=== PATIENT | female | born 1945 | race Caucasian/White ===

== ENCOUNTER → 2017-11-30 13:29 | Outpatient (CLI) | payer MEDICARE, SELFPAY ==
--- NOTE | 2017-11-30 | DI.MRI.S_ITS ---
PROCEDURE: MR HIP RT WO CON INDICATIONS: RIGHT HIP PAIN TECHNIQUE: Noncontrast coronal T1 spin echo and STIR through the bony pelvis. Coronal and axial T2 fast spin echo with fat saturation, sagittal T1 spin echo, and oblique axial T2 fast spin echo with fat saturation through the hip. COMPARISON: [facility], , PELVIS 1 OR 2 VIEWS, 12/11/2014, 12:26. FINDINGS: Image quality: Excellent. Bones and joints: Severe right hip joint degeneration with subchondral marrow edema and prominent cystic change/geode within the right acetabulum. There is extensive degenerative spurring and subchondral sclerosis. Small right hip joint effusion. No intraosseous lesions or fractures. No definite serpiginous signal change to suggest avascular necrosis of the femoral heads. Lower lumbar discogenic changes Tendons and ligaments: The gluteus medius and minimus tendons appear intact, without associated muscle atrophy. The nearby proximal iliotibial band also appears intact. The iliopsoas tendon appears intact, without adjacent bursal fluid collections or evidence for impingement syndrome. The origin of the hamstring tendon is intact at the ischial tuberosity, as well as the associated sacrotuberous ligament. The straight and reflected heads of the rectus femoris muscle origin appear intact, as well as the conjoint tendon. The ligamentum teres appears intact where visualized. Labrum and cartilage: There is ill-defined, circumferential intermediate intrasubstance signal change the labrum which is probably degenerative. No definite fluid signal intensity to suggest tear. There is a prominent anterior marginal spur at the femoral head neck junction image 8 series 8 however the alpha angle of the femur measures within normal limits at less than 55 degrees. Soft tissues: Visualized muscles demonstrate normal bulk and internal signal. Quadratus femoris muscle demonstrates no internal edema to suggest ischiofemoral impingement. The proximal sciatic neurovascular bundle appears normal adjacent to the hamstring tendons. No free pelvic fluid. Bladder wall thickness is normal. Genitourinary structures and bowel loops appear normal where visualized. IMPRESSION: Severe right hip joint degeneration with extensive subchondral marrow signal changes and cysts/geodes. Small right hip joint effusion. Circumferential labral irregularity presumably chronic/degenerative fraying. Dictated by: Forest Casey M.D. on 11/30/2017 at 14:51 Approved by: Forest Casey M.D. on 11/30/2017 at 15:02
== END ==
PROVIDERS: PCP Internal Medicine; Visit Provider Internal Medicine
DX: M25.551 Pain in right hip (principal); M16.11 Unilateral primary osteoarthritis, right hip; M25.451 Effusion, right hip
CPT/HCPCS: 73721

== ENCOUNTER → 2018-02-12 11:02 | Outpatient (CLI) | payer MEDICARE, SELFPAY ==
[2018-02-12 12:31] LABS: HEMOLYSIS < 15 (0-50); Iron 129 ug/dL (37-170)
[2018-02-12 12:34] LABS: Alanine Aminotransferase 26 IU/L (9-52); Albumin 4.7 g/dL (3.5-5.0); Albumin Globulin Ratio 1.4 (1.0-2.8); Alkaline Phosphatase 100 U/L (38-126); Aspartate Aminotransferase 27 IU/L (14-36); BUN Creatinine Ratio 22.9 (6-22); Bilirubin Total 0.4 mg/dL (0.2-1.3); Blood Urea Nitrogen 16 mg/dL (7-17); Calcium 9.8 mg/dL (8.4-10.2); Carbon Dioxide 25 mmol/L (22-32); Chloride 101 mmol/L (98-107); Estimated Glomerular Filt Rate > 60.0 mL/min (>60); Globulin 3.4 g/dL (1.7-4.1); Glucose 100 mg/dL (80-110); HEMOLYSIS 24 (0-50); Potassium 4.5 mmol/L (3.4-5.1); Sodium 139 mmol/L (137-145); Total Protein 8.1 g/dL (6.3-8.2)
[2018-02-12 12:42] LABS: Add Manual Diff / Slide Review NO; Basophils Percent Auto 0.4 % (0-2); Eosinophils Percent Auto 1.4 % (2-4); Hematocrit 41.6 % (36-46); Hemoglobin 14.1 g/dL (12.0-16.0); Lymphocytes Percent Auto 33.5 % (25-40); Mean Corpuscular HGB Conc 33.8 % (30-36); Mean Corpuscular Hemoglobin 30.7 PG (26-34); Mean Corpuscular Volume 90.8 fL (80-100); Monocytes Percent Auto 8.4 % (3-14); Neutrophils Absolute Auto 3400 /uL (3000-5900); Neutrophils Percent Auto 56.3 % (50-75); Percent Iron Saturation 50 % (15-50); Platelet Count 266 X10^3/uL (150-400); Red Blood Cell Count 4.58 X10^6/uL (4.0-5.2); Red Cell Distribution Width 13.5 % (11.6-14.8); Total Iron Binding Capacity 257 ug/dL (265-497); Transferrin 232 mg/dL (206-381); White Blood Cell Count 6.1 X10^3/uL (4.5-11.0)
[2018-02-12 13:03] LABS: Thyroid Stimulating Hormone 1.68 uIU/mL (0.47-4.68)
[2018-02-12 13:07] LABS: Ferritin 64.6 ng/mL (11.1-264)
[2018-02-13 16:21] LABS: Vitamin D 25 Hydroxy (D3) 39.2 ng/mL (30.0-100.0)
== END ==
PROVIDERS: PCP Internal Medicine; Visit Provider Dermatology
DX: Z08 Encounter for follow-up examination after completed treatment for malignant neoplasm (principal); Z85.828 Personal history of other malignant neoplasm of skin; L57.0 Actinic keratosis; X32.XXXA Exposure to sunlight, initial encounter; L65.9 Nonscarring hair loss, unspecified; D18.01 Hemangioma of skin and subcutaneous tissue; L82.1 Other seborrheic keratosis
CPT/HCPCS: 36415; 80053; 82306; 82728; 83540; 83550; 84439; 84443; 85025

== ENCOUNTER 2018-04-09 23:57 | Observation (INO) | payer MEDICARE, SELFPAY ==
[2018-04-10] VITALS (11 sets, daily range): BP systolic 129–187; BP diastolic 72–90; PULSE 62–80; RESP 14–20; TEMP 36.3–36.6; O2SAT 97–100; BMI 25.8; BMI 26.0
--- NOTE | 2018-04-10 | DI.MRI.S_ITS ---
PROCEDURE: MR STROKE Pre- and post-contrast brain MRI, non-contrast brain MR angiogram, pre- and postcontrast neck MR angiogram INDICATIONS: Sudden dizziness, left leg weakness, alt sensation L side TECHNIQUE: Brain: Noncontrast axial T1 spin echo, axial T2 fast spin echo, sagittal and axial FLAIR, coronal T2 fast spin echo, axial gradient echo, axial diffusion and ADC through the brain. After the administration of contrast, axial 3D VIBE of the cranial vasculature and brain. Brain MRA: Non-contrast 3-D time of flight MR angiogram, with multiple tvwhnig-pcrfgnvah-sxbhddeyct (MIP) reformats performed. Neck MRA: Axial and sagittal TruFISP through the neck. Coronal dynamic MR angiogram during administration of contrast in the arterial and venous phases, with 3-dimenstional fumexee-flwzbwavy-ochwaimcvg (MIP) reformats constructed from subtraction images. COMPARISON: [facility], CT, CT HEAD/BRAIN WO CON, 04/10/2018, 1:20. [facility], MR, STROKE PROTOCOL, 04/11/2017, 11:05. FINDINGS: Image quality: Excellent. BRAIN: CSF spaces: Ventricles are normal in size and shape. Basal cisterns are patent. No extra-axial fluid collections. Brain: No intracranial bleeds or mass effects. Sun-white matter interface is normal. Diffusion weighted images show no acute ischemic insults. Brainstem appears normal. Normal intravascular flow voids are present. No abnormal intracranial enhancement. Skull and face: Calvarial marrow signal is normal. Orbits appear normal. Note is made of bilateral lens replacements. Sinuses: Sinuses and mastoids are clear. BRAIN MR ANGIOGRAM: Anterior circulation: Intracranial internal carotid arteries are normal in size and enhancement. The flow within the paired anterior cerebral arteries is normal and symmetric. The flow within the middle cerebral arteries is normal and symmetric. The anterior communicating artery is not well seen. No stenoses, occlusions, or aneurysms. Posterior circulation: The visualized portions of the vertebral arteries demonstrate normal caliber, and join to form a normal appearing basilar artery. The flow within the posterior cerebral arteries is normal and symmetric. No stenoses, occlusions, or aneurysms. NECK MR ANGIOGRAM: Carotids: Great vessels demonstrate a conventional anatomy as they arise from the aortic arch. The origins of the common carotid arteries appear patent. The calibers and courses of both common carotid arteries are normal. The bifurcation regions appear normal bilaterally. The internal carotid arteries demonstrate normal course and caliber. Posterior circulation: The origins of the vertebral arteries appear patent. More superior portions of both vertebral arteries demonstrate normal course and caliber, and join to form a normal appearing basilar artery. Miscellaneous: Subclavian arteries appear patent. Pre-contrast images through the neck show no soft tissue abnormalities. IMPRESSION: BRAIN MRI: No findings of acute or subacute infarction can be seen. No masses or abnormal enhancement can be seen. Note is made of age-appropriate brain parenchymal volume loss and chronic small vessel ischemic changes. BRAIN MR ANGIOGRAM: No significant intracranial arterial abnormality can be seen. NECK MR ANGIOGRAM: No hemodynamically significant stenosis can be seen of the arteries of the neck. Dictated by: Duglas Theodore M.D. on 04/10/2018 at 10:56 Approved by: Duglas Theodore M.D. on 04/10/2018 at 10:59
--- NOTE | 2018-04-10 00:27 | DI.RAD.S_ITS ---
PROCEDURE: XR CHEST 1V INDICATIONS: dizziness TECHNIQUE: One view of the chest was acquired. COMPARISON: [facility], CT, CHEST/ABD/PEL WITH CONTRAST, 12/27/2012, 12:37. [facility], CR, XR CERVICAL SPINE WITH OBLIQUES, 01/16/2018, 13:05. [facility], CR, CHEST 1 VIEW, 04/11/2017, 1:48. FINDINGS: Surgical changes and devices: None. Lungs and pleura: There is a 1.7 x 2.3 cm nodular density is present in the right upper lobe medially. Lungs are clear. No pleural effusions or pneumothorax. Mediastinum: Mediastinal contours appear normal. Heart size is normal. Bones and chest wall: No suspicious bony lesions. Overlying soft tissues appear unremarkable. IMPRESSION: 1. No acute cardiopulmonary disease. 2. A 1.7 x 2.3 cm in the right upper lobe. Chest CT is suggested for followup evaluation. The result was discussed with Dr. Maldonado in ER on 04/10/2018 at 0946 hours. Dictated by: Thien Bright M.D. on 04/10/2018 at 9:28 Transcribed by: MANISHA on 04/10/2018 at 9:34 Approved by: Thien Bright M.D. on 04/10/2018 at 9:46
[2018-04-10 00:47] LABS: Add Manual Diff / Slide Review NO; Basophils Absolute Auto 100 /uL (0-100); Basophils Percent Auto 0.8 % (0-2); Eosinophils Absolute Auto 100 /uL (0-450); Eosinophils Percent Auto 2.4 % (2-4); Hematocrit 40.8 % (36-46); Hemoglobin 13.8 g/dL (12.0-16.0); Lymphocytes Absolute Auto 3100 /uL (1100-4500); Lymphocytes Percent Auto 49.7 % (25-40); Mean Corpuscular HGB Conc 33.9 % (30-36); Mean Corpuscular Hemoglobin 30.2 PG (26-34); Mean Corpuscular Volume 89.1 fL (80-100); Monocytes Absolute Auto 600 /uL (0-900); Monocytes Percent Auto 10.2 % (3-14); Neutrophils Absolute Auto 2300 /uL (1500-7000); Neutrophils Percent Auto 36.9 % (50-75); Platelet Count 267 X10^3/uL (150-400); Red Blood Cell Count 4.58 X10^6/uL (4.0-5.2); Red Cell Distribution Width 13.2 % (11.6-14.8); White Blood Cell Count 6.3 X10^3/uL (4.5-11.0)
[2018-04-10 00:54] LABS: Alanine Aminotransferase 24 IU/L (9-52); Albumin 4.6 g/dL (3.5-5.0); Albumin Globulin Ratio 1.4 (1.0-2.8); Alkaline Phosphatase 89 U/L (38-126); Aspartate Aminotransferase 26 IU/L (14-36); BUN Creatinine Ratio 18.6 (6-22); Bilirubin Total 0.6 mg/dL (0.2-1.3); Blood Urea Nitrogen 13 mg/dL (7-17); Calcium 9.6 mg/dL (8.4-10.2); Carbon Dioxide 24 mmol/L (22-32); Chloride 105 mmol/L (98-107); Creatine Kinase 70 U/L (30-135); Estimated Glomerular Filt Rate > 60.0 mL/min (>60); Globulin 3.2 g/dL (1.7-4.1); Glucose 97 mg/dL (80-110); HEMOLYSIS < 15 (0-50); Lipase 123 U/L (23-300); Potassium 3.7 mmol/L (3.4-5.1); Sodium 139 mmol/L (137-145); Total Protein 7.8 g/dL (6.3-8.2)
[2018-04-10 01:07] LABS: Troponin I < 0.012 ng/mL (0.01-0.034)
--- NOTE | 2018-04-10 01:23 | DI.CT.S_ITS ---
PROCEDURE: CT HEAD/BRAIN WO CON INDICATIONS: dizzy, Left leg weakness, stroke eval, outside TPA window TECHNIQUE: Noncontrast 4.5 mm thick angled axial sections acquired from the foramen magnum to the vertex, with coronal and sagittal reformats. For radiation dose reduction, the following was used: automated exposure control, adjustment of mA and/or kV according to patient size. COMPARISON: [facility], CT, HEAD WITHOUT CONTRAST, 04/11/2017, 2:02. FINDINGS: Image quality: Excellent. CSF spaces: Basal cisterns are patent. No extra-axial fluid collections. The ventricles are symmetric in size and shape. Brain: No intracranial bleeds or masses. There is mild cerebral volume loss for age, with resultant ventricular and sulcal prominence. There are mild periventricular and deep white matter chronic small vessel ischemic changes. There is intracranial internal carotid artery atherosclerosis. Skull and face: Calvarium and visualized facial bones appear intact, without suspicious lesions. Sinuses: Visualized sinuses and mastoids are clear. IMPRESSION: 1. No acute intracranial abnormalities. 2. Cerebral volume loss and chronic microvascular ischemic changes. No significant discrepancy with the material handler 1st shift radiology preliminary report. Dictated by: Thien Bright M.D. on 04/10/2018 at 7:30 Approved by: Thien Bright M.D. on 04/10/2018 at 7:31
--- NOTE | 2018-04-10 01:54 | ED.DIZZY ---
HPI - Dizziness General Chief Complaint: Dizziness Stated Complaint: DIZZINESS SINCE 3 PM Time Seen by Provider: 04/10/18 00:03 Source: patient and family Mode of arrival: wheelchair Limitations: no limitations History of Present Illness HPI Narrative: [age] year female, former smoker with history ovarian cancer presents to the emergency department with a chief complaint of dizziness which started at 3:00 p.m.. She states it has been going on off and on since then she denies any significant provocation palliation. She does state that her left leg felt like it was collapsing under her as well. She denies any vision or speech deficit. She does state that she has had episodes like this in the past but has never sought medical treatment. She denies any recent illness or injuries. She denies fever or chills. She has had no chest pain or shortness of breath. She denies nausea, vomiting or diarrhea MD complaint: dizziness and difficulty walking Onset (ago): hour(s) Timing: sudden onset Description: lightheadedness, off-balance and difficulty walking History of similar episodes: Yes History of trauma: No Severity: moderate Relieving factors: nothing Exacerbating factors: nothing Associated symptoms: denies other symptoms Related Data Allergies Allergy/AdvReac Type Severity Reaction Status Date / Time INGREDIENT: NKDA - NO KNOWN Allergy Unknown Uncoded 06/21/17 11:51 DRUG ALLERGIES Review of Systems Constitutional Denies chills, Denies fever(s), Denies lethargy and Reports weakness Eyes Denies change in vision, Denies eye discharge, Denies irritation and Denies loss of vision ENT Ears, Nose, Mouth, and Throat: Denies change in voice, Reports dizziness, Denies neck pain, Reports disequilibrium and Denies sore throat Cardiovascular Denies chest pain, Denies irregular heart rhythm, Denies lightheadedness, Denies palpitations, Denies dyspnea, Denies dyspnea on exertion and Denies orthopnea Respiratory Denies cough, Denies dyspnea, Denies dyspnea on exertion and Denies wheezing Gastrointestinal Gastrointestinal: Denies abdominal pain, Denies change in bowel habits, Denies diarrhea, Denies nausea and Denies vomiting Genitourinary Denies hematuria, Denies flank pain, Denies urinary incontinence and Denies urinary urgency Musculoskeletal Denies neck pain Integumentary/Breasts Denies pruritus, Denies erythema, Denies rash and Denies wounds Neurologic Denies confusion, Reports dizziness, Denies loss of vision, Reports disequilibrium and Reports weakness Psychiatric Denies anxiety, Denies confusion, Denies depression, Denies homicidal ideation and Denies suicidal ideation Endocrine Denies palpitations Hematologic/Lymphatic Denies easy bruising Allergic/Immunologic Denies wheezing [facility] Social History Smoking Status: Never smoker Exam Narrative Exam Narrative: 72-year-old female, appears a bit anxious Initial Vital Signs Initial Vital Signs: Vital Signs Temperature 97.9 F 04/10/18 00:16 Pulse Rate 80 04/10/18 00:16 Respiratory Rate 17 04/10/18 00:16 Blood Pressure 187/90 H 04/10/18 00:16 Pulse Oximetry 98 04/10/18 00:16 Const General: cooperative, well developed, in distress and anxious Nutritional Appearance: well nourished Orientation: alert, awake, oriented x3 and not confused HENMT Head: normocephalic and atraumatic Ears: external ears normal and TM's normal bilaterally Nose: external nose normal and No nasal discharge Face and sinus: sinuses nontender, no sinus tenderness and No dry mucous membranes Teeth and gingiva: dentition normal Throat: tonsils normal and uvula midline Eyes General: appearance normal, both eyes and all related structures Eyelids: eyelids normal Conjunctivae: conjunctivae normal Sclera: sclerae normal Pupils: PERRL EOM: EOM intact bilaterally Neck Neck: normal visual inspection, trachea midline, No lymphadenopathy, No midline deformity and No JVD Lymphatic: No lymphedema Chest Chest: normal inspection of the chest Resp Effort & Inspection: normal respiratory effort, able to speak in complete sentences, no respiratory distress and no use of accessory muscles Auscultation: clear to auscultation bilaterally, no rales, no rhonchi and no wheezes Cardio Rate: regular rate Rhythm: regular rhythm Heart Sounds: no click, no gallops, no murmurs and no rubs Pulses: normal peripheral pulses GI Inspection: non-distended Palpation: soft, no hepatosplenomegaly, No guarding, No pulsatile mass and No tender Auscultation: normal bowel sounds Back/Spine/Pelvis Back: No CVA tenderness Cervical Spine: cervical ROM normal and No pain with cervical ROM Thoracic/Lumbar Spine: thoracic and lumbar spine normal to inspection Skin General: no rashes or lesions noted, No jaundice and No petechiae Neuro General: alert, oriented x3, gait normal and no focal motor deficits Speech: speech normal Extrem General: full ROM, no clubbing, cyanosis or edema, no pedal edema and no calf tenderness Psych Appearance: well kempt Mental Status: mental status grossly normal Attitude: cooperative Thought Content: normal and suicidality Judgment: judgment good Scores ABCD2 Age >= 60 years: yes Initial BP. Either SBP >= 140 or DBP >= 90.: yes Clinical features of the TIA: unilateral weakness Duration of symptoms: >= 60 minutes History of diabetes: no ABCD2 Score: 6 NIH Stroke Scale Level of Conciousness: Alert, keenly responsive Ask month/age: Answers both questions correctly. Open/close eyes, close hand: Performs both tasks correctly Best gaze horizontal: Normal Visual melo: No visual loss Facial palsy: Normal symetrical movement Left arm drift: No drift for full 10 sec Right arm drift: No drift for full 10 sec Left leg drift: No drift for full 10 sec Right leg drift: No drift for full 10 sec Limb ataxia: Absent Sensory on face/arms/legs: Normal, no sensory loss Best language: No aphasia, normal Dysarthria: Normal Extinction or inattention: No abnormality Total NIH Stroke scale score: 0 Course Orders Ordered: ED Orders 04/10/18 EKG-12 Lead Routine 04/10/18 00:27 XR chest 1V Stat 04/10/18 00:35 Complete Blood Count AUTO DIFF Stat Comprehensive Metabolic Panel Stat Lipase Stat Troponin & CK Cardiac Panel Stat 04/10/18 01:23 CT head/brain wo con Stat Sodium Chloride (Normal Saline 0.9%) 1,000 mls @ 150 mls/hr IV CONT SARAN Last Admin: 04/10/18 02:45 Dose: Not Given Discontinued Medications Aspirin (Aspirin Chew) 324 mg PO NOW ONE Stop: 04/10/18 02:32 Last Admin: 04/10/18 02:45 Dose: 324 mg Consultations Consultation #1: discussed with hospitalist whom is happy to accept on his service Vital Signs - 8 hr 04/10/18 00:16 04/10/18 00:41 04/10/18 01:02 Temperature 97.9 F Pulse Rate 80 68 75 Respiratory Rate 17 20 16 Blood Pressure 187/90 H Blood Pressure [Left Arm] 171/86 H 180/86 H Pulse Oximetry 98 98 99 04/10/18 02:09 04/10/18 02:49 04/10/18 03:06 Temperature Pulse Rate 64 70 71 Respiratory Rate 14 16 16 Blood Pressure 166/82 H Blood Pressure [Left Arm] 151/78 H Pulse Oximetry 98 97 99 MDM - Dizziness Differential Diagnosis Likely benign paroxysmal positional vertigo, orthostatic hypotension, vertebral basilar insufficiency, cerebrovascular accident and acute vestibular neuronitis Medical Records Attestation: I reviewed the patient's medical records. Lab Data Attestation: I reviewed the patient's lab results. Result diagrams: 04/10/18 00:35 04/10/18 00:35 Lab Results 04/10/18 04/10/18 Range/Units 00:35 00:35 WBC 6.3 (4.5-11.0) X10^3/uL RBC 4.58 (4.0-5.2) X10^6/uL Hgb 13.8 (12.0-16.0) g/dL Hct 40.8 (36-46) % MCV 89.1 (80-100) fL MCH 30.2 (26-34) PG MCHC 33.9 (30-36) % RDW 13.2 (11.6-14.8) % Plt Count 267 (150-400) X10^3/uL Neut % (Auto) 36.9 L (50-75) % Lymph % (Auto) 49.7 H (25-40) % [place] % (Auto) 10.2 (3-14) % Eos % (Auto) 2.4 (2-4) % Baso % (Auto) 0.8 (0-2) % Neut # (Auto) 2300 (2327-9735) /uL Lymph # (Auto) 3100 (7873-2219) /uL [place] # (Auto) 600 (0-900) /uL Eos # (Auto) 100 (0-450) /uL Baso # (Auto) 100 (0-100) /uL Sodium 139 (137-145) mmol/L Potassium 3.7 (3.4-5.1) mmol/L Chloride 105 (98-107) mmol/L Carbon Dioxide 24 (22-32) mmol/L BUN 13 (7-17) mg/dL Creatinine 0.70 (0.52-1.04) mg/dL Estimated GFR > 60.0 (>60) mL/min BUN/Creatinine Ratio 18.6 (6-22) Glucose 97 (80-110) mg/dL Calcium 9.6 (8.4-10.2) mg/dL Total Bilirubin 0.6 (0.2-1.3) mg/dL AST 26 (14-36) IU/L ALT 24 (9-52) IU/L Alkaline Phosphatase 89 (38-126) U/L Total Creatine Kinase 70 (30-135) U/L CK-MB (CK-2) TNP CK-MB (CK-2) Rel Index TNP Troponin I < 0.012 (0.01-0.034) ng/mL Total Protein 7.8 (6.3-8.2) g/dL Albumin 4.6 (3.5-5.0) g/dL Globulin 3.2 (1.7-4.1) g/dL Albumin/Globulin Ratio 1.4 (1.0-2.8) Lipase 123 (23-300) U/L Imaging Data CT scan - head: Radiologist's impression: NAP ECG Data Attestation: I personally reviewed and interpreted this ECG as follows: Discharge Plan Departure Patient Disposition: Admitted as Observation Clinical Impression: TIA (transient ischemic attack) Interventions: ED Discharge Assessment Last Done: 04/10/18 03:06 Admit Date/Time: 04/10/18 02:55 Admit Provider: Abdifatah Santamaria
[2018-04-10] MEDS: ASPIRIN 81 MG TAB 324 MG PO (02:45)
--- NOTE | 2018-04-10 03:31 | PM.HP.1 ---
History of Present Illness Date Patient Seen: 04/10/18 Time Patient Seen: 03:02 Chief complaint: DIZZINESS SINCE 3 PM Narrative: This patient is a 72-year-old female with a past history of ovarian cancer, former smoker and elevated blood pressure presents to the ER today with a sudden onset of dizziness approximately 3:00 p.m. yesterday. The patient states she was getting to file papers at home when she experienced a sudden onset of dizziness and when she tried to walk felt wobbly. She was experiencing altered sensation on the left side of body feeling strange with left leg weakness. Patient also describes headache tonight but denies visual changes, no difficulty speaking or swallowing, no chest pain, shortness of breath. The patient reports having previous episodes of transient dizziness for over a year that last for only seconds with no associated symptoms. The patient The patient earlier in the day had worked out at the gym with her customer service trainer and is otherwise had no other recent health concerns. The patient had a varying cancer and underwent chemotherapy at [facility] many years ago and reports having nausea ever since. She has also been a former smoker having quit in 1989 for having smoked 1 pack day for 20 years. She also has a significant family history for cardiovascular disease but no family history of stroke. In the ER the patient received aspirin, had a chest x-ray that was unremarkable, a CT of the head noncontrast that was negative for bleed or lesion. The patient's blood pressure is elevated in the ED pressures in the 160s to 170s and the patient reports typically she runs 126/80 at her doctor's office. During the stay in the ER the patient states she feels her symptoms are resolving but states that her left side continues to feel strange. Patient History Medical History Abdominal adhesions (Acute) Elevated blood pressure reading without diagnosis of hypertension (Acute) Ovarian cancer (Acute) Seasonal allergies (Acute) Surgical History History of cataract surgery (Acute) History of laparotomy (Acute) Status post chemotherapy (Acute) Family & Social History Family History: Reviewed 04/10/18 by Josue Bran DO Tobacco & Substance use: Smoking Status Never smoker alcohol intake frequency 0-2 drinks per day Substance Use Type marijuana Comment: The patient is single and lives with her significant other since 1993. They live in a single family single level house with basement. Both her parents are , her mother had congestive failure past weight age 93, her father of old age at age 96. She has 1 brother who she has lost contact with and does not know his medical background. She reports multiple family members including her grandfather on her mother's side and cousins who have cardiovascular disease. Smoking: Past smoker quit in 1993 after smoking 1 pack per day for 20 years Alcohol: Light to moderate consumption Drug use: No recreational pharmaceuticals but endorses cannabis use Advanced directives: Patient states she wishes to be do not resuscitate. Primary care provider: Dr. Rolo Clayton Allergies Allergy/AdvReac Type Severity Reaction Status Date / Time INGREDIENT: NKDA - NO KNOWN Allergy Unknown Uncoded 06/21/17 11:51 DRUG ALLERGIES Review of Systems Review of Systems Constitutional: Denies fevers, chills, sweats, fatigue, good appetite with stable weight Eyes: Positive for cataract surgery, Denies visual changes, visual field loss, denies floaters, diplopia ENT: Positive for headache, history of transient left neck and jaw pain, Denies hearing changes, ear pain, no nasal congestion, rhinorrhea, no dysphagia, sore throat or dentalgia, Respiratory: Denies SOB, cough, exertional dyspnea, wheezing Cardiovascular: Denies chest pain, palpitations, orthostatasis, syncope, edema Gastrointestinal: Prior history of ovarian cancer, intra-abdominal chemotherapy, laparotomy for lysis of adhesions, Denies abdominal pain, no reflux or bloating, constipation or diarrhea, denies blood in stool. Genitourinary: Positive for frequency, denies vaginal discharge, no complains of burning or urgency, hematuria on voiding Musculoskeletal: Positive for history of osteoarthritis, right hip pain, left shoulder pain, right hand pain, weakness left leg, denies falls, limited movement, cramps, edema, myalgia or joint swelling. Integumentary: denies skin lesions, masses, rashes, hives, itching or hair loss Neurological: Positive for dizziness, altered sensation left side, left leg weakness, denies confusion, speech difficulties or seizures Psychiatric: denies disturbances in thought, attentions or mood, denies substance abuse Endocrine: denies excessive thirst, goiter, lethargy, abnormal sweating, and heat/cold intolerance. Heme/lymph: Denies lymphadenopathy, abnormal bleeding or bruising Exam Vital Signs (past 8 hours): - 04/10/18 00:16 04/10/18 00:41 04/10/18 01:02 Temperature 97.9 F Pulse Rate 80 68 75 Respiratory Rate 17 20 16 Blood Pressure 187/90 H Blood Pressure [Left Arm] 171/86 H 180/86 H Pulse Oximetry 98 98 99 04/10/18 02:09 04/10/18 02:49 04/10/18 03:06 Temperature Pulse Rate 64 70 71 Respiratory Rate 14 16 16 Blood Pressure 166/82 H Blood Pressure [Left Arm] 151/78 H Pulse Oximetry 98 97 99 Oxygen Delivery Method Room Air Narrative Exam Narrative: General: Well developed, well nourished, in no acute distress. Skin: Warm, dry, pink, no rashes, no visible lesions HEENT: Normocephalic, PERRLA, EOMs intact without nystagmus, conjunctiva moist, sclera is anicteric, visual melo intact by confrontation, no ear pain, hearing grossly normal, no sinus tenderness to percussion, no rhinorrhea, speech is clear, oropharynx is moist and pink without lesions or exudate, uvula midline, posterior pharynx without inflammation, no cervical lymphadenopathy Neck: Supple, tenderness on palpation over the left trapezius into the left scapula, no palpable muscle spasms, no masses, thyroid non tender without thyromegaly or nodules, trachea midline, no carotid bruits or JVD, no supraclavicular lymphadenopathy Cardiac: Regular rate and rhythm, S1-S2, no murmur, no gallops or rubs, 2+ radial pulse, 1+ posterior tibial pulse, capillary refill is brisk, no edema Chest: Symmetrical movement, breathing non labored, nontender to AP and lateral compression, no cough present, BS equal bilateral without coarseness, crackles or wheezes Abdomen: Soft, no tenderness or guarding, no masses or organomegaly, no peritoneal signs, no flank or suprapubic pain, BS normal. Back: Normal curvature, no tenderness to palpation, no CVA tenderness on percussion Extremities: Intact ROM, no synovial effusions or deformities, strength 5/5 and symmetrical Neuro: AAOx4, cranial nerves II-XII grossly intact, no pronator drift, dorsi-plantar strength is 5/5 and symmetrical, aircraft ordnance systems mechanic equal, distal sensation intact to light touch Psych: pleasant, thought coherent, stable mood and congruent affect Objective Labs Result Diagrams: 04/10/18 00:35 04/10/18 00:35 Labs: Laboratory Results - last 24 hr 04/10/18 04/10/18 00:35 00:35 WBC 6.3 RBC 4.58 Hgb 13.8 Hct 40.8 MCV 89.1 MCH 30.2 MCHC 33.9 RDW 13.2 Plt Count 267 Neut % (Auto) 36.9 L Lymph % (Auto) 49.7 H [place] % (Auto) 10.2 Eos % (Auto) 2.4 Baso % (Auto) 0.8 Neut # (Auto) 2300 Lymph # (Auto) 3100 [place] # (Auto) 600 Eos # (Auto) 100 Baso # (Auto) 100 Sodium 139 Potassium 3.7 Chloride 105 Carbon Dioxide 24 BUN 13 Creatinine 0.70 Estimated GFR > 60.0 BUN/Creatinine Ratio 18.6 Glucose 97 Calcium 9.6 Total Bilirubin 0.6 AST 26 ALT 24 Alkaline Phosphatase 89 Total Creatine Kinase 70 CK-MB (CK-2) TNP CK-MB (CK-2) Rel Index TNP Troponin I < 0.012 Total Protein 7.8 Albumin 4.6 Globulin 3.2 Albumin/Globulin Ratio 1.4 Lipase 123 Assessment & Plan Plan: Assessment/Plan Narrative: 1. Possible transitory ischemic attack, present on admission, acute -sudden acute nerve on senna symptoms presently resolving -patient with prior history of transitory dizziness lasting seconds for the last year -no dizziness, tactile sensory changes reported on examination -NIH evaluation score is 0, ABCD2 score is 4 -patient received aspirin in the emergency department continue aspirin 81 mg daily -will obtain a lipid panel -will obtain an MRI. Stroke protocol to include carotid arteries 2. Elevated blood pressure without diagnosis of hypertension, present on admission, acute -note a previous history of hypertension, on no antihypertensives -IV saline locked -will monitor blood pressure 3. Neck and jaw pain present on admission, acute -tenderness on palpation to the left neck and trapezius radiating into the upper back -pain appears musculoskeletal and has been intermittent prior to yesterday's onset dizziness -no complaints of chest pain for conditional dyspnea 4. Past history of ovarian cancer not present on admission, remission -treated with no evidence of recurrence, followed by Oncology 5. History of smoking, resolved -patient quit smoking in 1993 with a 20 pack year smoking history -no complaints shortness of breath or cough The patient will be admitted for observation will obtain MRI stroke protocol in the morning and monitor blood pressure for normalization. Scores GCS [place] coma scale eye opening: Spontaneous [place] coma scale verbal response: Orientated [place] coma scale motor response: Obey commands [place] coma scale total score: 15 ABCD2 Age >= 60 years: yes Initial BP. Either SBP >= 140 or DBP >= 90.: yes Clinical features of the TIA: other symptoms (Dizziness) Duration of symptoms: >= 60 minutes History of diabetes: no ABCD2 Score: 4 NIHSS Level of Conciousness: Alert, keenly responsive Ask month/age: Answers both questions correctly. Open/close eyes, close hand: Performs both tasks correctly Best gaze horizontal: Normal Visual melo: No visual loss Facial palsy: Normal symetrical movement Left arm drift: No drift for full 10 sec Right arm drift: No drift for full 10 sec Left leg drift: No drift for full 10 sec Right leg drift: No drift for full 10 sec Limb ataxia: Absent Sensory on face/arms/legs: Normal, no sensory loss Best language: No aphasia, normal Dysarthria: Normal Extinction or inattention: No abnormality Total NIH Stroke scale score: 0
--- NOTE | 2018-04-10 04:10 | P.HP_ITS ---
History of Present Illness Date Patient Seen: 04/10/18 Time Patient Seen: 03:02 Chief complaint: DIZZINESS SINCE 3 PM Narrative: This patient is a 72-year-old female with a past history of ovarian cancer, former smoker and elevated blood pressure presents to the ER today with a sudden onset of dizziness approximately 3:00 p.m. yesterday. The patient states she was getting to file papers at home when she experienced a sudden onset of dizziness and when she tried to walk felt wobbly. She was experiencing altered sensation on the left side of body feeling strange with left leg weakness. Patient also describes headache tonight but denies visual changes, no difficulty speaking or swallowing, no chest pain, shortness of breath. The patient reports having previous episodes of transient dizziness for over a year that last for only seconds with no associated symptoms. The patient The patient earlier in the day had worked out at the gym with her hardware trainer and is otherwise had no other recent health concerns. The patient had a varying cancer and underwent chemotherapy at [facility] many years ago and reports having nausea ever since. She has also been a former smoker having quit in 1989 for having smoked 1 pack day for 20 years. She also has a significant family history for cardiovascular disease but no family history of stroke. In the ER the patient received aspirin, had a chest x-ray that was unremarkable, a CT of the head noncontrast that was negative for bleed or lesion. The patient's blood pressure is elevated in the ED pressures in the 160s to 170s and the patient reports typically she runs 126/80 at her doctor's office. During the stay in the ER the patient states she feels her symptoms are resolving but states that her left side continues to feel strange. Patient History Medical History Abdominal adhesions (Acute) Elevated blood pressure reading without diagnosis of hypertension (Acute) Ovarian cancer (Acute) Seasonal allergies (Acute) Surgical History History of cataract surgery (Acute) History of laparotomy (Acute) Status post chemotherapy (Acute) Family & Social History Family History: Reviewed 04/10/18 by Josue Bran DO Tobacco & Substance use: Smoking Status Never smoker alcohol intake frequency 0-2 drinks per day Substance Use Type marijuana Comment: The patient is single and lives with her significant other since 1993. They live in a single family single level house with basement. Both her parents are , her mother had congestive failure past weight age 93, her father of old age at age 96. She has 1 brother who she has lost contact with and does not know his medical background. She reports multiple family members including her grandfather on her mother's side and cousins who have cardiovascular disease. Smoking: Past smoker quit in 1993 after smoking 1 pack per day for 20 years Alcohol: Light to moderate consumption Drug use: No recreational pharmaceuticals but endorses cannabis use Advanced directives: Patient states she wishes to be do not resuscitate. Primary care provider: Dr. Rolo Clayton Allergies Allergy/AdvReac Type Severity Reaction Status Date / Time INGREDIENT: NKDA - NO KNOWN Allergy Unknown Uncoded 06/21/17 11:51 DRUG ALLERGIES Review of Systems Review of Systems Constitutional: Denies fevers, chills, sweats, fatigue, good appetite with stable weight Eyes: Positive for cataract surgery, Denies visual changes, visual field loss, denies floaters, diplopia ENT: Positive for headache, history of transient left neck and jaw pain, Denies hearing changes, ear pain, no nasal congestion, rhinorrhea, no dysphagia , sore throat or dentalgia, Respiratory: Denies SOB, cough, exertional dyspnea, wheezing Cardiovascular: Denies chest pain, palpitations, orthostatasis, syncope, edema Gastrointestinal: Prior history of ovarian cancer, intra-abdominal chemotherapy , laparotomy for lysis of adhesions, Denies abdominal pain, no reflux or bloating, constipation or diarrhea, denies blood in stool. Genitourinary: Positive for frequency, denies vaginal discharge, no complains of burning or urgency, hematuria on voiding Musculoskeletal: Positive for history of osteoarthritis, right hip pain, left shoulder pain, right hand pain, weakness left leg, denies falls, limited movement, cramps, edema, myalgia or joint swelling. Integumentary: denies skin lesions, masses, rashes, hives, itching or hair loss Neurological: Positive for dizziness, altered sensation left side, left leg weakness, denies confusion, speech difficulties or seizures Psychiatric: denies disturbances in thought, attentions or mood, denies substance abuse Endocrine: denies excessive thirst, goiter, lethargy, abnormal sweating, and heat/cold intolerance. Heme/lymph: Denies lymphadenopathy, abnormal bleeding or bruising Exam Vital Signs (past 8 hours): - 04/10/18 00:16 04/10/18 00:41 04/10/18 01:02 Temperature 97.9 F Pulse Rate 80 68 75 Respiratory Rate 17 20 16 Blood Pressure 187/90 H Blood Pressure [Left Arm] 171/86 H 180/86 H Pulse Oximetry 98 98 99 04/10/18 02:09 04/10/18 02:49 04/10/18 03:06 Temperature Pulse Rate 64 70 71 Respiratory Rate 14 16 16 Blood Pressure 166/82 H Blood Pressure [Left Arm] 151/78 H Pulse Oximetry 98 97 99 Oxygen Delivery Method Room Air Narrative Exam Narrative: General: Well developed, well nourished, in no acute distress. Skin: Warm, dry, pink, no rashes, no visible lesions HEENT: Normocephalic, PERRLA, EOMs intact without nystagmus, conjunctiva moist, sclera is anicteric, visual melo intact by confrontation, no ear pain, hearing grossly normal, no sinus tenderness to percussion, no rhinorrhea, speech is clear, oropharynx is moist and pink without lesions or exudate, uvula midline, posterior pharynx without inflammation, no cervical lymphadenopathy Neck: Supple, tenderness on palpation over the left trapezius into the left scapula, no palpable muscle spasms, no masses, thyroid non tender without thyromegaly or nodules, trachea midline, no carotid bruits or JVD, no supraclavicular lymphadenopathy Cardiac: Regular rate and rhythm, S1-S2, no murmur, no gallops or rubs, 2+ radial pulse, 1+ posterior tibial pulse, capillary refill is brisk, no edema Chest: Symmetrical movement, breathing non labored, nontender to AP and lateral compression, no cough present, BS equal bilateral without coarseness, crackles or wheezes Abdomen: Soft, no tenderness or guarding, no masses or organomegaly, no peritoneal signs, no flank or suprapubic pain, BS normal. Back: Normal curvature, no tenderness to palpation, no CVA tenderness on percussion Extremities: Intact ROM, no synovial effusions or deformities, strength 5/5 and symmetrical Neuro: AAOx4, cranial nerves II-XII grossly intact, no pronator drift, dorsi- plantar strength is 5/5 and symmetrical, marble machine tender equal, distal sensation intact to light touch Psych: pleasant, thought coherent, stable mood and congruent affect Objective Labs Result Diagrams: 04/10/18 00:35 04/10/18 00:35 Labs: Laboratory Results - last 24 hr 04/10/18 04/10/18 00:35 00:35 WBC 6.3 RBC 4.58 Hgb 13.8 Hct 40.8 MCV 89.1 MCH 30.2 MCHC 33.9 RDW 13.2 Plt Count 267 Neut % (Auto) 36.9 L Lymph % (Auto) 49.7 H [place] % (Auto) 10.2 Eos % (Auto) 2.4 Baso % (Auto) 0.8 Neut # (Auto) 2300 Lymph # (Auto) 3100 [place] # (Auto) 600 Eos # (Auto) 100 Baso # (Auto) 100 Sodium 139 Potassium 3.7 Chloride 105 Carbon Dioxide 24 BUN 13 Creatinine 0.70 Estimated GFR > 60.0 BUN/Creatinine Ratio 18.6 Glucose 97 Calcium 9.6 Total Bilirubin 0.6 AST 26 ALT 24 Alkaline Phosphatase 89 Total Creatine Kinase 70 CK-MB (CK-2) TNP CK-MB (CK-2) Rel Index TNP Troponin I < 0.012 Total Protein 7.8 Albumin 4.6 Globulin 3.2 Albumin/Globulin Ratio 1.4 Lipase 123 Assessment & Plan Plan: Assessment/Plan Narrative: 1. Possible transitory ischemic attack, present on admission, acute -sudden acute nerve on senna symptoms presently resolving -patient with prior history of transitory dizziness lasting seconds for the last year -no dizziness, tactile sensory changes reported on examination -NIH evaluation score is 0, ABCD2 score is 4 -patient received aspirin in the emergency department continue aspirin 81 mg daily -will obtain a lipid panel -will obtain an MRI. Stroke protocol to include carotid arteries 2. Elevated blood pressure without diagnosis of hypertension, present on admission, acute -note a previous history of hypertension, on no antihypertensives -IV saline locked -will monitor blood pressure 3. Neck and jaw pain present on admission, acute -tenderness on palpation to the left neck and trapezius radiating into the upper back -pain appears musculoskeletal and has been intermittent prior to yesterday's onset dizziness -no complaints of chest pain for conditional dyspnea 4. Past history of ovarian cancer not present on admission, remission -treated with no evidence of recurrence, followed by Oncology 5. History of smoking, resolved -patient quit smoking in 1993 with a 20 pack year smoking history -no complaints shortness of breath or cough The patient will be admitted for observation will obtain MRI stroke protocol in the morning and monitor blood pressure for normalization. Scores GCS [place] coma scale eye opening: Spontaneous [place] coma scale verbal response: Orientated [place] coma scale motor response: Obey commands [place] coma scale total score: 15 ABCD2 Age >= 60 years: yes Initial BP. Either SBP >= 140 or DBP >= 90.: yes Clinical features of the TIA: other symptoms (Dizziness) Duration of symptoms: >= 60 minutes History of diabetes: no ABCD2 Score: 4 NIHSS Level of Conciousness: Alert, keenly responsive Ask month/age: Answers both questions correctly. Open/close eyes, close hand: Performs both tasks correctly Best gaze horizontal: Normal Visual melo: No visual loss Facial palsy: Normal symetrical movement Left arm drift: No drift for full 10 sec Right arm drift: No drift for full 10 sec Left leg drift: No drift for full 10 sec Right leg drift: No drift for full 10 sec Limb ataxia: Absent Sensory on face/arms/legs: Normal, no sensory loss Best language: No aphasia, normal Dysarthria: Normal Extinction or inattention: No abnormality Total NIH Stroke scale score: 0
[2018-04-10] MEDS: ACETAMINOPHEN 325 MG TABLET 650 MG PO (04:12)
[2018-04-10 05:47] LABS: Add Manual Diff / Slide Review NO; Basophils Absolute Auto 0 /uL (0-100); Basophils Percent Auto 0.5 % (0-2); Eosinophils Absolute Auto 100 /uL (0-450); Eosinophils Percent Auto 2.4 % (2-4); Hematocrit 39.8 % (36-46); Hemoglobin 13.5 g/dL (12.0-16.0); Lymphocytes Absolute Auto 2800 /uL (1100-4500); Lymphocytes Percent Auto 48.3 % (25-40); Mean Corpuscular HGB Conc 33.9 % (30-36); Mean Corpuscular Hemoglobin 30.6 PG (26-34); Mean Corpuscular Volume 90.1 fL (80-100); Monocytes Absolute Auto 600 /uL (0-900); Monocytes Percent Auto 9.8 % (3-14); Neutrophils Absolute Auto 2300 /uL (1500-7000); Platelet Count 243 X10^3/uL (150-400); Red Blood Cell Count 4.42 X10^6/uL (4.0-5.2); Red Cell Distribution Width 13.4 % (11.6-14.8); White Blood Cell Count 5.9 X10^3/uL (4.5-11.0)
[2018-04-10 05:51] LABS: BUN Creatinine Ratio 17.1 (6-22); Blood Urea Nitrogen 12 mg/dL (7-17); Calcium 9.3 mg/dL (8.4-10.2); Carbon Dioxide 23 mmol/L (22-32); Chloride 107 mmol/L (98-107); Cholesterol 171 mg/dL (140-199); Estimated Glomerular Filt Rate > 60.0 mL/min (>60); Glucose 94 mg/dL (80-110); HDL Cholesterol 81 mg/dL (40-60); HEMOLYSIS < 15 (0-50); LDL Cholesterol Calculated 75 mg/dL (<100); Potassium 3.7 mmol/L (3.4-5.1); Sodium 140 mmol/L (137-145); Triglycerides 74 mg/dL (35-150)
[2018-04-10 05:54] LABS: Prothrombin Time 11.6 SECONDS (10.1-12.7)
[2018-04-10 05:57] LABS: PTT Partial Thromboplastin Tim 32 SECONDS (26.4-36.2)
--- NOTE | 2018-04-10 06:35 | PC.NURSE ---
NOC Shift admit note: Pt admitted from ED for dizziness, weakness that has persisted all afternoon yesterday until tonight, has not had LOC or a fall. Also complained of feeling weakness in left leg. CT scan negative, labs WNL. Pt AAOx3, ambulating independently in room to the bathroom w/o evidence of weakness, dizziness. VSS, with hypertension pt states she does not normally have high BP. Denies vision disturbances, no headache. Has tightness between shoulders, neck pain 2/10. Tylenol given and heat placed for comfort. Discussed with pt high risk for falls, pt will call for help the first few times to the bathroom. Will have MRI in AM.
--- NOTE | 2018-04-10 08:46 | CM.DANOTE ---
DCP: Case received, EMR reviewed and met with patient. Introduced self and role. DCP template completed with information currently available. Patient is a 72 year old female who admitted early this morning to the care of the hospitalist team. PCP: Dr. Seth. Payer: Medicare/[facility]. Patient came to hospital via family vehicle due to complaints of severe dizziness. Patient stated, she has had some light headedness before, but nothing like this. Patient also was noted to have an increased BP in the 170s, systolic. She stated, her normal blood pressure is in the 120s. Patient is a former smoker. At this time, patient carries diagnosis of TIA, but she will be having an MRI today. She is OBS status. Met with patient in her room, pleasant, alert and oriented. Lives here in [place] with her life partner/significant, Vamsi. She is independent, does not use a walker or cane, and drives. She stated, she is now feeling better, when she got up, she wasn't feeling dizzy. P: DCP to continue to follow. She will be having MRI today. Could go home possibly today, will depend upon testing, so, to be determined. Latosha Campos RN/Senior Biostatistician/Group Leader
--- NOTE | 2018-04-10 13:51 | P.DS_ITS ---
History of Present Illness Date Patient Seen: 04/10/18 Chief complaint: DIZZINESS SINCE 3 PM Narrative: Written by Abdifatah SANTOYO: This patient is a 72-year-old female with a past history of ovarian cancer, former smoker and elevated blood pressure presents to the ER today with a sudden onset of dizziness approximately 3:00 p.m. yesterday. The patient states she was getting to file papers at home when she experienced a sudden onset of dizziness and when she tried to walk felt wobbly. She was experiencing altered sensation on the left side of body feeling strange with left leg weakness. Patient also describes headache tonight but denies visual changes, no difficulty speaking or swallowing, no chest pain, shortness of breath. The patient reports having previous episodes of transient dizziness for over a year that last for only seconds with no associated symptoms. The patient The patient earlier in the day had worked out at the gym with her it trainer and is otherwise had no other recent health concerns. The patient had a varying cancer and underwent chemotherapy at [facility] many years ago and reports having nausea ever since. She has also been a former smoker having quit in 1989 for having smoked 1 pack day for 20 years. She also has a significant family history for cardiovascular disease but no family history of stroke. In the ER the patient received aspirin, had a chest x-ray that was unremarkable, a CT of the head noncontrast that was negative for bleed or lesion. The patient's blood pressure is elevated in the ED pressures in the 160s to 170s and the patient reports typically she runs 126/80 at her doctor's office. During the stay in the ER the patient states she feels her symptoms are resolving but states that her left side continues to feel strange. Discharge Providers Date of admission: 04/10/18 02:55 Primary care physician: Aspne Seth MD Consults: 04/10/18 03:27 Consult to Discharge Planning Routine Comment: Consult to Physical Therapy Evaluate & Treat Comment: R/O TIA, dizzy, left leg weakness, gait analysis Physician Instructions: Evaluate and Treat Discharge provider: Elda Thompson DO Discharge Date: 04/10/18 Summary Discharge Diagnosis: 1. Possible transient ischemic attack, present on admission. Resolved. 2. Chronic right upper lobe pulmonary nodule, present on admission. Stable. 3. Acute elevated blood pressure, without diagnosis of hypertension, present on admission. Stable. 4. Acute on chronic neck and jaw pain, present on admission. Resolved. 5. Past history of ovarian cancer, not present on admission and considered in remission. 6. Remote history of smoking. Hospital Course: Claribel Avendano is a 72-year-old female with a past medical history significant for ovarian cancer in remission who presented for dizziness and left sided weakness. 1. Possible transient ischemic attack, present on admission. Resolved. -Patient presented with sudden-onset dizziness and left-sided weakness that resolved. -NIH evaluation score is 0, ABCD2 score is 4 -Patient received aspirin in the emergency department continue aspirin 81 mg daily. -CT brain without contrast did not demonstrate any acute intracranial abnormalities. MR stroke protocol did not demonstrate any significant stenosis in head or neck and only small ischemic vascular age related changes. -Lipid panel within normal limits. -Discharged patient on aspirin 81 mg daily and atorvastatin 40 mg daily at bedtime for stroke prophylaxis. Recommended follow-up with her PCP Dr. Aspen seth, for possible echocardiogram with bubble study to assure no PFO and possible heart monitor. 2. Chronic right upper lobe pulmonary nodule, present on admission. Stable. -Chest x-ray redemonstrated right upper lobe pulmonary nodule 1.7 x 2.3 cm possibly increased in size. CT follow-up is recommended. -Discussed findings with patient in depth and she is aware of recommendations. 3. Acute elevated blood pressure, without diagnosis of hypertension, present on admission. Stable. -No previous history of hypertension. -Monitored blood pressure for which hypertension resolved. 4. Acute on chronic neck and jaw pain, present on admission. Resolved. -Tenderness on palpation to the left neck and trapezius radiating into the upper back. Pain appears to be musculoskeletal and has been intermittent prior to yesterday's onset dizziness. -No complaints of chest pain for conditional dyspnea. 5. Past history of ovarian cancer, not present on admission and considered in remission. -Treated with no evidence of recurrence. Followed by Oncology Dr. Keller at . 6. Remote history of smoking. -Patient quit smoking in 1993 with a 20 pack year smoking history. -No complaints shortness of breath or cough. Status at Discharge Functional status at discharge: independent ambulation Overall status at discharge: patient is back to baseline Exam Vital Signs (past 8 hours): - 04/10/18 07:45 04/10/18 09:15 04/10/18 12:26 Temperature 97.6 F 97.9 F Pulse Rate 62 74 Respiratory Rate 16 16 Blood Pressure 129/72 134/72 Pulse Oximetry 98 98 98 Oxygen Delivery Method Room Air Oxygen Flow Rate 0 Narrative Exam Narrative: General: Older woman lying in bed in no acute distress, appears younger than stated age, well-developed, well-nourished, appropriately interactive. HEENT: Normocephalic, atraumatic. External ears without defect. Pupils equal, round, and reactive to light and accommodation. Anicteric sclerae, moist conjunctivae, and no lid lag. Neck: Supple with full range of motion. No jugular venous distension. No bruits. No lymphadenopathy or thyromegaly. Cardiovascular: Regular rate and rhythm without murmurs, rubs, or gallops appreciated Pulmonary: Clear to auscultation bilaterally without crackles, wheezes, or rhonchi. Normal respiratory effort with no use of accessory muscles. Abdomen: Soft, bowel sounds present, nontender, nondistended. No hepatosplenomegaly or masses appreciated. Extremities: No clubbing, cyanosis, or edema. Skin: Normal temperature, turgor, and texture; no rash, ulcers, or subcutaneous nodules appreciated. Neurological: Cranial nerves grossly intact. Normal muscle strength, tone, and bulk. Reflexes, coordination, and sensory function within normal limits. No known gait impairment. Psychiatric: Normal mood and affect. Alert and oriented to person, place, and time. Objective Labs Result Diagrams: 04/10/18 05:18 04/10/18 05:18 Labs: Laboratory Results - last 24 hr 04/10/18 04/10/18 04/10/18 00:35 00:35 05:18 WBC 6.3 5.9 RBC 4.58 4.42 Hgb 13.8 13.5 Hct 40.8 39.8 MCV 89.1 90.1 MCH 30.2 30.6 MCHC 33.9 33.9 RDW 13.2 13.4 Plt Count 267 243 Neut % (Auto) 36.9 L 39.0 L Lymph % (Auto) 49.7 H 48.3 H [place] % (Auto) 10.2 9.8 Eos % (Auto) 2.4 2.4 Baso % (Auto) 0.8 0.5 Neut # (Auto) 2300 2300 Lymph # (Auto) 3100 2800 [place] # (Auto) 600 600 Eos # (Auto) 100 100 Baso # (Auto) 100 0 PT INR APTT Sodium 139 Potassium 3.7 Chloride 105 Carbon Dioxide 24 BUN 13 Creatinine 0.70 Estimated GFR > 60.0 BUN/Creatinine Ratio 18.6 Glucose 97 Calcium 9.6 Total Bilirubin 0.6 AST 26 ALT 24 Alkaline Phosphatase 89 Total Creatine Kinase 70 CK-MB (CK-2) TNP CK-MB (CK-2) Rel Index TNP Troponin I < 0.012 Total Protein 7.8 Albumin 4.6 Globulin 3.2 Albumin/Globulin Ratio 1.4 Triglycerides Cholesterol LDL Cholesterol, Calc HDL Cholesterol Lipase 123 04/10/18 04/10/18 05:18 05:18 WBC RBC Hgb Hct MCV MCH MCHC RDW Plt Count Neut % (Auto) Lymph % (Auto) [place] % (Auto) Eos % (Auto) Baso % (Auto) Neut # (Auto) Lymph # (Auto) [place] # (Auto) Eos # (Auto) Baso # (Auto) PT 11.6 INR 1.0 APTT 32 Sodium 140 Potassium 3.7 Chloride 107 Carbon Dioxide 23 BUN 12 Creatinine 0.70 Estimated GFR > 60.0 BUN/Creatinine Ratio 17.1 Glucose 94 Calcium 9.3 Total Bilirubin AST ALT Alkaline Phosphatase Total Creatine Kinase CK-MB (CK-2) CK-MB (CK-2) Rel Index Troponin I Total Protein Albumin Globulin Albumin/Globulin Ratio Triglycerides 74 Cholesterol 171 LDL Cholesterol, Calc 75 HDL Cholesterol 81 H Lipase Discharge Plan Discharge Plan Patient Disposition: Home Discharge comment: You are being discharged home. Your MRI did not demonstrate stroke or any stenosis of your arteries that would cause stroke. Your lipid panel was within normal limits. You have been prescribed aspirin 81 mg daily and atorvastatin 40 mg daily at bedtime for stroke prevention. You need to follow-up with your primary care provider, Dr. Seth, in the next 1-2 weeks for hospital follow-up and consideration of an echocardiogram and heart monitor. In regard to your right upper lung nodule it is recommended that you have a CT scan to further delineate any changes in size or characteristics of the nodule. Discharge Med Rec/Prescriptions Prescriptions: New aspirin 81 mg tablet,delayed release (DR/EC) 81 mg PO DAILY Qty: 30 RF: 0 atorvastatin 40 mg tablet 40 mg PO BEDTIME Qty: 30 RF: 0 Follow up/Referrals: Aspen Seth MD [Primary Care Provider] - (appointment 04/17 check in at 2:[address] seth [phone] ) Provider Discharge Instructions Diet: Low-fat, Low-sodium and Low-cholesterol Activity: Continue normal activity as tolerated. Continue personal training and weightlifting. You should try to incorporate some aerobic activity that is low impact for your arthritis. Visit Report/Discharge Packet Instructions: DI for Transient Ischemic Attack Discharge Data Primary Care Provider: Aspen Seth Attending Provider: Abdifatah Santamaria Admit Date/Time: 04/10/18 02:55 Quality VTE Deep Vein Thrombosis/Pulmonary Embolism Present on Admission: No
--- NOTE | 2018-04-10 14:15 | PT.IIE ---
Surgical History (Last Reviewed 04/10/18 @ 03:42 by NATANAEL Restrepo) History of cataract surgery (Acute) History of laparotomy (Acute) Status post chemotherapy (Acute) Medical History (Last Updated 04/10/18 @ 03:50 by NATANAEL Restrepo) Abdominal adhesions (Acute) Elevated blood pressure reading without diagnosis of hypertension (Acute) Ovarian cancer (Acute) Seasonal allergies (Acute) Physical Therapy Inpatient Evaluation/Re-Eval M1 PT/OT-IP Prior Functional Status Start: 04/10/18 15:57 Freq: NEEDED Status: Active Protocol: Document 04/10/18 14:15 AB (Rec: 04/10/18 16:06 AB [email or web address]) Medical Review Prior Functional Status Medical History Reviewed Yes Communication able to make needs known Mobility and Gait pt stated that she is independent with all mobilities and ambulation without AD Social History Household Members significant other Living Arrangements House Number of Floors (Floors) Two Floors Number of Stairs To Enter/Railing? has 4 steps to enter with bilateral rails; has a basement (laundry room) and has 12 steps with R rail ascending Home Environment High Toilet Tub/Shower M2 PT-IP Current Condition Start: 04/10/18 15:57 Freq: NEEDED Status: Active Protocol: Document 04/10/18 14:15 AB (Rec: 04/10/18 16:06 AB [email or web address]) Physical Therapy Current Condition Current Condition Evaluation Date 04/10/18 Treatment Diagnosis TIA; difficulties in walking Onset Date 04/10/18 M3 PT-IP Subjective Start: 04/10/18 15:57 Freq: NEEDED Status: Active Protocol: Document 04/10/18 14:15 AB (Rec: 04/10/18 16:06 AB [email or web address]) Subjective Physical Therapy Visit Type Type Initial Evaluation Visit Start Time 14:15 Visit Stop Time 14:37 Total Visit Minutes 22 Number of REFERENCE SERVICES HEAD Visits 0 Physical Therapy Visit Comments Patient Comments I feel normal Patient Goals to go home Therapy Pain Assessment Pain Present Pain Present Denied Pain M4 PT-IP Mobility and Gait Start: 04/10/18 15:57 Freq: NEEDED Status: Active Protocol: Document 04/10/18 14:15 AB (Rec: 04/10/18 16:06 AB [email or web address]) PT-Bed Mobility Assessment Supine to Sit Supine to Sit Independent Scooting Scooting to Edge of Bed Independent Scooting Up and Down in Bed Independent PT-Transfer Assessment Sit to and From Stand Sit to and from Stand Independent Gait Assessment Gait Gait Assistance Required: Standby Assistance Distance (Feet) 300 Able to Maintain Weight Bearing Status Yes During Gait Assistive Devices Assistive Device None Gait Belt Gait Deviations General Gait Pattern Antalgic Comments Gait Comments pt antalgic gait and pt stated that she has arthritis on R hip BP before activity: 148/91 after activity: 154/79 Stair Climbing Assessment Evaluation Level of Assist On Stairs Standby Assistance 1 Person Assistance Devices Stair Climbing Assistive Devices Right Railing Technique/Endurance Stair Climbing Direction Ascend and Descend Stair Climbing Technique Step Over Step Number of Steps Climbed 3 Query Text: Stair Climbing Set # Repetitions (reps) 3 PT-Balance Assessment Sitting Balance and Reactions Static Sitting Balance Ability Good Dynamic Sitting Balance Ability Good Standing Balance and Reactions Static Standing Balance Ability Good Dynamic Standing Balance Ability Fair Device Used without AD M5 PT-IP Objective Assessments Start: 04/10/18 15:57 Freq: NEEDED Status: Active Protocol: Document 04/10/18 14:15 AB (Rec: 04/10/18 16:06 AB [email or web address]) Orientation Orientation/Cognition Level of Alertness Alert Orientation Name Age Birthday Month Date Year Day of Week Place Situation Language Function Ability No Deficits Noted Safety Awareness Understands Safety Issues Memory Description No Deficits Noted Gross Range of Motion Lower Extremity ROM Assessment Within Functional Limits Strength Lower Extremity Strength Assessment Within Functional Limits Coordination Assessment Gross Coordination Gross Coordination WNL Sensation Assessment Sensation Gross Sensation WNL Muscle Tone Muscle Tone WNL Yes M6 PT-IP Treatment Start: 04/10/18 15:57 Freq: NEEDED Status: Active Protocol: Document 04/10/18 14:15 AB (Rec: 04/10/18 16:06 AB [email or web address]) Physical Therapy Treatment Education Education Provided Safety M7 PT-IP Assessment and Plan Start: 04/10/18 15:57 Freq: NEEDED Status: Active Protocol: Document 04/10/18 14:15 AB (Rec: 04/10/18 16:06 AB [email or web address]) PT Summary Assessment and Plan Potential Rehabilitation Potential Good Status of Condition at Evaluation Stable Summary Impairments Balance Gait Assessment Summary pt requiring SBA with ambulation and stair climbing for safety. spouse will assist pt at home. pt may go home when medically stable. Goals Transfer Goal Independent Gait Goal Independent Gait Distance 350 Other Goals up/down 12 steps R rail ascending Mod I Days to Meet Goals 2 Frequency of Treatment Frequency Of Treatment Once a Day Treatment Plan Physical Therapy Treatment Plan Bed Mobility Training Transfer Training Gait Training Therapeutic Exercise Balance Retraining Discharge Planning Hot or Cold Pack Neuromuscular Re-ed Coordination Retraining Manual Therapy Recommendations To Nursing Amount of Assist Needed Standby Assistance Discharge Recommendations PT Discharge Recommendations Home with Assistance
--- NOTE | 2018-04-10 15:12 | PC.NURSE ---
Discharge pt denied pain this shift. Up independently in room and hallway. cleared by PT. PIV removed prior to d/c. Pt aware of f/u apt with Dr Seth on 04/17. informed to contact MD for any additional questions. d/c instructions provided to pt and SO. pt left in w/c with [employer] escort and SO to private vehicle. pt states she took all belongings with her.
== END 2018-04-10 15:15 | disposition home or self-care (01) ==
LOC: ED 04-10 02:26 → AC 04-10 02:56
PROVIDERS: Admitting Provider Nurse Practitioner Adult Health; Emergency Provider Emergency Medicine; PCP Internal Medicine; Visit Provider Nurse Practitioner Adult Health
DX: R42 Dizziness and giddiness (principal); R91.1 Solitary pulmonary nodule; R03.0 Elevated blood-pressure reading, without diagnosis of hypertension; R68.84 Jaw pain; M54.2 Cervicalgia; Z87.891 Personal history of nicotine dependence
CPT/HCPCS: 36415; 36591; 70450; 70553; 71045; 80048; 80053; 80061; 82550; 83690; 84484; 85025; 85610; 85730; 93005; 93041; 97161; 99284; 99285; G0378

== ENCOUNTER → 2018-04-23 09:24 | Outpatient (CLI) | payer MEDICARE, SELFPAY ==
[2018-04-10 03:46] VITALS: BMI 26.0
--- NOTE | 2018-04-23 | DI.ECHO.S_ITS ---
[place] +---------+ [facility] +---------+ : : [address] [address] : : : : [id number] : : : : Phone: [phone]+ Echocardiogram Report + + :Name: ELÍAS CHATMAN Study Date: 04/23/2018 Height: 68 in : :[facility] Weight: 169 lb : : Gender: Female BSA: 1.9 m2 : :: 1945 Age: 72 yrs BP: 140/74 mmHg: :Reason For Study: TIA : : Performed By: Mary Ann Neal : :Referring: BHAVNA BLOCK : + + Interpretation Summary Normal both left and right ventricle size and function. The ejection fraction is 60-65%. Grade I diastolic dysfunction. No valvular abnormality. Injection of contrast documented no interatrial shunt. Procedure: A two-dimensional transthoracic echocardiogram with color flow and Doppler was performed. The study quality was technically good. There is no prior echocardiogram noted for this patient. The patient was in normal sinus rhythm during the exam. Left Ventricle: The left ventricle is normal in size. There is normal left ventricular wall thickness. The ejection fraction is estimated to be 60-65%. There are no focal wall motion abnormalities. Diastolic parameters suggest a relaxation abnormality of the left ventricle, consistent with probable normal filling pressures. Right Ventricle: The right ventricle grossly appears normal in size with probable normal systolic function. Atria: The left atrial size is normal. Right atrial size is normal. Injection of contrast documented no interatrial shunt. Mitral Valve: The mitral valve is grossly normal. There is trace mitral regurgitation. Aortic Valve: The aortic valve is trileaflet. The aortic valve opens well. There is trace aortic regurgitation. Tricuspid Valve: The tricuspid valve is normal in structure and function. There is trace tricuspid regurgitation. The right ventricular systolic pressure is estimated to be at least 28 mmHg based on an estimated right atrial pressure of 3 mm Hg. Pulmonic Valve: The pulmonic valve is not well seen, but is grossly normal. There is trace pulmonic regurgitation. Great Vessels: The aortic root is normal size. The dimensions of the ascending aorta are normal. The aortic arch is normal in size. The IVC is of normal diameter and collapses greater than 50% with a sniff. This suggests a low right atrial pressure of 3 mm Hg. Pericardium/ Pleura There is no pericardial effusion. There is no pleural effusion. MMode/2D Measurements & Calculations LVIDd: 4.5 cm Ao root diam: 3.4 cm LVIDs: 3.1 cm Aortic Jxn: 2.7 cm FS: 30.6 % asc Aorta Diam: 3.2 cm EPSS: 0.65 cm Ao Arch Diam (Prox Trans): 2.8 cm IVSd: 0.87 cm LVPWd: 0.82 cm LV willard. diameter/BSA (cm/m^2): 2.4 LV sys. diameter/BSA (cm/m^2): 1.6 LA dimension: 3.4 cm RA long axis: 4.5 cm LA A2 area: 16.8 cm2 RA area: 15.8 cm2 LA A4 area: 14.4 cm2 RA vol: 47.3 ml LA length (vol): 4.7 cm RA : 24.9 ml/m2 LA vol: 43.7 ml IVC diam: 1.7 cm LA vol index: 23.0 ml/m2 RVDd major: 4.5 cm RVD1 (basal): 3.6 cm RVD2 (mid): 3.6 cm Doppler Measurements & Calculations Ao V2 max: 149.5 cm/sec MV E max mina: 98.8 cm/sec Ao V2 mean: 95.1 cm/sec MV A max mina: 104.1 cm/sec Ao max P.9 mmHg MV E/A: 0.95 Ao mean P.4 mmHg Med Peak E' Mina: 5.6 cm/sec Ao V2 VTI: 31.7 cm E/E' med: 17.7 Lat Peak E' Mina: 7.2 cm/sec E/E' lat: 13.8 E/e' average: 15.8 MV dec time: 0.14 sec MV P1/2t: 42.8 msec TR max mina: 250.1 cm/sec MV P1/2t max mina: 99.1 cm/sec TR max P.0 mmHg MVA(P1/2t): 5.1 cm2 PA V2 max: 78.6 cm/sec PA V2 mean: 55.5 cm/sec PA mean P.4 mmHg PA Accel Time: 0.17 sec Electronically signed by: Sarabjit Pulido on Reading Physician:04/23/2018 11:17 AM
--- NOTE | 2018-04-23 | DI.CT.S_ITS ---
PROCEDURE: CT CHEST W CON INDICATIONS: PULMONARY NODULE TECHNIQUE: After the administration of intravenous contrast, 5 mm thick sections acquired from the pulmonary apices to the posterior costophrenic angles. 7 mm thick coronal and sagittal MIP reformats were acquired. For radiation dose reduction, the following was used: automated exposure control, adjustment of mA and/or kV according to patient size. COMPARISON: [facility], CT, CHEST/ABD/PEL WITH CONTRAST, 12/27/2012, 12:37. [facility], CT, ABDOMEN/PELVIS WITH CONTRAST, 04/13/2012, 17:21. [facility], CT, CHEST ABDOMEN PELVIS WITH CONTRAST, 12/23/2008, 11:49. [facility], CR, CHEST 1 VIEW, 04/11/2017, 1:48. [facility], CR, XR CHEST 1V, 04/10/2018, 0:33. FINDINGS: Image quality: Excellent. Lungs and pleura: No acute air space opacities. No pleural effusions or pneumothorax. Central and peripheral airways are patent and normal in caliber. There is a circumscribed mass in the posterior right upper lobe measuring 11 mm AP by 20 mm transverse by 18 mm craniocaudal. It is noted that it was present on the 12/23/08 exam measuring 7 mm AP by 8 mm craniocaudal. Hounsfield units measure 21-25. It is adjacent to the posterior right fifth rib. There is no osseous erosion. There is a questionable punctate calcification. Mediastinum: Heart size is normal. No pericardial effusion. No mediastinal or hilar adenopathy by size criteria. Thoracic aorta and central pulmonary arteries are normal in size. Esophagus is normal in caliber. No hiatal hernia. Bones and chest wall: No suspicious bony lesions. No vertebral body compression fractures. No axillary or supraclavicular adenopathy by size criteria. Thyroid gland is unremarkable. Abdomen: There is an ill-defined soft tissue density posterior to the aorta at the level of the renals measuring 6 mm AP by 34 mm transverse. This was not present in 2008 and demonstrates minimal interval progression compared to 2013. Visualized upper abdominal solid organs appear normal. Upper abdominal bowel loops are normal in caliber. IMPRESSION: 1. Posterior right upper lobe mass as described above demonstrating interval increase in size since 2008. Given appearance and growth since 2008, malignancy is felt to be less likely, although slow-growing neoplasm cannot be definitively excluded. Other etiologies can include hamartoma given punctate calcification, sequela of previous infection/inflammation or complex cystic structure. As clinically indicated, continued interval followup imaging or PET scan may be obtained. 2. Soft tissue density appearing more prominent posterior to the abdominal aorta as above. While this could represent benign proliferative tissue such as fibrosis, etiology is considered indeterminate and more aggressive origin cannot be excluded. PET scan may be helpful for further evaluation. Dictated by: Geneva Willson M.D. on 04/23/2018 at 11:27 Approved by: Geneva Willson M.D. on 04/23/2018 at 13:37
== END ==
PROVIDERS: PCP Internal Medicine; Visit Provider Internal Medicine
DX: G45.9 Transient cerebral ischemic attack, unspecified (principal); R91.1 Solitary pulmonary nodule
CPT/HCPCS: 71260; 93306; Q9967

== ENCOUNTER → 2018-05-30 11:04 | Outpatient (CLI) | payer MEDICARE, SELFPAY ==
[2018-04-10 03:46] VITALS: BMI 26.0
--- NOTE | 2018-05-30 | DI.MG.S_ITS ---
BILATERAL DIGITAL SCREENING MAMMOGRAM 3D/2D WITH CAD: 05/30/2018 CLINICAL: Routine screening. Family history of breast cancer. Comparison is made to exams dated: 05/11/2017 mammogram, 05/10/2016 mammogram, and 04/21/2015 mammogram - [facility]. The tissue of both breasts is heterogeneously dense. This may lower the sensitivity of mammography. Current study was also evaluated with a Computer Aided Detection (CAD) system. There is a benign biopsy clip in both breasts. No significant masses, calcifications, or other findings are seen in either breast. There has been no significant interval change. IMPRESSION: NEGATIVE There is no mammographic evidence of malignancy. A 1 year screening mammogram is recommended. This exam was interpreted at Station ID: [id number]. NOTE: For mammograms, a report in lay terms will be sent to the patient. Approximately 15% of breast malignancies will not be visualized mammographically. In the management of a palpable breast mass, a negative mammogram must not discourage biopsy of a clinically suspicious lesion. Electronically Signed By: Last leroy/marty:05/30/2018 18:01:20 letter sent: Normal Exam ACR BI-RADS Category 1: Negative [id number]
== END ==
PROVIDERS: PCP Internal Medicine; Visit Provider Internal Medicine
DX: Z12.31 Encounter for screening mammogram for malignant neoplasm of breast (principal); Z80.3 Family history of malignant neoplasm of breast
CPT/HCPCS: 77063; 77067

== ENCOUNTER → 2018-05-31 07:30 | Outpatient (CLI) | payer MEDICARE, SELFPAY ==
[2018-04-10 03:46] VITALS: BMI 26.0
[2018-05-31 09:01] LABS: Alanine Aminotransferase 29 IU/L (9-52); Aspartate Aminotransferase 32 IU/L (14-36); BUN Creatinine Ratio 15.7 (6-22); Blood Urea Nitrogen 11 mg/dL (7-17); Calcium 9.5 mg/dL (8.4-10.2); Carbon Dioxide 25 mmol/L (22-32); Chloride 103 mmol/L (98-107); Cholesterol 128 mg/dL (140-199); Estimated Glomerular Filt Rate > 60.0 mL/min (>60); Glucose 92 mg/dL (80-110); HDL Cholesterol 94 mg/dL (40-60); HEMOLYSIS < 15 (0-50); LDL Cholesterol Calculated 13 mg/dL (<100); Potassium 4.2 mmol/L (3.4-5.1); Sodium 139 mmol/L (137-145); Triglycerides 105 mg/dL (35-150)
== END ==
PROVIDERS: PCP Internal Medicine; Visit Provider Internal Medicine
DX: I10 Essential (primary) hypertension (principal); E78.5 Hyperlipidemia, unspecified
CPT/HCPCS: 36415; 80048; 80061; 84450; 84460

== ENCOUNTER → 2018-12-08 09:50 | Outpatient (CLI) | payer MEDICARE, SELFPAY ==
[2018-04-10 03:46] VITALS: BMI 26.0
[2018-12-08 11:54] LABS: Aspartate Aminotransferase 26 IU/L (14-36); BUN Creatinine Ratio 23.3 (6-22); Blood Urea Nitrogen 14 mg/dL (7-17); Calcium 9.7 mg/dL (8.4-10.2); Carbon Dioxide 27 mmol/L (22-32); Chloride 105 mmol/L (98-107); Cholesterol 165 mg/dL (140-199); Estimated Glomerular Filt Rate > 60.0 mL/min (>60); Glucose 89 mg/dL (80-110); HDL Cholesterol 76 mg/dL (40-60); HEMOLYSIS < 15 (0-50); LDL Cholesterol Calculated 53 mg/dL (<100); Potassium 4.9 mmol/L (3.4-5.1); Sodium 142 mmol/L (137-145); Triglycerides 182 mg/dL (35-150)
[2018-12-08 12:05] LABS: Alanine Aminotransferase 25 IU/L (9-52)
== END ==
PROVIDERS: PCP Internal Medicine; Visit Provider Internal Medicine
DX: I10 Essential (primary) hypertension (principal); E78.5 Hyperlipidemia, unspecified
CPT/HCPCS: 36415; 80048; 80061; 84450; 84460

== ENCOUNTER → 2019-01-09 15:20 | Outpatient (ROUT) | payer MEDICARE, SELFPAY ==
[2018-04-10 03:46] VITALS: BMI 26.0
[2019-01-09 15:38] LABS: Add Manual Diff / Slide Review NO; Basophils Absolute Auto 0 /uL (0-100); Basophils Percent Auto 0.8 % (0-2); Eosinophils Absolute Auto 100 /uL (0-450); Eosinophils Percent Auto 2.4 % (2-4); Hematocrit 39.6 % (36-46); Hemoglobin 13.6 g/dL (12.0-16.0); Lymphocytes Absolute Auto 2200 /uL (1100-4500); Lymphocytes Percent Auto 44.4 % (25-40); Mean Corpuscular HGB Conc 34.3 % (30-36); Mean Corpuscular Hemoglobin 31.4 PG (26-34); Mean Corpuscular Volume 91.7 fL (80-100); Monocytes Absolute Auto 500 /uL (0-900); Monocytes Percent Auto 9.3 % (3-14); Neutrophils Absolute Auto 2100 /uL (1500-7000); Neutrophils Percent Auto 43.1 % (50-75); Platelet Count 281 X10^3/uL (150-400); Red Blood Cell Count 4.32 X10^6/uL (4.0-5.2); Red Cell Distribution Width 13.4 % (11.6-14.8)
[2019-01-09 16:20] LABS: TSH w/ Reflex to FT4 1.68 uIU/mL (0.47-4.68)
[2019-01-09 16:37] LABS: Vitamin B12 267 pg/mL (239-931)
== END ==
PROVIDERS: PCP Internal Medicine; Visit Provider Internal Medicine
DX: I10 Essential (primary) hypertension (principal); E78.5 Hyperlipidemia, unspecified
CPT/HCPCS: 82607; 84443; 85025

== ENCOUNTER → 2019-12-13 10:55 | Outpatient (CLI) | payer MEDICARE, SELFPAY ==
[2019-08-22 10:49] VITALS: BMI 26.0
[2019-12-13 12:32] LABS: Cholesterol 189 mg/dL (140-199); HDL Cholesterol 67 mg/dL (40-60); LDL Cholesterol Calculated 85 mg/dL (<100); Triglycerides 184 mg/dL (35-150)
== END ==
PROVIDERS: PCP Family Medicine; Referring Provider Family Medicine; Visit Provider Family Medicine
DX: E78.5 Hyperlipidemia, unspecified (principal)
CPT/HCPCS: 36415; 80061

== ENCOUNTER → 2019-12-19 08:12 | Outpatient (CLI) | payer MEDICARE, SELFPAY ==
[2019-08-22 10:49] VITALS: BMI 26.0
[2019-12-19 08:50] LABS: Add Manual Diff / Slide Review NO; Basophils Absolute Auto 0 /uL (0-100); Basophils Percent Auto 0.9 % (0-2); Eosinophils Absolute Auto 200 /uL (0-450); Eosinophils Percent Auto 3.5 % (2-4); Hematocrit 39.6 % (36-46); Hemoglobin 13.5 g/dL (12.0-16.0); Lymphocytes Absolute Auto 2700 /uL (1100-4500); Lymphocytes Percent Auto 52.6 % (25-40); Mean Corpuscular Hemoglobin 30.3 PG (26-34); Monocytes Absolute Auto 500 /uL (0-900); Monocytes Percent Auto 10.5 % (3-14); Neutrophils Absolute Auto 1700 /uL (1500-7000); Neutrophils Percent Auto 32.5 % (50-75); Platelet Count 250 X10^3/uL (150-400); Red Blood Cell Count 4.45 X10^6/uL (4.0-5.2); Red Cell Distribution Width 13.6 % (11.6-14.8); White Blood Cell Count 5.2 X10^3/uL (4.5-11.0)
[2019-12-19 08:54] LABS: Appearance Urine UA CLEAR; Bilirubin Urine UA NEGATIVE (NEGATIVE); Color Urine UA YELLOW; Glucose Urine UA NEGATIVE (Negative); Ketones Urine UA NEGATIVE (NEGATIVE); Leukocyte Esterase Urine UA 2+ (NEGATIVE); Nitrite Urine UA NEGATIVE (Negative); Occult Blood Urine UA NEGATIVE (Negative); Protein Urine UA NEGATIVE (Negative); Specific Gravity Urine UA 1.015 (1.000-1.035); Urobilinogen Urine UA 0.2 E.U./dL (0.2)
[2019-12-19 08:59] LABS: pH Urine UA 6.5 (4.5-8.0)
[2019-12-19 09:16] LABS: RBC Urine 0-1/HPF (0-5/HPF); Squamous Epithelial Cell Urine 1-5 /HPF (0-5/HPF); WBC Urine 5-10/HPF (0-5/HPF)
[2019-12-19 09:17] LABS: Bacteria Urine Moderate (10-30); Culture Indicated Urine Specimen Cultured
[2019-12-19 09:28] LABS: Prothrombin Time 11.6 SECONDS (10.1-12.7)
[2019-12-19 09:43] LABS: Alanine Aminotransferase 18 IU/L (<35); Albumin 4.4 g/dL (3.5-5.0); Albumin Globulin Ratio 1.5 (1.0-2.8); Alkaline Phosphatase 103 U/L (38-126); Aspartate Aminotransferase 27 IU/L (14-36); BUN Creatinine Ratio 22.7 (6-22); Bilirubin Total 0.4 mg/dL (0.2-1.3); Blood Urea Nitrogen 15 mg/dL (7-17); Calcium 9.7 mg/dL (8.4-10.2); Carbon Dioxide 28 mmol/L (22-32); Chloride 104 mmol/L (98-107); Estimated Glomerular Filt Rate > 60.0 mL/min (>60); Globulin 2.9 g/dL (1.7-4.1); Glucose 89 mg/dL (80-110); HEMOLYSIS < 15 (0-50); Potassium 4.4 mmol/L (3.4-5.1); Sodium 140 mmol/L (137-145); Total Protein 7.3 g/dL (6.3-8.2)
== END ==
PROVIDERS: PCP Family Medicine; Referring Provider Family Medicine; Visit Provider Family Medicine
DX: Z01.812 Encounter for preprocedural laboratory examination (principal)
CPT/HCPCS: 36415; 80053; 81001; 85025; 85610; 87086

== ENCOUNTER → 2019-12-27 10:35 | Outpatient (CLI) | payer MEDICARE, SELFPAY ==
[2019-08-22 10:49] VITALS: BMI 26.0
--- NOTE | 2019-12-27 | DI.CT.S_ITS ---
PROCEDURE: CT CHEST W CON INDICATIONS: PULMONARY NODULE TECHNIQUE: After the administration of intravenous contrast, 5 mm thick sections acquired from the pulmonary apices to the posterior costophrenic angles. 1 mm axial lung, 5 mm thick coronal and sagittal reformats and 7 mm axial MIP were acquired. For radiation dose reduction, the following was used: automated exposure control, adjustment of mA and/or kV according to patient size. COMPARISON: [facility], CT, CT CHEST W CON, 04/23/2018, 9:33. FINDINGS: Image quality: Excellent. Lungs and pleura: No acute air space opacities. No pleural effusions or pneumothorax. Central and peripheral airways are patent and normal in caliber. Mediastinum: Heart size is normal. No pericardial effusion. No mediastinal or hilar adenopathy by size criteria. Thoracic aorta and central pulmonary arteries are normal in size. Esophagus is normal in caliber. No hiatal hernia. Bones and chest wall: No suspicious bony lesions. No vertebral body compression fractures. No axillary or supraclavicular adenopathy by size criteria. Thyroid gland negative. Postsurgical changes in the right breast. Abdomen: Visualized upper abdominal solid organs appear normal. Upper abdominal bowel loops are normal in caliber. IMPRESSION: Overall, grossly unchanged appearance of right upper lobe posterior medial nodule dating back to 04/23/18 therefore most likely benign. No acute consolidation. Scattered scarring/atelectasis. Dictated by: Forest Casey M.D. on 12/27/2019 at 11:32 Approved by: Forest Casey M.D. on 12/27/2019 at 11:38
== END ==
PROVIDERS: PCP Family Medicine; Referring Provider Family Medicine; Visit Provider Family Medicine
DX: R91.1 Solitary pulmonary nodule (principal)
CPT/HCPCS: 71260; Q9967

== ENCOUNTER → 2019-12-30 07:19 | Outpatient (CLI) | payer MEDICARE, SELFPAY ==
[2019-08-22 10:49] VITALS: BMI 26.0
[2019-12-30 08:28] LABS: Appearance Urine UA CLEAR; Bilirubin Urine UA NEGATIVE (NEGATIVE); Color Urine UA YELLOW; Glucose Urine UA NEGATIVE (Negative); Ketones Urine UA NEGATIVE (NEGATIVE); Leukocyte Esterase Urine UA NEGATIVE (NEGATIVE); Nitrite Urine UA NEGATIVE (Negative); Occult Blood Urine UA NEGATIVE (Negative); Protein Urine UA NEGATIVE (Negative); Specific Gravity Urine UA 1.015 (1.000-1.035); Urobilinogen Urine UA 0.2 E.U./dL (0.2)
[2019-12-30 08:46] LABS: Bacteria Urine Occasional (0-1); Culture Indicated Urine Cult Not Indicated; RBC Urine 0-1/HPF (0-5/HPF); Squamous Epithelial Cell Urine 1-5 /HPF (0-5/HPF); WBC Urine 0-1/HPF (0-5/HPF); pH Urine UA 5.5 (4.5-8.0)
== END ==
PROVIDERS: PCP Family Medicine; Referring Provider Family Medicine; Visit Provider Family Medicine
DX: N39.0 Urinary tract infection, site not specified (principal)
CPT/HCPCS: 81001

== ENCOUNTER → 2020-02-04 14:03 | Outpatient (CLI) | payer MEDICARE, SELFPAY ==
[2019-08-22 10:49] VITALS: BMI 26.0
[2020-02-04 14:37] LABS: COVID19 -Nasal RAPID Negative (Negative)
== END ==
PROVIDERS: PCP Family Medicine; Visit Provider Family Medicine
DX: R53.83 Other fatigue (principal); Z11.59 Encounter for screening for other viral diseases
CPT/HCPCS: 87635

== ENCOUNTER → 2020-04-08 16:18 | Outpatient (CLI) | payer MEDICARE, SELFPAY ==
[2019-08-22 10:49] VITALS: BMI 26.0
[2020-04-08] MEDS: COVID-19 VACC #1, MRNA(MOD) 100 MCG/0.5 ML VIAL IM (16:33)
== END ==
PROVIDERS: PCP Family Medicine; Visit Provider Internal Medicine
DX: Z23 Encounter for immunization (principal)
CPT/HCPCS: 0011A; 91301

== ENCOUNTER → 2020-05-06 08:16 | Outpatient (CLI) | payer MEDICARE, SELFPAY ==
[2019-08-22 10:49] VITALS: BMI 26.0
[2020-05-06] MEDS: COVID-19 VACC #2, MRNA(MOD) 100 MCG/0.5 ML VIAL IM (08:23)
== END ==
PROVIDERS: PCP Family Medicine; Visit Provider Internal Medicine
DX: Z23 Encounter for immunization (principal)
CPT/HCPCS: 0012A; 91301

== ENCOUNTER → 2020-09-08 14:13 | Outpatient (CLI) | payer MEDICARE, SELFPAY ==
[2019-08-22 10:49] VITALS: BMI 26.0
--- NOTE | 2020-09-08 14:15 | DI.RAD.S_ITS ---
PROCEDURE: XR CHEST 2V INDICATIONS: sob TECHNIQUE: 2 views of the chest were acquired. COMPARISON: [facility], CT, CT CHEST W CON, 04/23/2018, 9:33. [facility], CR, XR CHEST 1V, 04/10/2018, 0:33. FINDINGS: Surgical changes and devices: Right breast surgical clips.. Lungs and pleura: No change to slight increase in size of 2.9 cm masslike opacity involving the medial right lung apex. Lungs otherwise are clear. No pleural effusion or pneumothorax. Mediastinum: Mediastinal contours are normal. Heart size is normal. Bones and chest wall: No suspicious bony abnormalities. Soft tissues appear unremarkable. IMPRESSION: 1. No change to slight interval increase in size of right apically masslike opacity. If indicated, repeat CT could be performed for further characterization. Dictated by: Chavez FRANCISCO Interpreted: Rosalio Lechuga MD on 09/08/2020 at 14:45 Transcribed by: YUNIOR on 09/08/2020 at 14:47 Approved by: Rosalio Lechuga M.D. on 09/08/2020 at 15:37
== END ==
PROVIDERS: PCP Family Medicine; Referring Provider Registered Nurse; Visit Provider Registered Nurse
DX: R06.02 Shortness of breath (principal)
CPT/HCPCS: 71046

== ENCOUNTER → 2020-11-02 11:30 | Outpatient (CLI) | payer MEDICARE, SELFPAY ==
[2019-08-22 10:49] VITALS: BMI 26.0
[2020-11-02 13:30] LABS: Alanine Aminotransferase 16 IU/L (<35); Albumin 4.4 g/dL (3.5-5.0); Albumin Globulin Ratio 1.4 (1.0-2.8); Alkaline Phosphatase 98 U/L (38-126); Aspartate Aminotransferase 29 IU/L (14-36); BUN Creatinine Ratio 19.4 (6-22); Bilirubin Total 0.4 mg/dL (0.2-1.3); Blood Urea Nitrogen 12 mg/dL (7-17); Calcium 9.7 mg/dL (8.4-10.2); Carbon Dioxide 25 mmol/L (22-32); Chloride 108 mmol/L (98-107); Cholesterol 179 mg/dL (140-199); Estimated Glomerular Filt Rate > 60.0 mL/min (>60); Globulin 3.1 g/dL (1.7-4.1); Glucose 101 mg/dL (80-110); HDL Cholesterol 70 mg/dL (40-60); HEMOLYSIS 17 (0-50); LDL Cholesterol Calculated 67 mg/dL (<100); Potassium 4.1 mmol/L (3.4-5.1); Sodium 139 mmol/L (137-145); Total Protein 7.5 g/dL (6.3-8.2); Triglycerides 209 mg/dL (35-150)
[2020-11-02 14:04] LABS: TSH w/ Reflex to FT4 1.66 uIU/mL (0.47-4.68)
[2020-11-02 15:09] LABS: Creatinine Urine Random 168.2 mg/dL; Microalbumi Creatinin Ratio Ur 35.6 ug/mg CR (<30)
== END ==
PROVIDERS: PCP Family Medicine; Referring Provider Family Medicine; Visit Provider Family Medicine
DX: I10 Essential (primary) hypertension (principal); M19.90 Unspecified osteoarthritis, unspecified site; M85.80 Other specified disorders of bone density and structure, unspecified site; Z13.220 Encounter for screening for lipoid disorders
CPT/HCPCS: 36415; 80053; 80061; 82043; 82570; 84443

== ENCOUNTER → 2020-11-19 15:05 | Outpatient (CLI) | payer MEDICARE, SELFPAY ==
[2019-08-22 10:49] VITALS: BMI 26.0
--- NOTE | 2020-11-19 15:06 | DI.RAD.S_ITS ---
PROCEDURE: XR TIBIA FIBULA LT 2V INDICATIONS: L proximal tibia pain post direct impact TECHNIQUE: 2 views of the tibia and fibula were acquired. COMPARISON: None. FINDINGS: Bones: No fractures or dislocations. No suspicious bony lesions. Soft tissues: No suspicious soft tissue calcifications or masses. IMPRESSION: Unremarkable left tib-fib radiographs. No fracture. Approved by: Justice Weiss M.D. on 11/19/2020 at 15:46
== END ==
PROVIDERS: PCP Family Medicine; Referring Provider Nurse Practitioner; Visit Provider Nurse Practitioner
DX: M79.605 Pain in left leg (principal)
CPT/HCPCS: 73590

== ENCOUNTER → 2021-09-24 14:51 | Outpatient (CLI) | payer MEDICARE, SELFPAY ==
[2019-08-22 10:49] VITALS: BMI 26.0
[2021-09-24 15:29] LABS: Add Manual Diff / Slide Review NO; Basophils Absolute Auto 100 /uL (0-100); Basophils Percent Auto 0.8 % (0-2); Eosinophils Absolute Auto 100 /uL (0-450); Hemoglobin 13.6 g/dL (12.0-16.0); Lymphocytes Absolute Auto 2300 /uL (1100-4500); Lymphocytes Percent Auto 35.2 % (25-40); Mean Corpuscular Hemoglobin 30.6 PG (26-34); Mean Corpuscular Volume 89.9 fL (80-100); Monocytes Absolute Auto 600 /uL (0-900); Monocytes Percent Auto 8.8 % (3-14); Neutrophils Absolute Auto 3500 /uL (1500-7000); Neutrophils Percent Auto 54.2 % (50-75); Platelet Count 272 X10^3/uL (150-400); Red Blood Cell Count 4.45 X10^6/uL (4.0-5.2); Red Cell Distribution Width 13.2 % (11.6-14.8); White Blood Cell Count 6.4 X10^3/uL (4.5-11.0)
[2021-09-24 15:56] LABS: Alanine Aminotransferase 17 IU/L (<35); Albumin 4.9 g/dL (3.5-5.0); Albumin Globulin Ratio 1.6 (1.0-2.8); Alkaline Phosphatase 109 U/L (38-126); Aspartate Aminotransferase 32 IU/L (14-36); Bilirubin Total 0.5 mg/dL (0.2-1.3); Blood Urea Nitrogen 16 mg/dL (7-17); Calcium 9.1 mg/dL (8.4-10.2); Carbon Dioxide 25 mmol/L (22-32); Chloride 104 mmol/L (98-107); Estimated Glomerular Filt Rate > 60 mL/min (>60); Glucose 96 mg/dL (80-110); HEMOLYSIS < 15 (0-50); Potassium 4.4 mmol/L (3.4-5.1); Sodium 138 mmol/L (137-145); Total Protein 7.9 g/dL (6.3-8.2)
[2021-09-24 16:35] LABS: Cancer Antigen 125 < 5.5 U/mL (0-35)
[2021-09-28 07:20] LABS: Fecal Immunochemical Test Negative (Negative)
== END ==
PROVIDERS: PCP Family Medicine; Referring Provider Family Medicine; Visit Provider Family Medicine
DX: C50.919 Malignant neoplasm of unspecified site of unspecified female breast (principal); C56.9 Malignant neoplasm of unspecified ovary; I10 Essential (primary) hypertension; Z00.00 Encounter for general adult medical examination without abnormal findings
CPT/HCPCS: 36415; 80053; 82274; 84443; 85025; 86304

== ENCOUNTER 2022-06-09 20:45 | Emergency (ER) | payer MEDICARE, SELFPAY ==
[2019-08-22 10:49] VITALS: BMI 26.0
[2022-06-09 20:53] VITALS: BP 168/80; PULSE 95; RESP 18; TEMP 36.6; O2SAT 99
[2022-06-09] MEDS: TET,DIPH,PERTUSS(ACELL),VAC/PF 0.5 ML SYRINGE IM (21:25)
--- NOTE | 2022-06-09 22:15 | ED.WOUNDLAC ---
HPI - Wound/Laceration General Chief Complaint: Wound/Laceration Stated Complaint: cut left finger Time Seen by Provider: 06/09/22 22:08 Source: patient Mode of arrival: Ambulatory History of Present Illness HPI narrative: Patient is a 76-year-old female who is here for evaluation of a cut to her finger on her left hand. She states that she cut it on a sharp knife. She covered with a bandage. The bleeding would not stop which is why she came into the emergency department for evaluation. Related Data Home Medications Medication Instructions Recorded Confirmed calcium citrate 315 mg 1 tab PO DAILY 09/10/19 03/15/22 calcium-vitamin D3 6.25 mcg (250 unit) tablet (Citracal + Vitamin D Maximum) letrozole 2.5 mg tablet 2.5 mg PO DAILY 09/10/19 03/15/22 polyethylene glycol 3350 17 gram 17 gram PO DAILY 09/10/19 03/15/22 oral powder packet (Miralax) aspirin 81 mg tablet,delayed 81 mg PO DAILY 09/23/20 03/15/22 release (Adult Aspirin Regimen) Previous Rx's Medication Instructions Recorded lisinopril 5 mg tablet See Rx Instructions .Route 02/14/22 .COMPLEX #90 tabs Allergies Allergy/AdvReac Type Severity Reaction Status Date / Time naproxen Allergy Intermediate hives Verified 05/24/22 08:46 Review of Systems Integumentary/Breasts Skin/Breast: Reports system reviewed and no additional complaints, except as documented Neurologic Neurologic: Reports system reviewed and no additional complaints, except as documented Patient History Medical History Abdominal adhesions 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 Breast cancer Elevated blood pressure reading without diagnosis of hypertension Hepatitis B Hypertension Left shoulder pain Osteoarthritis Osteopenia Osteoporosis Ovarian cancer Ovarian cyst Pre-operative clearance Seasonal allergic rhinitis Seasonal allergies Shortness of breath Tinnitus UTI (urinary tract infection) Well adult exam Surgical History History of cataract surgery History of laparotomy Hx of appendectomy Status post chemotherapy Status post right hip replacement Family History Mother Congestive heart failure Father No significant past medical history Brother Medical history unknown Social History household members: significant other Smoking Status: Former smoker Tobacco: How many years used: 20 second hand exposure: Yes (childhood ) alcohol intake: current (1-2 glasses of wine a week ) substance use type: marijuana (used to help sleep edibles) Smoking Status: Former smoker alcohol intake frequency: 0-2 drinks per day Substance Use Type: marijuana Exam Initial Vital Signs Initial Vital Signs: Vital Signs Temperature 97.9 F 06/09/22 20:53 Pulse Rate 95 H 06/09/22 20:53 Respiratory Rate 18 06/09/22 20:53 Blood Pressure 168/80 H 06/09/22 20:53 Pulse Oximetry 99 06/09/22 20:53 Oxygen Delivery Method Room Air 06/09/22 20:53 Skin Other: Patient with a superficial cut to the tip of her left little finger Extrem Other: Other than the cut her left little finger exam is unremarkable Procedures Laceration Repair Laceration 1: Site: other (Finger) Side (If applicable): left Size (cm): 1 Description: linear Depth: simple, single layer Skin layer closed with: dermabond Course Orders Ordered: Discontinued Medications Diphtheria/Tetanus/Acell Pertussis (Tet,Diph,Pertuss(Acell),Vac/Pf 0.5 Ml Syringe) 0.5 ml IM .ONCE ONE Stop: 06/09/22 21:00 Last Admin: 06/09/22 21:25 Dose: 0.5 ml Documented By: NICOLETTE Vital Signs Vital signs: Vital Signs - 8 hr 06/09/22 22:28 Temperature 97.6 F Pulse Rate 74 Respiratory Rate 16 Blood Pressure 138/70 Pulse Oximetry 97 Oxygen Delivery Method Room Air MDM - Wound/Laceration MDM Narrative Medical decision making narrative: Laceration closed with Dermabond. No indication for imaging studies. Patient was given return precautions and follow-up instructions. He expressed understanding and agreement. Discharge Plan Departure Patient Disposition: Home Clinical Impression: Finger laceration Instructions: DI for Laceration Repair-Skin Glue Activity Restrictions/Additional Instructions: The skin glue should start to come off within the next 7-10 days. Until then you can wash your hands like normal. You can put a bandage over the area if you would like. Return to the emergency department for new symptoms. Prescriptions: No Action lisinopril 5 mg tablet See Rx Instructions .ROUTE .COMPLEX Qty: 90 3RF Dose Instruction: TAKE 1 TABLET BY MOUTH DAILY Rx Instructions: TAKE 1 TABLET BY MOUTH DAILY aspirin [Adult Aspirin Regimen] 81 mg tablet,delayed release (DR/EC) 81 mg PO DAILY letrozole 2.5 mg tablet 2.5 mg PO DAILY calcium citrate-vitamin D3 [Citracal + D Maximum] 315 mg- 250 unit tablet 1 tab PO DAILY polyethylene glycol 3350 [Miralax] 17 gram powder in packet 17 gram PO DAILY Referrals: Soni Ingram ARNP [Primary Care Provider] - Stand Alone Forms: Patient Portal/API
[2022-06-09 22:28] VITALS: BP 138/70; PULSE 74; RESP 16; TEMP 36.4; O2SAT 97
== END 2022-06-09 22:29 | disposition home or self-care (01) ==
PROVIDERS: Emergency Provider Emergency Medicine; Family Provider Nurse Practitioner; PCP Nurse Practitioner
DX: S61.217A Laceration without foreign body of left little finger without damage to nail, initial encounter (principal); W26.0XXA Contact with knife, initial encounter; Z23 Encounter for immunization
CPT/HCPCS: 12001; 90471; 99283; 90715

== ENCOUNTER 2022-07-11 10:30 | Outpatient (RCR) | payer MEDICARE, SELFPAY ==
[2019-08-22 10:49] VITALS: BMI 26.0
--- NOTE | 2022-05-24 16:39 | PT.OIE ---
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 Breast cancer Elevated blood pressure reading without diagnosis of hypertension Hepatitis B Hypertension Left shoulder pain Osteoarthritis Osteopenia Osteoporosis Ovarian cancer Ovarian cyst Pre-operative clearance Seasonal allergic rhinitis Seasonal allergies Shortness of breath Tinnitus UTI (urinary tract infection) Well adult exam Past Surgical History (Last Reviewed 05/24/22 @ 10:07 by NATANAEL Aj) History of cataract surgery History of laparotomy Hx of appendectomy Status post chemotherapy Status post right hip replacement Visit Care Team Role Provider Type NATANAEL Aj Attending Provider Advanced Public Address System Mechanic Family Provider Primary Care Provider Referring Provider Specialty: [facility] Address: [address] [place] [address], [facility] Email: [email or web address] Physical Therapy Initial Evaluation PT-OP-A Visit Information Start: 05/24/22 12:20 Freq: Status: Active Protocol: Document 05/24/22 14:39 LRN (Rec: 05/24/22 16:31 LRN [id number]) Out-Patient Physical Therapy Visit Information Visit Information Visit Type Initial Evaluation Visit Start Time 14:39 Visit Stop Time 15:36 Total Visit Minutes 55 Visit Number 1 Evaluation Information Evaluation Date 05/24/22 Precautions Precautions Osteoporosis/osteopenia, Arthritis in shoulder, neck/ jaw pain since 1997, osteoarthritis, R MARI-01/2020, latex tape. Ovarian cancer 2009. Breast CA 2018. PT-OP-B Current Condition Start: 05/24/22 12:20 Freq: Status: Active Protocol: Document 05/24/22 14:39 LRN (Rec: 05/24/22 16:31 LRN [id number]) Current Condition History of Current Condition Onset Date 2 yrs ago Current Complaints Pain in L side of neck has become more frequent and pain with sleep. History of Current Condition 1997 had L upper molar tooth pulled and since then has had tension and low grade pain on left side of the neck and sometimes at posterior neck ( posterior scalene and UT and sometimes in pec minor). Interferes with sleeping at night, more painful to sleep on L side. Hasn't had a physician or dentist that has done anything about it until now which is why it has taken her so long to get treatment. P has a significant other at home. Prior Treatments and Tests None Developmental History Developmental History Dizziness history: Dizziness 2 episodes a year apart 3-4 yrs ago (on Lisinipril, because thought was TIA), dizziness onset when a field trainer pulled on neck and heard a loud pop (like popping a knuckle), then dizziness. Another time she was turning her head and heard a pop w/ onset of dizziness that went away after staying in bed the next day. Treatment Goals Patient/Caregiver Goals Pt goal is to *eliminate the pain, but after long discussion pt agreeable to a goal of decreasing number of onset during the week from 4-5x/wk to 2-3/wk. +Improve neck mobility to decrease frequency of pain onset, improve neck strength and posture to allow for longer positioning in sitting for watching TV or reading, with onset 2-3x/week. +Pt able to participate in a home exercise program. Personal Factors Other Personal Factors That May Effect Arthritis, osteopenia/ Therapy/Recovery osteoporosis. PT-OP-C Subjective Start: 05/24/22 12:20 Freq: Status: Active Protocol: Document 05/24/22 14:39 LRN (Rec: 05/24/22 16:31 LRN [id number]) Patient Questionnaires Neck Disability Index NDI Score 7 Neck Disability Index Impairment 1 to 19% Impaired (Score 1-9) Oswestry Low Back Index Oswestry Score 8 Oswestry Impairment 1 to 19% Impaired (Score 1-19) Quick Dash- Upper Extremity Quick Dash UE Score 38.6 Quick Dash UE Impairment 20 to 39% Impaired (Score 20- 39) OP-PT Pain Assessment Pain Assessment Grid Paper Pain Assessment Grid Completed Yes Location Neck Pain Location Details L neck Intensity 3 Scale Used Numeric (0 - 10) Description Aching Frequency Intermittent L arm Pain Location Details R mid forearm Intensity 2 Scale Used Numeric (0 - 10) Description Aching PT-OP-H Neuro Start: 05/24/22 12:20 Freq: Status: Active Protocol: Document 05/24/22 14:39 LRN (Rec: 05/24/22 16:31 LRN [id number]) Sensation Evaluation Gross Sensation Gross Sensation WNL PT-OP-J Posture/Palpation/Skin Start: 05/24/22 12:20 Freq: Status: Active Protocol: Document 05/24/22 14:39 LRN (Rec: 05/24/22 16:31 LRN [id number]) Posture Evaluation Position Standing Head/C-Spine Posture Side Bent Right,Forward Head T-Spine Posture Increased Kyphosis L-Spine Posture Decreased Lordosis Shoulder Posture (L) Forward Scapula Posture (L) Rotated Down Weight Distribution Balanced,Weight Shifted Left Comments Posture Comments Stands sometimes WBing more on L with R LE in AB & ER. L shoulder low, L breast low. Slight L scapula downward rotated. Palpation Assessment Location L arm Palpation Location biceps or triceps. Palpation Details No pain or discomfort Neck Palpation Location L Transverse processess of C/S & neck ms Palpation Details C2, C4, C7 L Transverse Process is tender. Tender L SCM and UT, posterior scalenes. PT-OP-K Range of Motion Start: 05/24/22 12:20 Freq: Status: Active Protocol: Document 05/24/22 14:39 LRN (Rec: 05/24/22 16:31 LRN [id number]) Cervical Spine Range of Motion Cervical Spine Active Degrees Testing Position Sitting Flexion 50 Extension 45 Rotation Left 43 Rotation Right 50 Lateral Flexion Left 12 Lateral Flexion Right 12 Comments SB to left causes rotation Shoulder Goniometric Range of Motion Shoulder Right Active Shoulder ROM WFL Yes Testing Position Sitting Flexion 150 Abduction 170 External Rotation at 0 degrees Abduction 60 Internal Rotation Behind Back (text) T10 Left Active Shoulder ROM WFL Yes Testing Position Sitting Flexion 150 Abduction 170 External Rotation at 0 degrees Abduction 60 Internal Rotation Behind Back (text) T10 Elbow/Forearm Range of Motion Elbow/Forearm Right Active Elbow/Forearm ROM WFL Yes ROM Testing Position Sitting Left Active Elbow/Forearm ROM WFL Yes ROM Testing Position Sitting PT-OP-L Special Tests Start: 05/24/22 12:20 Freq: Status: Active Protocol: Document 05/24/22 14:39 LRN (Rec: 05/24/22 16:31 LRN [id number]) Special Tests Cervical Spine Special Tests Upper Limb Tension Test Test Results + Median nerve, left side Foraminal Compression Test Results - Spurling's Test Test Results - bilaterally PT-OP-M Strength Start: 05/24/22 12:20 Freq: Status: Active Protocol: Document 05/24/22 14:39 LRN (Rec: 05/24/22 16:31 LRN [id number]) Elbow/Forearm Strength Elbow and Forearm Manual Muscle Testing Right Flexion (C6) 5 Normal Extension (C7) 5 Normal Left Flexion (C6) 5 Normal Extension (C7) 5 Normal PT-OP-Q Treatments Start: 05/24/22 12:20 Freq: Status: Active Protocol: Document 05/24/22 14:39 LRN (Rec: 05/24/22 16:31 LRN [id number]) Self-Care/Home Management Treatment Education Patient Education Posture Other Education Discussed results of evaluation, goals, and plan of care (POC). After extensive discussion the pt as agreeable to goals discussed and POC. Activities Self-Care/Home Management Activities Pt I/S in neck elongation ex in sitting and was I/S to practice proper sitting posture when resting at home. Pt I/S in using pillows or supports to maintain good sit posture. PT-OP-T Assessment and Plan Start: 05/24/22 12:20 Freq: Status: Active Protocol: Document 05/24/22 14:39 LRN (Rec: 05/24/22 16:31 LRN [id number]) Physical Therapy Assessment Rehab Potential Rehabilitation Potential Good Evaluation Complexity Number of Personal Factors/Comorbidities 3 or More Number of Body Systems Impaired 4 or More Clinical Presentation at Evaluation Stable Impairments Impairments Activity Tolerance,Pain, Posture,ROM,Soft Tissue Mobility,Strength Goals Three Impairment Decreased neck and joint mobility Short Term Goal (STG) Decrease L neck tone to decreased neck pain onset during the week from 4-5x/wk to 2-3/wk. STG Duration 07/08/22 Flight Dispatcher Goal (LTG) Improve neck mobility to decrease neck pain 04/22. LTG Duration 08/22/22 Two Impairment Poor posture Short Term Goal (STG) Improve awareness of proper posture. STG Duration 06/10/22 Prison Goal (LTG) AT home pt will identify sitting in good posture to allow for longer positioning in sitting for watching TV or reading, onset 2-3x/week. LTG Duration 08/22/22 One Impairment Pt lacks appropriate self care HEP Prison Goal (LTG) Pt able to participate in a home exercise program of neck/ shoulder ROM and postural strengthening exercises. LTG Duration 08/22/22 Assessment Summary Assessment Pt presents with L neck/upper forearm of a low level pain that is chronic in nature. She is + for left C/S joint dysfunction. Tenderness at cervical spine is most noteably at L transverse processes of C2, C4, C6 and stiffness at joints C2-C3, C4- C5, C5-C6 for R rot & L sideglide. Pt has postural deviations of neck/shoulder and thoracic spine causing unequal forces at the neck resulting in positional and chronic pain. She also presents with L Median neural tension. The pt has had chronic neck pain since 1997; therefore resolution of her pain is probably not going to be realistic in a few months, and especially since she is not a candidate for joint mobilization due to her osteoporosis. The pt will benefit from skilled physical therapy to be progressed onto a self longterm program along with physical therapy treatments to decrease pain, improve posture and improve body mechanics and posturing/ positioning. Physical Therapy Plan Frequency and Duration Frequency of Treatment 2x/Week Plan of Care Start Date 05/24/22 Plan of Care End Date 08/22/22 Therapeutic Interventions Therapeutic Interventions Home Exercise Program,Manual Therapy,Neuromuscular Re- education,Patient/Caregiver Education,Self-Care/Home Management,Soft Tissue Mobilization,Therapeutic Activities,Therapeutic Exercises Modalities Cold Pack/Ice Massage Next Visit Focus/Plan Next Note Type Treatment Note Next Visit Plan Assess UE DTR's with caution to minimize onset of bruising. Assess neck/shoulder strength. Manual therapy: for L. C/S joint dysfunction and to decrease tenderness at cervical spine is most noteably at L transverse processes of C2, C4, C6 and stiffness at joints C2-C3, C4- C5, C5-C6 for R rot & L sideglide. (No JMT due to osteoporosis). Pt education/exercise: postural training/exercise for neck(ROM/stab)/shoulder(ROM/ scapular positioning) and thoracic spine extension strengthening/ROM. L Median neural gliding. Modalities: Cryotherapy (note : CA hx).
--- NOTE | 2022-05-24 16:39 | PT.OPPOC ---
Physical, Occupational & Speech Therapy At [facility] Current Diagnoses Cervicalgia (05/24/22) Other muscle spasm (05/24/22) Pain in left arm (05/24/22) Visit Care Team Role Provider Type NATANAEL Aj Attending Provider Advanced Product Development Actuary Family Provider Primary Care Provider Referring Provider Specialty: Family Practice Address: [address] [place] [address], [facility] Email: [email or web address] Plan Of Care PT-OP-T Assessment and Plan Start: 05/24/22 12:20 Freq: Status: Active Protocol: Document 05/24/22 14:39 LRN (Rec: 05/24/22 16:31 LRN [id number]) Physical Therapy Assessment Rehab Potential Rehabilitation Potential Good Evaluation Complexity Number of Personal Factors/Comorbidities 3 or More Number of Body Systems Impaired 4 or More Clinical Presentation at Evaluation Stable Impairments Impairments Activity Tolerance,Pain, Posture,ROM,Soft Tissue Mobility,Strength Goals Three Impairment Decreased neck and joint mobility Short Term Goal (STG) Decrease L neck tone to decreased neck pain onset during the week from 4-5x/wk to 2-3/wk. STG Duration 07/08/22 Electronics Lead Goal (LTG) Improve neck mobility to decrease neck pain 04/22. LTG Duration 08/22/22 Two Impairment Poor posture Short Term Goal (STG) Improve awareness of proper posture. STG Duration 06/10/22 Electronics Lead Goal (LTG) AT home pt will identify sitting in good posture to allow for longer positioning in sitting for watching TV or reading, onset 2-3x/week. LTG Duration 08/22/22 One Impairment Pt lacks appropriate self care HEP Electronics Lead Goal (LTG) Pt able to participate in a home exercise program of neck/ shoulder ROM and postural strengthening exercises. LTG Duration 08/22/22 Assessment Summary Assessment Pt presents with L neck/upper forearm of a low level pain that is chronic in nature. She is + for left C/S joint dysfunction. Tenderness at cervical spine is most noteably at L transverse processes of C2, C4, C6 and stiffness at joints C2-C3, C4- C5, C5-C6 for R rot & L sideglide. Pt has postural deviations of neck/shoulder and thoracic spine causing unequal forces at the neck resulting in positional and chronic pain. She also presents with L Median neural tension. The pt has had chronic neck pain since 1997; therefore resolution of her pain is probably not going to be realistic in a few months, and especially since she is not a candidate for joint mobilization due to her osteoporosis. The pt will benefit from skilled physical therapy to be progressed onto a self longterm program along with physical therapy treatments to decrease pain, improve posture and improve body mechanics and posturing/ positioning. Physical Therapy Plan Frequency and Duration Frequency of Treatment 2x/Week Plan of Care Start Date 05/24/22 Plan of Care End Date 08/22/22 Therapeutic Interventions Therapeutic Interventions Home Exercise Program,Manual Therapy,Neuromuscular Re- education,Patient/Caregiver Education,Self-Care/Home Management,Soft Tissue Mobilization,Therapeutic Activities,Therapeutic Exercises Modalities Cold Pack/Ice Massage Next Visit Focus/Plan Next Note Type Treatment Note Next Visit Plan Assess UE DTR's with caution to minimize onset of bruising. Assess neck/shoulder strength. Manual therapy: for L. C/S joint dysfunction and to decrease tenderness at cervical spine is most noteably at L transverse processes of C2, C4, C6 and stiffness at joints C2-C3, C4- C5, C5-C6 for R rot & L sideglide. (No JMT due to osteoporosis). Pt education/exercise: postural training/exercise for neck(ROM/stab)/shoulder(ROM/ scapular positioning) and thoracic spine extension strengthening/ROM. L Median neural gliding. Modalities: Cryotherapy (note : CA hx). Plan of Care Dates Plan of Care Start Date 05/24/22 Plan of Care End Date 08/22/22 Electronically Signed by: Ml Montemayor, PT 05/24/22 [id number] If you are in agreement with this Plan of Care, please return a signed and dated copy. I have reviewed this Plan of Care and certify that the skilled therapy services above are required to meet the patient?s needs. Physician Signature Date Printed Name and Credentials Clinical Instructor Signature Printed Name and Credentials
--- NOTE | 2022-05-27 15:14 | PT.OTN ---
Current Diagnoses Cervicalgia (05/27/22) Other muscle spasm (05/27/22) Pain in left arm (05/27/22) Physical Therapy Treatment Note PT-OP-A Visit Information Start: 05/24/22 12:20 Freq: Status: Active Protocol: Document 05/27/22 09:50 LRN (Rec: 05/27/22 10:33 LRN [id number]) Out-Patient Physical Therapy Visit Information Visit Information Visit Type Treatment Note Visit Start Time 09:50 Visit Stop Time 10:28 Total Visit Minutes 38 Visit Number 2 Evaluation Information Evaluation Date 05/24/22 Precautions Precautions Osteoporosis/osteopenia, Arthritis in shoulder, neck/ jaw pain since 1997, osteoarthritis, R MARI-01/2020, latex tape. Ovarian cancer 2009. Breast CA 2019. PT-OP-B Current Condition Start: 05/24/22 12:20 Freq: Status: Active Protocol: Document 05/24/22 14:39 LRN (Rec: 05/24/22 16:31 LRN [id number]) Current Condition History of Current Condition Onset Date 2 yrs ago Current Complaints Pain in L side of neck has become more frequent and pain with sleep. History of Current Condition 1997 had L upper molar tooth pulled and since then has had tension and low grade pain on left side of the neck and sometimes at posterior neck ( posterior scalene and UT and sometimes in pec minor). Interferes with sleeping at night, more painful to sleep on L side. Hasn't had a physician or dentist that has done anything about it until now which is why it has taken her so long to get treatment. P has a significant other at home. Prior Treatments and Tests None Developmental History Developmental History Dizziness history: Dizziness 2 episodes a year apart 3-4 yrs ago (on Lisinipril, because thought was TIA), dizziness onset when a warehouse trainer pulled on neck and heard a loud pop (like popping a knuckle), then dizziness. Another time she was turning her head and heard a pop w/ onset of dizziness that went away after staying in bed the next day. Treatment Goals Patient/Caregiver Goals Pt goal is to *eliminate the pain, but after long discussion pt agreeable to a goal of decreasing number of onset during the week from 4-5x/wk to 2-3/wk. +Improve neck mobility to decrease frequency of pain onset, improve neck strength and posture to allow for longer positioning in sitting for watching TV or reading, with onset 2-3x/week. +Pt able to participate in a home exercise program. Personal Factors Other Personal Factors That May Effect Arthritis, osteopenia/ Therapy/Recovery osteoporosis. PT-OP-C Subjective Start: 05/24/22 12:20 Freq: Status: Active Protocol: Document 05/27/22 09:50 LRN (Rec: 05/27/22 10:33 LRN [id number]) OP-PT Subjective Patient Comments Patient Comments A little less pain in the L shoulder/neck and a little less tense. PT-OP-H Neuro Start: 05/24/22 12:20 Freq: Status: Active Protocol: Document 05/27/22 09:50 LRN (Rec: 05/27/22 14:59 LRN [id number]) Deep Tendon Reflex & Clonus Assessment Deep Tendon Reflex Right Bicep Deep Tendon Reflex 0 Absent Left Bicep Deep Tendon Reflex 1+ Diminished Right Brachioradialis Deep Tendon Reflex 0 Absent Left Brachioradialis Deep Tendon Reflex 1+ Diminished Bilateral Tricep Deep Tendon Reflex 1+ Diminished PT-OP-J Posture/Palpation/Skin Start: 05/24/22 12:20 Freq: Status: Active Protocol: Document 05/24/22 14:39 LRN (Rec: 05/24/22 16:31 LRN [id number]) Posture Evaluation Position Standing Head/C-Spine Posture Side Bent Right,Forward Head T-Spine Posture Increased Kyphosis L-Spine Posture Decreased Lordosis Shoulder Posture (L) Forward Scapula Posture (L) Rotated Down Weight Distribution Balanced,Weight Shifted Left Comments Posture Comments Stands sometimes WBing more on L with R LE in AB & ER. L shoulder low, L breast low. Slight L scapula downward rotated. Palpation Assessment Location L arm Palpation Location biceps or triceps. Palpation Details No pain or discomfort Neck Palpation Location L Transverse processess of C/S & neck ms Palpation Details C2, C4, C7 L Transverse Process is tender. Tender L SCM and UT, posterior scalenes. PT-OP-K Range of Motion Start: 05/24/22 12:20 Freq: Status: Active Protocol: Document 05/24/22 14:39 LRN (Rec: 05/24/22 16:31 LRN [id number]) Cervical Spine Range of Motion Cervical Spine Active Degrees Testing Position Sitting Flexion 50 Extension 45 Rotation Left 43 Rotation Right 50 Lateral Flexion Left 12 Lateral Flexion Right 12 Comments SB to left causes rotation Shoulder Goniometric Range of Motion Shoulder Right Active Shoulder ROM WFL Yes Testing Position Sitting Flexion 150 Abduction 170 External Rotation at 0 degrees Abduction 60 Internal Rotation Behind Back (text) T10 Left Active Shoulder ROM WFL Yes Testing Position Sitting Flexion 150 Abduction 170 External Rotation at 0 degrees Abduction 60 Internal Rotation Behind Back (text) T10 Elbow/Forearm Range of Motion Elbow/Forearm Right Active Elbow/Forearm ROM WFL Yes ROM Testing Position Sitting Left Active Elbow/Forearm ROM WFL Yes ROM Testing Position Sitting PT-OP-L Special Tests Start: 05/24/22 12:20 Freq: Status: Active Protocol: Document 05/24/22 14:39 LRN (Rec: 05/24/22 16:31 LRN [id number]) Special Tests Cervical Spine Special Tests Upper Limb Tension Test Test Results + Median nerve, left side Foraminal Compression Test Results - Spurling's Test Test Results - bilaterally PT-OP-M Strength Start: 05/24/22 12:20 Freq: Status: Active Protocol: Document 05/27/22 09:50 LRN (Rec: 05/27/22 10:33 LRN [id number]) Cervical Spine Strength Cervical Spine Manual Muscle Testing Testing Position Sitting Flexion (C1-2) 5 Normal Extension 5 Normal Rotation Left 5 Normal Rotation Right 5 Normal Lateral Flexion Left (C3) 5 Normal Lateral Flexion Right (C3) 5 Normal Shoulder Strength Shoulder Manual Muscle Testing Right Flexion 5 Normal Extension 4+ Good+ Abduction (C5) 4- Good- Adduction 5 Normal External Rotation 4+ Good+ Internal Rotation 4+ Good+ Left Flexion 5 Normal Extension 5 Normal Abduction (C5) 4 Good Adduction 5 Normal External Rotation 5 Normal Internal Rotation 5 Normal PT-OP-Q Treatments Start: 05/24/22 12:20 Freq: Status: Active Protocol: Document 05/27/22 09:50 LRN (Rec: 05/27/22 10:33 LRN [id number]) Therapeutic Exercises Supine Exercises Deep breathing Supine Exercise Name Deep breath through abdomen Reps/Minutes 11' Comments Training needed w/pt self phys cues needed for use of diaphragm for breaths Sitting Exercises Neck Elongation Sitting Exercise Name Neck Elongation Reps/Minutes 5SH Manual Therapy Treatment Soft Tissue Mobilization C/S Body Location L TP of C2, C4, C6, C2-C3, C4- C5, C5-C6 for R rot & L sideglide Body Position Hooklying Comments Side glide, ext & rotation L UT Body Location L UT Mobilization Type Trigger Point Release Intensity/Depth Moderate Body Position Hooklying Self-Care/Home Management Treatment Education Patient Education Home Exercise Program Activities Self-Care/Home Management Activities Issued & reviewed HEP: Deep breathing for diaphragm movement and less at chest. PT-OP-T Assessment and Plan Start: 05/24/22 12:20 Freq: Status: Active Protocol: Document 05/27/22 09:50 LRN (Rec: 05/27/22 10:33 LRN [id number]) Physical Therapy Assessment Goals Three Impairment Decreased neck and joint mobility Short Term Goal (STG) Decrease L neck tone to decreased neck pain onset during the week from 4-5x/wk to 2-3/wk. STG Duration 07/08/22 Mcfp Goal (LTG) Improve neck mobility to decrease neck pain 2/10. LTG Duration 08/22/22 Two Impairment Poor posture Short Term Goal (STG) Improve awareness of proper posture. STG Duration 06/10/22 Mcfp Goal (LTG) AT home pt will identify sitting in good posture to allow for longer positioning in sitting for watching TV or reading, onset 2-3x/week. 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 05/27/22: HEP: Deep breathing for lessening use of upper chest ms for respiration. LTG Duration 08/22/22 progressing 05/27/22 . Assessment Summary Assessment Pt with + for left C/S joint and postural dysfunction. Pt UE's DTRs show decreased response on the R for Biceps and Brachioradialis (C5-C6) and equal for Triceps (C7). Pt had difficulty relaxing during DTR check; therefore may be a reason for lack of R UE DTR response. Neck and shoulder strength is normal except 1/2 grade weakness with shoulder AD (C5). The pt L neck/shoulder pain is reportedly less after last visit; possibly due to C/S movement - creating space for neural movement. Pt L C2, C4, C6 TrP appeared less swollen. Pain still present. Physical Therapy Plan Frequency and Duration Frequency of Treatment 2x/Week Plan of Care Start Date 05/24/22 Plan of Care End Date 08/22/22 Next Visit Focus/Plan Next Note Type Treatment Note Next Visit Plan Re-assess R UE Biceps/ Brachioradialis DTR with caution to minimize onset of bruising. Manual therapy: for Left C/S joint dysfunction and to decrease tenderness at cervical spine L transverse processes of C2, C4, C6 and stiffness at joints C2-C3, C4- C5, C5-C6 for R rot & L sideglide. (No JMT due to osteoporosis). Pt education/exercise: postural training/exercise for neck(ROM/stab)/shoulder(ROM/ scapular positioning) and thoracic spine extension strengthening/ROM. L Median neural gliding. Modalities: Cryotherapy (note : CA hx).
--- NOTE | 2022-06-09 17:08 | PT.OTN ---
Current Diagnoses Cervicalgia (06/09/22) Other muscle spasm (06/09/22) Pain in left arm (06/09/22) Physical Therapy Treatment Note PT-OP-A Visit Information Start: 05/24/22 12:20 Freq: Status: Active Protocol: Document 06/09/22 10:37 LRN (Rec: 06/09/22 11:32 LRN [id number]) Out-Patient Physical Therapy Visit Information Visit Information Visit Type Treatment Note Visit Start Time 10:37 Visit Stop Time 11:20 Total Visit Minutes 43 Visit Number 3 Evaluation Information Evaluation Date 05/24/22 Precautions Precautions Osteoporosis/osteopenia, Arthritis in shoulder, neck/ jaw pain since 1997, osteoarthritis, R MARI-01/2020, latex tape. Ovarian cancer 2009. Breast CA 2019. PT-OP-B Current Condition Start: 05/24/22 12:20 Freq: Status: Active Protocol: Document 05/24/22 14:39 LRN (Rec: 05/24/22 16:31 LRN [id number]) Current Condition History of Current Condition Onset Date 2 yrs ago Current Complaints Pain in L side of neck has become more frequent and pain with sleep. History of Current Condition 1997 had L upper molar tooth pulled and since then has had tension and low grade pain on left side of the neck and sometimes at posterior neck ( posterior scalene and UT and sometimes in pec minor). Interferes with sleeping at night, more painful to sleep on L side. Hasn't had a physician or dentist that has done anything about it until now which is why it has taken her so long to get treatment. P has a significant other at home. Prior Treatments and Tests None Developmental History Developmental History Dizziness history: Dizziness 2 episodes a year apart 3-4 yrs ago (on Lisinipril, because thought was TIA), dizziness onset when a care trainer pulled on neck and heard a loud pop (like popping a knuckle), then dizziness. Another time she was turning her head and heard a pop w/ onset of dizziness that went away after staying in bed the next day. Treatment Goals Patient/Caregiver Goals Pt goal is to *eliminate the pain, but after long discussion pt agreeable to a goal of decreasing number of onset during the week from 4-5x/wk to 2-3/wk. +Improve neck mobility to decrease frequency of pain onset, improve neck strength and posture to allow for longer positioning in sitting for watching TV or reading, with onset 2-3x/week. +Pt able to participate in a home exercise program. Personal Factors Other Personal Factors That May Effect Arthritis, osteopenia/ Therapy/Recovery osteoporosis. PT-OP-C Subjective Start: 05/24/22 12:20 Freq: Status: Active Protocol: Document 06/09/22 10:37 LRN (Rec: 06/09/22 11:32 LRN [id number]) OP-PT Subjective Patient Comments Patient Comments Neck feels better after the session that lasts for a few days. Same L shoulder/neck pain. PT-OP-H Neuro Start: 05/24/22 12:20 Freq: Status: Active Protocol: Document 06/09/22 10:37 LRN (Rec: 06/09/22 11:32 LRN [id number]) Deep Tendon Reflex & Clonus Assessment Deep Tendon Reflex Right Bicep Deep Tendon Reflex 1+ Diminished PT-OP-J Posture/Palpation/Skin Start: 05/24/22 12:20 Freq: Status: Active Protocol: Document 05/24/22 14:39 LRN (Rec: 05/24/22 16:31 LRN [id number]) Posture Evaluation Position Standing Head/C-Spine Posture Side Bent Right,Forward Head T-Spine Posture Increased Kyphosis L-Spine Posture Decreased Lordosis Shoulder Posture (L) Forward Scapula Posture (L) Rotated Down Weight Distribution Balanced,Weight Shifted Left Comments Posture Comments Stands sometimes WBing more on L with R LE in AB & ER. L shoulder low, L breast low. Slight L scapula downward rotated. Palpation Assessment Location L arm Palpation Location biceps or triceps. Palpation Details No pain or discomfort Neck Palpation Location L Transverse processess of C/S & neck ms Palpation Details C2, C4, C7 L Transverse Process is tender. Tender L SCM and UT, posterior scalenes. PT-OP-K Range of Motion Start: 05/24/22 12:20 Freq: Status: Active Protocol: Document 05/24/22 14:39 LRN (Rec: 05/24/22 16:31 LRN [id number]) Cervical Spine Range of Motion Cervical Spine Active Degrees Testing Position Sitting Flexion 50 Extension 45 Rotation Left 43 Rotation Right 50 Lateral Flexion Left 12 Lateral Flexion Right 12 Comments SB to left causes rotation Shoulder Goniometric Range of Motion Shoulder Right Active Shoulder ROM WFL Yes Testing Position Sitting Flexion 150 Abduction 170 External Rotation at 0 degrees Abduction 60 Internal Rotation Behind Back (text) T10 Left Active Shoulder ROM WFL Yes Testing Position Sitting Flexion 150 Abduction 170 External Rotation at 0 degrees Abduction 60 Internal Rotation Behind Back (text) T10 Elbow/Forearm Range of Motion Elbow/Forearm Right Active Elbow/Forearm ROM WFL Yes ROM Testing Position Sitting Left Active Elbow/Forearm ROM WFL Yes ROM Testing Position Sitting PT-OP-L Special Tests Start: 05/24/22 12:20 Freq: Status: Active Protocol: Document 05/24/22 14:39 LRN (Rec: 05/24/22 16:31 LRN [id number]) Special Tests Cervical Spine Special Tests Upper Limb Tension Test Test Results + Median nerve, left side Foraminal Compression Test Results - Spurling's Test Test Results - bilaterally PT-OP-M Strength Start: 05/24/22 12:20 Freq: Status: Active Protocol: Document 05/27/22 09:50 LRN (Rec: 05/27/22 10:33 LRN [id number]) Cervical Spine Strength Cervical Spine Manual Muscle Testing Testing Position Sitting Flexion (C1-2) 5 Normal Extension 5 Normal Rotation Left 5 Normal Rotation Right 5 Normal Lateral Flexion Left (C3) 5 Normal Lateral Flexion Right (C3) 5 Normal Shoulder Strength Shoulder Manual Muscle Testing Right Flexion 5 Normal Extension 4+ Good+ Abduction (C5) 4- Good- Adduction 5 Normal External Rotation 4+ Good+ Internal Rotation 4+ Good+ Left Flexion 5 Normal Extension 5 Normal Abduction (C5) 4 Good Adduction 5 Normal External Rotation 5 Normal Internal Rotation 5 Normal PT-OP-Q Treatments Start: 05/24/22 12:20 Freq: Status: Active Protocol: Document 06/09/22 10:37 LRN (Rec: 06/09/22 11:32 LRN [id number]) Therapeutic Exercises Supine Exercises Deep breathing Supine Exercise Name Deep breath through abdomen Reps/Minutes 1' Comments Pt able to perform during manual therapy. Sitting Exercises Neck Elongation Sitting Exercise Name Neck Elongation Reps/Minutes 3' with 10 SH Comments Cuing at neck, chin, chest/ upper back for appropriate changes. Manual Therapy Treatment Soft Tissue Mobilization C7-T1 Body Location C7-T1 PA mob of SP Mobilization Type Myofascial Release, Oscillations Intensity/Depth Mild Body Position Supine C/S Body Location L TP of C2, C3, C4, C2-C3, C4- C5 for R rot & L sideglide Body Position Hooklying Comments Side glide, mild ext. L UT Body Location L UT Mobilization Type Trigger Point Release Intensity/Depth Moderate Body Position Hooklying Self-Care/Home Management Treatment Education Other Education Pt educated in proper posturing for all positions. Pt educated in how to adjust for appropriate posturing ( head/neck posturing) for nighttime sleep. Discussed at length nighttime positioning for proper saggital (AP) and coronal plane positioning. Activities Self-Care/Home Management Activities Issued & reviewed self care handouts for proper sitting, standing, and sidelie positioning. PT-OP-T Assessment and Plan Start: 05/24/22 12:20 Freq: Status: Active Protocol: Document 06/09/22 10:37 LRN (Rec: 06/09/22 11:32 LRN [id number]) Physical Therapy Assessment Goals Three Impairment Decreased neck and joint mobility Short Term Goal (STG) Decrease L neck tone to decreased neck pain onset during the week from 4-5x/wk to 2-3/wk. STG Duration 07/08/22 Direct Care Specialist Goal (LTG) Improve neck mobility to decrease neck pain 2/10. LTG Duration 08/22/22 Two Impairment Poor posture Short Term Goal (STG) Improve awareness of proper posture. 06/09/22: Pt educated in proper posturing for all positions. Educated pt in how to adjust for appropriate posture for nighttime sleep. Pt receptive to information. STG Duration 06/10/22 progressing 06/09/22 Direct Care Specialist Goal (LTG) AT home pt will identify sitting in good posture to allow for longer positioning in sitting for watching TV or reading, onset 2-3x/week. LTG Duration 08/22/22 One Impairment Pt lacks appropriate self care HEP Direct Care Specialist Goal (LTG) Pt able to participate in a home exercise program of neck/ shoulder ROM and postural strengthening exercises. 05/27/22: HEP: Deep breathing for lessening use of upper chest ms for respiration. 06/09/22: I/S pt in Neck elongation ex. LTG Duration 08/22/22 progressing 06/09/22 . Assessment Summary Assessment Pt with + for left C/S joint and postural dysfunction. Pt pain decreased from a 6-7/10 to start to 0/10, noting only that she could feel it but not giving a pain rating number. Pt is very receptive to postural education and training. DTR's are difficult to obtain due to pt not able to relax, but able to get a R biceps DTR 1+. Physical Therapy Plan Frequency and Duration Frequency of Treatment 2x/Week Plan of Care Start Date 05/24/22 Plan of Care End Date 08/22/22 Next Visit Focus/Plan Next Note Type Treatment Note Next Visit Plan Check R UE Brachioradialis DTR with caution to minimize onset of bruising. Manual therapy: for Left C/S joint dysfunction and to decrease tenderness at cervical spine L transverse processes of C2, C4, C6 and stiffness at joints C2-C3, C4- C5, C5-C6 for R rot & L sideglide. (No JMT due to osteoporosis). Pt exercise: exercise for neck (ROM/stab)/shoulder(ROM/ scapular positioning) and thoracic spine extension strengthening/ROM. L Median neural gliding. Modalities: Cryotherapy (note : CA hx).
--- NOTE | 2022-06-17 11:19 | PT.OTN ---
Current Diagnoses Cervicalgia (06/17/22) Other muscle spasm (06/17/22) Pain in left arm (06/17/22) Physical Therapy Treatment Note PT-OP-A Visit Information Start: 05/24/22 12:20 Freq: Status: Active Protocol: Document 06/17/22 10:36 LRN (Rec: 06/17/22 11:18 LRN [id number]) Out-Patient Physical Therapy Visit Information Visit Information Visit Type Treatment Note Visit Start Time 10:36 Visit Stop Time 11:15 Total Visit Minutes 39 Visit Number 4 Evaluation Information Evaluation Date 05/24/22 Precautions Precautions Osteoporosis/osteopenia, Arthritis in shoulder, neck/ jaw pain since 1997, osteoarthritis, R MARI-01/2020, latex tape. Ovarian cancer 2009. Breast CA 2019. PT-OP-B Current Condition Start: 05/24/22 12:20 Freq: Status: Active Protocol: Document 05/24/22 14:39 LRN (Rec: 05/24/22 16:31 LRN [id number]) Current Condition History of Current Condition Onset Date 2 yrs ago Current Complaints Pain in L side of neck has become more frequent and pain with sleep. History of Current Condition 1997 had L upper molar tooth pulled and since then has had tension and low grade pain on left side of the neck and sometimes at posterior neck ( posterior scalene and UT and sometimes in pec minor). Interferes with sleeping at night, more painful to sleep on L side. Hasn't had a physician or dentist that has done anything about it until now which is why it has taken her so long to get treatment. P has a significant other at home. Prior Treatments and Tests None Developmental History Developmental History Dizziness history: Dizziness 2 episodes a year apart 3-4 yrs ago (on Lisinipril, because thought was TIA), dizziness onset when a monkey trainer pulled on neck and heard a loud pop (like popping a knuckle), then dizziness. Another time she was turning her head and heard a pop w/ onset of dizziness that went away after staying in bed the next day. Treatment Goals Patient/Caregiver Goals Pt goal is to *eliminate the pain, but after long discussion pt agreeable to a goal of decreasing number of onset during the week from 4-5x/wk to 2-3/wk. +Improve neck mobility to decrease frequency of pain onset, improve neck strength and posture to allow for longer positioning in sitting for watching TV or reading, with onset 2-3x/week. +Pt able to participate in a home exercise program. Personal Factors Other Personal Factors That May Effect Arthritis, osteopenia/ Therapy/Recovery osteoporosis. PT-OP-C Subjective Start: 05/24/22 12:20 Freq: Status: Active Protocol: Document 06/17/22 10:36 LRN (Rec: 06/17/22 11:18 LRN [id number]) OP-PT Subjective Patient Comments Patient Comments Overall better, last night the neck started to hurt. Twinges of shoulder pain. PT-OP-H Neuro Start: 05/24/22 12:20 Freq: Status: Active Protocol: Document 06/17/22 10:36 LRN (Rec: 06/17/22 11:18 LRN [id number]) Deep Tendon Reflex & Clonus Assessment Deep Tendon Reflex Right Brachioradialis Deep Tendon Reflex 1+ Diminished Left Brachioradialis Deep Tendon Reflex 1+ Diminished PT-OP-J Posture/Palpation/Skin Start: 05/24/22 12:20 Freq: Status: Active Protocol: Document 05/24/22 14:39 LRN (Rec: 05/24/22 16:31 LRN [id number]) Posture Evaluation Position Standing Head/C-Spine Posture Side Bent Right,Forward Head T-Spine Posture Increased Kyphosis L-Spine Posture Decreased Lordosis Shoulder Posture (L) Forward Scapula Posture (L) Rotated Down Weight Distribution Balanced,Weight Shifted Left Comments Posture Comments Stands sometimes WBing more on L with R LE in AB & ER. L shoulder low, L breast low. Slight L scapula downward rotated. Palpation Assessment Location L arm Palpation Location biceps or triceps. Palpation Details No pain or discomfort Neck Palpation Location L Transverse processess of C/S & neck ms Palpation Details C2, C4, C7 L Transverse Process is tender. Tender L SCM and UT, posterior scalenes. PT-OP-K Range of Motion Start: 05/24/22 12:20 Freq: Status: Active Protocol: Document 06/17/22 10:36 LRN (Rec: 06/17/22 11:18 LRN [id number]) Cervical Spine Range of Motion Cervical Spine Active Degrees Testing Position Sitting Flexion 50 Extension 45 Rotation Left 57 Rotation Right 55 Lateral Flexion Left 12 Lateral Flexion Right 12 Comments SB to left causes rotation PT-OP-L Special Tests Start: 05/24/22 12:20 Freq: Status: Active Protocol: Document 05/24/22 14:39 LRN (Rec: 05/24/22 16:31 LRN [id number]) Special Tests Cervical Spine Special Tests Upper Limb Tension Test Test Results + Median nerve, left side Foraminal Compression Test Results - Spurling's Test Test Results - bilaterally PT-OP-M Strength Start: 05/24/22 12:20 Freq: Status: Active Protocol: Document 05/27/22 09:50 LRN (Rec: 05/27/22 10:33 LRN [id number]) Cervical Spine Strength Cervical Spine Manual Muscle Testing Testing Position Sitting Flexion (C1-2) 5 Normal Extension 5 Normal Rotation Left 5 Normal Rotation Right 5 Normal Lateral Flexion Left (C3) 5 Normal Lateral Flexion Right (C3) 5 Normal Shoulder Strength Shoulder Manual Muscle Testing Right Flexion 5 Normal Extension 4+ Good+ Abduction (C5) 4- Good- Adduction 5 Normal External Rotation 4+ Good+ Internal Rotation 4+ Good+ Left Flexion 5 Normal Extension 5 Normal Abduction (C5) 4 Good Adduction 5 Normal External Rotation 5 Normal Internal Rotation 5 Normal PT-OP-Q Treatments Start: 05/24/22 12:20 Freq: Status: Active Protocol: Document 06/17/22 10:36 LRN (Rec: 06/17/22 11:18 LRN [id number]) Therapeutic Exercises Supine Exercises Open Book stretch Supine Exercise Name R rot> L rot Open book stretch Side bilateral Reps/Minutes 3' Comments R side rot is more tight in front ant chest, L rot neck stretch felt Deep breathing Supine Exercise Name Deep breath through abdomen Reps/Minutes 1' Comments Pt able to perform during manual therapy. Sitting Exercises Neck Elongation Sitting Exercise Name Neck Elongation Reps/Minutes 2' with 10 SH Comments Cuing at neck, chin, chest/ upper back for appropriate changes. Manual Therapy Treatment Soft Tissue Mobilization T/S Paraspinals Body Location R>L T1-T6 Paraspinals Mobilization Type Strumming,Sustained Pressure Intensity/Depth Moderate Body Position Prone C7-T1 Body Location C7-T1 PA mob of SP Mobilization Type Myofascial Release, Oscillations Intensity/Depth Mild Body Position Supine C/S Body Location L TP of C2, C3, C4, C2-C3, C4- C5 for R rot & L sideglide Body Position Hooklying Comments Side glide, mild ext. L UT Body Location L UT Mobilization Type Trigger Point Release Intensity/Depth Moderate Body Position Hooklying Self-Care/Home Management Treatment Activities Self-Care/Home Management Activities During neck elongation ex , I /S pt to neck elongation, deep breathing and posture awareness and added neck AROM and open book stretch to HEP. PT-OP-T Assessment and Plan Start: 05/24/22 12:20 Freq: Status: Active Protocol: Document 06/17/22 10:36 LRN (Rec: 06/17/22 11:18 LRN [id number]) Physical Therapy Assessment Goals Three Impairment Decreased neck and joint mobility Short Term Goal (STG) Decrease L neck tone to decreased neck pain onset during the week from 4-5x/wk to 2-3/wk. STG Duration 07/08/22 [employer] Goal (LTG) Improve neck mobility to decrease neck pain 04/22. LTG Duration 08/22/22 Two Impairment Poor posture Short Term Goal (STG) Improve awareness of proper posture. 06/09/22: Pt educated in proper posturing for all positions. Educated pt in how to adjust for appropriate posture for nighttime sleep. Pt receptive to information. STG Duration 06/10/22 progressing 06/09/22 [facility] Goal (LTG) AT home pt will identify sitting in good posture to allow for longer positioning in sitting for watching TV or reading, onset 2-3x/week. LTG Duration 08/22/22 One Impairment Pt lacks appropriate self care HEP [employer] Goal (LTG) Pt able to participate in a home exercise program of neck/ shoulder ROM and postural strengthening exercises. 05/27/22: HEP: Deep breathing for lessening use of upper chest ms for respiration. 06/09/22: I/S pt in Neck elongation ex. LTG Duration 08/22/22 progressing 06/09/22 . Assessment Summary Assessment Equally diminished Brachioradialis reflexes. Cervical L rot is now mostly symmetrical to R rot. Ext is same. Thoracic spine is very stiff. Trunk rot L is easier to move than R. L rot is felt in neck rot. Physical Therapy Plan Frequency and Duration Frequency of Treatment 2x/Week Plan of Care Start Date 05/24/22 Plan of Care End Date 08/22/22 Next Visit Focus/Plan Next Note Type Treatment Note Next Visit Plan Manual therapy: for Left C/S joint dysfunction and to decrease tenderness at cervical spine L transverse processes of C2, C4, C6 and stiffness at joints C2-C3, C4- C5, C5-C6 for R rot & L sideglide. (No JMT due to osteoporosis). L Median neural gliding. Pt exercise: exercise for neck (ROM/stab)/shoulder(ROM/ scapular positioning) and thoracic spine extension strengthening/ROM. Modalities: Cryotherapy (note : [place] hx).
--- NOTE | 2022-06-21 16:37 | PT.OTN ---
Current Diagnoses Cervicalgia (06/21/22) Other muscle spasm (06/21/22) Pain in left arm (06/21/22) Physical Therapy Treatment Note PT-OP-A Visit Information Start: 05/24/22 12:20 Freq: Status: Active Protocol: Document 06/21/22 13:48 LRN (Rec: 06/21/22 14:34 LRN [id number]) Out-Patient Physical Therapy Visit Information Visit Information Visit Type Treatment Note Visit Start Time 13:48 Visit Stop Time 14:34 Total Visit Minutes 46 Visit Number 5 Evaluation Information Evaluation Date 05/24/22 Precautions Precautions Osteoporosis/osteopenia, Arthritis in shoulder, neck/ jaw pain since 1997, osteoarthritis, R MARI-01/2020, latex tape. Ovarian cancer 2009. Breast CA 2019. PT-OP-B Current Condition Start: 05/24/22 12:20 Freq: Status: Active Protocol: Document 05/24/22 14:39 LRN (Rec: 05/24/22 16:31 LRN [id number]) Current Condition History of Current Condition Onset Date 2 yrs ago Current Complaints Pain in L side of neck has become more frequent and pain with sleep. History of Current Condition 1997 had L upper molar tooth pulled and since then has had tension and low grade pain on left side of the neck and sometimes at posterior neck ( posterior scalene and UT and sometimes in pec minor). Interferes with sleeping at night, more painful to sleep on L side. Hasn't had a physician or dentist that has done anything about it until now which is why it has taken her so long to get treatment. P has a significant other at home. Prior Treatments and Tests None Developmental History Developmental History Dizziness history: Dizziness 2 episodes a year apart 3-4 yrs ago (on Lisinipril, because thought was TIA), dizziness onset when a program trainer pulled on neck and heard a loud pop (like popping a knuckle), then dizziness. Another time she was turning her head and heard a pop w/ onset of dizziness that went away after staying in bed the next day. Treatment Goals Patient/Caregiver Goals Pt goal is to *eliminate the pain, but after long discussion pt agreeable to a goal of decreasing number of onset during the week from 4-5x/wk to 2-3/wk. +Improve neck mobility to decrease frequency of pain onset, improve neck strength and posture to allow for longer positioning in sitting for watching TV or reading, with onset 2-3x/week. +Pt able to participate in a home exercise program. Personal Factors Other Personal Factors That May Effect Arthritis, osteopenia/ Therapy/Recovery osteoporosis. PT-OP-C Subjective Start: 05/24/22 12:20 Freq: Status: Active Protocol: Document 06/21/22 13:48 LRN (Rec: 06/21/22 14:34 LRN [id number]) OP-PT Subjective Patient Comments Patient Comments No change since last visit, neck pain is about the same. PT-OP-H Neuro Start: 05/24/22 12:20 Freq: Status: Active Protocol: Document 06/17/22 10:36 LRN (Rec: 06/17/22 11:18 LRN [id number]) Deep Tendon Reflex & Clonus Assessment Deep Tendon Reflex Right Brachioradialis Deep Tendon Reflex 1+ Diminished Left Brachioradialis Deep Tendon Reflex 1+ Diminished PT-OP-J Posture/Palpation/Skin Start: 05/24/22 12:20 Freq: Status: Active Protocol: Document 05/24/22 14:39 LRN (Rec: 05/24/22 16:31 LRN [id number]) Posture Evaluation Position Standing Head/C-Spine Posture Side Bent Right,Forward Head T-Spine Posture Increased Kyphosis L-Spine Posture Decreased Lordosis Shoulder Posture (L) Forward Scapula Posture (L) Rotated Down Weight Distribution Balanced,Weight Shifted Left Comments Posture Comments Stands sometimes WBing more on L with R LE in AB & ER. L shoulder low, L breast low. Slight L scapula downward rotated. Palpation Assessment Location L arm Palpation Location biceps or triceps. Palpation Details No pain or discomfort Neck Palpation Location L Transverse processess of C/S & neck ms Palpation Details C2, C4, C7 L Transverse Process is tender. Tender L SCM and UT, posterior scalenes. PT-OP-K Range of Motion Start: 05/24/22 12:20 Freq: Status: Active Protocol: Document 06/17/22 10:36 LRN (Rec: 06/17/22 11:18 LRN [id number]) Cervical Spine Range of Motion Cervical Spine Active Degrees Testing Position Sitting Flexion 50 Extension 45 Rotation Left 57 Rotation Right 55 Lateral Flexion Left 12 Lateral Flexion Right 12 Comments SB to left causes rotation PT-OP-L Special Tests Start: 05/24/22 12:20 Freq: Status: Active Protocol: Document 05/24/22 14:39 LRN (Rec: 05/24/22 16:31 LRN [id number]) Special Tests Cervical Spine Special Tests Upper Limb Tension Test Test Results + Median nerve, left side Foraminal Compression Test Results - Spurling's Test Test Results - bilaterally PT-OP-M Strength Start: 05/24/22 12:20 Freq: Status: Active Protocol: Document 05/27/22 09:50 LRN (Rec: 05/27/22 10:33 LRN [id number]) Cervical Spine Strength Cervical Spine Manual Muscle Testing Testing Position Sitting Flexion (C1-2) 5 Normal Extension 5 Normal Rotation Left 5 Normal Rotation Right 5 Normal Lateral Flexion Left (C3) 5 Normal Lateral Flexion Right (C3) 5 Normal Shoulder Strength Shoulder Manual Muscle Testing Right Flexion 5 Normal Extension 4+ Good+ Abduction (C5) 4- Good- Adduction 5 Normal External Rotation 4+ Good+ Internal Rotation 4+ Good+ Left Flexion 5 Normal Extension 5 Normal Abduction (C5) 4 Good Adduction 5 Normal External Rotation 5 Normal Internal Rotation 5 Normal PT-OP-Q Treatments Start: 05/24/22 12:20 Freq: Status: Active Protocol: Document 06/21/22 13:48 LRN (Rec: 06/21/22 14:34 LRN [id number]) Therapeutic Exercises Supine Exercises Median n stretch Supine Exercise Name Median n stretch Side bilateral Sitting Exercises Neck Elongation Sitting Exercise Name Neck Elongation Reps/Minutes 2' with 10 SH Comments Cuing at neck, chin, chest/ upper back for appropriate changes. Manual Therapy Treatment Soft Tissue Mobilization R UT Body Location R UT stretch Mobilization Type Strumming Intensity/Depth Moderate Body Position Hooklying T/S Paraspinals Body Location R>L T1-T6 Paraspinals Mobilization Type Strumming,Sustained Pressure Intensity/Depth Moderate Body Position Prone C7-T1 Body Location C7-T1 PA mob of SP Mobilization Type Myofascial Release, Oscillations Intensity/Depth Mild Body Position Supine C/S Body Location R TP of C2, C3, C4, C2-C3, C4- C5 for R rot & L sideglide Body Position Hooklying Comments Side glide, mild ext. Self-Care/Home Management Treatment Education Patient Education Home Exercise Program Activities Self-Care/Home Management Activities Issued & reviewed HEP: Median n. Slider & Tensioner. PT-OP-T Assessment and Plan Start: 05/24/22 12:20 Freq: Status: Active Protocol: Document 06/21/22 13:48 LRN (Rec: 06/21/22 14:34 LRN [id number]) Physical Therapy Assessment Goals Three Impairment Decreased neck and joint mobility Short Term Goal (STG) Decrease L neck tone to decreased neck pain onset during the week from 4-5x/wk to 2-3/wk. STG Duration 07/08/22 [facility] Goal (LTG) Improve neck mobility to decrease neck pain 04/22. LTG Duration 08/22/22 Two Impairment Poor posture Short Term Goal (STG) Improve awareness of proper posture. 06/09/22: Pt educated in proper posturing for all positions. Educated pt in how to adjust for appropriate posture for nighttime sleep. Pt receptive to information. STG Duration 06/10/22 progressing 06/09/22 Video Operator Goal (LTG) AT home pt will identify sitting in good posture to allow for longer positioning in sitting for watching TV or reading, onset 2-3x/week. LTG Duration 08/22/22 One Impairment Pt lacks appropriate self care HEP Video Operator Goal (LTG) Pt able to participate in a home exercise program of neck/ shoulder ROM and postural strengthening exercises. 05/27/22: HEP: Deep breathing for lessening use of upper chest ms for respiration. 06/09/22: I/S pt in Neck elongation ex. LTG Duration 08/22/22 progressing 06/09/22 . Assessment Summary Assessment C/S PROM is improving. In supine PROM appears to be SB ~ 25 deg's and rotation, ~ 70 deg's. Pt awareness of proper sitting posture is improving with pt sitting in good posture after initial cuing at start of therapy. Physical Therapy Plan Frequency and Duration Frequency of Treatment 2x/Week Plan of Care Start Date 05/24/22 Plan of Care End Date 08/22/22 Next Visit Focus/Plan Next Note Type Treatment Note Next Visit Plan Assess progress towards pain goal. Review HEP: L Median neural gliding. Manual therapy: for Left C/S joint dysfunction and to decrease tenderness at cervical spine L transverse processes of C2, C4, C6 and stiffness at joints C2-C3, C4- C5, C5-C6 for R rot & L sideglide. (No JMT due to osteoporosis). Pt exercise: exercise for neck (ROM/stab)/shoulder(ROM/ scapular positioning) and thoracic spine extension strengthening/ROM. Modalities: Cryotherapy (note : [place] hx).
--- NOTE | 2022-06-28 12:02 | PT.OTN ---
Current Diagnoses Cervicalgia (06/28/22) Other muscle spasm (06/28/22) Pain in left arm (06/28/22) Physical Therapy Treatment Note PT-OP-A Visit Information Start: 05/24/22 12:20 Freq: Status: Active Protocol: Document 06/28/22 11:21 LRN (Rec: 06/28/22 12:01 LRN [id number]) Out-Patient Physical Therapy Visit Information Visit Information Visit Type Treatment Note Visit Start Time 11:21 Visit Stop Time 11:59 Total Visit Minutes 38 Visit Number 38 Evaluation Information Evaluation Date 05/24/22 Precautions Precautions Osteoporosis/osteopenia, Arthritis in shoulder, neck/ jaw pain since 1997, osteoarthritis, R MARI-01/2020, latex tape. Ovarian cancer 2009. Breast CA 2019. PT-OP-B Current Condition Start: 05/24/22 12:20 Freq: Status: Active Protocol: Document 05/24/22 14:39 LRN (Rec: 05/24/22 16:31 LRN [id number]) Current Condition History of Current Condition Onset Date 2 yrs ago Current Complaints Pain in L side of neck has become more frequent and pain with sleep. History of Current Condition 1997 had L upper molar tooth pulled and since then has had tension and low grade pain on left side of the neck and sometimes at posterior neck ( posterior scalene and UT and sometimes in pec minor). Interferes with sleeping at night, more painful to sleep on L side. Hasn't had a physician or dentist that has done anything about it until now which is why it has taken her so long to get treatment. P has a significant other at home. Prior Treatments and Tests None Developmental History Developmental History Dizziness history: Dizziness 2 episodes a year apart 3-4 yrs ago (on Lisinipril, because thought was TIA), dizziness onset when a marine animal trainer pulled on neck and heard a loud pop (like popping a knuckle), then dizziness. Another time she was turning her head and heard a pop w/ onset of dizziness that went away after staying in bed the next day. Treatment Goals Patient/Caregiver Goals Pt goal is to *eliminate the pain, but after long discussion pt agreeable to a goal of decreasing number of onset during the week from 4-5x/wk to 2-3/wk. +Improve neck mobility to decrease frequency of pain onset, improve neck strength and posture to allow for longer positioning in sitting for watching TV or reading, with onset 2-3x/week. +Pt able to participate in a home exercise program. Personal Factors Other Personal Factors That May Effect Arthritis, osteopenia/ Therapy/Recovery osteoporosis. PT-OP-C Subjective Start: 05/24/22 12:20 Freq: Status: Active Protocol: Document 06/28/22 11:21 LRN (Rec: 06/28/22 12:01 LRN [id number]) OP-PT Subjective Patient Comments Patient Comments After last session the neck nel hurt, low level pain that lasted the day. Didn't ex everyday due to had to travel for [facility]. Pain in the neck is hit and miss. PT-OP-H Neuro Start: 05/24/22 12:20 Freq: Status: Active Protocol: Document 06/17/22 10:36 LRN (Rec: 06/17/22 11:18 LRN [id number]) Deep Tendon Reflex & Clonus Assessment Deep Tendon Reflex Right Brachioradialis Deep Tendon Reflex 1+ Diminished Left Brachioradialis Deep Tendon Reflex 1+ Diminished PT-OP-J Posture/Palpation/Skin Start: 05/24/22 12:20 Freq: Status: Active Protocol: Document 05/24/22 14:39 LRN (Rec: 05/24/22 16:31 LRN [id number]) Posture Evaluation Position Standing Head/C-Spine Posture Side Bent Right,Forward Head T-Spine Posture Increased Kyphosis L-Spine Posture Decreased Lordosis Shoulder Posture (L) Forward Scapula Posture (L) Rotated Down Weight Distribution Balanced,Weight Shifted Left Comments Posture Comments Stands sometimes WBing more on L with R LE in AB & ER. L shoulder low, L breast low. Slight L scapula downward rotated. Palpation Assessment Location L arm Palpation Location biceps or triceps. Palpation Details No pain or discomfort Neck Palpation Location L Transverse processess of C/S & neck ms Palpation Details C2, C4, C7 L Transverse Process is tender. Tender L SCM and UT, posterior scalenes. PT-OP-K Range of Motion Start: 05/24/22 12:20 Freq: Status: Active Protocol: Document 06/17/22 10:36 LRN (Rec: 06/17/22 11:18 LRN [id number]) Cervical Spine Range of Motion Cervical Spine Active Degrees Testing Position Sitting Flexion 50 Extension 45 Rotation Left 57 Rotation Right 55 Lateral Flexion Left 12 Lateral Flexion Right 12 Comments SB to left causes rotation PT-OP-L Special Tests Start: 05/24/22 12:20 Freq: Status: Active Protocol: Document 05/24/22 14:39 LRN (Rec: 05/24/22 16:31 LRN [id number]) Special Tests Cervical Spine Special Tests Upper Limb Tension Test Test Results + Median nerve, left side Foraminal Compression Test Results - Spurling's Test Test Results - bilaterally PT-OP-M Strength Start: 05/24/22 12:20 Freq: Status: Active Protocol: Document 05/27/22 09:50 LRN (Rec: 05/27/22 10:33 LRN [id number]) Cervical Spine Strength Cervical Spine Manual Muscle Testing Testing Position Sitting Flexion (C1-2) 5 Normal Extension 5 Normal Rotation Left 5 Normal Rotation Right 5 Normal Lateral Flexion Left (C3) 5 Normal Lateral Flexion Right (C3) 5 Normal Shoulder Strength Shoulder Manual Muscle Testing Right Flexion 5 Normal Extension 4+ Good+ Abduction (C5) 4- Good- Adduction 5 Normal External Rotation 4+ Good+ Internal Rotation 4+ Good+ Left Flexion 5 Normal Extension 5 Normal Abduction (C5) 4 Good Adduction 5 Normal External Rotation 5 Normal Internal Rotation 5 Normal PT-OP-Q Treatments Start: 05/24/22 12:20 Freq: Status: Active Protocol: Document 06/28/22 11:21 LRN (Rec: 06/28/22 12:01 LRN [id number]) Therapeutic Exercises Supine Exercises Deep C. neck flexors Supine Exercise Name Deep C. Neck flexors strengthening. Equipment Used Hot/cold alternating. Reps/Minutes 15' Comments Difficult getting awareness of proper ex performance. Neck Elongation Supine Exercise Name Neck Elongation Reps/Minutes 6' Comments Much training and cuing at neck and head. Sometimes achieved. Median n stretch Supine Exercise Name Median n sliders & tensioners Side bilateral Reps/Minutes 12' Comments extra time taken for review and training of ex Sitting Exercises Median n glides Sitting Exercise Name Median n sliders Side bilateral Reps/Minutes 2-3x Comments R side tight in medial brachium, L side tight in anterior shoulder Self-Care/Home Management Treatment Education Patient Education Home Exercise Program Activities Self-Care/Home Management Activities Issued & reviewed HEP: Open book stretch PT-OP-T Assessment and Plan Start: 05/24/22 12:20 Freq: Status: Active Protocol: Document 06/28/22 11:21 LRN (Rec: 06/28/22 12:01 LRN [id number]) Physical Therapy Assessment Goals Three Impairment Decreased neck and joint mobility Short Term Goal (STG) Decrease L neck tone to decreased neck pain onset during the week from 4-5x/wk to 2-3/wk. 06/28/22: 1x last week. STG Duration 07/08/22 progressing 06/28/22 Skilled Nursing Goal (LTG) Improve neck mobility to decrease neck pain 04/22. LTG Duration 08/22/22 Two Impairment Poor posture Short Term Goal (STG) Improve awareness of proper posture. 06/09/22: Pt educated in proper posturing for all positions. Educated pt in how to adjust for appropriate posture for nighttime sleep. Pt receptive to information. 06/28/22: Pt noticing posture and correcting daily. STG Duration 06/10/22 (06/28/22: MET GOAL) Family Development Extension Specialist Goal (LTG) AT home pt will identify sitting in good posture to allow for longer positioning in sitting for watching TV or reading, onset 2-3x/week. LTG Duration 08/22/22 One Impairment Pt lacks appropriate self care HEP Family Development Extension Specialist Goal (LTG) Pt able to participate in a home exercise program of neck/ shoulder ROM and postural strengthening exercises. 05/27/22: HEP: Deep breathing for lessening use of upper chest ms for respiration. 06/09/22: I/S pt in Neck elongation ex. LTG Duration 08/22/22 progressing 06/09/22 . Assessment Summary Assessment L neck/upper forearm of a low level pain no longer present. She is + for left C/S joint dysfunction. The pt has trouble performing neck Elongation and deep cervical neck flexor strengthening w/o the SCM's. The pt also has difficulty getting upper T/S stretch with open book due to moving arm > neck mob on the R side (R rot). Pt neck pain decreased from 3-5x/week to 1x this past week. She is no longer c/o of L forearm pain. Physical Therapy Plan Frequency and Duration Frequency of Treatment 2x/Week Plan of Care Start Date 05/24/22 Plan of Care End Date 08/22/22 Next Visit Focus/Plan Next Note Type Treatment Note Next Visit Plan Assess neck mobility/pain. Review HEP: L Median neural gliding and progess to tensioner in sitting. Manual therapy: for Left C/S joint dysfunction and to decrease tenderness at cervical spine L transverse processes of C2, C4, C6 and stiffness at joints C2-C3, C4- C5, C5-C6 for R rot & L sideglide. (No JMT due to osteoporosis). Pt exercise: exercise for neck (ROM/stab)/shoulder(ROM/ scapular positioning) and thoracic spine extension strengthening/ROM. Modalities: Cryotherapy (note : CA hx).
--- NOTE | 2022-07-05 12:23 | PT.OTN ---
Current Diagnoses Cervicalgia (07/05/22) Other muscle spasm (07/05/22) Pain in left arm (07/05/22) Physical Therapy Treatment Note PT-OP-A Visit Information Start: 05/24/22 12:20 Freq: Status: Active Protocol: Document 07/05/22 11:20 LRN (Rec: 07/05/22 12:13 LRN [id number]) Out-Patient Physical Therapy Visit Information Visit Information Visit Type Treatment Note Visit Start Time 11:20 Visit Stop Time 12:05 Total Visit Minutes 45 Evaluation Information Evaluation Date 05/24/22 Precautions Precautions Osteoporosis/osteopenia, Arthritis in shoulder, neck/ jaw pain since 1997, osteoarthritis, R MARI-01/2020, latex tape. Ovarian cancer 2009. Breast CA 2019. PT-OP-B Current Condition Start: 05/24/22 12:20 Freq: Status: Active Protocol: Document 05/24/22 14:39 LRN (Rec: 05/24/22 16:31 LRN [id number]) Current Condition History of Current Condition Onset Date 2 yrs ago Current Complaints Pain in L side of neck has become more frequent and pain with sleep. History of Current Condition 1997 had L upper molar tooth pulled and since then has had tension and low grade pain on left side of the neck and sometimes at posterior neck ( posterior scalene and UT and sometimes in pec minor). Interferes with sleeping at night, more painful to sleep on L side. Hasn't had a physician or dentist that has done anything about it until now which is why it has taken her so long to get treatment. P has a significant other at home. Prior Treatments and Tests None Developmental History Developmental History Dizziness history: Dizziness 2 episodes a year apart 3-4 yrs ago (on Lisinipril, because thought was TIA), dizziness onset when a new product trainer pulled on neck and heard a loud pop (like popping a knuckle), then dizziness. Another time she was turning her head and heard a pop w/ onset of dizziness that went away after staying in bed the next day. Treatment Goals Patient/Caregiver Goals Pt goal is to *eliminate the pain, but after long discussion pt agreeable to a goal of decreasing number of onset during the week from 4-5x/wk to 2-3/wk. +Improve neck mobility to decrease frequency of pain onset, improve neck strength and posture to allow for longer positioning in sitting for watching TV or reading, with onset 2-3x/week. +Pt able to participate in a home exercise program. Personal Factors Other Personal Factors That May Effect Arthritis, osteopenia/ Therapy/Recovery osteoporosis. PT-OP-C Subjective Start: 05/24/22 12:20 Freq: Status: Active Protocol: Document 07/05/22 11:20 LRN (Rec: 07/05/22 12:13 LRN [id number]) OP-PT Subjective Patient Comments Patient Comments Rarely feels pain. Neck feels like she has more ROM. PT-OP-H Neuro Start: 05/24/22 12:20 Freq: Status: Active Protocol: Document 06/17/22 10:36 LRN (Rec: 06/17/22 11:18 LRN [id number]) Deep Tendon Reflex & Clonus Assessment Deep Tendon Reflex Right Brachioradialis Deep Tendon Reflex 1+ Diminished Left Brachioradialis Deep Tendon Reflex 1+ Diminished PT-OP-J Posture/Palpation/Skin Start: 05/24/22 12:20 Freq: Status: Active Protocol: Document 05/24/22 14:39 LRN (Rec: 05/24/22 16:31 LRN [id number]) Posture Evaluation Position Standing Head/C-Spine Posture Side Bent Right,Forward Head T-Spine Posture Increased Kyphosis L-Spine Posture Decreased Lordosis Shoulder Posture (L) Forward Scapula Posture (L) Rotated Down Weight Distribution Balanced,Weight Shifted Left Comments Posture Comments Stands sometimes WBing more on L with R LE in AB & ER. L shoulder low, L breast low. Slight L scapula downward rotated. Palpation Assessment Location L arm Palpation Location biceps or triceps. Palpation Details No pain or discomfort Neck Palpation Location L Transverse processess of C/S & neck ms Palpation Details C2, C4, C7 L Transverse Process is tender. Tender L SCM and UT, posterior scalenes. PT-OP-K Range of Motion Start: 05/24/22 12:20 Freq: Status: Active Protocol: Document 07/05/22 11:20 LRN (Rec: 07/05/22 12:13 LRN [id number]) Cervical Spine Range of Motion Cervical Spine Active Degrees Testing Position Sitting Flexion 50 Extension 47 Rotation Left 40 Rotation Right 53 Lateral Flexion Left 30 Lateral Flexion Right 20 Comments SB to left causes rotation PT-OP-L Special Tests Start: 05/24/22 12:20 Freq: Status: Active Protocol: Document 05/24/22 14:39 LRN (Rec: 05/24/22 16:31 LRN [id number]) Special Tests Cervical Spine Special Tests Upper Limb Tension Test Test Results + Median nerve, left side Foraminal Compression Test Results - Spurling's Test Test Results - bilaterally PT-OP-M Strength Start: 05/24/22 12:20 Freq: Status: Active Protocol: Document 05/27/22 09:50 LRN (Rec: 05/27/22 10:33 LRN [id number]) Cervical Spine Strength Cervical Spine Manual Muscle Testing Testing Position Sitting Flexion (C1-2) 5 Normal Extension 5 Normal Rotation Left 5 Normal Rotation Right 5 Normal Lateral Flexion Left (C3) 5 Normal Lateral Flexion Right (C3) 5 Normal Shoulder Strength Shoulder Manual Muscle Testing Right Flexion 5 Normal Extension 4+ Good+ Abduction (C5) 4- Good- Adduction 5 Normal External Rotation 4+ Good+ Internal Rotation 4+ Good+ Left Flexion 5 Normal Extension 5 Normal Abduction (C5) 4 Good Adduction 5 Normal External Rotation 5 Normal Internal Rotation 5 Normal PT-OP-Q Treatments Start: 05/24/22 12:20 Freq: Status: Active Protocol: Document 07/05/22 11:20 LRN (Rec: 07/05/22 12:13 LRN [id number]) Therapeutic Exercises Supine Exercises Neck Elongation Supine Exercise Name Neck Elongation Reps/Minutes 15' Comments Difficult getting awareness of proper ex performance. Median n stretch Supine Exercise Name Median n sliders & tensioners - discussion review Side bilateral Reps/Minutes 1' Comments extra time taken for review and training of ex Sitting Exercises C. AROM Sitting Exercise Name C. AROM stretch Side bilateral Reps/Minutes 1-2 SH x 3 each Comments ROM taken Neck Elongation Sitting Exercise Name Neck Elongation training Reps/Minutes 2' with 10 SH Comments Cuing at neck, chin, chest/ upper back for appropriate changes. Standing Exercises Neck Elongation awareness training Standing Exercise Name Neck Elongation awareness training Equipment Used SOLIS Reps/Minutes 10' Comments Much cuing and repetition of standing on SOLIS to gain awareness of neck rasheed Lat pull down Standing Exercise Name Lat Pull Down Reps/Minutes 5 SH x 5 Scap retract Standing Exercise Name Scap Retract: 1) arms by sides , 2) arms overhead Reps/Minutes 5 SH x 5 each Self-Care/Home Management Treatment Education Patient Education Home Exercise Program Activities Self-Care/Home Management Activities Issued & reviewed HEP: supine stretching of anterior body, and scapular/postural neck/ shoulder strengthening. PT-OP-T Assessment and Plan Start: 05/24/22 12:20 Freq: Status: Active Protocol: Document 07/05/22 11:20 LRN (Rec: 07/05/22 12:13 LRN [id number]) Physical Therapy Assessment Goals Three Impairment Decreased neck and joint mobility Short Term Goal (STG) Decrease L neck tone to decreased neck pain onset during the week from 4-5x/wk to 2-3/wk. 06/28/22: 1x last week. 07/05/22: Pt reports no neck pain. STG Duration 07/08/22 (07/05/22: MET GOAL) Medical Record Coder Goal (LTG) Improve neck mobility to decrease neck pain 04/22. 07/05/22: Pt reports no neck pain. LTG Duration 08/22/22 (07/05/22: MET GOAL ) Two Impairment Poor posture Short Term Goal (STG) Improve awareness of proper posture. 06/09/22: Pt educated in proper posturing for all positions. Educated pt in how to adjust for appropriate posture for nighttime sleep. Pt receptive to information. 06/28/22: Pt noticing posture and correcting daily. STG Duration 06/10/22 (06/28/22: MET GOAL) Medical Record Coder Goal (LTG) AT home pt will identify sitting in good posture to allow for longer positioning in sitting for watching TV or reading, onset 2-3x/week. 07/05/22: No pain with sitting activities. LTG Duration 08/22/22 (07/05/22: MET GOAL) One Impairment Pt lacks appropriate self care HEP Medical Record Coder Goal (LTG) Pt able to participate in a home exercise program of neck/ shoulder ROM and postural strengthening exercises. 05/27/22: HEP: Deep breathing for lessening use of upper chest ms for respiration. 06/09/22: I/S pt in Neck elongation ex. LTG Duration 08/22/22 progressing 06/09/22 . Progress Towards Goals Progress Comments No c/o neck pain, goals #2, #3 MET. Assessment Summary Assessment No c/o neck pain. Neck mobility has improved significantly for SB and mild improvement with rot, but most notably has no pain with AROM . She shows good understanding of Median n slider/tensioner. Today she gained good postural awareness and understanding of the goal of the neck elongation exercise. Pt tolerated new postural ex's without c/o pain . Pt needs to be issued C. AROM stretch and reviewed for HEP and will be ready for DC. Physical Therapy Plan Frequency and Duration Frequency of Treatment 2x/Week Plan of Care Start Date 05/24/22 Plan of Care End Date 08/22/22 Next Visit Focus/Plan Next Note Type Discharge Summary Next Visit Plan Review HEP for DC. Add C. AROM stretch and isometrics to HEP. POC: exercise for neck(ROM/ stab)/shoulder(ROM/scapular positioning) and thoracic spine extension strengthening/ ROM. Modalities: Cryotherapy (note : CA hx).
--- NOTE | 2022-07-11 13:16 | PT.OTN ---
Current Diagnoses Cervicalgia (07/11/22) Other muscle spasm (07/11/22) Pain in left arm (07/11/22) Physical Therapy Treatment Note PT-OP-A Visit Information Start: 05/24/22 12:20 Freq: Status: Active Protocol: Document 07/11/22 10:39 LRN (Rec: 07/11/22 11:23 LRN [id number]) Out-Patient Physical Therapy Visit Information Visit Information Visit Type Treatment Note Visit Start Time 10:39 Visit Stop Time 11:18 Total Visit Minutes 40 Evaluation Information Evaluation Date 05/24/22 Precautions Precautions Osteoporosis/osteopenia, Arthritis in shoulder, neck/ jaw pain since 1997, osteoarthritis, R MARI-01/2020, latex tape. Ovarian cancer 2009. Breast CA 2019. PT-OP-B Current Condition Start: 05/24/22 12:20 Freq: Status: Active Protocol: Document 05/24/22 14:39 LRN (Rec: 05/24/22 16:31 LRN [id number]) Current Condition History of Current Condition Onset Date 2 yrs ago Current Complaints Pain in L side of neck has become more frequent and pain with sleep. History of Current Condition 1997 had L upper molar tooth pulled and since then has had tension and low grade pain on left side of the neck and sometimes at posterior neck ( posterior scalene and UT and sometimes in pec minor). Interferes with sleeping at night, more painful to sleep on L side. Hasn't had a physician or dentist that has done anything about it until now which is why it has taken her so long to get treatment. P has a significant other at home. Prior Treatments and Tests None Developmental History Developmental History Dizziness history: Dizziness 2 episodes a year apart 3-4 yrs ago (on Lisinipril, because thought was TIA), dizziness onset when a clinical trainer pulled on neck and heard a loud pop (like popping a knuckle), then dizziness. Another time she was turning her head and heard a pop w/ onset of dizziness that went away after staying in bed the next day. Treatment Goals Patient/Caregiver Goals Pt goal is to *eliminate the pain, but after long discussion pt agreeable to a goal of decreasing number of onset during the week from 4-5x/wk to 2-3/wk. +Improve neck mobility to decrease frequency of pain onset, improve neck strength and posture to allow for longer positioning in sitting for watching TV or reading, with onset 2-3x/week. +Pt able to participate in a home exercise program. Personal Factors Other Personal Factors That May Effect Arthritis, osteopenia/ Therapy/Recovery osteoporosis. PT-OP-C Subjective Start: 05/24/22 12:20 Freq: Status: Active Protocol: Document 07/11/22 10:39 LRN (Rec: 07/11/22 11:23 LRN [id number]) OP-PT Subjective Patient Comments Patient Comments States she feel like she now knows what to do to prevent her neck pain. States she is painfree Having R groin muscles. Patient Questionnaires Neck Disability Index NDI Score 6 Neck Disability Index Impairment 1 to 19% Impaired (Score 1-9) PT-OP-H Neuro Start: 05/24/22 12:20 Freq: Status: Active Protocol: Document 06/17/22 10:36 LRN (Rec: 06/17/22 11:18 LRN [id number]) Deep Tendon Reflex & Clonus Assessment Deep Tendon Reflex Right Brachioradialis Deep Tendon Reflex 1+ Diminished Left Brachioradialis Deep Tendon Reflex 1+ Diminished PT-OP-J Posture/Palpation/Skin Start: 05/24/22 12:20 Freq: Status: Active Protocol: Document 05/24/22 14:39 LRN (Rec: 05/24/22 16:31 LRN [id number]) Posture Evaluation Position Standing Head/C-Spine Posture Side Bent Right,Forward Head T-Spine Posture Increased Kyphosis L-Spine Posture Decreased Lordosis Shoulder Posture (L) Forward Scapula Posture (L) Rotated Down Weight Distribution Balanced,Weight Shifted Left Comments Posture Comments Stands sometimes WBing more on L with R LE in AB & ER. L shoulder low, L breast low. Slight L scapula downward rotated. Palpation Assessment Location L arm Palpation Location biceps or triceps. Palpation Details No pain or discomfort Neck Palpation Location L Transverse processess of C/S & neck ms Palpation Details C2, C4, C7 L Transverse Process is tender. Tender L SCM and UT, posterior scalenes. PT-OP-K Range of Motion Start: 05/24/22 12:20 Freq: Status: Active Protocol: Document 07/05/22 11:20 LRN (Rec: 07/05/22 12:13 LRN [id number]) Cervical Spine Range of Motion Cervical Spine Active Degrees Testing Position Sitting Flexion 50 Extension 47 Rotation Left 40 Rotation Right 53 Lateral Flexion Left 30 Lateral Flexion Right 20 Comments SB to left causes rotation PT-OP-L Special Tests Start: 05/24/22 12:20 Freq: Status: Active Protocol: Document 05/24/22 14:39 LRN (Rec: 05/24/22 16:31 LRN [id number]) Special Tests Cervical Spine Special Tests Upper Limb Tension Test Test Results + Median nerve, left side Foraminal Compression Test Results - Spurling's Test Test Results - bilaterally PT-OP-M Strength Start: 05/24/22 12:20 Freq: Status: Active Protocol: Document 05/27/22 09:50 LRN (Rec: 05/27/22 10:33 LRN [id number]) Cervical Spine Strength Cervical Spine Manual Muscle Testing Testing Position Sitting Flexion (C1-2) 5 Normal Extension 5 Normal Rotation Left 5 Normal Rotation Right 5 Normal Lateral Flexion Left (C3) 5 Normal Lateral Flexion Right (C3) 5 Normal Shoulder Strength Shoulder Manual Muscle Testing Right Flexion 5 Normal Extension 4+ Good+ Abduction (C5) 4- Good- Adduction 5 Normal External Rotation 4+ Good+ Internal Rotation 4+ Good+ Left Flexion 5 Normal Extension 5 Normal Abduction (C5) 4 Good Adduction 5 Normal External Rotation 5 Normal Internal Rotation 5 Normal PT-OP-Q Treatments Start: 05/24/22 12:20 Freq: Status: Active Protocol: Document 07/11/22 10:39 LRN (Rec: 07/11/22 11:23 LRN [id number]) Therapeutic Exercises Supine Exercises Neck Extension Supine Exercise Name Pushing head into pillow Reps/Minutes 5' Neck Elongation Supine Exercise Name Neck Elongation Reps/Minutes 5' Comments Difficult getting awareness of proper ex performance. Sitting Exercises Don Neck strengthening Sitting Exercise Name Don neck Flex, Ext, SB, Rot Side bilateral Reps/Minutes 8' C. AROM Sitting Exercise Name Active Rot, SB. Side bilateral Reps/Minutes 12' Neck Elongation Sitting Exercise Name Neck Elongation training Reps/Minutes 3' Comments Cuing at neck, chin, chest/ upper back for appropriate changes. Standing Exercises Standing against wall Standing Exercise Name Standing against wall Reps/Minutes 5' Self-Care/Home Management Treatment Education Patient Education Home Exercise Program Other Education Verbal review of her complete HEP with reissuance of previously given handouts. Activities Self-Care/Home Management Activities Issued & reviewed HEP: Cervical AROM and isometric strengthening ex's. PT-OP-T Assessment and Plan Start: 05/24/22 12:20 Freq: Status: Active Protocol: Document 07/11/22 10:39 LRN (Rec: 07/11/22 11:23 LRN [id number]) Physical Therapy Assessment Goals Three Impairment Decreased neck and joint mobility Short Term Goal (STG) Decrease L neck tone to decreased neck pain onset during the week from 4-5x/wk to 2-3/wk. 06/28/22: 1x last week. 07/05/22: Pt reports no neck pain. STG Duration 07/08/22 (07/05/22: MET GOAL) Box Builder Goal (LTG) Improve neck mobility to decrease neck pain 04/22. 07/05/22: Pt reports no neck pain. LTG Duration 08/22/22 (07/05/22: MET GOAL ) Two Impairment Poor posture Short Term Goal (STG) Improve awareness of proper posture. 06/09/22: Pt educated in proper posturing for all positions. Educated pt in how to adjust for appropriate posture for nighttime sleep. Pt receptive to information. 06/28/22: Pt noticing posture and correcting daily. STG Duration 06/10/22 (06/28/22: MET GOAL) Group Home Goal (LTG) AT home pt will identify sitting in good posture to allow for longer positioning in sitting for watching TV or reading, onset 2-3x/week. 07/05/22: No pain with sitting activities. LTG Duration 08/22/22 (07/05/22: MET GOAL) One Impairment Pt lacks appropriate self care HEP Group Home Goal (LTG) Pt able to participate in a home exercise program of neck/ shoulder ROM and postural strengthening exercises. 05/27/22: HEP: Deep breathing for lessening use of upper chest ms for respiration. 06/09/22: I/S pt in Neck elongation ex. 07/11/22: HEP: Cervical AROM and isometric strengthening ex 's. LTG Duration 08/22/22 (07/11/22: MET GOAL) Assessment Summary Assessment The pt has progressed well with therapy and has met her goals. She is painfree in her neck and has resumed functional activities without onset of back pain. Although neck disability index scores shows no significant improvement (score improved from 7 to 6, disability remains the same at 1-19% impaired). Pt demonstrates good understanding of today's issued HEP and good understanding of her previously issued HEP; therefore pt is ready for discharge today to her independent HEP. Physical Therapy Plan Discharge Physical Therapy Discharge Reasons Goals Met Discharge Comments Thank you for your referral.
== END 2022-07-12 12:42 | disposition home or self-care (01) ==
LOC: PHYS 10:30
PROVIDERS: Family Provider Nurse Practitioner; PCP Nurse Practitioner; Referring Provider Nurse Practitioner; Visit Provider Nurse Practitioner
DX: M62.838 Other muscle spasm (principal); M79.602 Pain in left arm; M54.2 Cervicalgia
CPT/HCPCS: 97110; 97140; 97161; 97535

== ENCOUNTER 2022-09-26 19:43 | Emergency (ER) | payer MEDICARE, SELFPAY ==
[2019-08-22 10:49] VITALS: BMI 26.0
[2022-09-26 19:48] VITALS: BP 142/68; PULSE 88; RESP 16; TEMP 36.1; O2SAT 97; BMI 25.8
--- NOTE | 2022-09-26 19:56 | DI.RAD.S_ITS ---
PROCEDURE: XR RIBS RT MIN 3V W CXR 1V INDICATIONS: Fall, injury TECHNIQUE: Two views of the right ribs were acquired, along with a single view chest. COMPARISON: None. FINDINGS: Surgical changes and devices: None. Bones and chest wall: There is a mildly displaced fracture of the right 8th rib anterolaterally. No suspicious bony lesions. Overlying soft tissues appear unremarkable. Lungs and pleura: No pleural effusions or pneumothorax. Lungs appear clear. Mediastinum: Mediastinal contours appear normal. Heart size is normal. IMPRESSION: 1. Mildly displaced fracture of the right 8th rib. Dictated by: Last Low M.D. on 09/26/2022 at 20:24 Approved by: Last Low M.D. on 09/26/2022 at 20:32
--- NOTE | 2022-09-26 21:28 | DI.CT.S_ITS ---
PROCEDURE: CT CHEST ABD PEL W CON INDICATIONS: trauma TECHNIQUE: After the administration of intravenous contrast, 5 mm thick sections acquired from the lung apices to the symphysis. 2.5 mm thick coronal and sagittal reformats were acquired. Additional 7 mm thick coronal maximum intensity projection (MIP) reformats acquired through the lungs. Optional 10-minute delayed imaging may be performed from the kidneys to the bladder. For radiation dose reduction, the following was used: automated exposure control, adjustment of mA and/or kV according to patient size. COMPARISON: [facility], CT, CT CHEST W CON, 12/27/2019, 10:42. [facility], CT, CHEST/ABD/PEL WITH CONTRAST, 12/27/2012, 12:37. FINDINGS: Image quality: There is metallic streak artifact from patient's right hip prosthesis. CHEST: Lower Neck: No lymphadenopathy by size criteria. Thyroid: Visualized thyroid demonstrates no discrete nodules. Axillae: No lymphadenopathy by size criteria. Chest Wall: Unremarkable. Bones: No acute fractures identified. Lungs and Airways: No pulmonary contusions or lacerations. Posteriorly within the right upper lobe, there is a pleural-based soft tissue nodule measuring up to 2.2 cm on series 4, image 49. This appears stable in size compared to the prior study of 12/27/2019. There is mild subpleural scarring bilaterally. The trachea and central airways are patent. Pleura: No pneumothorax or pleural effusions. Heart: Heart size is normal. No pericardial effusion. Thoracic Vessels: The aorta and pulmonary arteries are normal in size. Mediastinum and Nancy: No lymphadenopathy by size criteria. No definite mediastinal hematomas. Esophagus: No wall thickening. No hiatal hernia. ABDOMEN: Liver: No hepatic lacerations or perihepatic fluid collections. Gallbladder: Within normal limits without calcified gallstones. Biliary ducts: No biliary ductal dilatation. Pancreas: Unremarkable. Spleen: Normal in size. No splenic lacerations or perisplenic fluid collections. Adrenal Glands: No adrenal nodules. Kidneys and Ureters: No hydronephrosis. Stomach and Bowel: Stomach, small bowel loops, and colon are normal in caliber and wall thickness. Appendix is surgically absent. There is colonic diverticulosis without acute diverticulitis. A moderate amount of colonic stool is suggestive of constipation. Peritoneum: No abnormal intraperitoneal fluid. No free air. Ventral Wall: No hernia. Abdominal Nodes: No retroperitoneal or mesenteric adenopathy by size criteria. Vessels: Aorta and inferior vena cava are normal in size. PELVIS: Pelvic Organs: Unremarkable. Bladder: Unremarkable. Pelvic Nodes: No enlarged lymph nodes. Miscellaneous: No inguinal hernias are seen. Bones: No acute fractures identified. Visualized osseous structures demonstrate no suspicious focal lesions. IMPRESSION: 1. No definite acute traumatic abnormality in the chest, abdomen, or pelvis. 2. Colonic diverticulosis. 3. Stable right upper lobe pleural-based soft tissue nodule redemonstrated. Dictated by: Last Low M.D. on 09/26/2022 at 23:43 Approved by: Last Low M.D. on 09/26/2022 at 23:48
[2022-09-26] MEDS: KETOROLAC 30 MG/ML VIAL 15 MG IV (21:40)
[2022-09-26 21:55] LABS: Add Manual Diff / Slide Review NO; Basophils Absolute Auto 100 /uL (0-100); Basophils Percent Auto 0.8 % (0-2); Eosinophils Absolute Auto 100 /uL (0-450); Eosinophils Percent Auto 1.7 % (2-4); Hemoglobin 14.2 g/dL (12.0-16.0); Lymphocytes Absolute Auto 2500 /uL (1100-4500); Lymphocytes Percent Auto 33.2 % (25-40); Mean Corpuscular HGB Conc 34.6 % (30-36); Mean Corpuscular Hemoglobin 30.4 PG (26-34); Mean Corpuscular Volume 87.8 fL (80-100); Monocytes Absolute Auto 600 /uL (0-900); Monocytes Percent Auto 8.1 % (3-14); Neutrophils Absolute Auto 4300 /uL (1500-7000); Neutrophils Percent Auto 56.2 % (50-75); Platelet Count 279 X10^3/uL (150-400); Red Blood Cell Count 4.67 X10^6/uL (4.0-5.2); Red Cell Distribution Width 14.1 % (11.6-14.8); White Blood Cell Count 7.6 X10^3/uL (4.5-11.0)
[2022-09-26 22:02] LABS: Alanine Aminotransferase 22 IU/L (<35); Albumin 4.9 g/dL (3.5-5.0); Albumin Globulin Ratio 1.4 (1.0-2.8); Alkaline Phosphatase 103 U/L (38-126); Aspartate Aminotransferase 33 IU/L (14-36); BUN Creatinine Ratio 18.3 (6-22); Bilirubin Total 0.3 mg/dL (0.2-1.3); Blood Urea Nitrogen 13 mg/dL (7-17); Calcium 9.5 mg/dL (8.4-10.2); Carbon Dioxide 22 mmol/L (22-32); Chloride 102 mmol/L (98-107); Estimated Glomerular Filt Rate > 60 mL/min (>60); Globulin 3.6 g/dL (1.7-4.1); Glucose 112 mg/dL (80-110); HEMOLYSIS < 15 (0-50); Potassium 4.2 mmol/L (3.4-5.1); Sodium 138 mmol/L (137-145); Total Protein 8.5 g/dL (6.3-8.2)
[2022-09-26] MEDS: HYDROMORPHONE 0.5 MG INJ IV (22:24)
[2022-09-26 22:27] VITALS: PULSE 90; O2SAT 98
[2022-09-26 22:28] VITALS: BP 156/80; PULSE 85; O2SAT 98
[2022-09-26 22:30] VITALS: PULSE 82; O2SAT 98
[2022-09-26 23:00] VITALS: BP 146/70; PULSE 82; O2SAT 95
[2022-09-26 23:30] VITALS: PULSE 75; O2SAT 95
[2022-09-27] VITALS: BP 130/63; PULSE 70; O2SAT 97
[2022-09-27 00:30] VITALS: PULSE 72; O2SAT 97
--- NOTE | 2022-09-27 00:38 | ED.GENADULT ---
HPI - General Adult General Chief complaint: Trauma Stated complaint: fell down hill/rt side rib pain Time Seen by Provider: 09/26/22 21:28 Source: patient Mode of arrival: Ambulatory History of Present Illness HPI narrative: 77-year-old woman with a history of breast and ovarian cancer, hypertension stumbled down a moderate incline and is complaining of right posterior chest wall pain. No complaints of severe dyspnea but is having some splinting and pain issues. She notes that recently she is been in good health with no complaints of fever, cough, chills, dyspnea or chest pain. Related Data Home Medications Medication Instructions Recorded Confirmed calcium citrate 315 mg 1 tab PO DAILY 09/10/19 03/15/22 calcium-vitamin D3 6.25 mcg (250 unit) tablet (Citracal + Vitamin D Maximum) polyethylene glycol 3350 17 gram 17 gram PO DAILY 09/10/19 03/15/22 oral powder packet (Miralax) aspirin 81 mg tablet,delayed 81 mg PO DAILY 09/23/20 03/15/22 release (Adult Aspirin Regimen) exemestane 25 mg PO .QD 07/19/22 Previous Rx's Medication Instructions Recorded lisinopril 5 mg tablet See Rx Instructions .Route 02/14/22 .COMPLEX #90 tabs Allergies Allergy/AdvReac Type Severity Reaction Status Date / Time naproxen Allergy Intermediate hives Verified 05/24/22 08:46 Review of Systems Review of Systems Narrative: Pertinent positive and negative findings as per HPI Patient History Medical History Abdominal adhesions 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 Breast cancer Elevated blood pressure reading without diagnosis of hypertension Hepatitis B Hypertension Left shoulder pain Osteoarthritis Osteopenia Osteoporosis Ovarian cancer Ovarian cyst Pre-operative clearance Seasonal allergic rhinitis Seasonal allergies Shortness of breath Tinnitus UTI (urinary tract infection) Well adult exam Surgical History History of cataract surgery History of laparotomy Hx of appendectomy Status post chemotherapy Status post right hip replacement Family History Mother Congestive heart failure Father No significant past medical history Brother Medical history unknown Social History household members: significant other Smoking Status: Former smoker Tobacco: How many years used: 20 second hand exposure: Yes (childhood ) alcohol intake: current (1-2 glasses of wine a week ) substance use type: marijuana (used to help sleep edibles) Smoking Status: Former smoker alcohol intake frequency: 0-2 drinks per day Substance Use Type: marijuana Exam Initial Vital Signs Initial Vital Signs: Vital Signs Temperature 97 F L 09/26/22 19:48 Pulse Rate 88 09/26/22 19:48 Respiratory Rate 16 09/26/22 19:48 Blood Pressure 142/68 H 09/26/22 19:48 Pulse Oximetry 97 09/26/22 19:48 Oxygen Delivery Method Room Air 09/26/22 19:48 General: Healthy appearing, in moderate amount of pain but Able to give a complete and coherent history. HEENT: Moist mucous membranes, normal sclera with reactive pupils, head is atraumatic normocephalic Neck: No midline cervical spine tenderness, supple Respiratory: Lungs are clear to auscultation, no wheezing no rales no rhonchi. Full and symmetrical air movement Chest wall, right anterior axillary line just under her breast there is an abrasion with contusion with an area of point tenderness without subcutaneous air. No tenderness along thoracic or lumbar spine to palpation Cardiac: Regular rate and rhythm no murmurs no bruits Abdomen: Soft, nontender, good bowel tones, no flank pain. No tenderness with compression to pelvic ring Skin: Warm and dry, no rashes Neurologic: Grossly neurologically intact with no obvious asymmetries or abnormalities Extremities: No trauma, well perfused Psych: Cooperative, appropriate insight and affect Course Orders Ordered: ED Orders 09/26/22 19:56 XR ribs RT min 3V w CXR1V Stat 09/26/22 21:28 CT chest abd pel w con Stat 09/26/22 21:44 Complete Blood Count AUTO DIFF Stat Comprehensive Metabolic Panel Stat Hydromorphone HCl (Hydromorphone 0.5 Mg Inj) 0.5 mg IV Q15MIN PRN PRN Reason: Pain, Last Admin: 09/26/22 22:24 Dose: 0.5 mg Documented By: SB Discontinued Medications Ketorolac Tromethamine (Ketorolac 30 Mg/Ml Vial) 15 mg IV NOW ONE Stop: 09/26/22 21:29 Last Admin: 09/26/22 21:40 Dose: 15 mg Documented By: TAMARA Vital Signs Vital signs: Vital Signs - 8 hr 09/26/22 19:48 Temperature 97 F L Pulse Rate 88 Respiratory Rate 16 Blood Pressure 142/68 H Pulse Oximetry 97 Oxygen Delivery Method Room Air Medical Decision Making Lab Data 09/26/22 21:44 09/26/22 21:44 Labs: Lab Results 09/26/22 09/26/22 Range/Units 21:44 21:44 WBC 7.6 (4.5-11.0) X10^3/uL RBC 4.67 (4.0-5.2) X10^6/uL Hgb 14.2 (12.0-16.0) g/dL Hct 41.0 (36-46) % MCV 87.8 (80-100) fL MCH 30.4 (26-34) PG MCHC 34.6 (30-36) % RDW 14.1 (11.6-14.8) % Plt Count 279 (150-400) X10^3/uL Neut % (Auto) 56.2 (50-75) % Lymph % (Auto) 33.2 (25-40) % [place] % (Auto) 8.1 (3-14) % Eos % (Auto) 1.7 L (2-4) % Baso % (Auto) 0.8 (0-2) % Neut # (Auto) 4300 (7838-7491) /uL Lymph # (Auto) 2500 (5220-2796) /uL [place] # (Auto) 600 (0-900) /uL Eos # (Auto) 100 (0-450) /uL Baso # (Auto) 100 (0-100) /uL Sodium 138 (137-145) mmol/L Potassium 4.2 (3.4-5.1) mmol/L Chloride 102 (98-107) mmol/L Carbon Dioxide 22 (22-32) mmol/L BUN 13 (7-17) mg/dL Creatinine 0.71 (0.52-1.04) mg/dL Estimated GFR > 60 (>60) mL/min BUN/Creatinine Ratio 18.3 (6-22) Glucose 112 H (80-110) mg/dL Calcium 9.5 (8.4-10.2) mg/dL Total Bilirubin 0.3 (0.2-1.3) mg/dL AST 33 (14-36) IU/L ALT 22 (<35) IU/L Alkaline Phosphatase 103 (38-126) U/L Total Protein 8.5 H (6.3-8.2) g/dL Albumin 4.9 (3.5-5.0) g/dL Globulin 3.6 (1.7-4.1) g/dL Albumin/Globulin Ratio 1.4 (1.0-2.8) MDM Narrative Medical decision making narrative: CC: Rib pain after fall, acute issue uncertain prognosis Complicating co-morbidities: Osteoporosis, prior breast and ovarian cancer Data collected from: patient, partner Medical records reviewed: Primary care notes from May 24 are reviewed Differential considered: Rib fractures, flail chest, pneumothorax, compression fractures Exam documented above, pertinent findings include: Tenderness over the right anterior axillary line just under her breast with moderate abrasion and contusion in the area. No subcutaneous air. No other areas of tenderness to palpation along axial and bony skeleton Lab Test results independently reviewed as above. Pertinent findings: CBC is unremarkable no anemia Metabolic panel is reassuring Imaging studies independently reviewed: Chest x-ray shows Mildly displaced fracture of the right 8th rib. CT scan of the chest abdomen pelvis is unremarkable. No comment regarding rib fracture on the CT scan Treatments: Parenteral Dilaudid and Toradol Discussion: Findings reviewed with patient. The Toradol Dilaudid combination has been moderately effective. As it is beginning to wear off she is noting that this is going to be painful recovery. X-rays and CT scans reviewed with the patient as are normal labs. Reassurance is given that this is a single rib fracture without underlying pneumothorax. The abrasion and contusion over the area will heal nicely. We went over anticipated course of recovery. Recommended ibuprofen and Percocet for the 1st couple of days to make sure that she is able to move and use the incentive spirometer she is been given. Talked about the importance of deep breathing. She is already using daily MiraLax and talked about adding more should she become constipated from the narcotic. Cautioned her that she is going to hurt more within the 1st 24 hours. Questions are answered and she is safe for discharge home Discharge Plan Departure Patient Disposition: Home Clinical Impression: Fracture of rib, single, closed Qualifiers: Encounter type: initial encounter Laterality: right Qualified Code(s): S22.31XA - Fracture of one rib, right side, initial encounter for closed fracture Fall Qualifiers: Encounter type: initial encounter Qualified Code(s): W19.XXXA - Unspecified fall, initial encounter Instructions: DI for Rib Fracture Activity Restrictions/Additional Instructions: Thank you for coming in today I am glad to let you know that the only injury is a broken rib on the right side just under the area of bruising. Is important to use enough pain medications that you can take deep breaths and get up and move around. The 1st 3 days are going to be fairly painful and it will improve over that. I have given you an incentive spirometer. I encourage you to use it at least hourly while you are awake. It helps keep your lungs fully inflated even when you were hurting. Using 400 mg of ibuprofen (2 [id number] pills) and 1 Tylenol every 6 hours can be very helpful in controlling pain. For severe pain using 400 mg of ibuprofen and 1 Percocet will be helpful. If you do use the Percocet, make sure that you are taking enough MiraLax that you continue to have a bowel movement every day. Do expect to find more areas throughout your body that hurt over the next 1-2 days. If you find that you are having persistent symptoms or there worsening it would be appropriate to return to the emergency department. Prescriptions: No Action lisinopril 5 mg tablet See Rx Instructions .ROUTE .COMPLEX Qty: 90 3RF Dose Instruction: TAKE 1 TABLET BY MOUTH DAILY Rx Instructions: TAKE 1 TABLET BY MOUTH DAILY exemestane 25 mg PO .QD aspirin [Adult Aspirin Regimen] 81 mg tablet,delayed release (DR/EC) 81 mg PO DAILY calcium citrate-vitamin D3 [Citracal + D Maximum] 315 mg- 250 unit tablet 1 tab PO DAILY polyethylene glycol 3350 [Miralax] 17 gram powder in packet 17 gram PO DAILY Referrals: Soni Ingram ARNP [Primary Care Provider] - Stand Alone Forms: Patient Portal/API
[2022-09-27 01:00] VITALS: BP 148/67; PULSE 73; O2SAT 99
[2022-09-27] MEDS: OXYCODONE/ACETAMINOPHEN 5/325 TABLET 1 TAB PO (01:19)
[2022-09-27] MEDS: OXYCODONE/APAP 5/325 PREPACK 1 BOTTLE MISC (01:19)
== END 2022-09-27 01:31 | disposition home or self-care (01) ==
PROVIDERS: Emergency Provider Emergency Medicine; Family Provider Nurse Practitioner; PCP Nurse Practitioner
DX: S22.31XA Fracture of one rib, right side, initial encounter for closed fracture (principal); W18.30XA Fall on same level, unspecified, initial encounter
CPT/HCPCS: 36415; 71101; 71260; 74177; 80053; 85025; 96374; 96375; 99284; J1170; J1885; Q9967

== ENCOUNTER → 2022-10-04 14:34 | Outpatient (CLI) | payer MEDICARE, SELFPAY ==
[2019-08-22 10:49] VITALS: BMI 26.0
== END ==
PROVIDERS: Family Provider Nurse Practitioner; PCP Nurse Practitioner; Visit Provider Nurse Practitioner
DX: S20.319A Abrasion of unspecified front wall of thorax, initial encounter (principal)
CPT/HCPCS: 87070; 87075; 87077; 87147; 87205

== ENCOUNTER 2022-10-06 11:06 | Emergency (ER) | payer MEDICARE, SELFPAY ==
[2019-08-22 10:49] VITALS: BMI 26.0
[2022-10-06] VITALS (8 sets, daily range): BP systolic 138–159; BP diastolic 71–72; PULSE 67–110; RESP 15–32; TEMP 36.7; O2SAT 95–99; BMI 26.3
--- NOTE | 2022-10-06 11:44 | DI.CT.S_ITS ---
PROCEDURE: CT ANGIO CHEST PE PROTOCOL INDICATIONS: rt flank cellulitis and 8th rib fx, abscess, deep infection? TECHNIQUE: After the administration of intravenous contrast, 2 mm thick sections acquired from the pulmonary apices to the posterior costophrenic angles. 3-dimensional maximum intensity projection (MIP) coronal and sagittal reformats were then acquired through the thorax. For radiation dose reduction, the following was used: automated exposure control, adjustment of mA and/or kV according to patient size. COMPARISON: [facility], CT, CT CHEST W CON, 12/27/2019, 10:42. [facility], CT, CT CHEST ABD PEL W CON, 09/26/2022, 22:18. FINDINGS: Image quality: Excellent. Pulmonary arteries: Pulmonary arteries are normal in size, and demonstrate no intraluminal filling defects to suggest central pulmonary embolism. Lungs and pleura: Lungs are clear. Unchanged pleural based mass, posterior right apex, 2 cm, consistent with a benign lesion. No pleural effusions or pneumothorax. Central and peripheral airways are patent. Mediastinum: Heart size is normal, without pericardial effusion. No mediastinal or hilar adenopathy. Thoracic aorta is normal in caliber and enhancement. Esophagus is normal in caliber, without hiatal hernia. Bones and chest wall: No suspicious bony lesions nondisplaced right 8th lateral rib fracture. Thyroid gland is unremarkable. No axillary or supraclavicular adenopathy. Abdomen: Visualized upper abdominal solid organs appear normal in the early arterial phase of enhancement. IMPRESSION: 1. No acute pulmonary emboli. 2. No acute pulmonary process. 3. Nondisplaced lateral right 8th rib fracture. 4. Benign pleural based nodule, right apex, 2 cm. Dictated by: Jose Menjivar M.D. on 10/06/2022 at 12:56 Approved by: Jose Menjivar M.D. on 10/06/2022 at 13:00
--- NOTE | 2022-10-06 11:44 | DI.CT.S_ITS ---
PROCEDURE: CT ABDOMEN PELVIS W CON INDICATIONS: rt flank cellulitis and 8th rib fx, abscess, deep infection? TECHNIQUE: After the administration of intravenous contrast, axial sections acquired from the lung bases to the pubic symphysis. Coronal and sagittal reformats were performed. For radiation dose reduction, the following was used: automated exposure control, adjustment of mA and/or kV according to patient size. COMPARISON: [facility], CT, CT ANGIO CHEST PE PROTOCOL, 10/06/2022, 12:08. [facility], CT, ABDOMEN/PELVIS WITH CONTRAST, 04/13/2012, 17:21. [facility], CT, CT CHEST ABD PEL W CON, 09/26/2022, 22:18. FINDINGS: Image quality: Excellent. Lung bases: Minimal left basilar dependent change. Heart: No significant findings. ABDOMEN: Liver: Unremarkable. Gallbladder: Unremarkable. Biliary ducts: Unremarkable. Pancreas: Unremarkable. Spleen: Unremarkable. Adrenal Glands: Unremarkable. Kidneys and Ureters: Unremarkable. Stomach and Bowel: Sigmoid diverticulosis without evidence of diverticulitis. Peritoneum: No abnormal intraperitoneal fluid. No free air. Ventral Wall: No hernias. Abdominal Nodes: No retroperitoneal or mesenteric adenopathy by size criteria. Vessels: Aorta and inferior vena cava are normal in size. PELVIS: Pelvic Organs: Uterus appears to be surgically absent.. Bladder: Unremarkable. Pelvic Nodes: No enlarged lymph nodes. Miscellaneous: No hernias are seen. Bones: There is a nondisplaced right lateral 8th rib fracture. 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 No other acute fractures. IMPRESSION: 1. Nondisplaced right lateral 8th rib fracture. 2. Sigmoid diverticulosis. 3. No acute abdominal process noted. Dictated by: Jose Menjivar M.D. on 10/06/2022 at 12:50 Approved by: Jose Menjivar M.D. on 10/06/2022 at 12:56
--- NOTE | 2022-10-06 11:49 | ED_ITS ---
HPI - Wound/Laceration <NATANAEL Gan - Last Filed: 10/06/22 15:28> General Chief Complaint: Wound/Laceration Stated Complaint: Fell T-7 broke rib, Inf on scrape, DR sent Time Seen by Provider: 10/06/22 11:18 Source: patient Mode of arrival: Ambulatory History of Present Illness HPI narrative: This is a 77-year-old female presents to the emergency department for a skin infection from a wound that she sustained from a fall 2 weeks ago. She states that she was seen in emergency department and evaluated, an 8th lateral right rib fracture was found, patient had a superficial scratch on her chest wall that started getting worse over the last few days. She saw her primary care provider Soni SANTOYO who did a wound culture which came back positive for group a strep. She was started on penicillin VK and her 1st dose was yesterday afternoon. She is had 2 doses in states that it got extensively worse overnight. She had spreading of this pink/red rash surrounding the scratch and diffusely across the right chest and right lower abdomen, does not extend beyond midline, there are no vesicles, patient reports it is itchy and tender, there has been mild amount of drainage from the site. Related Data Home Medications Medication Instructions Recorded Confirmed calcium citrate 315 mg 1 tab PO DAILY 09/10/19 10/04/22 calcium-vitamin D3 6.25 mcg (250 unit) tablet (Citracal + Vitamin D Maximum) polyethylene glycol 3350 17 gram 17 gram PO DAILY 09/10/19 10/04/22 oral powder packet (Miralax) aspirin 81 mg tablet,delayed 81 mg PO DAILY 09/23/20 10/04/22 release (Adult Aspirin Regimen) acetaminophen 500 mg tablet 1,000 mg PO TID PRN 10/04/22 10/04/22 (Tylenol Extra Strength) Previous Rx's Medication Instructions Recorded lisinopril 5 mg tablet See Rx Instructions .Route 02/14/22 .COMPLEX #90 tabs Abdominal binder #1 ea 10/04/22 ibuprofen 200 mg capsule 200 mg PO Q6H PRN pain #1 cap 10/04/22 oxycodone-acetaminophen 5 mg-325 1 tab PO Q8H PRN severe pain #30 10/04/22 mg tablet (Percocet) tabs penicillin V potassium 500 mg 1,000 mg PO BID #40 tabs 10/05/22 tablet cephalexin 500 mg capsule 500 mg PO QID 8 days #32 caps 10/06/22 doxycycline hyclate 100 mg capsule 100 mg PO BID 10 days #20 caps 10/06/22 hydrocodone 5 mg-acetaminophen 325 1 tab PO Q6H PRN pain #10 tabs 10/06/22 mg tablet mupirocin 2 % topical ointment 1 applic topical BID #22 grams 10/06/22 triamcinolone acetonide 0.1 % 1 applic topical DAILY PRN rash 10/06/22 topical ointment #80 grams Allergies Allergy/AdvReac Type Severity Reaction Status Date / Time naproxen Allergy Intermediate hives Verified 10/06/22 11:13 Review of Systems <NATANAEL Gan - Last Filed: 10/06/22 15:28> Review of Systems ROS Unobtainable: All systems reviewed & are unremarkable except as noted in HPI and below Patient History <NATANAEL Gan - Last Filed: 10/06/22 15:28> Medical History Abdominal adhesions 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 Breast cancer Elevated blood pressure reading without diagnosis of hypertension Hepatitis B Hypertension Left shoulder pain Osteoarthritis Osteopenia Osteoporosis Ovarian cancer Ovarian cyst Pre-operative clearance Seasonal allergic rhinitis Seasonal allergies Shortness of breath Tinnitus UTI (urinary tract infection) Well adult exam Surgical History History of cataract surgery History of laparotomy Hx of appendectomy Status post chemotherapy Status post right hip replacement Family History Mother Congestive heart failure Father No significant past medical history Brother Medical history unknown Social History household members: significant other Smoking Status: Former smoker Tobacco: How many years used: 20 second hand exposure: Yes (childhood ) alcohol intake: current (1-2 glasses of wine a week ) substance use type: marijuana (used to help sleep edibles) Smoking Status: Former smoker alcohol intake frequency: holidays/special occasions only Substance Use Type: marijuana Exam <NATANAEL Gan - Last Filed: 10/06/22 15:28> Narrative Exam Narrative: Reviewed vitals signs and nursing notes. General: Pleasant, sitting upright, in no acute distress, well groomed, afebrile HEENT: symmetrical facial expressions, dry mucous membranes, neck is supple CV: regular rate and rhythm, warm extremities Respiratory: normal work of breathing, without tachypnea or hypoxia. GI: abdomen soft, nondistended, without CVA tenderness bilaterally. MSK: moves all extremities, no weakness, normal tone, ambulatory without deficit Skin: brisk capillary refill, large bright red rash to the right flank and lower rib space, it has progress beyond the lines that were drawn on her last night, wound culture obtained from drainage on right flank Neuro: clear speech and normal cognition, A&O x3, GCS 15, no focal motor or sensation deficits Initial Vital Signs Initial Vital Signs: Vital Signs Temperature 98.1 F 10/06/22 11:13 Pulse Rate 110 H 10/06/22 11:13 Respiratory Rate 15 10/06/22 11:13 Blood Pressure 159/71 H 10/06/22 11:13 Pulse Oximetry 97 10/06/22 11:13 Oxygen Delivery Method Room Air 10/06/22 11:13 <Hosea Bradford MD - Last Filed: 10/11/22 12:11> Initial Vital Signs Initial Vital Signs: Vital Signs Temperature 98.1 F 10/06/22 11:13 Pulse Rate 110 H 10/06/22 11:13 Respiratory Rate 15 10/06/22 11:13 Blood Pressure 159/71 H 10/06/22 11:13 Pulse Oximetry 97 10/06/22 11:13 Oxygen Delivery Method Room Air 10/06/22 11:13 Course <NATANAEL Gan - Last Filed: 10/06/22 15:28> Orders Ordered: Discontinued Medications Hydrocodone Bitart/Acetaminophen (Hydrocodone/Acet 5/325 Tablet) 1 tab PO NOW ONE Stop: 10/06/22 11:50 Last Admin: 10/06/22 12:00 Dose: 1 tab Documented By: ARLETTE Diphtheria/Tetanus/Acell Pertussis (Tet,Diph,Pertuss(Acell),Vac/Pf 0.5 Ml Syringe) 0.5 ml IM .ONCE ONE Stop: 10/06/22 13:14 Last Admin: 10/06/22 13:39 Dose: 0.5 ml Documented By: HOMERO Doxycycline Hyclate (Doxycycline Hyclate 100 Mg Tablet) 100 mg PO NOW ONE Stop: 10/06/22 11:49 Last Admin: 10/06/22 12:01 Dose: 100 mg Documented By: ARLETTE Ceftriaxone Sodium 2,000 mg/ (Sodium Chloride) 100 mls @ 200 mls/hr IV NOW ONE Stop: 10/06/22 11:45 Last Infusion: 10/06/22 12:59 Dose: 0 mls/hr Documented By: Admin: 10/06/22 12:18 Dose: 200 mls/hr Documented By: HOMERO Lactated Ringer's (Lactated Ringers) 1,000 mls @ 1,000 mls/hr IV BOLUS ONE Stop: 10/06/22 12:43 Last Infusion: 10/06/22 13:22 Dose: 0 mls/hr Documented By: Admin: 10/06/22 12:00 Dose: 1,000 mls/hr Documented By: ARLETTE Vital Signs Vital signs: Vital Signs - 8 hr 10/06/22 11:13 10/06/22 11:51 10/06/22 11:52 Temperature 98.1 F Pulse Rate 110 H Respiratory Rate 15 Blood Pressure 159/71 H 143/72 H Pulse Oximetry 97 95 Oxygen Delivery Method Room Air 10/06/22 11:52 10/06/22 12:08 10/06/22 13:54 Temperature Pulse Rate 85 83 81 Respiratory Rate 18 Blood Pressure 138/71 Pulse Oximetry 96 98 97 Oxygen Delivery Method Room Air 10/06/22 12:30 10/06/22 13:00 10/06/22 13:30 Temperature Pulse Rate 69 67 69 Respiratory Rate 32 H 17 32 H Blood Pressure Pulse Oximetry 97 99 98 Oxygen Delivery Method <Hosea Bradford MD - Last Filed: 10/11/22 12:11> Orders Ordered: Discontinued Medications Hydrocodone Bitart/Acetaminophen (Hydrocodone/Acet 5/325 Tablet) 1 tab PO NOW ONE Stop: 10/06/22 11:50 Last Admin: 10/06/22 12:00 Dose: 1 tab Documented By: ARLETTE Diphtheria/Tetanus/Acell Pertussis (Tet,Diph,Pertuss(Acell),Vac/Pf 0.5 Ml Syringe) 0.5 ml IM .ONCE ONE Stop: 10/06/22 13:14 Last Admin: 10/06/22 13:39 Dose: 0.5 ml Documented By: HOMERO Doxycycline Hyclate (Doxycycline Hyclate 100 Mg Tablet) 100 mg PO NOW ONE Stop: 10/06/22 11:49 Last Admin: 10/06/22 12:01 Dose: 100 mg Documented By: ARLETTE Ceftriaxone Sodium 2,000 mg/ (Sodium Chloride) 100 mls @ 200 mls/hr IV NOW ONE Stop: 10/06/22 11:45 Last Infusion: 10/06/22 12:59 Dose: 0 mls/hr Documented By: Admin: 10/06/22 12:18 Dose: 200 mls/hr Documented By: HOMERO Lactated Ringer's (Lactated Ringers) 1,000 mls @ 1,000 mls/hr IV BOLUS ONE Stop: 10/06/22 12:43 Last Infusion: 10/06/22 13:22 Dose: 0 mls/hr Documented By: Admin: 10/06/22 12:00 Dose: 1,000 mls/hr Documented By: ARLETTE Vital Signs Vital signs: Vital Signs - 8 hr 10/06/22 11:13 10/06/22 11:51 10/06/22 11:52 Temperature 98.1 F Pulse Rate 110 H Respiratory Rate 15 Blood Pressure 159/71 H 143/72 H Pulse Oximetry 97 95 Oxygen Delivery Method Room Air 10/06/22 11:52 10/06/22 12:08 10/06/22 13:54 Temperature Pulse Rate 85 83 81 Respiratory Rate 18 Blood Pressure 138/71 Pulse Oximetry 96 98 97 Oxygen Delivery Method Room Air 10/06/22 12:30 10/06/22 13:00 10/06/22 13:30 Temperature Pulse Rate 69 67 69 Respiratory Rate 32 H 17 32 H Blood Pressure Pulse Oximetry 97 99 98 Oxygen Delivery Method MDM - Wound/Laceration <NATANAEL Gan - Last Filed: 10/06/22 15:28> Lab Data 10/06/22 11:22 10/06/22 11:22 Labs: Lab Results 10/06/22 10/06/22 10/06/22 Range/Units 11:22 11:22 11:22 WBC 9.1 (4.5-11.0) X10^3/uL RBC 4.60 (4.0-5.2) X10^6/uL Hgb 14.3 (12.0-16.0) g/dL Hct 40.8 (36-46) % MCV 88.6 (80-100) fL MCH 31.0 (26-34) PG MCHC 35.0 (30-36) % RDW 13.8 (11.6-14.8) % Plt Count 268 (150-400) X10^3/uL Neut % (Auto) 64.1 (50-75) % Lymph % (Auto) 24.8 L (25-40) % [place] % (Auto) 9.3 (3-14) % Eos % (Auto) 1.1 L (2-4) % Baso % (Auto) 0.7 (0-2) % Neut # (Auto) 5800 (0718-2359) /uL Lymph # (Auto) 2300 (5305-2301) /uL [place] # (Auto) 800 (0-900) /uL Eos # (Auto) 100 (0-450) /uL Baso # (Auto) 100 (0-100) /uL Sodium 136 L (137-145) mmol/L Potassium 3.9 (3.4-5.1) mmol/L Chloride 101 (98-107) mmol/L Carbon Dioxide 24 (22-32) mmol/L BUN 15 (7-17) mg/dL Creatinine 0.72 (0.52-1.04) mg/dL Estimated GFR > 60 (>60) mL/min BUN/Creatinine Ratio 20.8 (6-22) Glucose 106 (80-110) mg/dL Lactate 1.6 (0.7-2.1) mmol/L Calcium 9.6 (8.4-10.2) mg/dL Magnesium 2.4 H (1.6-2.3) mg/dL Total Bilirubin 0.9 (0.2-1.3) mg/dL AST 37 H (14-36) IU/L ALT 19 (<35) IU/L Alkaline Phosphatase 101 (38-126) U/L Total Protein 8.1 (6.3-8.2) g/dL Albumin 4.7 (3.5-5.0) g/dL Globulin 3.4 (1.7-4.1) g/dL Albumin/Globulin Ratio 1.4 (1.0-2.8) Lipase (23-300) U/L 10/06/22 Range/Units 11:22 WBC (4.5-11.0) X10^3/uL RBC (4.0-5.2) X10^6/uL Hgb (12.0-16.0) g/dL Hct (36-46) % MCV (80-100) fL MCH (26-34) PG MCHC (30-36) % RDW (11.6-14.8) % Plt Count (150-400) X10^3/uL Neut % (Auto) (50-75) % Lymph % (Auto) (25-40) % [place] % (Auto) (3-14) % Eos % (Auto) (2-4) % Baso % (Auto) (0-2) % Neut # (Auto) (8290-2761) /uL Lymph # (Auto) (7197-0970) /uL [place] # (Auto) (0-900) /uL Eos # (Auto) (0-450) /uL Baso # (Auto) (0-100) /uL Sodium (137-145) mmol/L Potassium (3.4-5.1) mmol/L Chloride (98-107) mmol/L Carbon Dioxide (22-32) mmol/L BUN (7-17) mg/dL Creatinine (0.52-1.04) mg/dL Estimated GFR (>60) mL/min BUN/Creatinine Ratio (6-22) Glucose (80-110) mg/dL Lactate (0.7-2.1) mmol/L Calcium (8.4-10.2) mg/dL Magnesium (1.6-2.3) mg/dL Total Bilirubin (0.2-1.3) mg/dL AST (14-36) IU/L ALT (<35) IU/L Alkaline Phosphatase (38-126) U/L Total Protein (6.3-8.2) g/dL Albumin (3.5-5.0) g/dL Globulin (1.7-4.1) g/dL Albumin/Globulin Ratio (1.0-2.8) Lipase 109 (23-300) U/L Imaging Data CT scan - abdomen/pelvis: Radiologist's Impression: [address] [id number] Scan ReportSigned Patient: Jm Osborne RMR#: [id number]: 12/03/1964Acct:[id number]/Sex: 57 / MDate of Service: 10/06/22Loc: EDAccession Number: [id number] Procedure: CT abdomen pelvis w con Ordering Provider: Jennifer Roberts PROCEDURE: CT ABDOMEN PELVIS W CON INDICATIONS: periumbilical pain x 2 weeks, hx appendectomy, fatigue TECHNIQUE: After the administration of intravenous contrast, axial sections acquired from the lung bases to the pubic symphysis. Coronal and sagittal reformats were performed. For radiation dose reduction, the following was used: automated exposure control, adjustment of mA and/or kV according to patient size. COMPARISON: [facility], CT, ABDOMEN/PELVIS WITH CONTRAST, 10/28/2016, 10:09. FINDINGS: Image quality: Excellent. Lung bases: Unremarkable. Heart: No significant findings. ABDOMEN: Liver: Unremarkable. Gallbladder: Unremarkable. Biliary ducts: Unremarkable. Pancreas: Unremarkable. Spleen: Unremarkable. Adrenal Glands: Unremarkable. Kidneys and Ureters: Unremarkable. Stomach and Bowel: Sigmoid diverticulosis without evidence of diverticulitis. Peritoneum: No abnormal intraperitoneal fluid. No free air. Ventral Wall: No hernias. Abdominal Nodes: No retroperitoneal or mesenteric adenopathy by size criteria. Vessels: Aorta and inferior vena cava are normal in size. Circumaortic left renal vein incidentally noted. PELVIS: Pelvic Organs: Unremarkable. Bladder: Unremarkable. Pelvic Nodes: No enlarged lymph nodes. Miscellaneous: No hernias are seen. Bones: No lytic or blastic bony lesions. No compression fractures. IMPRESSION: 1. Sigmoid diverticulosis. 2. No acute abdominal process noted. Dictated by: Jose Menjivar M.D. on 10/06/2022 at 12:32 Approved by: Jose Menjivar M.D. on 10/06/2022 at 12:34 CT scan - chest: Radiologist's Impression: [address] [id number] [address] Scan Report Signed Patient: Claribel Avendano MR#: [id number] : 1945 Acct:[id number] Age/Sex: 77 / F Date of Service: 10/06/22 Loc: ED Accession Number: [id number] ?? Procedure: CT angio chest PE protocol Ordering Provider: Jennifer Roberts PROCEDURE:? CT ANGIO CHEST PE PROTOCOL ? INDICATIONS:? rt flank cellulitis and 8th rib fx, abscess, deep infection? ? TECHNIQUE:? After the administration of intravenous contrast, 2 mm thick sections acquired from the pulmonary apices to the posterior costophrenic angles.? 3-dimensional maximum intensity projection (MIP) coronal and sagittal reformats were then acquired through the thorax.? For radiation dose reduction, the following was used:? automated exposure control, adjustment of mA and/or kV according to patient size.? ? COMPARISON:? [facility], CT, CT CHEST W CON, 12/27/2019, 10:42.? [facility], CT, CT CHEST ABD PEL W CON, 09/26/2022, 22:18. ? FINDINGS:? Image quality:? Excellent.? ? Pulmonary arteries:? Pulmonary arteries are normal in size, and demonstrate no intraluminal filling defects to suggest central pulmonary embolism.? ? Lungs and pleura:? Lungs are clear.? Unchanged pleural based mass, posterior right apex, 2 cm, consistent with a benign lesion.? No pleural effusions or pneumothorax.? Central and peripheral airways are patent.? ? Mediastinum:? Heart size is normal, without pericardial effusion.? No mediastinal or hilar adenopathy.? Thoracic aorta is normal in caliber and enhancement.? Esophagus is normal in caliber, without hiatal hernia.? ? Bones and chest wall:? No suspicious bony lesions nondisplaced right 8th lateral rib fracture.? Thyroid gland is unremarkable.? No axillary or supraclavicular adenopathy.? ? Abdomen:? Visualized upper abdominal solid organs appear normal in the early arterial phase of enhancement.? ? IMPRESSION:? ? 1. No acute pulmonary emboli. ? 2. No acute pulmonary process. ? 3. Nondisplaced lateral right 8th rib fracture. ? 4. Benign pleural based nodule, right apex, 2 cm. ? ? Dictated by: Jose Menjivar M.D. on 10/06/2022 at 12:56 ? ? Approved by: Jose Menjivar M.D. on 10/06/2022 at 13:00 ? MDM Narrative Medical decision making narrative: Chief Complaint: rash to rt chest Multiple etiologies for patient's complaint considered including, but not limited to: MRSA cellulitis, abscess, pneumonia, pulmonary contusion, intra- abdominal fluid collection with peritonitis I have independently reviewed the patient's vital signs and nursing notes as well as prior records if available. Wound culture from 10/04/2022 grew group a strep, patient was treated with penicillin b.i.d. times 10 days. She presents today with worsening since last night after starting penicillin yesterday afternoon, she has a bright pink/reddish rash spreading up the right flank, wound culture with mild amount of drainage. Area is firm surrounding the drainage concerning for abscess, cellulitis present without vesicles, pustules, papules or other open wound. Course of Care: Patient presents with a heart rate of 110 and is afebrile, blood cultures obtained, CT chest abdomen pelvis with contrast were given to evaluate for abscess versus pulmonary embolus versus pneumonia as patient has had an acute change starting since last night. CT abdomen pelvis with contrast is negative for abscess or subcutaneous gas, shows sigmoid diverticulosis without diverticulitis and no other acute changes, chest CTA shows no pulmonary emboli and no acute pulmonary process with nondisplaced lateral right 8th rib fracture and a benign pleural-based nodule measuring 2 cm. Repeated wound culture, treated with 2 g IV ceftriaxone, 1 L normal saline, doxycycline x1, new Rx for home includes triamcinolone ointment, mupirocin ointment, doxycycline and cephalexin for a total course of 10 days and prescribed course of 8 days. She received her 1st doses here in the emergency department, she is given strict return precautions, hydrocodone as needed for pain. Social considerations that may affect disposition: none Questions are addressed and there is agreement with the plan and for follow-up with PCP. I consulted with the ED attending physician Dr. Bradford as needed for higher level of care considerations and they were available for discussion and recommendations regarding plan of care and diagnostic testing decisions. Pat ient is appropriate for outpatient management. <Hosea Bradford MD - Last Filed: 10/11/22 12:11> Lab Data Labs: Lab Results 10/06/22 10/06/22 10/06/22 Range/Units 11:22 11:22 11:22 WBC 9.1 (4.5-11.0) X10^3/uL RBC 4.60 (4.0-5.2) X10^6/uL Hgb 14.3 (12.0-16.0) g/dL Hct 40.8 (36-46) % MCV 88.6 (80-100) fL MCH 31.0 (26-34) PG MCHC 35.0 (30-36) % RDW 13.8 (11.6-14.8) % Plt Count 268 (150-400) X10^3/uL Neut % (Auto) 64.1 (50-75) % Lymph % (Auto) 24.8 L (25-40) % [place] % (Auto) 9.3 (3-14) % Eos % (Auto) 1.1 L (2-4) % Baso % (Auto) 0.7 (0-2) % Neut # (Auto) 5800 (9698-4042) /uL Lymph # (Auto) 2300 (7749-7661) /uL [place] # (Auto) 800 (0-900) /uL Eos # (Auto) 100 (0-450) /uL Baso # (Auto) 100 (0-100) /uL Sodium 136 L (137-145) mmol/L Potassium 3.9 (3.4-5.1) mmol/L Chloride 101 (98-107) mmol/L Carbon Dioxide 24 (22-32) mmol/L BUN 15 (7-17) mg/dL Creatinine 0.72 (0.52-1.04) mg/dL Estimated GFR > 60 (>60) mL/min BUN/Creatinine Ratio 20.8 (6-22) Glucose 106 (80-110) mg/dL Lactate 1.6 (0.7-2.1) mmol/L Calcium 9.6 (8.4-10.2) mg/dL Magnesium 2.4 H (1.6-2.3) mg/dL Total Bilirubin 0.9 (0.2-1.3) mg/dL AST 37 H (14-36) IU/L ALT 19 (<35) IU/L Alkaline Phosphatase 101 (38-126) U/L Total Protein 8.1 (6.3-8.2) g/dL Albumin 4.7 (3.5-5.0) g/dL Globulin 3.4 (1.7-4.1) g/dL Albumin/Globulin Ratio 1.4 (1.0-2.8) Lipase (23-300) U/L 10/06/22 Range/Units 11:22 WBC (4.5-11.0) X10^3/uL RBC (4.0-5.2) X10^6/uL Hgb (12.0-16.0) g/dL Hct (36-46) % MCV (80-100) fL MCH (26-34) PG MCHC (30-36) % RDW (11.6-14.8) % Plt Count (150-400) X10^3/uL Neut % (Auto) (50-75) % Lymph % (Auto) (25-40) % [place] % (Auto) (3-14) % Eos % (Auto) (2-4) % Baso % (Auto) (0-2) % Neut # (Auto) (4715-2981) /uL Lymph # (Auto) (3130-3583) /uL [place] # (Auto) (0-900) /uL Eos # (Auto) (0-450) /uL Baso # (Auto) (0-100) /uL Sodium (137-145) mmol/L Potassium (3.4-5.1) mmol/L Chloride (98-107) mmol/L Carbon Dioxide (22-32) mmol/L BUN (7-17) mg/dL Creatinine (0.52-1.04) mg/dL Estimated GFR (>60) mL/min BUN/Creatinine Ratio (6-22) Glucose (80-110) mg/dL Lactate (0.7-2.1) mmol/L Calcium (8.4-10.2) mg/dL Magnesium (1.6-2.3) mg/dL Total Bilirubin (0.2-1.3) mg/dL AST (14-36) IU/L ALT (<35) IU/L Alkaline Phosphatase (38-126) U/L Total Protein (6.3-8.2) g/dL Albumin (3.5-5.0) g/dL Globulin (1.7-4.1) g/dL Albumin/Globulin Ratio (1.0-2.8) Lipase 109 (23-300) U/L Discharge Plan Departure Patient Disposition: Home Clinical Impression: Incidental lung nodule, less than or equal to 3mm, Complicated wound infection, Group A streptococcal infection Cellulitis of trunk Qualifiers: Site of cellulitis of trunk: chest wall Qualified Code(s): L03.313 - Cellulitis of chest wall Closed rib fracture Qualifiers: Encounter type: subsequent encounter Rib fracture type: single rib Laterality: right Fracture healing: with routine healing Qualified Code(s): S22.31XD - Fracture of one rib, right side, subsequent encounter for fracture with routine healing Fall Qualifiers: Encounter type: subsequent encounter Qualified Code(s): W19.XXXD - Unspecified fall, subsequent encounter Instructions: DI for Wound Infection Activity Restrictions/Additional Instructions: *You have been diagnosed with cellulitis, an infection of skin, due to group a strep per the previous wound culture. We received another wound culture today which we will follow. Please continue on cephalexin and doxycycline and use topical mupirocin ointment for any open areas of skin. After 24 hours if this is worse, please come back to the hospital. We will follow the blood cultures and wound cultures again and call you if we need to make any changes. It was a pleasure to meet you, I hope you feel better soon, discontinue the penicillin starting today, start taking the cephalexin tomorrow, I gave you ceftriaxone today via your IV and this will hopefully help calm this down greatly. Take the 2nd dose of doxycycline tonight before bed, please take your medicines with food and water, use hydrocodone as needed for severe pain. *What to do: *Please continue to take your regular medications as directed. [ x] New medication prescriptions sent to your pharmacy: [[facility] ] [ ] New medication written as a paper prescription [ ] No new medications given *Please call and schedule follow up with your primary care provider in 2-3 days, at least for an update. Let them know you were seen in the Emergency Department for the above problem. We will electronically transmit a record of today's note if your PCP or specialist is in our system. *If you do not have a primary care provider please contact [phone] to establish care with one of the [facility] primary care providers. *Return to the Emergency Department for worsening symptoms, inability to keep liquids down, fever greater than 101F, chills, or other concerning symptom. Prescriptions: New cephalexin 500 mg capsule 500 mg PO QID 8 Days Qty: 32 0RF doxycycline hyclate 100 mg capsule 100 mg PO BID 10 Days Qty: 20 0RF mupirocin 2 % ointment 1 applic topical BID Qty: 22 0RF triamcinolone acetonide 0.1 % ointment 1 applic topical DAILY PRN (Reason: rash) Qty: 80 0RF Rx Instructions: Use up to 5 times per week for red rash and take a holiday x2 days, can repeat if rash remains hydrocodone-acetaminophen 5-325 mg tablet 1 tab PO Q6H PRN (Reason: pain) Qty: 10 0RF No Action lisinopril 5 mg tablet See Rx Instructions .ROUTE .COMPLEX Qty: 90 3RF Dose Instruction: TAKE 1 TABLET BY MOUTH DAILY Rx Instructions: TAKE 1 TABLET BY MOUTH DAILY aspirin [Adult Aspirin Regimen] 81 mg tablet,delayed release (DR/EC) 81 mg PO DAILY oxycodone-acetaminophen [Percocet] 5-325 mg tablet 1 tab PO Q8H PRN (Reason: severe pain) Qty: 30 0RF Rx Instructions: Take 1 tab by mouth every 8 hours as needed for severe pain acetaminophen [Tylenol Extra Strength] 500 mg tablet 1,000 mg PO TID PRN Rx Instructions: Take 2 tabs by mouth up to 3x/day as needed for pain, not to exceed 3000mg/24 hours ibuprofen 200 mg capsule 200 mg PO Q6H PRN (Reason: pain) Qty: 1 0RF Rx Instructions: Take 3-4 caps every 3-4 hours for 3-4 days, then decrease to 2 tabs every 6 hours as needed thereafter. (DME) Abdominal binder See Rx Instructions .Route .MEDSUPPLY Qty: 1 0RF Rx Instructions: Wear around painful area of chest to help splint non displaced rib fracture #8 penicillin V potassium 500 mg tablet 1,000 mg PO BID Qty: 40 0RF Rx Instructions: Take 1 tabs by mouth twice per day x10 days calcium citrate-vitamin D3 [Citracal + D Maximum] 315 mg- 250 unit tablet 1 tab PO DAILY polyethylene glycol 3350 [Miralax] 17 gram powder in packet 17 gram PO DAILY Referrals: Soni Ingram ARNP [Primary Care Provider] - Stand Alone Forms: Patient Portal/API <Hosea Bradford MD - Last Filed: 10/11/22 12:11> Cosign ED Attending Cosignature Attestation: I was immediately available in the department for consultation. ?This documentation has been reviewed and I agree with assessment and plan. Supervised by Hosea Bradford MD
[2022-10-06] MEDS: LACTATED RINGERS 1,000 ML 1000 ML IV (12:00)
[2022-10-06] MEDS: HYDROCODONE/ACET 5/325 TABLET 1 TAB PO (12:00)
[2022-10-06] MEDS: DOXYCYCLINE HYCLATE 100 MG TABLET PO (12:01)
[2022-10-06 12:02] LABS: Add Manual Diff / Slide Review NO; Basophils Absolute Auto 100 /uL (0-100); Basophils Percent Auto 0.7 % (0-2); Eosinophils Absolute Auto 100 /uL (0-450); Eosinophils Percent Auto 1.1 % (2-4); Hematocrit 40.8 % (36-46); Hemoglobin 14.3 g/dL (12.0-16.0); Lymphocytes Absolute Auto 2300 /uL (1100-4500); Lymphocytes Percent Auto 24.8 % (25-40); Mean Corpuscular Volume 88.6 fL (80-100); Monocytes Absolute Auto 800 /uL (0-900); Monocytes Percent Auto 9.3 % (3-14); Neutrophils Absolute Auto 5800 /uL (1500-7000); Neutrophils Percent Auto 64.1 % (50-75); Platelet Count 268 X10^3/uL (150-400); Red Cell Distribution Width 13.8 % (11.6-14.8); White Blood Cell Count 9.1 X10^3/uL (4.5-11.0)
[2022-10-06 12:08] LABS: Lactate (Lactic Acid) 1.6 mmol/L (0.7-2.1)
[2022-10-06 12:09] LABS: Alanine Aminotransferase 19 IU/L (<35); Albumin 4.7 g/dL (3.5-5.0); Albumin Globulin Ratio 1.4 (1.0-2.8); Alkaline Phosphatase 101 U/L (38-126); Aspartate Aminotransferase 37 IU/L (14-36); BUN Creatinine Ratio 20.8 (6-22); Bilirubin Total 0.9 mg/dL (0.2-1.3); Blood Urea Nitrogen 15 mg/dL (7-17); Calcium 9.6 mg/dL (8.4-10.2); Carbon Dioxide 24 mmol/L (22-32); Chloride 101 mmol/L (98-107); Estimated Glomerular Filt Rate > 60 mL/min (>60); Globulin 3.4 g/dL (1.7-4.1); Glucose 106 mg/dL (80-110); HEMOLYSIS 26 (0-50); Magnesium 2.4 mg/dL (1.6-2.3); Potassium 3.9 mmol/L (3.4-5.1); Sodium 136 mmol/L (137-145); Total Protein 8.1 g/dL (6.3-8.2)
[2022-10-06 12:10] LABS: Lipase 109 U/L (23-300)
[2022-10-06] MEDS: cefTRIAXone 2,000 MG in SODIUM CHLORIDE 0.9% 100 ML 200 MG IV (12:18)
[2022-10-06] MEDS: TET,DIPH,PERTUSS(ACELL),VAC/PF 0.5 ML SYRINGE IM (13:39)
== END 2022-10-06 13:56 | disposition home or self-care (01) ==
PROVIDERS: Emergency Provider Nurse Practitioner Critical Care Medicine; Family Provider Nurse Practitioner; PCP Nurse Practitioner
DX: L03.313 Cellulitis of chest wall (principal); S22.31XD Fracture of one rib, right side, subsequent encounter for fracture with routine healing; W19.XXXD Unspecified fall, subsequent encounter; R91.1 Solitary pulmonary nodule; Z23 Encounter for immunization
CPT/HCPCS: 71275; 74177; 80053; 83605; 83690; 83735; 85025; 87040; 87070; 87075; 87077; 87147; 87205; 90471; 96365; 99284; 90715; J0696; Q9967

== ENCOUNTER 2022-10-18 10:14 | Outpatient (RCR) | payer MEDICARE, SELFPAY ==
[2019-08-22 10:49] VITALS: BMI 26.0
--- NOTE | 2022-10-18 10:48 | PT-OP ANOTE ---
Pt attends on time for initial evaluation of her R hip with reports that since obtaining the referral, she has fallen due to dizziness and fell downhill, landing into a wooden garden bed causing fractures of her R lower ribs. Fall occured 3 weeks ago and pt is having a lot of rib pain and still having symptoms of lightheadedness. Held R hip initial evaluation due to pt symptoms of pain with movement, low tolerance to standing and dizziness. Rescheduled pt's visit in 5 weeks with request that pt return to her primary care physician for rib healing assessment prior to return to therapy and for a referral for a vestibular assessment in addition to R hip therapy. Pt agreeable.
== END 2023-08-01 14:06 ==
LOC: PHYS 10:14
PROVIDERS: Family Provider Nurse Practitioner; PCP Nurse Practitioner; Referring Provider Physical Medicine & Rehabilitation Sports Medicine; Visit Provider Physical Medicine & Rehabilitation Sports Medicine
DX: M47.817 Spondylosis without myelopathy or radiculopathy, lumbosacral region (principal); M76.01 Gluteal tendinitis, right hip; M25.551 Pain in right hip

== ENCOUNTER → 2022-11-08 07:25 | Outpatient (CLI) | payer MEDICARE, SELFPAY ==
[2022-10-19 09:25] VITALS: BMI 26.0
--- NOTE | 2022-11-08 07:28 | DI.RAD.S_ITS ---
PROCEDURE: XR CHEST 2V INDICATIONS: rib fx, 8th right CT 2 DAYS AGO TECHNIQUE: 2 views of the chest were acquired. COMPARISON: [facility], CT, CT CHEST W CON, 12/27/2019, 10:42. [facility], CT, CT ANGIO CHEST PE PROTOCOL, 10/06/2022, 12:08. [facility], CR, XR CHEST 2V, 09/08/2020, 14:21. FINDINGS: Surgical changes and devices: Right breast clips. Lungs and pleura: Lungs are clear. No pleural effusions or pneumothorax. Medial right apical 2 cm pleural based density has been stable since 2019, consistent with a benign pleural based mass. Mediastinum: Mediastinal contours are normal. Heart size is normal. Bones and chest wall: No suspicious bony abnormalities. Soft tissues appear unremarkable. IMPRESSION: No pneumothorax. Benign right apical pleural based mass. No acute pulmonary process. Dictated by: Jose Menjivar M.D. on 11/08/2022 at 11:48 Approved by: Jose Menjivar M.D. on 11/08/2022 at 11:52
[2022-11-08 09:52] LABS: Add Manual Diff / Slide Review NO; Basophils Absolute Auto 100 /uL (0-100); Basophils Percent Auto 0.8 % (0-2); Eosinophils Absolute Auto 300 /uL (0-450); Eosinophils Percent Auto 4.2 % (2-4); Hematocrit 38.7 % (36-46); Hemoglobin 13.6 g/dL (12.0-16.0); Lymphocytes Absolute Auto 3600 /uL (1100-4500); Lymphocytes Percent Auto 52.9 % (25-40); Mean Corpuscular HGB Conc 35.2 % (30-36); Mean Corpuscular Hemoglobin 30.8 PG (26-34); Mean Corpuscular Volume 87.6 fL (80-100); Monocytes Absolute Auto 500 /uL (0-900); Monocytes Percent Auto 7.8 % (3-14); Neutrophils Absolute Auto 2400 /uL (1500-7000); Neutrophils Percent Auto 34.3 % (50-75); Platelet Count 239 X10^3/uL (150-400); Red Blood Cell Count 4.42 X10^6/uL (4.0-5.2); Red Cell Distribution Width 13.9 % (11.6-14.8); White Blood Cell Count 6.9 X10^3/uL (4.5-11.0)
[2022-11-08 10:13] LABS: Alanine Aminotransferase 21 IU/L (<35); Albumin 4.2 g/dL (3.5-5.0); Albumin Globulin Ratio 1.5 (1.0-2.8); Alkaline Phosphatase 121 U/L (38-126); Aspartate Aminotransferase 27 IU/L (14-36); BUN Creatinine Ratio 17.5 (6-22); Bilirubin Total 0.3 mg/dL (0.2-1.3); Blood Urea Nitrogen 11 mg/dL (7-17); Calcium 9.3 mg/dL (8.4-10.2); Carbon Dioxide 23 mmol/L (22-32); Chloride 104 mmol/L (98-107); Cholesterol 262 mg/dL (140-199); Estimated Glomerular Filt Rate > 60 mL/min (>60); Globulin 2.8 g/dL (1.7-4.1); Glucose 93 mg/dL (80-110); HDL Cholesterol 60 mg/dL (40-60); HEMOLYSIS < 15 (0-50); LDL Cholesterol Calculated 147 mg/dL (<100); Potassium 4.4 mmol/L (3.4-5.1); Sodium 138 mmol/L (137-145); Triglycerides 277 mg/dL (35-150)
[2022-11-08 10:21] LABS: Creatinine Urine Random 103.8 mg/dL
[2022-11-08 10:26] LABS: Microalbumin Urine Random < 0.6 mg/dL (0-1.6)
[2022-11-08 10:27] LABS: Free T3, Triiodothyronine Free 4.58 pg/mL (2.77-5.27); Free T4, Direct Thyroxine 0.99 ng/dL (0.78-2.19)
[2022-11-08 10:41] LABS: Thyroid Stimulating Hormone 3.71 uIU/mL (0.47-4.68)
[2022-11-08 10:48] LABS: Cancer Antigen 125 < 5.5 U/mL (0-35)
[2022-11-08 11:01] LABS: Hep C Virus Ab w/Reflex Quant NEGATIVE s/c (NEGATIVE)
== END ==
PROVIDERS: Family Provider Nurse Practitioner; PCP Nurse Practitioner; Referring Provider Nurse Practitioner; Visit Provider Nurse Practitioner
DX: S22.31XA Fracture of one rib, right side, initial encounter for closed fracture (principal); S22.39XA Fracture of one rib, unspecified side, initial encounter for closed fracture; C56.9 Malignant neoplasm of unspecified ovary; C50.911 Malignant neoplasm of unspecified site of right female breast; C50.912 Malignant neoplasm of unspecified site of left female breast; R91.8 Other nonspecific abnormal finding of lung field; I10 Essential (primary) hypertension; M81.0 Age-related osteoporosis without current pathological fracture; E78.5 Hyperlipidemia, unspecified; Z11.59 Encounter for screening for other viral diseases; Z79.899 Other long term (current) drug therapy; Z15.01 Genetic susceptibility to malignant neoplasm of breast; W19.XXXA Unspecified fall, initial encounter
CPT/HCPCS: 36415; 71046; 80053; 80061; 82043; 82570; 84439; 84443; 84481; 85025; 86304; 86803

== ENCOUNTER → 2022-11-09 10:18 | Outpatient (CLI) | payer MEDICARE, SELFPAY ==
[2022-10-19 09:25] VITALS: BMI 26.0
[2022-11-10 14:18] LABS: Fecal Immunochemical Test Negative (Negative)
== END ==
PROVIDERS: Family Provider Nurse Practitioner; PCP Nurse Practitioner; Referring Provider Nurse Practitioner; Visit Provider Nurse Practitioner
DX: Z12.11 Encounter for screening for malignant neoplasm of colon (principal)
CPT/HCPCS: 82274

== ENCOUNTER → 2022-11-10 08:16 | Outpatient (CLI) | payer MEDICARE, SELFPAY ==
[2022-10-19 09:25] VITALS: BMI 26.0
[2022-11-10 09:44] LABS: Cholesterol 249 mg/dL (140-199); HDL Cholesterol 67 mg/dL (40-60); LDL Cholesterol Calculated 142 mg/dL (<100); Triglycerides 200 mg/dL (35-150)
== END ==
PROVIDERS: Family Provider Nurse Practitioner; PCP Nurse Practitioner; Referring Provider Family Medicine; Visit Provider Family Medicine
DX: E78.5 Hyperlipidemia, unspecified (principal)
CPT/HCPCS: 36415; 80061

== ENCOUNTER → 2023-03-15 13:44 | Outpatient (CLI) | payer MEDICARE, SELFPAY ==
[2022-10-19 09:25] VITALS: BMI 26.0
[2023-03-15 17:03] LABS: Alanine Aminotransferase 26 IU/L (<35); Albumin 4.4 g/dL (3.5-5.0); Albumin Globulin Ratio 1.3 (1.0-2.8); Alkaline Phosphatase 110 U/L (38-126); BUN Creatinine Ratio 20.3 (6-22); Bilirubin Total 0.6 mg/dL (0.2-1.3); Blood Urea Nitrogen 13 mg/dL (7-17); Calcium 9.7 mg/dL (8.4-10.2); Carbon Dioxide 23 mmol/L (22-32); Chloride 104 mmol/L (98-107); Cholesterol 127 mg/dL (140-199); Estimated Glomerular Filt Rate > 60 mL/min (>60); Globulin 3.3 g/dL (1.7-4.1); Glucose 95 mg/dL (80-110); HDL Cholesterol 82 mg/dL (40-60); HEMOLYSIS < 15 (0-50); LDL Cholesterol Calculated 25 mg/dL (<100); Potassium 4.1 mmol/L (3.4-5.1); Sodium 136 mmol/L (137-145); Total Protein 7.7 g/dL (6.3-8.2); Triglycerides 101 mg/dL (35-150)
[2023-03-17 16:05] LABS: Aspartate Aminotransferase 35 IU/L (14-36)
== END ==
LOC: LAB 13:45
PROVIDERS: Family Provider Nurse Practitioner; PCP Nurse Practitioner; Referring Provider Nurse Practitioner; Visit Provider Nurse Practitioner
DX: E78.2 Mixed hyperlipidemia (principal); I10 Essential (primary) hypertension; Z79.899 Other long term (current) drug therapy
CPT/HCPCS: 36415; 80053; 80061

== ENCOUNTER 2023-04-27 13:45 | Outpatient (RCR) | payer MEDICARE, SELFPAY ==
[2022-10-19 09:25] VITALS: BMI 26.0
--- NOTE | 2022-11-25 11:56 | PT.OIE ---
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 Breast cancer Elevated blood pressure reading without diagnosis of hypertension Hepatitis B Hyperlipidemia Hypertension Left shoulder pain Osteoarthritis Osteopenia Osteoporosis Ovarian cancer Ovarian cyst Pre-operative clearance Seasonal allergic rhinitis Seasonal allergies Shortness of breath Tinnitus UTI (urinary tract infection) Well adult exam Past Surgical History (Last Reviewed 10/14/22 @ 12:05 by NATANAEL Aj) History of cataract surgery History of laparotomy Hx of appendectomy Status post chemotherapy Status post right hip replacement Visit Care Team Role Provider Type NATANAEL Aj Attending Provider Advanced Mineral Wool Insulation Supervisor Family Provider Primary Care Provider Referring Provider Specialty: [facility] Practice Address: [address] [place] [address], [facility] Email: [email or web address] Physical Therapy Initial Evaluation PT-OP-A Visit Information Start: 11/25/22 11:32 Freq: Status: Active Protocol: Document 11/25/22 09:45 DCW (Rec: 11/25/22 11:46 DCW [id number]) Out-Patient Physical Therapy Visit Information Visit Information Visit Type Initial Evaluation Visit Start Time 09:45 Visit Stop Time 10:30 Total Visit Minutes 45 Visit Number 1 Number of MICROSOFT SYSTEMS ENGINEER Visits 0 Evaluation Information Evaluation Date 11/25/22 PT-OP-B Current Condition Start: 11/25/22 11:32 Freq: Status: Active Protocol: Document 11/25/22 09:45 DCW (Rec: 11/25/22 11:46 DCW [id number]) Current Condition History of Current Condition Onset Date Two months s/p fall Current Complaints Prior dizziness, hip pain, LE weakness History of Current Condition Pt is a 77 year old female presenting two months s/p fall , which resulted in a rib fracture. At the time of her fall, pt was scheduled for a PT evaluation for her R hip pain/weakness, however this got delayed due to the sudden change in medical status following her fall. Pt ready to begin hip PT, however also referred for a vestibular assessment to determine if pt' s fall, which she noted was due to dizziness, was caused by an vestibular dysfunction. Pt does have a history complicated by a history of both pelvic and breast cancer, although currently just in observation phase of treatment , no recent radiation or chemo . Pt notes that after her fall , she stopped taking one of her medications (Letrazole), which had dizziness as a side- effect, and has largely not any any further symptoms. Despite this, she is still interested in a vestibular assessment to ensure no other underlying cause for her dizziness. In addition, pt also referred again for her hip pain. Pt has history of R MARI, hip is still feeling weak and sore, feels it limits her mobility and would like to be able to lift it up into her vehicle without assistance. PT-OP-C Subjective Start: 11/25/22 11:32 Freq: Status: Active Protocol: Document 11/25/22 09:45 DCW (Rec: 11/25/22 11:46 DCW [id number]) OP-PT Subjective Patient Comments Patient Comments I still can get a little dizzy with quick head turns, but it really doesn't bother me much since I stopped taking that medication. Patient Reported Progress Improving PT-OP-F Manual Assessment Start: 11/25/22 11:32 Freq: Status: Active Protocol: Document 11/25/22 09:45 DCW (Rec: 11/25/22 11:46 DCW [id number]) Manual Assessments Soft Tissue Assessment Soft Tissue Mobility Assessment Anterior hip pain/tightness through hip flexors and quads Joint Mobility Assessment Joint Mobility Assessment No pain with compression and PROM of right hip joint PT-OP-L Special Tests Start: 11/25/22 11:32 Freq: Status: Active Protocol: Document 11/25/22 09:45 DCW (Rec: 11/25/22 11:46 DCW [id number]) Special Tests Hip Special Tests Straight Leg Raise Test Results Negative Scour Test Test Results Negative MARVIN Test Results Negative Hannah's Test Test Results Positive R Anterior Labral Test Test Results Negative PT-OP-M Strength Start: 11/25/22 11:32 Freq: Status: Active Protocol: Document 11/25/22 09:45 DCW (Rec: 11/25/22 11:46 DCW [id number]) Hip Strength Hip Manual Muscle Testing Right Flexion (L2) 4- Good- Abduction 4 Good Adduction 4- Good- External Rotation 3+ Fair+ Internal Rotation 4- Good- Left Flexion (L2) 4+ Good+ Abduction 4+ Good+ Adduction 4+ Good+ External Rotation 4+ Good+ Internal Rotation 4+ Good+ Knee Strength Knee Manual Muscle Testing Right Flexion (S2) 4+ Good+ Extension (L3) 4+ Good+ Left Flexion (S2) 5 Normal Extension (L3) 5 Normal PT-OP-O Vestibular Start: 11/25/22 11:32 Freq: Status: Active Protocol: Document 11/25/22 09:45 DCW (Rec: 11/25/22 11:46 DCW [id number]) Vestibular Assessment Auditory Tests Gómez Test Within normal limits Rinne Test Negative Air Conduction Results Equal Visual Testing Smooth Pursuits Horizontal WNL Smooth Pursuits Vertical WNL Saccades Horizontal WNL Saccades Vertical WNL Heave Test Negative Thrust Head Negative DVA (Line Degradation) 2 Spontaneous Nystagmus Negative Positional Testing [place]-Hallpike Negative Left,Negative Right Rolling Test Negative Left,Negative Right PT-OP-Q Treatments Start: 11/25/22 11:32 Freq: Status: Active Protocol: Document 11/25/22 09:45 DCW (Rec: 11/25/22 11:56 DCW [id number]) Therapeutic Exercises Standing Exercises Hip Flexor stretch Standing Exercise Name Half-kneeling psoas stretch Side right PT-OP-T Assessment and Plan Start: 11/25/22 11:32 Freq: Status: Active Protocol: Document 11/25/22 09:45 DCW (Rec: 11/25/22 11:55 DCW [id number]) Physical Therapy Assessment Rehab Potential Rehabilitation Potential Good Evaluation Complexity Number of Personal Factors/Comorbidities 1-2 Number of Body Systems Impaired 3 Clinical Presentation at Evaluation Stable Impairments Impairments Activity Tolerance,Balance, Functional Activities, Functional Mobility,ROM,Soft Tissue Mobility,Strength,Tone Goals Two Impairment Right hip weakness (4-/5 with flexion, adduction, and ER/IR) County Sheriff Goal (LTG) Pt to increase MMT of right hip to at least 4/5 in all tested planes in order to allow pt to lift right foot into vehicle without assistance LTG Duration 01/25/23 One Impairment Pt does not have an appropriate home exercise program Short Term Goal (STG) Pt to be independent and compliant with an appropriate HEP STG Duration 12/25/22 Assessment Summary Assessment Spent most of today's evaluation performing vestibular testing. Vestibular evaluation completely unremarkable, no indications that pt has any inner ear dysfunction. Prior complaints of dizzy symptoms appear to have been largely eliminated following change in pt's medication. Ued short time left to start hip assessment. Right hip shows clear decreased strength vs left, as well as increased tone of right hip flexors. Pt should benefit from skilled therapy focusing on hip mobility and strengthening, soft tissue flexibility, gait and balance training, and implementation of appropriate home exercise program. Additionally, should spend start of next session completing hip assessment, which was limited today due to time constraints. Physical Therapy Plan Frequency and Duration Frequency of Treatment 2x/Week Plan of Care Start Date 11/25/22 Plan of Care End Date 01/25/23 Therapeutic Interventions Therapeutic Interventions Balance Training,Gait Training ,Home Exercise Program,Joint Mobilizations,Manual Therapy, Patient/Caregiver Education, Self-Care/Home Management,Soft Tissue Mobilization, Therapeutic Activities, Therapeutic Exercises Modalities Cold Pack/Ice Massage,Hot Packs,Ultrasound Next Visit Focus/Plan Next Note Type Treatment Note Next Visit Plan Complete hip assessment, LE strengthening, flexibility
--- NOTE | 2022-11-25 11:56 | PT.OPPOC ---
Physical, Occupational & Speech Therapy At [facility] Current Diagnoses Pain in right hip (11/25/22) Dizziness and giddiness (11/25/22) History of falling (11/25/22) Presence of right artificial hip joint (11/25/22) Visit Care Team Role Provider Type NATANAEL Aj Attending Provider Advanced Matcher Family Provider Primary Care Provider Referring Provider Specialty: Family Practice Address: [address] [place] [address], [facility] Email: [email or web address] Plan Of Care PT-OP-T Assessment and Plan Start: 11/25/22 11:32 Freq: Status: Active Protocol: Document 11/25/22 09:45 DCW (Rec: 11/25/22 11:55 DCW [id number]) Physical Therapy Assessment Rehab Potential Rehabilitation Potential Good Evaluation Complexity Number of Personal Factors/Comorbidities 1-2 Number of Body Systems Impaired 3 Clinical Presentation at Evaluation Stable Impairments Impairments Activity Tolerance,Balance, Functional Activities, Functional Mobility,ROM,Soft Tissue Mobility,Strength,Tone Goals Two Impairment Right hip weakness (4-/5 with flexion, adduction, and ER/IR) Penitentiary Goal (LTG) Pt to increase MMT of right hip to at least 4/5 in all tested planes in order to allow pt to lift right foot into vehicle without assistance LTG Duration 01/25/23 One Impairment Pt does not have an appropriate home exercise program Short Term Goal (STG) Pt to be independent and compliant with an appropriate HEP STG Duration 12/25/22 Assessment Summary Assessment Spent most of today's evaluation performing vestibular testing. Vestibular evaluation completely unremarkable, no indications that pt has any inner ear dysfunction. Prior complaints of dizzy symptoms appear to have been largely eliminated following change in pt's medication. Used short time left to start hip assessment. Right hip shows clear decreased strength vs left, as well as increased tone of right hip flexors. Pt should benefit from skilled therapy focusing on hip mobility and strengthening, soft tissue flexibility, gait and balance training, and implementation of appropriate home exercise program. Additionally, should spend start of next session completing hip assessment, which was limited today due to time constraints. Physical Therapy Plan Frequency and Duration Frequency of Treatment 2x/Week Plan of Care Start Date 11/25/22 Plan of Care End Date 01/25/23 Therapeutic Interventions Therapeutic Interventions Balance Training,Gait Training ,Home Exercise Program,Joint Mobilizations,Manual Therapy, Patient/Caregiver Education, Self-Care/Home Management,Soft Tissue Mobilization, Therapeutic Activities, Therapeutic Exercises Modalities Cold Pack/Ice Massage,Hot Packs,Ultrasound Next Visit Focus/Plan Next Note Type Treatment Note Next Visit Plan Complete hip assessment, LE strengthening, flexibility Plan of Care Dates Plan of Care Start Date 11/25/22 Plan of Care End Date 01/25/23 Electronically Signed by: Sage Vasquez, PT 11/25/22 [id number] If you are in agreement with this Plan of Care, please return a signed and dated copy. I have reviewed this Plan of Care and certify that the skilled therapy services above are required to meet the patient?s needs. Physician Signature Date Printed Name and Credentials Clinical Instructor Signature Printed Name and Credentials
--- NOTE | 2022-11-28 11:48 | PT.OTN ---
Current Diagnoses Pain in right hip (11/28/22) Dizziness and giddiness (11/28/22) History of falling (11/28/22) Presence of right artificial hip joint (11/28/22) Physical Therapy Treatment Note PT-OP-A Visit Information Start: 11/25/22 11:32 Freq: Status: Active Protocol: Document 11/28/22 11:00 DCW (Rec: 11/28/22 11:48 DCW [id number]) Out-Patient Physical Therapy Visit Information Visit Information Visit Type Treatment Note Visit Start Time 11:00 Visit Stop Time 11:45 Total Visit Minutes 45 Visit Number 2 Number of FOUNDRY SUPERVISOR Visits 0 Evaluation Information Evaluation Date 11/25/22 PT-OP-B Current Condition Start: 11/25/22 11:32 Freq: Status: Active Protocol: Document 11/25/22 09:45 DCW (Rec: 11/25/22 11:46 DCW [id number]) Current Condition History of Current Condition Onset Date Two months s/p fall Current Complaints Prior dizziness, hip pain, LE weakness History of Current Condition Pt is a 77 year old female presenting two months s/p fall , which resulted in a rib fracture. At the time of her fall, pt was scheduled for a PT evaluation for her R hip pain/weakness, however this got delayed due to the sudden change in medical status following her fall. Pt ready to begin hip PT, however also referred for a vestibular assessment to determine if pt' s fall, which she noted was due to dizziness, was caused by an vestibular dysfunction. Pt does have a history complicated by a history of both pelvic and breast cancer, although currently just in observation phase of treatment , no recent radiation or chemo . Pt notes that after her fall , she stopped taking one of her medications (Letrazole), which had dizziness as a side- effect, and has largely not any any further symptoms. Despite this, she is still interested in a vestibular assessment to ensure no other underlying cause for her dizziness. In addition, pt also referred again for her hip pain. Pt has history of R MARI, hip is still feeling weak and sore, feels it limits her mobility and would like to be able to lift it up into her vehicle without assistance. PT-OP-C Subjective Start: 11/25/22 11:32 Freq: Status: Active Protocol: Document 11/28/22 11:00 DCW (Rec: 11/28/22 11:48 DCW [id number]) OP-PT Subjective Patient Comments Patient Comments Pt reports her hip has been feeling somewhat better just from the hip flexor stretching . PT-OP-E Functional Tests Start: 11/25/22 11:32 Freq: Status: Active Protocol: Document 11/28/22 11:00 DCW (Rec: 11/28/22 11:48 DCW [id number]) Functional Tests 2 Minute Walk Test Distance 407' Device Used none Comments 3.39 ft/sec 30 Second Sit to Stand Test Score x9 repetition Comments used hands PT-OP-F Manual Assessment Start: 11/25/22 11:32 Freq: Status: Active Protocol: Document 11/25/22 09:45 DCW (Rec: 11/25/22 11:46 DCW [id number]) Manual Assessments Soft Tissue Assessment Soft Tissue Mobility Assessment Anterior hip pain/tightness through hip flexors and quads Joint Mobility Assessment Joint Mobility Assessment No pain with compression and PROM of right hip joint PT-OP-K Range of Motion Start: 11/25/22 11:32 Freq: Status: Active Protocol: Document 11/28/22 11:00 DCW (Rec: 11/28/22 11:48 DCW [id number]) Hip Goniometric Range of Motion Hip Right Active Flexion w/Knee Flexed 105 Straight Leg Raise 88 Abduction 25 External Rotation 25 Left Active Flexion w/Knee Flexed 123 Straight Leg Raise 94 Abduction 34 External Rotation 41 PT-OP-L Special Tests Start: 11/25/22 11:32 Freq: Status: Active Protocol: Document 11/25/22 09:45 DCW (Rec: 11/25/22 11:46 DCW [id number]) Special Tests Hip Special Tests Straight Leg Raise Test Results Negative Scour Test Test Results Negative MARVIN Test Results Negative Hannah's Test Test Results Positive R Anterior Labral Test Test Results Negative PT-OP-M Strength Start: 11/25/22 11:32 Freq: Status: Active Protocol: Document 11/25/22 09:45 DCW (Rec: 11/25/22 11:46 DCW [id number]) Hip Strength Hip Manual Muscle Testing Right Flexion (L2) 4- Good- Abduction 4 Good Adduction 4- Good- External Rotation 3+ Fair+ Internal Rotation 4- Good- Left Flexion (L2) 4+ Good+ Abduction 4+ Good+ Adduction 4+ Good+ External Rotation 4+ Good+ Internal Rotation 4+ Good+ Knee Strength Knee Manual Muscle Testing Right Flexion (S2) 4+ Good+ Extension (L3) 4+ Good+ Left Flexion (S2) 5 Normal Extension (L3) 5 Normal PT-OP-O Vestibular Start: 11/25/22 11:32 Freq: Status: Active Protocol: Document 11/25/22 09:45 DCW (Rec: 11/25/22 11:46 DCW [id number]) Vestibular Assessment Auditory Tests Gómez Test Within normal limits Rinne Test Negative Air Conduction Results Equal Visual Testing Smooth Pursuits Horizontal WNL Smooth Pursuits Vertical WNL Saccades Horizontal WNL Saccades Vertical WNL Heave Test Negative Thrust Head Negative DVA (Line Degradation) 2 Spontaneous Nystagmus Negative Positional Testing [place]-Hallpike Negative Left,Negative Right Rolling Test Negative Left,Negative Right PT-OP-Q Treatments Start: 11/25/22 11:32 Freq: Status: Active Protocol: Document 11/28/22 11:00 DCW (Rec: 11/28/22 11:48 DCW [id number]) Gym Equipment Shuttle Recovery Unilateral Squats Resistance 50# (One new) Bilateral Squats Resistance 75# (Two new) Shuttle Recovery Platform Stable Therapeutic Exercises Standing Exercises Toe taps Standing Exercise Name Toe-taps Side bilateral Resistance 5# Equipment Used 6 step Hip Extension Standing Exercise Name Hip Extension Side bilateral Resistance Red Other Exercises Resisted Ambulation Other Exercise Name Resisted Side-stepping Resistance Red PT-OP-T Assessment and Plan Start: 11/25/22 11:32 Freq: Status: Active Protocol: Document 11/28/22 11:00 DCW (Rec: 11/28/22 11:48 DCW [id number]) Physical Therapy Assessment Impairments Impairments Activity Tolerance,Balance, Functional Activities, Functional Mobility,ROM,Soft Tissue Mobility,Strength,Tone Goals Two Impairment Right hip weakness (4-/5 with flexion, adduction, and ER/IR) Longterm Goal (LTG) Pt to increase MMT of right hip to at least 4/5 in all tested planes in order to allow pt to lift right foot into vehicle without assistance LTG Duration 01/25/23 One Impairment Pt does not have an appropriate home exercise program Short Term Goal (STG) Pt to be independent and compliant with an appropriate HEP STG Duration 12/25/22 Assessment Summary Assessment Pt doing fairly well overall, very clearly right hip fatigues much more quickly and displays poor functional strength. Continue to focus on improving hip mobility, strength, and correcting gait pattern. Physical Therapy Plan Frequency and Duration Frequency of Treatment 2x/Week Plan of Care Start Date 11/25/22 Plan of Care End Date 01/25/23 Therapeutic Interventions Therapeutic Interventions Balance Training,Gait Training ,Home Exercise Program,Joint Mobilizations,Manual Therapy, Patient/Caregiver Education, Self-Care/Home Management,Soft Tissue Mobilization, Therapeutic Activities, Therapeutic Exercises Modalities Cold Pack/Ice Massage,Hot Packs,Ultrasound Next Visit Focus/Plan Next Note Type Treatment Note Next Visit Plan Complete hip assessment, LE strengthening, flexibility
--- NOTE | 2022-12-01 11:45 | PT.OTN ---
Current Diagnoses Pain in right hip (12/01/22) Dizziness and giddiness (12/01/22) History of falling (12/01/22) Presence of right artificial hip joint (12/01/22) Physical Therapy Treatment Note PT-OP-A Visit Information Start: 11/25/22 11:32 Freq: Status: Active Protocol: Document 12/01/22 11:00 DCW (Rec: 12/01/22 11:45 DCW [id number]) Out-Patient Physical Therapy Visit Information Visit Information Visit Type Treatment Note Visit Start Time 11:00 Visit Stop Time 11:45 Total Visit Minutes 45 Visit Number 3 Number of AGENCY DIRECTOR Visits 0 Evaluation Information Evaluation Date 11/25/22 PT-OP-B Current Condition Start: 11/25/22 11:32 Freq: Status: Active Protocol: Document 11/25/22 09:45 DCW (Rec: 11/25/22 11:46 DCW [id number]) Current Condition History of Current Condition Onset Date Two months s/p fall Current Complaints Prior dizziness, hip pain, LE weakness History of Current Condition Pt is a 77 year old female presenting two months s/p fall , which resulted in a rib fracture. At the time of her fall, pt was scheduled for a PT evaluation for her R hip pain/weakness, however this got delayed due to the sudden change in medical status following her fall. Pt ready to begin hip PT, however also referred for a vestibular assessment to determine if pt' s fall, which she noted was due to dizziness, was caused by an vestibular dysfunction. Pt does have a history complicated by a history of both pelvic and breast cancer, although currently just in observation phase of treatment , no recent radiation or chemo . Pt notes that after her fall , she stopped taking one of her medications (Letrazole), which had dizziness as a side- effect, and has largely not any any further symptoms. Despite this, she is still interested in a vestibular assessment to ensure no other underlying cause for her dizziness. In addition, pt also referred again for her hip pain. Pt has history of R MARI, hip is still feeling weak and sore, feels it limits her mobility and would like to be able to lift it up into her vehicle without assistance. PT-OP-C Subjective Start: 11/25/22 11:32 Freq: Status: Active Protocol: Document 12/01/22 11:00 DCW (Rec: 12/01/22 11:45 DCW [id number]) OP-PT Subjective Patient Comments Patient Comments You really kicked my butt last time, my legs were pretty sore. I didn't really do any of the exercises the day after , because my thighs were still burning, but I tried to do a bit yesterday. PT-OP-E Functional Tests Start: 11/25/22 11:32 Freq: Status: Active Protocol: Document 11/28/22 11:00 DCW (Rec: 11/28/22 11:48 DCW [id number]) Functional Tests 2 Minute Walk Test Distance 407' Device Used none Comments 3.39 ft/sec 30 Second Sit to Stand Test Score x9 repetition Comments used hands PT-OP-F Manual Assessment Start: 11/25/22 11:32 Freq: Status: Active Protocol: Document 11/25/22 09:45 DCW (Rec: 11/25/22 11:46 DCW [id number]) Manual Assessments Soft Tissue Assessment Soft Tissue Mobility Assessment Anterior hip pain/tightness through hip flexors and quads Joint Mobility Assessment Joint Mobility Assessment No pain with compression and PROM of right hip joint PT-OP-K Range of Motion Start: 11/25/22 11:32 Freq: Status: Active Protocol: Document 11/28/22 11:00 DCW (Rec: 11/28/22 11:48 DCW [id number]) Hip Goniometric Range of Motion Hip Right Active Flexion w/Knee Flexed 105 Straight Leg Raise 88 Abduction 25 External Rotation 25 Left Active Flexion w/Knee Flexed 123 Straight Leg Raise 94 Abduction 34 External Rotation 41 PT-OP-L Special Tests Start: 11/25/22 11:32 Freq: Status: Active Protocol: Document 11/25/22 09:45 DCW (Rec: 11/25/22 11:46 DCW [id number]) Special Tests Hip Special Tests Straight Leg Raise Test Results Negative Scour Test Test Results Negative MARVIN Test Results Negative Hannah's Test Test Results Positive R Anterior Labral Test Test Results Negative PT-OP-M Strength Start: 11/25/22 11:32 Freq: Status: Active Protocol: Document 11/25/22 09:45 DCW (Rec: 11/25/22 11:46 DCW [id number]) Hip Strength Hip Manual Muscle Testing Right Flexion (L2) 4- Good- Abduction 4 Good Adduction 4- Good- External Rotation 3+ Fair+ Internal Rotation 4- Good- Left Flexion (L2) 4+ Good+ Abduction 4+ Good+ Adduction 4+ Good+ External Rotation 4+ Good+ Internal Rotation 4+ Good+ Knee Strength Knee Manual Muscle Testing Right Flexion (S2) 4+ Good+ Extension (L3) 4+ Good+ Left Flexion (S2) 5 Normal Extension (L3) 5 Normal PT-OP-O Vestibular Start: 11/25/22 11:32 Freq: Status: Active Protocol: Document 11/25/22 09:45 DCW (Rec: 11/25/22 11:46 DCW [id number]) Vestibular Assessment Auditory Tests Gómez Test Within normal limits Rinne Test Negative Air Conduction Results Equal Visual Testing Smooth Pursuits Horizontal WNL Smooth Pursuits Vertical WNL Saccades Horizontal WNL Saccades Vertical WNL Heave Test Negative Thrust Head Negative DVA (Line Degradation) 2 Spontaneous Nystagmus Negative Positional Testing [place]-Hallpike Negative Left,Negative Right Rolling Test Negative Left,Negative Right PT-OP-Q Treatments Start: 11/25/22 11:32 Freq: Status: Active Protocol: Document 12/01/22 11:00 DCW (Rec: 12/01/22 11:45 DCW [id number]) Cardio Equipment Recumbent Elliptical (Pontis) Duration (Minutes) 6 Resistance 9 Seat Position 4 Gym Equipment Therapeutic Ball Bridging Exercise Details Bridging /c feet on T-ball Ball Size/Color Red - 55 cm Body Position Supine Hip Flexion Exercise Details Resisted Hip/Knee flexion Ball Size/Color Red - 55 cm Green T-band LTR Exercise Details LTR Ball Size/Color Red - 55 cm Body Position Supine Therapeutic Exercises Supine Exercises Bridging Supine Exercise Name Bridging HIp Abduction Supine Exercise Name [facility] Side bilateral Sidelying Exercises Hip Abduction Sidelying Exercise Name Hip Abduction Side bilateral Reverse [place]amshell Sidelying Exercise Name Reverse Clamshell Side bilateral Clamshell Sidelying Exercise Name Clamshell Side bilateral Standing Exercises Toe taps Standing Exercise Name Toe-taps Side bilateral Resistance 5# Equipment Used 6 step Other Exercises Step-ups Other Exercise Name Step-ups Side bilateral Equipment Used 6 step PT-OP-T Assessment and Plan Start: 11/25/22 11:32 Freq: Status: Active Protocol: Document 12/01/22 11:00 DCW (Rec: 12/01/22 11:45 DCW [id number]) Physical Therapy Assessment Impairments Impairments Activity Tolerance,Balance, Functional Activities, Functional Mobility,ROM,Soft Tissue Mobility,Strength,Tone Goals Two Impairment Right hip weakness (4-/5 with flexion, adduction, and ER/IR) Aluminum Pool Installer Goal (LTG) Pt to increase MMT of right hip to at least 4/5 in all tested planes in order to allow pt to lift right foot into vehicle without assistance LTG Duration 01/25/23 One Impairment Pt does not have an appropriate home exercise program Short Term Goal (STG) Pt to be independent and compliant with an appropriate HEP STG Duration 12/25/22 Assessment Summary Assessment Decreased intensity of today's session due to pt response following last visit. Pt appeared to exhibit good response, less overall fatigue by end of session. Physical Therapy Plan Frequency and Duration Frequency of Treatment 2x/Week Plan of Care Start Date 11/25/22 Plan of Care End Date 01/25/23 Therapeutic Interventions Therapeutic Interventions Balance Training,Gait Training ,Home Exercise Program,Joint Mobilizations,Manual Therapy, Patient/Caregiver Education, Self-Care/Home Management,Soft Tissue Mobilization, Therapeutic Activities, Therapeutic Exercises Modalities Cold Pack/Ice Massage,Hot Packs,Ultrasound Next Visit Focus/Plan Next Note Type Treatment Note Next Visit Plan Complete hip assessment, LE strengthening, flexibility
--- NOTE | 2022-12-05 12:45 | PT.OTN ---
Current Diagnoses Pain in right hip (12/05/22) Dizziness and giddiness (12/05/22) History of falling (12/05/22) Presence of right artificial hip joint (12/05/22) Physical Therapy Treatment Note PT-OP-A Visit Information Start: 11/25/22 11:32 Freq: Status: Active Protocol: Document 12/05/22 12:00 DCW (Rec: 12/05/22 12:45 DCW [id number]) Out-Patient Physical Therapy Visit Information Visit Information Visit Type Treatment Note Visit Start Time 12:00 Visit Stop Time 12:45 Total Visit Minutes 45 Visit Number 4 Number of ORTHOPEDIC SHOE FITTER Visits 0 Evaluation Information Evaluation Date 11/25/22 PT-OP-B Current Condition Start: 11/25/22 11:32 Freq: Status: Active Protocol: Document 11/25/22 09:45 DCW (Rec: 11/25/22 11:46 DCW [id number]) Current Condition History of Current Condition Onset Date Two months s/p fall Current Complaints Prior dizziness, hip pain, LE weakness History of Current Condition Pt is a 77 year old female presenting two months s/p fall , which resulted in a rib fracture. At the time of her fall, pt was scheduled for a PT evaluation for her R hip pain/weakness, however this got delayed due to the sudden change in medical status following her fall. Pt ready to begin hip PT, however also referred for a vestibular assessment to determine if pt' s fall, which she noted was due to dizziness, was caused by an vestibular dysfunction. Pt does have a history complicated by a history of both pelvic and breast cancer, although currently just in observation phase of treatment , no recent radiation or chemo . Pt notes that after her fall , she stopped taking one of her medications (Letrazole), which had dizziness as a side- effect, and has largely not any any further symptoms. Despite this, she is still interested in a vestibular assessment to ensure no other underlying cause for her dizziness. In addition, pt also referred again for her hip pain. Pt has history of R MARI, hip is still feeling weak and sore, feels it limits her mobility and would like to be able to lift it up into her vehicle without assistance. PT-OP-C Subjective Start: 11/25/22 11:32 Freq: Status: Active Protocol: Document 12/05/22 12:00 DCW (Rec: 12/05/22 12:45 DCW [id number]) OP-PT Subjective Patient Comments Patient Comments Pt felt much better following last visit, was not too sore afterward. Does admit to feeling fairly stiff today. PT-OP-E Functional Tests Start: 11/25/22 11:32 Freq: Status: Active Protocol: Document 11/28/22 11:00 DCW (Rec: 11/28/22 11:48 DCW [id number]) Functional Tests 2 Minute Walk Test Distance 407' Device Used none Comments 3.39 ft/sec 30 Second Sit to Stand Test Score x9 repetition Comments used hands PT-OP-F Manual Assessment Start: 11/25/22 11:32 Freq: Status: Active Protocol: Document 11/25/22 09:45 DCW (Rec: 11/25/22 11:46 DCW [id number]) Manual Assessments Soft Tissue Assessment Soft Tissue Mobility Assessment Anterior hip pain/tightness through hip flexors and quads Joint Mobility Assessment Joint Mobility Assessment No pain with compression and PROM of right hip joint PT-OP-K Range of Motion Start: 11/25/22 11:32 Freq: Status: Active Protocol: Document 11/28/22 11:00 DCW (Rec: 11/28/22 11:48 DCW [id number]) Hip Goniometric Range of Motion Hip Right Active Flexion w/Knee Flexed 105 Straight Leg Raise 88 Abduction 25 External Rotation 25 Left Active Flexion w/Knee Flexed 123 Straight Leg Raise 94 Abduction 34 External Rotation 41 PT-OP-L Special Tests Start: 11/25/22 11:32 Freq: Status: Active Protocol: Document 11/25/22 09:45 DCW (Rec: 11/25/22 11:46 DCW [id number]) Special Tests Hip Special Tests Straight Leg Raise Test Results Negative Scour Test Test Results Negative MARVIN Test Results Negative Hannah's Test Test Results Positive R Anterior Labral Test Test Results Negative PT-OP-M Strength Start: 11/25/22 11:32 Freq: Status: Active Protocol: Document 11/25/22 09:45 DCW (Rec: 11/25/22 11:46 DCW [id number]) Hip Strength Hip Manual Muscle Testing Right Flexion (L2) 4- Good- Abduction 4 Good Adduction 4- Good- External Rotation 3+ Fair+ Internal Rotation 4- Good- Left Flexion (L2) 4+ Good+ Abduction 4+ Good+ Adduction 4+ Good+ External Rotation 4+ Good+ Internal Rotation 4+ Good+ Knee Strength Knee Manual Muscle Testing Right Flexion (S2) 4+ Good+ Extension (L3) 4+ Good+ Left Flexion (S2) 5 Normal Extension (L3) 5 Normal PT-OP-O Vestibular Start: 11/25/22 11:32 Freq: Status: Active Protocol: Document 11/25/22 09:45 DCW (Rec: 11/25/22 11:46 DCW [id number]) Vestibular Assessment Auditory Tests Gómez Test Within normal limits Rinne Test Negative Air Conduction Results Equal Visual Testing Smooth Pursuits Horizontal WNL Smooth Pursuits Vertical WNL Saccades Horizontal WNL Saccades Vertical WNL Heave Test Negative Thrust Head Negative DVA (Line Degradation) 2 Spontaneous Nystagmus Negative Positional Testing [place]-Hallpike Negative Left,Negative Right Rolling Test Negative Left,Negative Right PT-OP-Q Treatments Start: 11/25/22 11:32 Freq: Status: Active Protocol: Document 12/05/22 12:00 DCW (Rec: 12/05/22 12:45 DCW [id number]) Cardio Equipment Recumbent Elliptical (BiodEventcheq) Duration (Minutes) 6 Resistance 9 Seat Position 4 Gym Equipment Shuttle Recovery Unilateral Squats Resistance 50# (No new) Reps/Time x20 each Bilateral Squats Resistance 75# (No new) Shuttle Recovery Platform Stable Reps/Time x30 Therapeutic Exercises Supine Exercises Hip Flexor Stretch Supine Exercise Name Leg off table Side right Standing Exercises Hamstring curls Standing Exercise Name HS Curls Side bilateral Resistance 5# Toe taps Standing Exercise Name Toe-taps Side bilateral Resistance 5# Equipment Used 6 step Hip Extension Standing Exercise Name Hip Extension Side bilateral Resistance Green Other Exercises SLS Other Exercise Name SLS Side bilateral BOSU Lunge Other Exercise Name BOSU Lunge Side bilateral Equipment Used Blue BOSU Resisted Ambulation Other Exercise Name Resisted Side-stepping Resistance Green Manual Therapy Treatment Soft Tissue Mobilization Hip Flexors Body Location R Hip Flexors Mobilization Type Sustained Pressure,Trigger Point Release Intensity/Depth Moderate Body Position Hooklying Manual Traction LE Traction Details Gentle R LE long-axis PT-OP-T Assessment and Plan Start: 11/25/22 11:32 Freq: Status: Active Protocol: Document 12/05/22 12:00 DCW (Rec: 12/05/22 12:45 STEPHANIE [id number]) Physical Therapy Assessment Impairments Impairments Activity Tolerance,Balance, Functional Activities, Functional Mobility,ROM,Soft Tissue Mobility,Strength,Tone Goals Two Impairment Right hip weakness (4-/5 with flexion, adduction, and ER/IR) Intermediate Goal (LTG) Pt to increase MMT of right hip to at least 4/5 in all tested planes in order to allow pt to lift right foot into vehicle without assistance LTG Duration 01/25/23 One Impairment Pt does not have an appropriate home exercise program Short Term Goal (STG) Pt to be independent and compliant with an appropriate HEP STG Duration 12/25/22 Assessment Summary Assessment Tried to increase intensity somewhat of activities today, pt appeared to respond well. Still appears to be displaying right hip weakness which limits some activities. Continue with current [facility] Physical Therapy Plan Frequency and Duration Frequency of Treatment 2x/Week Plan of Care Start Date 11/25/22 Plan of Care End Date 01/25/23 Therapeutic Interventions Therapeutic Interventions Balance Training,Gait Training ,Home Exercise Program,Joint Mobilizations,Manual Therapy, Patient/Caregiver Education, Self-Care/Home Management,Soft Tissue Mobilization, Therapeutic Activities, Therapeutic Exercises Modalities Cold Pack/Ice Massage,Hot Packs,Ultrasound Next Visit Focus/Plan Next Note Type Treatment Note Next Visit Plan Complete hip assessment, LE strengthening, flexibility
--- NOTE | 2022-12-08 11:39 | PT.OTN ---
Current Diagnoses Pain in right hip (12/08/22) Dizziness and giddiness (12/08/22) History of falling (12/08/22) Presence of right artificial hip joint (12/08/22) Physical Therapy Treatment Note PT-OP-A Visit Information Start: 11/25/22 11:32 Freq: Status: Active Protocol: Document 12/08/22 10:50 DCW (Rec: 12/08/22 11:39 DCW [id number]) Out-Patient Physical Therapy Visit Information Visit Information Visit Type Treatment Note Visit Start Time 10:50 Visit Stop Time 11:35 Total Visit Minutes 45 Visit Number 5 Number of RETANNED LEATHER ROLLER Visits 0 Evaluation Information Evaluation Date 11/25/22 PT-OP-B Current Condition Start: 11/25/22 11:32 Freq: Status: Active Protocol: Document 11/25/22 09:45 DCW (Rec: 11/25/22 11:46 DCW [id number]) Current Condition History of Current Condition Onset Date Two months s/p fall Current Complaints Prior dizziness, hip pain, LE weakness History of Current Condition Pt is a 77 year old female presenting two months s/p fall , which resulted in a rib fracture. At the time of her fall, pt was scheduled for a PT evaluation for her R hip pain/weakness, however this got delayed due to the sudden change in medical status following her fall. Pt ready to begin hip PT, however also referred for a vestibular assessment to determine if pt' s fall, which she noted was due to dizziness, was caused by an vestibular dysfunction. Pt does have a history complicated by a history of both pelvic and breast cancer, although currently just in observation phase of treatment , no recent radiation or chemo . Pt notes that after her fall , she stopped taking one of her medications (Letrazole), which had dizziness as a side- effect, and has largely not any any further symptoms. Despite this, she is still interested in a vestibular assessment to ensure no other underlying cause for her dizziness. In addition, pt also referred again for her hip pain. Pt has history of R MARI, hip is still feeling weak and sore, feels it limits her mobility and would like to be able to lift it up into her vehicle without assistance. PT-OP-C Subjective Start: 11/25/22 11:32 Freq: Status: Active Protocol: Document 12/08/22 10:50 DCW (Rec: 12/08/22 11:39 DCW [id number]) OP-PT Subjective Patient Comments Patient Comments Just kind of tired today. PT-OP-E Functional Tests Start: 11/25/22 11:32 Freq: Status: Active Protocol: Document 11/28/22 11:00 DCW (Rec: 11/28/22 11:48 DCW [id number]) Functional Tests 2 Minute Walk Test Distance 407' Device Used none Comments 3.39 ft/sec 30 Second Sit to Stand Test Score x9 repetition Comments used hands PT-OP-F Manual Assessment Start: 11/25/22 11:32 Freq: Status: Active Protocol: Document 11/25/22 09:45 DCW (Rec: 11/25/22 11:46 DCW [id number]) Manual Assessments Soft Tissue Assessment Soft Tissue Mobility Assessment Anterior hip pain/tightness through hip flexors and quads Joint Mobility Assessment Joint Mobility Assessment No pain with compression and PROM of right hip joint PT-OP-K Range of Motion Start: 11/25/22 11:32 Freq: Status: Active Protocol: Document 11/28/22 11:00 DCW (Rec: 11/28/22 11:48 DCW [id number]) Hip Goniometric Range of Motion Hip Right Active Flexion w/Knee Flexed 105 Straight Leg Raise 88 Abduction 25 External Rotation 25 Left Active Flexion w/Knee Flexed 123 Straight Leg Raise 94 Abduction 34 External Rotation 41 PT-OP-L Special Tests Start: 11/25/22 11:32 Freq: Status: Active Protocol: Document 11/25/22 09:45 DCW (Rec: 11/25/22 11:46 DCW [id number]) Special Tests Hip Special Tests Straight Leg Raise Test Results Negative Scour Test Test Results Negative MARVIN Test Results Negative Hannah's Test Test Results Positive R Anterior Labral Test Test Results Negative PT-OP-M Strength Start: 11/25/22 11:32 Freq: Status: Active Protocol: Document 11/25/22 09:45 DCW (Rec: 11/25/22 11:46 DCW [id number]) Hip Strength Hip Manual Muscle Testing Right Flexion (L2) 4- Good- Abduction 4 Good Adduction 4- Good- External Rotation 3+ Fair+ Internal Rotation 4- Good- Left Flexion (L2) 4+ Good+ Abduction 4+ Good+ Adduction 4+ Good+ External Rotation 4+ Good+ Internal Rotation 4+ Good+ Knee Strength Knee Manual Muscle Testing Right Flexion (S2) 4+ Good+ Extension (L3) 4+ Good+ Left Flexion (S2) 5 Normal Extension (L3) 5 Normal PT-OP-O Vestibular Start: 11/25/22 11:32 Freq: Status: Active Protocol: Document 11/25/22 09:45 DCW (Rec: 11/25/22 11:46 DCW [id number]) Vestibular Assessment Auditory Tests Gómez Test Within normal limits Rinne Test Negative Air Conduction Results Equal Visual Testing Smooth Pursuits Horizontal WNL Smooth Pursuits Vertical WNL Saccades Horizontal WNL Saccades Vertical WNL Heave Test Negative Thrust Head Negative DVA (Line Degradation) 2 Spontaneous Nystagmus Negative Positional Testing [place]-Hallpike Negative Left,Negative Right Rolling Test Negative Left,Negative Right PT-OP-Q Treatments Start: 11/25/22 11:32 Freq: Status: Active Protocol: Document 12/08/22 10:50 DCW (Rec: 12/08/22 11:39 DCW [id number]) Cardio Equipment Recumbent Elliptical (BiodPunchd) Duration (Minutes) 6 Resistance 9 Seat Position 4 Gym Equipment Shuttle Recovery Unilateral Squats Resistance 50# (No new) Reps/Time x20 each Bilateral Squats Resistance 87# (No new) Shuttle Recovery Platform Stable Reps/Time x20 Therapeutic Ball Hip Flexion Exercise Details Resisted Hip/Knee flexion Ball Size/Color Red - 55 cm Green T-band Therapeutic Exercises Sidelying Exercises Triple Threat Sidelying Exercise Name ER->IR->Leg Extension Other Exercises Star slides Other Exercise Name Lateral, Backward Side bilateral Reps/Minutes Furniture slider BOSU Lunge Other Exercise Name BOSU Lunge Side bilateral Equipment Used Blue BOSU Step-ups Other Exercise Name Step-ups Side bilateral Equipment Used 6 step Comments Fwd, Lateral. Stopped R Lateral due to instability/ weakness PT-OP-T Assessment and Plan Start: 11/25/22 11:32 Freq: Status: Active Protocol: Document 12/08/22 10:50 DCW (Rec: 12/08/22 11:39 DCW [id number]) Physical Therapy Assessment Impairments Impairments Activity Tolerance,Balance, Functional Activities, Functional Mobility,ROM,Soft Tissue Mobility,Strength,Tone Goals Two Impairment Right hip weakness (4-/5 with flexion, adduction, and ER/IR) Longterm Goal (LTG) Pt to increase MMT of right hip to at least 4/5 in all tested planes in order to allow pt to lift right foot into vehicle without assistance LTG Duration 01/25/23 One Impairment Pt does not have an appropriate home exercise program Short Term Goal (STG) Pt to be independent and compliant with an appropriate HEP STG Duration 12/25/22 Assessment Summary Assessment Continuing to increase difficulty of activities, pt responding well. Some slight discomfort with lateral step- ups in right hip, noted feeling of instability and weakness. Pt very motivated for HEP compliance. Physical Therapy Plan Frequency and Duration Frequency of Treatment 2x/Week Plan of Care Start Date 11/25/22 Plan of Care End Date 01/25/23 Therapeutic Interventions Therapeutic Interventions Balance Training,Gait Training ,Home Exercise Program,Joint Mobilizations,Manual Therapy, Patient/Caregiver Education, Self-Care/Home Management,Soft Tissue Mobilization, Therapeutic Activities, Therapeutic Exercises Modalities Cold Pack/Ice Massage,Hot Packs,Ultrasound Next Visit Focus/Plan Next Note Type Treatment Note Next Visit Plan Complete hip assessment, LE strengthening, flexibility
--- NOTE | 2022-12-23 09:50 | PT.OTN ---
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 At the time of her fall, pt was scheduled for a PT evaluation for her R hip pain/weakness, however this got delayed due to the sudden change in medical status following her fall. Pt ready to begin hip PT, however also referred for a vestibular assessment to determine if pt' s fall, which she noted was due to dizziness, was caused by an vestibular dysfunction. Pt does have a history complicated by a history of both pelvic and breast cancer, although currently just in observation phase of treatment , no recent radiation or chemo . Pt notes that after her fall , she stopped taking one of her medications (Letrazole), which had dizziness as a side- effect, and has largely not any any further symptoms. Despite this, she is still interested in a vestibular assessment to ensure no other underlying cause for her dizziness. In addition, pt also referred again for her hip pain. Pt has history of R MARI, hip is still feeling weak and sore, feels it limits her mobility and would like to be able to lift it up into her vehicle without assistance. PT-OP-C Subjective Start: 11/25/22 11:32 Freq: Status: Active Protocol: Document 12/23/22 09:00 DCW (Rec: 12/23/22 09:49 DCW [id number]) OP-PT Subjective Patient Comments Patient Comments Pt admits she is getting frustrated with lack of improvement. Does have an appointment next week with a new ortho to see if anything else can be done. PT-OP-E Functional Tests Start: 11/25/22 11:32 Freq: Status: Active Protocol: Document 11/28/22 11:00 DCW (Rec: 11/28/22 11:48 DCW [id number]) Functional Tests 2 Minute Walk Test Distance 407' Device Used none Comments 3.39 ft/sec 30 Second Sit to Stand Test Score x9 repetition Comments used hands PT-OP-F Manual Assessment Start: 11/25/22 11:32 Freq: Status: Active Protocol: Document 11/25/22 09:45 DCW (Rec: 11/25/22 11:46 DCW [id number]) Manual Assessments Soft Tissue Assessment Soft Tissue Mobility Assessment Anterior hip pain/tightness through hip flexors and quads Joint Mobility Assessment Joint Mobility Assessment No pain with compression and PROM of right hip joint PT-OP-K Range of Motion Start: 11/25/22 11:32 Freq: Status: Active Protocol: Document 11/28/22 11:00 DCW (Rec: 11/28/22 11:48 DCW [id number]) Hip Goniometric Range of Motion Hip Right Active Flexion w/Knee Flexed 105 Straight Leg Raise 88 Abduction 25 External Rotation 25 Left Active Flexion w/Knee Flexed 123 Straight Leg Raise 94 Abduction 34 External Rotation 41 PT-OP-L Special Tests Start: 11/25/22 11:32 Freq: Status: Active Protocol: Document 11/25/22 09:45 DCW (Rec: 11/25/22 11:46 DCW [id number]) Special Tests Hip Special Tests Straight Leg Raise Test Results Negative Scour Test Test Results Negative MARVIN Test Results Negative Hannah's Test Test Results Positive R Anterior Labral Test Test Results Negative PT-OP-M Strength Start: 11/25/22 11:32 Freq: Status: Active Protocol: Document 11/25/22 09:45 DCW (Rec: 11/25/22 11:46 DCW [id number]) Hip Strength Hip Manual Muscle Testing Right Flexion (L2) 4- Good- Abduction 4 Good Adduction 4- Good- External Rotation 3+ Fair+ Internal Rotation 4- Good- Left Flexion (L2) 4+ Good+ Abduction 4+ Good+ Adduction 4+ Good+ External Rotation 4+ Good+ Internal Rotation 4+ Good+ Knee Strength Knee Manual Muscle Testing Right Flexion (S2) 4+ Good+ Extension (L3) 4+ Good+ Left Flexion (S2) 5 Normal Extension (L3) 5 Normal PT-OP-O Vestibular Start: 11/25/22 11:32 Freq: Status: Active Protocol: Document 11/25/22 09:45 DCW (Rec: 11/25/22 11:46 DCW [id number]) Vestibular Assessment Auditory Tests Gómez Test Within normal limits Rinne Test Negative Air Conduction Results Equal Visual Testing Smooth Pursuits Horizontal WNL Smooth Pursuits Vertical WNL Saccades Horizontal WNL Saccades Vertical WNL Heave Test Negative Thrust Head Negative DVA (Line Degradation) 2 Spontaneous Nystagmus Negative Positional Testing Tapan-Hallpike Negative Left,Negative Right Rolling Test Negative Left,Negative Right PT-OP-Q Treatments Start: 11/25/22 11:32 Freq: Status: Active Protocol: Document 12/23/22 09:00 DCW (Rec: 12/23/22 09:49 DCW [id number]) Cardio Equipment Recumbent Elliptical ([employer]) Duration (Minutes) 6 Resistance 5 Seat Position 9 Gym Equipment Shuttle Recovery Bilateral Squats Resistance 87# (No new) Shuttle Recovery Platform Stable Reps/Time x20 Shuttle Balance Red Details WBOS, Staggered Therapeutic Exercises Other Exercises BOSU Lunge Other Exercise Name BOSU Lunge Side bilateral Equipment Used Blue BOSU Step-ups Other Exercise Name Step-ups Side bilateral Equipment Used 6 step L, 4 step R Comments Fwd Resisted Ambulation Other Exercise Name Resisted Side-stepping Resistance Green Manual Therapy Treatment Soft Tissue Mobilization Hip Flexors Body Location R Hip Flexors Mobilization Type Sustained Pressure,Trigger Point Release Intensity/Depth Moderate Body Position Hooklying Manual Traction LE Traction Details Gentle R LE long-axis PT-OP-T Assessment and Plan Start: 11/25/22 11:32 Freq: Status: Active Protocol: Document 12/23/22 09:00 DCW (Rec: 12/23/22 09:49 DCW [id number]) Physical Therapy Assessment Impairments Impairments Activity Tolerance,Balance, Functional Activities, Functional Mobility,ROM,Soft Tissue Mobility,Strength,Tone Goals Two Impairment Right hip weakness (4-/5 with flexion, adduction, and ER/IR) Care Home Goal (LTG) Pt to increase MMT of right hip to at least 4/5 in all tested planes in order to allow pt to lift right foot into vehicle without assistance LTG Duration 01/25/23 One Impairment Pt does not have an appropriate home exercise program Short Term Goal (STG) Pt to be independent and compliant with an appropriate HEP STG Duration 12/25/22 Assessment Summary Assessment Limited some activities today due to increased right hip pain following last visit. Pt continues to struggle with right step-ups, either compensates with left or experiences pain in right. Did do better with decrease to 4 steps. Physical Therapy Plan Frequency and Duration Frequency of Treatment 2x/Week Plan of Care Start Date 11/25/22 Plan of Care End Date 01/25/23 Therapeutic Interventions Therapeutic Interventions Balance Training,Gait Training ,Home Exercise Program,Joint Mobilizations,Manual Therapy, Patient/Caregiver Education, Self-Care/Home Management,Soft Tissue Mobilization, Therapeutic Activities, Therapeutic Exercises Modalities Cold Pack/Ice Massage,Hot Packs,Ultrasound Next Visit Focus/Plan Next Note Type Treatment Note Next Visit Plan Complete hip assessment, LE strengthening, flexibility
--- NOTE | 2022-12-26 12:50 | PT.OTN ---
Current Diagnoses Pain in right hip (12/26/22) Dizziness and giddiness (12/26/22) History of falling (12/26/22) Presence of right artificial hip joint (12/26/22) Physical Therapy Treatment Note PT-OP-A Visit Information Start: 11/25/22 11:32 Freq: Status: Active Protocol: Document 12/26/22 12:00 DCW (Rec: 12/26/22 12:50 DCW [id number]) Out-Patient Physical Therapy Visit Information Visit Information Visit Type Treatment Note Visit Start Time 12:00 Visit Stop Time 12:45 Total Visit Minutes 45 Visit Number 7 Number of STUDENT Visits 0 Evaluation Information Evaluation Date 11/25/22 PT-OP-B Current Condition Start: 11/25/22 11:32 Freq: Status: Active Protocol: Document 11/25/22 09:45 DCW (Rec: 11/25/22 11:46 DCW [id number]) Current Condition History of Current Condition Onset Date Two months s/p fall Current Complaints Prior dizziness, hip pain, LE weakness History of Current Condition Pt is a 77 year old female presenting two months s/p fall , which resulted in a rib fracture. At the time of her fall, pt was scheduled for a PT evaluation for her R hip pain/weakness, however this got delayed due to the sudden change in medical status following her fall. Pt ready to begin hip PT, however also referred for a vestibular assessment to determine if pt' s fall, which she noted was due to dizziness, was caused by an vestibular dysfunction. Pt does have a history complicated by a history of both pelvic and breast cancer, although currently just in observation phase of treatment , no recent radiation or chemo . Pt notes that after her fall , she stopped taking one of her medications (Letrazole), which had dizziness as a side- effect, and has largely not any any further symptoms. Despite this, she is still interested in a vestibular assessment to ensure no other underlying cause for her dizziness. In addition, pt also referred again for her hip pain. Pt has history of R MARI, hip is still feeling weak and sore, feels it limits her mobility and would like to be able to lift it up into her vehicle without assistance. PT-OP-C Subjective Start: 11/25/22 11:32 Freq: Status: Active Protocol: Document 12/26/22 12:00 DCW (Rec: 12/26/22 12:50 DCW [id number]) OP-PT Subjective Patient Comments Patient Comments The same as always. PT-OP-E Functional Tests Start: 11/25/22 11:32 Freq: Status: Active Protocol: Document 11/28/22 11:00 DCW (Rec: 11/28/22 11:48 DCW [id number]) Functional Tests 2 Minute Walk Test Distance 407' Device Used none Comments 3.39 ft/sec 30 Second Sit to Stand Test Score x9 repetition Comments used hands PT-OP-F Manual Assessment Start: 11/25/22 11:32 Freq: Status: Active Protocol: Document 11/25/22 09:45 DCW (Rec: 11/25/22 11:46 DCW [id number]) Manual Assessments Soft Tissue Assessment Soft Tissue Mobility Assessment Anterior hip pain/tightness through hip flexors and quads Joint Mobility Assessment Joint Mobility Assessment No pain with compression and PROM of right hip joint PT-OP-K Range of Motion Start: 11/25/22 11:32 Freq: Status: Active Protocol: Document 11/28/22 11:00 DCW (Rec: 11/28/22 11:48 DCW [id number]) Hip Goniometric Range of Motion Hip Right Active Flexion w/Knee Flexed 105 Straight Leg Raise 88 Abduction 25 External Rotation 25 Left Active Flexion w/Knee Flexed 123 Straight Leg Raise 94 Abduction 34 External Rotation 41 PT-OP-L Special Tests Start: 11/25/22 11:32 Freq: Status: Active Protocol: Document 11/25/22 09:45 DCW (Rec: 11/25/22 11:46 DCW [id number]) Special Tests Hip Special Tests Straight Leg Raise Test Results Negative Scour Test Test Results Negative MARVIN Test Results Negative Hannah's Test Test Results Positive R Anterior Labral Test Test Results Negative PT-OP-M Strength Start: 11/25/22 11:32 Freq: Status: Active Protocol: Document 11/25/22 09:45 DCW (Rec: 11/25/22 11:46 DCW [id number]) Hip Strength Hip Manual Muscle Testing Right Flexion (L2) 4- Good- Abduction 4 Good Adduction 4- Good- External Rotation 3+ Fair+ Internal Rotation 4- Good- Left Flexion (L2) 4+ Good+ Abduction 4+ Good+ Adduction 4+ Good+ External Rotation 4+ Good+ Internal Rotation 4+ Good+ Knee Strength Knee Manual Muscle Testing Right Flexion (S2) 4+ Good+ Extension (L3) 4+ Good+ Left Flexion (S2) 5 Normal Extension (L3) 5 Normal PT-OP-O Vestibular Start: 11/25/22 11:32 Freq: Status: Active Protocol: Document 11/25/22 09:45 DCW (Rec: 11/25/22 11:46 DCW [id number]) Vestibular Assessment Auditory Tests Gómez Test Within normal limits Rinne Test Negative Air Conduction Results Equal Visual Testing Smooth Pursuits Horizontal WNL Smooth Pursuits Vertical WNL Saccades Horizontal WNL Saccades Vertical WNL Heave Test Negative Thrust Head Negative DVA (Line Degradation) 2 Spontaneous Nystagmus Negative Positional Testing Tapan-Hallpike Negative Left,Negative Right Rolling Test Negative Left,Negative Right PT-OP-Q Treatments Start: 11/25/22 11:32 Freq: Status: Active Protocol: Document 12/26/22 12:00 DCW (Rec: 12/26/22 12:50 DCW [id number]) Cardio Equipment Recumbent Elliptical ([employer]) Duration (Minutes) 6 Resistance 6 Seat Position 9 Gym Equipment Shuttle Recovery Bilateral Squats Resistance 87# (No new) Shuttle Recovery Platform Stable Reps/Time x20 Shuttle Balance Red Details WBOS, Staggered Therapeutic Exercises Sidelying Exercises Pallof Press Sidelying Exercise Name Pallof Press Side bilateral Resistance Green Reps/Minutes x15 each Other Exercises BOSU Lunge Other Exercise Name BOSU Lunge Side bilateral Equipment Used Blue BOSU Step-ups Other Exercise Name Step-ups Side bilateral Equipment Used 4 step Comments Fwd Manual Therapy Treatment Soft Tissue Mobilization Hip Flexors Body Location R Hip Flexors Mobilization Type Sustained Pressure,Trigger Point Release Intensity/Depth Moderate Body Position Hooklying Manual Traction LE Traction Details Gentle R LE long-axis PT-OP-T Assessment and Plan Start: 11/25/22 11:32 Freq: Status: Active Protocol: Document 12/26/22 12:00 DCW (Rec: 12/26/22 12:50 DCW [id number]) Physical Therapy Assessment Impairments Impairments Activity Tolerance,Balance, Functional Activities, Functional Mobility,ROM,Soft Tissue Mobility,Strength,Tone Goals Two Impairment Right hip weakness (4-/5 with flexion, adduction, and ER/IR) Frame Coverer Goal (LTG) Pt to increase MMT of right hip to at least 4/5 in all tested planes in order to allow pt to lift right foot into vehicle without assistance LTG Duration 01/25/23 One Impairment Pt does not have an appropriate home exercise program Short Term Goal (STG) Pt to be independent and compliant with an appropriate HEP STG Duration 12/25/22 Assessment Summary Assessment Much better tolerance to activity today, improved control on Shuttle balance and BOSU lunge. Added Pallof Press to HEP to improve core strength. Physical Therapy Plan Frequency and Duration Frequency of Treatment 2x/Week Plan of Care Start Date 11/25/22 Plan of Care End Date 01/25/23 Therapeutic Interventions Therapeutic Interventions Balance Training,Gait Training ,Home Exercise Program,Joint Mobilizations,Manual Therapy, Patient/Caregiver Education, Self-Care/Home Management,Soft Tissue Mobilization, Therapeutic Activities, Therapeutic Exercises Modalities Cold Pack/Ice Massage,Hot Packs,Ultrasound Next Visit Focus/Plan Next Note Type Treatment Note Next Visit Plan Complete hip assessment, LE strengthening, flexibility
--- NOTE | 2022-12-28 12:44 | PT.OTN ---
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 At the time of her fall, pt was scheduled for a PT evaluation for her R hip pain/weakness, however this got delayed due to the sudden change in medical status following her fall. Pt ready to begin hip PT, however also referred for a vestibular assessment to determine if pt' s fall, which she noted was due to dizziness, was caused by an vestibular dysfunction. Pt does have a history complicated by a history of both pelvic and breast cancer, although currently just in observation phase of treatment , no recent radiation or chemo . Pt notes that after her fall , she stopped taking one of her medications (Letrazole), which had dizziness as a side- effect, and has largely not any any further symptoms. Despite this, she is still interested in a vestibular assessment to ensure no other underlying cause for her dizziness. In addition, pt also referred again for her hip pain. Pt has history of R MARI, hip is still feeling weak and sore, feels it limits her mobility and would like to be able to lift it up into her vehicle without assistance. PT-OP-C Subjective Start: 11/25/22 11:32 Freq: Status: Active Protocol: Document 12/28/22 12:00 DCW (Rec: 12/28/22 12:44 DCW [id number]) OP-PT Subjective Patient Comments Patient Comments Up and down. Sometimes it feels better, sometimes it doesn't. PT-OP-E Functional Tests Start: 11/25/22 11:32 Freq: Status: Active Protocol: Document 11/28/22 11:00 DCW (Rec: 11/28/22 11:48 DCW [id number]) Functional Tests 2 Minute Walk Test Distance 407' Device Used none Comments 3.39 ft/sec 30 Second Sit to Stand Test Score x9 repetition Comments used hands PT-OP-F Manual Assessment Start: 11/25/22 11:32 Freq: Status: Active Protocol: Document 11/25/22 09:45 DCW (Rec: 11/25/22 11:46 DCW [id number]) Manual Assessments Soft Tissue Assessment Soft Tissue Mobility Assessment Anterior hip pain/tightness through hip flexors and quads Joint Mobility Assessment Joint Mobility Assessment No pain with compression and PROM of right hip joint PT-OP-K Range of Motion Start: 11/25/22 11:32 Freq: Status: Active Protocol: Document 11/28/22 11:00 DCW (Rec: 11/28/22 11:48 DCW [id number]) Hip Goniometric Range of Motion Hip Right Active Flexion w/Knee Flexed 105 Straight Leg Raise 88 Abduction 25 External Rotation 25 Left Active Flexion w/Knee Flexed 123 Straight Leg Raise 94 Abduction 34 External Rotation 41 PT-OP-L Special Tests Start: 11/25/22 11:32 Freq: Status: Active Protocol: Document 11/25/22 09:45 DCW (Rec: 11/25/22 11:46 DCW [id number]) Special Tests Hip Special Tests Straight Leg Raise Test Results Negative Scour Test Test Results Negative MARVIN Test Results Negative Hannah's Test Test Results Positive R Anterior Labral Test Test Results Negative PT-OP-M Strength Start: 11/25/22 11:32 Freq: Status: Active Protocol: Document 11/25/22 09:45 DCW (Rec: 11/25/22 11:46 DCW [id number]) Hip Strength Hip Manual Muscle Testing Right Flexion (L2) 4- Good- Abduction 4 Good Adduction 4- Good- External Rotation 3+ Fair+ Internal Rotation 4- Good- Left Flexion (L2) 4+ Good+ Abduction 4+ Good+ Adduction 4+ Good+ External Rotation 4+ Good+ Internal Rotation 4+ Good+ Knee Strength Knee Manual Muscle Testing Right Flexion (S2) 4+ Good+ Extension (L3) 4+ Good+ Left Flexion (S2) 5 Normal Extension (L3) 5 Normal PT-OP-O Vestibular Start: 11/25/22 11:32 Freq: Status: Active Protocol: Document 11/25/22 09:45 DCW (Rec: 11/25/22 11:46 DCW [id number]) Vestibular Assessment Auditory Tests Gómez Test Within normal limits Rinne Test Negative Air Conduction Results Equal Visual Testing Smooth Pursuits Horizontal WNL Smooth Pursuits Vertical WNL Saccades Horizontal WNL Saccades Vertical WNL Heave Test Negative Thrust Head Negative DVA (Line Degradation) 2 Spontaneous Nystagmus Negative Positional Testing Tapan-Hallpike Negative Left,Negative Right Rolling Test Negative Left,Negative Right PT-OP-Q Treatments Start: 11/25/22 11:32 Freq: Status: Active Protocol: Document 12/28/22 12:00 DCW (Rec: 12/28/22 12:44 DCW [id number]) Cardio Equipment Recumbent Elliptical ([employer]) Duration (Minutes) 6 Resistance 6 Seat Position 9 Gym Equipment Shuttle Recovery Bilateral Squats Resistance 87# (One new) Shuttle Recovery Platform Stable Reps/Time x20 Shuttle Balance Red Details WBOS, Staggered Therapeutic Ball LTR Exercise Details LTR Ball Size/Color Red - 55 cm Body Position Supine Therapeutic Exercises Standing Exercises Hip Hiking Standing Exercise Name HIp Hiking Side bilateral Equipment Used 6 step Manual Therapy Treatment Soft Tissue Mobilization Lumbar Body Location R lumbar paraspinals Mobilization Type Sustained Pressure,Trigger Point Release Intensity/Depth Moderate Body Position Sidelying Manual Traction LE Traction Details Gentle B LE long-axis PT-OP-T Assessment and Plan Start: 11/25/22 11:32 Freq: Status: Active Protocol: Document 12/28/22 12:00 DCW (Rec: 12/28/22 12:44 DCW [id number]) Physical Therapy Assessment Impairments Impairments Activity Tolerance,Balance, Functional Activities, Functional Mobility,ROM,Soft Tissue Mobility,Strength,Tone Goals Two Impairment Right hip weakness (4-/5 with flexion, adduction, and ER/IR) Retirement Goal (LTG) Pt to increase MMT of right hip to at least 4/5 in all tested planes in order to allow pt to lift right foot into vehicle without assistance LTG Duration 01/25/23 One Impairment Pt does not have an appropriate home exercise program Short Term Goal (STG) Pt to be independent and compliant with an appropriate HEP STG Duration 12/25/22 Assessment Summary Assessment Very good pt response to manual treatment of right lumbar paraspinals, leaving clinic, pt had significant decrease in antalgic gait. Continue to focus on lumbar mobility, tone management, and strengthening. Physical Therapy Plan Frequency and Duration Frequency of Treatment 2x/Week Plan of Care Start Date 11/25/22 Plan of Care End Date 01/25/23 Therapeutic Interventions Therapeutic Interventions Balance Training,Gait Training ,Home Exercise Program,Joint Mobilizations,Manual Therapy, Patient/Caregiver Education, Self-Care/Home Management,Soft Tissue Mobilization, Therapeutic Activities, Therapeutic Exercises Modalities Cold Pack/Ice Massage,Hot Packs,Ultrasound Next Visit Focus/Plan Next Note Type Treatment Note Next Visit Plan Complete hip assessment, LE strengthening, flexibility
--- NOTE | 2023-01-05 11:49 | PT.OTN ---
Current Diagnoses Pain in right hip (01/05/23) Dizziness and giddiness (01/05/23) History of falling (01/05/23) Presence of right artificial hip joint (01/05/23) Physical Therapy Treatment Note PT-OP-A Visit Information Start: 11/25/22 11:32 Freq: Status: Active Protocol: Document 01/05/23 11:00 DCW (Rec: 01/05/23 11:49 DCW [id number]) Out-Patient Physical Therapy Visit Information Visit Information Visit Type Treatment Note Visit Start Time 11:00 Visit Stop Time 11:45 Total Visit Minutes 45 Visit Number 9 Number of TONG SETTER Visits 0 Evaluation Information Evaluation Date 11/25/22 PT-OP-B Current Condition Start: 11/25/22 11:32 Freq: Status: Active Protocol: Document 11/25/22 09:45 DCW (Rec: 11/25/22 11:46 DCW [id number]) Current Condition History of Current Condition Onset Date Two months s/p fall Current Complaints Prior dizziness, hip pain, LE weakness History of Current Condition Pt is a 77 year old female presenting two months s/p fall , which resulted in a rib fracture. At the time of her fall, pt was scheduled for a PT evaluation for her R hip pain/weakness, however this got delayed due to the sudden change in medical status following her fall. Pt ready to begin hip PT, however also referred for a vestibular assessment to determine if pt' s fall, which she noted was due to dizziness, was caused by an vestibular dysfunction. Pt does have a history complicated by a history of both pelvic and breast cancer, although currently just in observation phase of treatment , no recent radiation or chemo . Pt notes that after her fall , she stopped taking one of her medications (Letrazole), which had dizziness as a side- effect, and has largely not any any further symptoms. Despite this, she is still interested in a vestibular assessment to ensure no other underlying cause for her dizziness. In addition, pt also referred again for her hip pain. Pt has history of R MARI, hip is still feeling weak and sore, feels it limits her mobility and would like to be able to lift it up into her vehicle without assistance. PT-OP-C Subjective Start: 11/25/22 11:32 Freq: Status: Active Protocol: Document 01/05/23 11:00 DCW (Rec: 01/05/23 11:49 DCW [id number]) OP-PT Subjective Patient Comments Patient Comments Pt reports she has an appointment down in [place] on Monday, hoping she can get an MRI to check hip and low back . Reports she felt good following her last visit until the next day. PT-OP-E Functional Tests Start: 11/25/22 11:32 Freq: Status: Active Protocol: Document 11/28/22 11:00 DCW (Rec: 11/28/22 11:48 DCW [id number]) Functional Tests 2 Minute Walk Test Distance 407' Device Used none Comments 3.39 ft/sec 30 Second Sit to Stand Test Score x9 repetition Comments used hands PT-OP-F Manual Assessment Start: 11/25/22 11:32 Freq: Status: Active Protocol: Document 11/25/22 09:45 DCW (Rec: 11/25/22 11:46 DCW [id number]) Manual Assessments Soft Tissue Assessment Soft Tissue Mobility Assessment Anterior hip pain/tightness through hip flexors and quads Joint Mobility Assessment Joint Mobility Assessment No pain with compression and PROM of right hip joint PT-OP-K Range of Motion Start: 11/25/22 11:32 Freq: Status: Active Protocol: Document 11/28/22 11:00 DCW (Rec: 11/28/22 11:48 DCW [id number]) Hip Goniometric Range of Motion Hip Right Active Flexion w/Knee Flexed 105 Straight Leg Raise 88 Abduction 25 External Rotation 25 Left Active Flexion w/Knee Flexed 123 Straight Leg Raise 94 Abduction 34 External Rotation 41 PT-OP-L Special Tests Start: 11/25/22 11:32 Freq: Status: Active Protocol: Document 11/25/22 09:45 DCW (Rec: 11/25/22 11:46 DCW [id number]) Special Tests Hip Special Tests Straight Leg Raise Test Results Negative Scour Test Test Results Negative MARVIN Test Results Negative Hannah's Test Test Results Positive R Anterior Labral Test Test Results Negative PT-OP-M Strength Start: 11/25/22 11:32 Freq: Status: Active Protocol: Document 11/25/22 09:45 DCW (Rec: 11/25/22 11:46 DCW [id number]) Hip Strength Hip Manual Muscle Testing Right Flexion (L2) 4- Good- Abduction 4 Good Adduction 4- Good- External Rotation 3+ Fair+ Internal Rotation 4- Good- Left Flexion (L2) 4+ Good+ Abduction 4+ Good+ Adduction 4+ Good+ External Rotation 4+ Good+ Internal Rotation 4+ Good+ Knee Strength Knee Manual Muscle Testing Right Flexion (S2) 4+ Good+ Extension (L3) 4+ Good+ Left Flexion (S2) 5 Normal Extension (L3) 5 Normal PT-OP-O Vestibular Start: 11/25/22 11:32 Freq: Status: Active Protocol: Document 11/25/22 09:45 DCW (Rec: 11/25/22 11:46 DCW [id number]) Vestibular Assessment Auditory Tests Gómez Test Within normal limits Rinne Test Negative Air Conduction Results Equal Visual Testing Smooth Pursuits Horizontal WNL Smooth Pursuits Vertical WNL Saccades Horizontal WNL Saccades Vertical WNL Heave Test Negative Thrust Head Negative DVA (Line Degradation) 2 Spontaneous Nystagmus Negative Positional Testing Tapan-Hallpike Negative Left,Negative Right Rolling Test Negative Left,Negative Right PT-OP-Q Treatments Start: 11/25/22 11:32 Freq: Status: Active Protocol: Document 01/05/23 11:00 DCW (Rec: 01/05/23 11:49 DCW [id number]) Cardio Equipment Recumbent Elliptical ([email or web address]) Duration (Minutes) 6 Resistance 6 Seat Position 9 Gym Equipment Shuttle Balance Red Details WBOS, Staggered Therapeutic Exercises Sidelying Exercises Open Book Sidelying Exercise Name Open Book Side bilateral Reps/Minutes x10 each side Sitting Exercises Piriformis stretch Sitting Exercise Name Piriformis stretch Side right Manual Therapy Treatment Soft Tissue Mobilization Lumbar Body Location R lumbar paraspinals, piriformis Mobilization Type Sustained Pressure,Trigger Point Release Intensity/Depth Moderate Body Position Sidelying PT-OP-T Assessment and Plan Start: 11/25/22 11:32 Freq: Status: Active Protocol: Document 01/05/23 11:00 DCW (Rec: 01/05/23 11:49 DCW [id number]) Physical Therapy Assessment Impairments Impairments Activity Tolerance,Balance, Functional Activities, Functional Mobility,ROM,Soft Tissue Mobility,Strength,Tone Goals Two Impairment Right hip weakness (4-/5 with flexion, adduction, and ER/IR) Electron Beam Operator Goal (LTG) Pt to increase MMT of right hip to at least 4/5 in all tested planes in order to allow pt to lift right foot into vehicle without assistance LTG Duration 01/25/23 One Impairment Pt does not have an appropriate home exercise program Short Term Goal (STG) Pt to be independent and compliant with an appropriate HEP STG Duration 12/25/22 Assessment Summary Assessment Once again, good response to lumbar and piriformis STM, appears to move much better afterward. Continue to address lumbar tone management Physical Therapy Plan Frequency and Duration Frequency of Treatment 2x/Week Plan of Care Start Date 11/25/22 Plan of Care End Date 01/25/23 Therapeutic Interventions Therapeutic Interventions Balance Training,Gait Training ,Home Exercise Program,Joint Mobilizations,Manual Therapy, Patient/Caregiver Education, Self-Care/Home Management,Soft Tissue Mobilization, Therapeutic Activities, Therapeutic Exercises Modalities Cold Pack/Ice Massage,Hot Packs,Ultrasound Next Visit Focus/Plan Next Note Type Treatment Note Next Visit Plan Complete hip assessment, LE strengthening, flexibility
--- NOTE | 2023-01-10 11:42 | PT.OTN ---
Current Diagnoses Pain in right hip (01/10/23) Dizziness and giddiness (01/10/23) History of falling (01/10/23) Presence of right artificial hip joint (01/10/23) Physical Therapy Treatment Note PT-OP-A Visit Information Start: 11/25/22 11:32 Freq: Status: Active Protocol: Document 01/10/23 11:05 DCW (Rec: 01/10/23 11:42 DCW [id number]) Out-Patient Physical Therapy Visit Information Visit Information Visit Type Treatment Note Visit Start Time 11:05 Visit Stop Time 11:45 Total Visit Minutes 40 Visit Number 10 Number of POTTER OR CERAMIC ARTIST Visits 0 Evaluation Information Evaluation Date 11/25/22 PT-OP-B Current Condition Start: 11/25/22 11:32 Freq: Status: Active Protocol: Document 11/25/22 09:45 DCW (Rec: 11/25/22 11:46 DCW [id number]) Current Condition History of Current Condition Onset Date Two months s/p fall Current Complaints Prior dizziness, hip pain, LE weakness History of Current Condition Pt is a 77 year old female presenting two months s/p fall , which resulted in a rib fracture. At the time of her fall, pt was scheduled for a PT evaluation for her R hip pain/weakness, however this got delayed due to the sudden change in medical status following her fall. Pt ready to begin hip PT, however also referred for a vestibular assessment to determine if pt' s fall, which she noted was due to dizziness, was caused by an vestibular dysfunction. Pt does have a history complicated by a history of both pelvic and breast cancer, although currently just in observation phase of treatment , no recent radiation or chemo . Pt notes that after her fall , she stopped taking one of her medications (Letrazole), which had dizziness as a side- effect, and has largely not any any further symptoms. Despite this, she is still interested in a vestibular assessment to ensure no other underlying cause for her dizziness. In addition, pt also referred again for her hip pain. Pt has history of R MARI, hip is still feeling weak and sore, feels it limits her mobility and would like to be able to lift it up into her vehicle without assistance. PT-OP-C Subjective Start: 11/25/22 11:32 Freq: Status: Active Protocol: Document 01/10/23 11:05 DCW (Rec: 01/10/23 11:42 DCW [id number]) OP-PT Subjective Patient Comments Patient Comments Pt reports she had an injection yesterday, notes it isn't working as well as her last one. PT-OP-E Functional Tests Start: 11/25/22 11:32 Freq: Status: Active Protocol: Document 11/28/22 11:00 DCW (Rec: 11/28/22 11:48 DCW [id number]) Functional Tests 2 Minute Walk Test Distance 407' Device Used none Comments 3.39 ft/sec 30 Second Sit to Stand Test Score x9 repetition Comments used hands PT-OP-F Manual Assessment Start: 11/25/22 11:32 Freq: Status: Active Protocol: Document 11/25/22 09:45 DCW (Rec: 11/25/22 11:46 DCW [id number]) Manual Assessments Soft Tissue Assessment Soft Tissue Mobility Assessment Anterior hip pain/tightness through hip flexors and quads Joint Mobility Assessment Joint Mobility Assessment No pain with compression and PROM of right hip joint PT-OP-K Range of Motion Start: 11/25/22 11:32 Freq: Status: Active Protocol: Document 11/28/22 11:00 DCW (Rec: 11/28/22 11:48 DCW [id number]) Hip Goniometric Range of Motion Hip Right Active Flexion w/Knee Flexed 105 Straight Leg Raise 88 Abduction 25 External Rotation 25 Left Active Flexion w/Knee Flexed 123 Straight Leg Raise 94 Abduction 34 External Rotation 41 PT-OP-L Special Tests Start: 11/25/22 11:32 Freq: Status: Active Protocol: Document 11/25/22 09:45 DCW (Rec: 11/25/22 11:46 DCW [id number]) Special Tests Hip Special Tests Straight Leg Raise Test Results Negative Scour Test Test Results Negative MARVIN Test Results Negative Hannah's Test Test Results Positive R Anterior Labral Test Test Results Negative PT-OP-M Strength Start: 11/25/22 11:32 Freq: Status: Active Protocol: Document 11/25/22 09:45 DCW (Rec: 11/25/22 11:46 DCW [id number]) Hip Strength Hip Manual Muscle Testing Right Flexion (L2) 4- Good- Abduction 4 Good Adduction 4- Good- External Rotation 3+ Fair+ Internal Rotation 4- Good- Left Flexion (L2) 4+ Good+ Abduction 4+ Good+ Adduction 4+ Good+ External Rotation 4+ Good+ Internal Rotation 4+ Good+ Knee Strength Knee Manual Muscle Testing Right Flexion (S2) 4+ Good+ Extension (L3) 4+ Good+ Left Flexion (S2) 5 Normal Extension (L3) 5 Normal PT-OP-O Vestibular Start: 11/25/22 11:32 Freq: Status: Active Protocol: Document 11/25/22 09:45 DCW (Rec: 11/25/22 11:46 DCW [id number]) Vestibular Assessment Auditory Tests Gómez Test Within normal limits Rinne Test Negative Air Conduction Results Equal Visual Testing Smooth Pursuits Horizontal WNL Smooth Pursuits Vertical WNL Saccades Horizontal WNL Saccades Vertical WNL Heave Test Negative Thrust Head Negative DVA (Line Degradation) 2 Spontaneous Nystagmus Negative Positional Testing Tapan-Hallpike Negative Left,Negative Right Rolling Test Negative Left,Negative Right PT-OP-Q Treatments Start: 11/25/22 11:32 Freq: Status: Active Protocol: Document 01/10/23 11:05 DCW (Rec: 01/10/23 11:42 DCW [id number]) Cardio Equipment Recumbent Elliptical ([employer]) Duration (Minutes) 6 Resistance 6 Seat Position 9 Gym Equipment Shuttle Recovery Bilateral Squats Resistance 87# (Three new) Shuttle Recovery Platform Stable Reps/Time x20 Shuttle Balance Red Details WBOS, Staggered Therapeutic Ball Pelvic tilts Exercise Details Pelvic tilts/circles Ball Size/Color Green - 65 cm Body Position Sitting Manual Therapy Treatment Soft Tissue Mobilization Lumbar Body Location R lumbar paraspinals, piriformis Mobilization Type Sustained Pressure,Trigger Point Release Intensity/Depth Moderate Body Position Sidelying PT-OP-T Assessment and Plan Start: 11/25/22 11:32 Freq: Status: Active Protocol: Document 01/10/23 11:05 DCW (Rec: 01/10/23 11:42 DCW [id number]) Physical Therapy Assessment Impairments Impairments Activity Tolerance,Balance, Functional Activities, Functional Mobility,ROM,Soft Tissue Mobility,Strength,Tone Goals Two Impairment Right hip weakness (4-/5 with flexion, adduction, and ER/IR) Acid Maker Goal (LTG) Pt to increase MMT of right hip to at least 4/5 in all tested planes in order to allow pt to lift right foot into vehicle without assistance LTG Duration 01/25/23 One Impairment Pt does not have an appropriate home exercise program Short Term Goal (STG) Pt to be independent and compliant with an appropriate HEP STG Duration 12/25/22 Assessment Summary Assessment Showing some improvement with lumbar mobility and improved gait with less, though still present, antalgia. Continue to work on core strengthening, flexibility, and decreasing lumbar tone. Physical Therapy Plan Frequency and Duration Frequency of Treatment 2x/Week Plan of Care Start Date 11/25/22 Plan of Care End Date 01/25/23 Therapeutic Interventions Therapeutic Interventions Balance Training,Gait Training ,Home Exercise Program,Joint Mobilizations,Manual Therapy, Patient/Caregiver Education, Self-Care/Home Management,Soft Tissue Mobilization, Therapeutic Activities, Therapeutic Exercises Modalities Cold Pack/Ice Massage,Hot Packs,Ultrasound Next Visit Focus/Plan Next Note Type Treatment Note Next Visit Plan Complete hip assessment, LE strengthening, flexibility
--- NOTE | 2023-01-10 12:58 | PT.OPPN ---
Current Diagnoses Pain in right hip (01/10/23) Dizziness and giddiness (01/10/23) History of falling (01/10/23) Presence of right artificial hip joint (01/10/23) Physical Therapy Progress Note PT-OP-A Visit Information Start: 11/25/22 11:32 Freq: Status: Active Protocol: Document 01/10/23 11:05 DCW (Rec: 01/10/23 11:42 DCW [id number]) Out-Patient Physical Therapy Visit Information Visit Information Visit Type Treatment Note Visit Start Time 11:05 Visit Stop Time 11:45 Total Visit Minutes 40 Visit Number 10 Number of FOREST SCIENCE PROFESSOR Visits 0 Evaluation Information Evaluation Date 11/25/22 PT-OP-B Current Condition Start: 11/25/22 11:32 Freq: Status: Active Protocol: Document 11/25/22 09:45 DCW (Rec: 11/25/22 11:46 DCW [id number]) Current Condition History of Current Condition Onset Date Two months s/p fall Current Complaints Prior dizziness, hip pain, LE weakness History of Current Condition Pt is a 77 year old female presenting two months s/p fall , which resulted in a rib fracture. At the time of her fall, pt was scheduled for a PT evaluation for her R hip pain/weakness, however this got delayed due to the sudden change in medical status following her fall. Pt ready to begin hip PT, however also referred for a vestibular assessment to determine if pt' s fall, which she noted was due to dizziness, was caused by an vestibular dysfunction. Pt does have a history complicated by a history of both pelvic and breast cancer, although currently just in observation phase of treatment , no recent radiation or chemo . Pt notes that after her fall , she stopped taking one of her medications (Letrazole), which had dizziness as a side- effect, and has largely not any any further symptoms. Despite this, she is still interested in a vestibular assessment to ensure no other underlying cause for her dizziness. In addition, pt also referred again for her hip pain. Pt has history of R MARI, hip is still feeling weak and sore, feels it limits her mobility and would like to be able to lift it up into her vehicle without assistance. PT-OP-C Subjective Start: 11/25/22 11:32 Freq: Status: Active Protocol: Document 01/10/23 11:05 DCW (Rec: 01/10/23 11:42 DCW [id number]) OP-PT Subjective Patient Comments Patient Comments Pt reports she had an injection yesterday, notes it isn't working as well as her last one. PT-OP-E Functional Tests Start: 11/25/22 11:32 Freq: Status: Active Protocol: Document 11/28/22 11:00 DCW (Rec: 11/28/22 11:48 DCW [id number]) Functional Tests 2 Minute Walk Test Distance 407' Device Used none Comments 3.39 ft/sec 30 Second Sit to Stand Test Score x9 repetition Comments used hands PT-OP-F Manual Assessment Start: 11/25/22 11:32 Freq: Status: Active Protocol: Document 11/25/22 09:45 DCW (Rec: 11/25/22 11:46 DCW [id number]) Manual Assessments Soft Tissue Assessment Soft Tissue Mobility Assessment Anterior hip pain/tightness through hip flexors and quads Joint Mobility Assessment Joint Mobility Assessment No pain with compression and PROM of right hip joint PT-OP-K Range of Motion Start: 11/25/22 11:32 Freq: Status: Active Protocol: Document 11/28/22 11:00 DCW (Rec: 11/28/22 11:48 DCW [id number]) Hip Goniometric Range of Motion Hip Measured in Degrees Right Active Flexion w/Knee Flexed 105 Straight Leg Raise 88 Abduction 25 External Rotation 25 Left Active Flexion w/Knee Flexed 123 Straight Leg Raise 94 Abduction 34 External Rotation 41 PT-OP-L Special Tests Start: 11/25/22 11:32 Freq: Status: Active Protocol: Document 11/25/22 09:45 DCW (Rec: 11/25/22 11:46 DCW [id number]) Special Tests Hip Special Tests Straight Leg Raise Test Results Negative Scour Test Test Results Negative MARVIN Test Results Negative Hannah's Test Test Results Positive R Anterior Labral Test Test Results Negative PT-OP-M Strength Start: 11/25/22 11:32 Freq: Status: Active Protocol: Document 11/25/22 09:45 DCW (Rec: 11/25/22 11:46 DCW [id number]) Hip Strength Hip Manual Muscle Testing Right Flexion (L2) 4- Good- Abduction 4 Good Adduction 4- Good- External Rotation 3+ Fair+ Internal Rotation 4- Good- Left Flexion (L2) 4+ Good+ Abduction 4+ Good+ Adduction 4+ Good+ External Rotation 4+ Good+ Internal Rotation 4+ Good+ Knee Strength Knee Manual Muscle Testing Right Flexion (S2) 4+ Good+ Extension (L3) 4+ Good+ Left Flexion (S2) 5 Normal Extension (L3) 5 Normal PT-OP-O Vestibular Start: 11/25/22 11:32 Freq: Status: Active Protocol: Document 11/25/22 09:45 DCW (Rec: 11/25/22 11:46 DCW [id number]) Vestibular Assessment Auditory Tests Gómez Test Within normal limits Rinne Test Negative Air Conduction Results Equal Visual Testing Smooth Pursuits Horizontal WNL Smooth Pursuits Vertical WNL Saccades Horizontal WNL Saccades Vertical WNL Heave Test Negative Thrust Head Negative DVA (Line Degradation) 2 Spontaneous Nystagmus Negative Positional Testing Tapan-Hallpike Negative Left,Negative Right Rolling Test Negative Left,Negative Right PT-OP-T Assessment and Plan Start: 11/25/22 11:32 Freq: Status: Active Protocol: Document 01/10/23 11:05 DCW (Rec: 01/10/23 11:42 DCW [id number]) Physical Therapy Assessment Impairments Impairments Activity Tolerance,Balance, Functional Activities, Functional Mobility,ROM,Soft Tissue Mobility,Strength,Tone Goals Two Impairment Right hip weakness (4-/5 with flexion, adduction, and ER/IR) Jail Goal (LTG) Pt to increase MMT of right hip to at least 4/5 in all tested planes in order to allow pt to lift right foot into vehicle without assistance LTG Duration 01/25/23 One Impairment Pt does not have an appropriate home exercise program Short Term Goal (STG) Pt to be independent and compliant with an appropriate HEP STG Duration 12/25/22 Assessment Summary Assessment Showing some improvement with lumbar mobility and improved gait with less, though still present, antalgia. Continue to work on core strengthening, flexibility, and decreasing lumbar tone. Physical Therapy Plan Frequency and Duration Frequency of Treatment 2x/Week Plan of Care Start Date 11/25/22 Plan of Care End Date 01/25/23 Therapeutic Interventions Therapeutic Interventions Balance Training,Gait Training ,Home Exercise Program,Joint Mobilizations,Manual Therapy, Patient/Caregiver Education, Self-Care/Home Management,Soft Tissue Mobilization, Therapeutic Activities, Therapeutic Exercises Modalities Cold Pack/Ice Massage,Hot Packs,Ultrasound Next Visit Focus/Plan Next Note Type Treatment Note Next Visit Plan Complete hip assessment, LE strengthening, flexibility
--- NOTE | 2023-01-12 11:46 | PT.OTN ---
Current Diagnoses Pain in right hip (01/12/23) Dizziness and giddiness (01/12/23) History of falling (01/12/23) Presence of right artificial hip joint (01/12/23) Physical Therapy Treatment Note PT-OP-A Visit Information Start: 11/25/22 11:32 Freq: Status: Active Protocol: Document 01/12/23 11:00 DCW (Rec: 01/12/23 11:46 DCW [id number]) Out-Patient Physical Therapy Visit Information Visit Information Visit Type Treatment Note Visit Start Time 11:00 Visit Stop Time 11:45 Total Visit Minutes 45 Visit Number 11 Number of PILE DRIVING SUPERINTENDENT Visits 0 Evaluation Information Evaluation Date 11/25/22 PT-OP-B Current Condition Start: 11/25/22 11:32 Freq: Status: Active Protocol: Document 11/25/22 09:45 DCW (Rec: 11/25/22 11:46 DCW [id number]) Current Condition History of Current Condition Onset Date Two months s/p fall Current Complaints Prior dizziness, hip pain, LE weakness History of Current Condition Pt is a 77 year old female presenting two months s/p fall , which resulted in a rib fracture. At the time of her fall, pt was scheduled for a PT evaluation for her R hip pain/weakness, however this got delayed due to the sudden change in medical status following her fall. Pt ready to begin hip PT, however also referred for a vestibular assessment to determine if pt' s fall, which she noted was due to dizziness, was caused by an vestibular dysfunction. Pt does have a history complicated by a history of both pelvic and breast cancer, although currently just in observation phase of treatment , no recent radiation or chemo . Pt notes that after her fall , she stopped taking one of her medications (Letrazole), which had dizziness as a side- effect, and has largely not any any further symptoms. Despite this, she is still interested in a vestibular assessment to ensure no other underlying cause for her dizziness. In addition, pt also referred again for her hip pain. Pt has history of R MARI, hip is still feeling weak and sore, feels it limits her mobility and would like to be able to lift it up into her vehicle without assistance. 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 PT-OP-E Functional Tests Start: 11/25/22 11:32 Freq: Status: Active Protocol: Document 11/28/22 11:00 DCW (Rec: 11/28/22 11:48 DCW [id number]) Functional Tests 2 Minute Walk Test Distance 407' Device Used none Comments 3.39 ft/sec 30 Second Sit to Stand Test Score x9 repetition Comments used hands PT-OP-F Manual Assessment Start: 11/25/22 11:32 Freq: Status: Active Protocol: Document 11/25/22 09:45 DCW (Rec: 11/25/22 11:46 DCW [id number]) Manual Assessments Soft Tissue Assessment Soft Tissue Mobility Assessment Anterior hip pain/tightness through hip flexors and quads Joint Mobility Assessment Joint Mobility Assessment No pain with compression and PROM of right hip joint PT-OP-K Range of Motion Start: 11/25/22 11:32 Freq: Status: Active Protocol: Document 11/28/22 11:00 DCW (Rec: 11/28/22 11:48 DCW [id number]) Hip Goniometric Range of Motion Hip Right Active Flexion w/Knee Flexed 105 Straight Leg Raise 88 Abduction 25 External Rotation 25 Left Active Flexion w/Knee Flexed 123 Straight Leg Raise 94 Abduction 34 External Rotation 41 PT-OP-L Special Tests Start: 11/25/22 11:32 Freq: Status: Active Protocol: Document 11/25/22 09:45 DCW (Rec: 11/25/22 11:46 DCW [id number]) Special Tests Hip Special Tests Straight Leg Raise Test Results Negative Scour Test Test Results Negative MARVIN Test Results Negative Hannah's Test Test Results Positive R Anterior Labral Test Test Results Negative PT-OP-M Strength Start: 11/25/22 11:32 Freq: Status: Active Protocol: Document 11/25/22 09:45 DCW (Rec: 11/25/22 11:46 DCW [id number]) Hip Strength Hip Manual Muscle Testing Right Flexion (L2) 4- Good- Abduction 4 Good Adduction 4- Good- External Rotation 3+ Fair+ Internal Rotation 4- Good- Left Flexion (L2) 4+ Good+ Abduction 4+ Good+ Adduction 4+ Good+ External Rotation 4+ Good+ Internal Rotation 4+ Good+ Knee Strength Knee Manual Muscle Testing Right Flexion (S2) 4+ Good+ Extension (L3) 4+ Good+ Left Flexion (S2) 5 Normal Extension (L3) 5 Normal PT-OP-O Vestibular Start: 11/25/22 11:32 Freq: Status: Active Protocol: Document 11/25/22 09:45 DCW (Rec: 11/25/22 11:46 DCW [id number]) Vestibular Assessment Auditory Tests Gómez Test Within normal limits Rinne Test Negative Air Conduction Results Equal Visual Testing Smooth Pursuits Horizontal WNL Smooth Pursuits Vertical WNL Saccades Horizontal WNL Saccades Vertical WNL Heave Test Negative Thrust Head Negative DVA (Line Degradation) 2 Spontaneous Nystagmus Negative Positional Testing [place]-Hallpike Negative Left,Negative Right Rolling Test Negative Left,Negative Right PT-OP-Q Treatments Start: 11/25/22 11:32 Freq: Status: Active Protocol: Document 01/12/23 11:00 DCW (Rec: 01/12/23 11:46 DCW [id number]) Cardio Equipment Recumbent Elliptical (Rocawear) Duration (Minutes) 6 Resistance 6 Seat Position 9 Gym Equipment Shuttle Recovery Bilateral Squats Resistance 87# (Three new) Shuttle Recovery Platform Stable Reps/Time 2x20 Shuttle Balance Red Details WBOS, Staggered Therapeutic Exercises Supine Exercises Piriformis Supine Exercise Name Piriformis stretch - Figure-4 Side right Manual Therapy Treatment Soft Tissue Mobilization Lumbar Body Location R lumbar paraspinals, piriformis Mobilization Type Sustained Pressure,Trigger Point Release Intensity/Depth Moderate Body Position Sidelying PT-OP-T Assessment and Plan Start: 11/25/22 11:32 Freq: Status: Active Protocol: Document 01/12/23 11:00 DCW (Rec: 01/12/23 11:46 DCW [id number]) Physical Therapy Assessment Impairments Impairments Activity Tolerance,Balance, Functional Activities, Functional Mobility,ROM,Soft Tissue Mobility,Strength,Tone Goals Two Impairment Right hip weakness (4-/5 with flexion, adduction, and ER/IR) Spot Facer Goal (LTG) Pt to increase MMT of right hip to at least 4/5 in all tested planes in order to allow pt to lift right foot into vehicle without assistance LTG Duration 01/25/23 One Impairment Pt does not have an appropriate home exercise program Short Term Goal (STG) Pt to be independent and compliant with an appropriate HEP STG Duration 12/25/22 Assessment Summary Assessment Pt ambulating much better with minimal antalgia following today's treatment session. Physical Therapy Plan Frequency and Duration Frequency of Treatment 2x/Week Plan of Care Start Date 11/25/22 Plan of Care End Date 01/25/23 Therapeutic Interventions Therapeutic Interventions Balance Training,Gait Training ,Home Exercise Program,Joint Mobilizations,Manual Therapy, Patient/Caregiver Education, Self-Care/Home Management,Soft Tissue Mobilization, Therapeutic Activities, Therapeutic Exercises Modalities Cold Pack/Ice Massage,Hot Packs,Ultrasound Next Visit Focus/Plan Next Note Type Treatment Note Next Visit Plan Complete hip assessment, LE strengthening, flexibility
--- NOTE | 2023-01-24 12:03 | PT.OTN ---
Current Diagnoses Pain in right hip (01/24/23) Dizziness and giddiness (01/24/23) History of falling (01/24/23) Presence of right artificial hip joint (01/24/23) Physical Therapy Treatment Note PT-OP-A Visit Information Start: 11/25/22 11:32 Freq: Status: Active Protocol: Document 01/24/23 11:18 DCW (Rec: 01/24/23 12:03 DCW [id number]) Out-Patient Physical Therapy Visit Information Visit Information Visit Type Progress Note Visit Start Time 11:18 Visit Stop Time 12:00 Total Visit Minutes 42 Visit Number 12 Number of TYPIST Visits 0 Evaluation Information Evaluation Date 11/25/22 PT-OP-B Current Condition Start: 11/25/22 11:32 Freq: Status: Active Protocol: Document 11/25/22 09:45 DCW (Rec: 11/25/22 11:46 DCW [id number]) Current Condition History of Current Condition Onset Date Two months s/p fall Current Complaints Prior dizziness, hip pain, LE weakness History of Current Condition Pt is a 77 year old female presenting two months s/p fall , which resulted in a rib fracture. At the time of her fall, pt was scheduled for a PT evaluation for her R hip pain/weakness, however this got delayed due to the sudden change in medical status following her fall. Pt ready to begin hip PT, however also referred for a vestibular assessment to determine if pt' s fall, which she noted was due to dizziness, was caused by an vestibular dysfunction. Pt does have a history complicated by a history of both pelvic and breast cancer, although currently just in observation phase of treatment , no recent radiation or chemo . Pt notes that after her fall , she stopped taking one of her medications (Letrazole), which had dizziness as a side- effect, and has largely not any any further symptoms. Despite this, she is still interested in a vestibular assessment to ensure no other underlying cause for her dizziness. In addition, pt also referred again for her hip pain. Pt has history of R MARI, hip is still feeling weak and sore, feels it limits her mobility and would like to be able to lift it up into her vehicle without assistance. PT-OP-C Subjective Start: 11/25/22 11:32 Freq: Status: Active Protocol: Document 01/24/23 11:18 DCW (Rec: 01/24/23 12:03 DCW [id number]) OP-PT Subjective Patient Comments Patient Comments Pt still ambulating with antalgic gait, but overall feeling continued improvement since injection. PT-OP-E Functional Tests Start: 11/25/22 11:32 Freq: Status: Active Protocol: Document 01/24/23 11:18 DCW (Rec: 01/24/23 11:38 DCW [id number]) Functional Tests 6 Minute Walk Test Distance 1047 Device Used none Comments 2.90 ft/sec 30 Second Sit to Stand Test Score x9 repetitions Comments used hands PT-OP-F Manual Assessment Start: 11/25/22 11:32 Freq: Status: Active Protocol: Document 01/24/23 11:18 DCW (Rec: 01/24/23 11:38 DCW [id number]) Manual Assessments Soft Tissue Assessment Soft Tissue Mobility Assessment Anterior hip pain/tightness through hip flexors and quads PT-OP-K Range of Motion Start: 11/25/22 11:32 Freq: Status: Active Protocol: Document 01/24/23 11:18 DCW (Rec: 01/24/23 11:38 DCW [id number]) Hip Goniometric Range of Motion Hip Right Active Testing Position Supine Flexion w/Knee Flexed 121 Straight Leg Raise 102 Abduction 26 Internal Rotation 34 External Rotation 40 Left Active Flexion w/Knee Flexed 123 Straight Leg Raise 94 Abduction 34 External Rotation 41 PT-OP-L Special Tests Start: 11/25/22 11:32 Freq: Status: Active Protocol: Document 11/25/22 09:45 DCW (Rec: 11/25/22 11:46 DCW [id number]) Special Tests Hip Special Tests Straight Leg Raise Test Results Negative Scour Test Test Results Negative MARVIN Test Results Negative Hannah's Test Test Results Positive R Anterior Labral Test Test Results Negative PT-OP-M Strength Start: 11/25/22 11:32 Freq: Status: Active Protocol: Document 11/25/22 09:45 DCW (Rec: 11/25/22 11:46 DCW [id number]) Hip Strength Hip Manual Muscle Testing Right Flexion (L2) 4- Good- Abduction 4 Good Adduction 4- Good- External Rotation 3+ Fair+ Internal Rotation 4- Good- Left Flexion (L2) 4+ Good+ Abduction 4+ Good+ Adduction 4+ Good+ External Rotation 4+ Good+ Internal Rotation 4+ Good+ Knee Strength Knee Manual Muscle Testing Right Flexion (S2) 4+ Good+ Extension (L3) 4+ Good+ Left Flexion (S2) 5 Normal Extension (L3) 5 Normal PT-OP-O Vestibular Start: 11/25/22 11:32 Freq: Status: Active Protocol: Document 11/25/22 09:45 DCW (Rec: 11/25/22 11:46 DCW [id number]) Vestibular Assessment Auditory Tests Gómez Test Within normal limits Rinne Test Negative Air Conduction Results Equal Visual Testing Smooth Pursuits Horizontal WNL Smooth Pursuits Vertical WNL Saccades Horizontal WNL Saccades Vertical WNL Heave Test Negative Thrust Head Negative DVA (Line Degradation) 2 Spontaneous Nystagmus Negative Positional Testing [place]-Hallpike Negative Left,Negative Right Rolling Test Negative Left,Negative Right PT-OP-Q Treatments Start: 11/25/22 11:32 Freq: Status: Active Protocol: Document 01/24/23 11:18 DCW (Rec: 01/24/23 12:03 DCW [id number]) Manual Therapy Treatment Soft Tissue Mobilization Lumbar Body Location R lumbar paraspinals, piriformis Mobilization Type Sustained Pressure,Trigger Point Release Intensity/Depth Moderate Body Position Sidelying Hip Flexors Body Location R Hip Flexors Mobilization Type Sustained Pressure,Trigger Point Release Intensity/Depth Moderate Body Position Hooklying Manual Traction LE Traction Details Gentle B LE long-axis PT-OP-T Assessment and Plan Start: 11/25/22 11:32 Freq: Status: Active Protocol: Document 01/24/23 11:18 DCW (Rec: 01/24/23 12:03 DCW [id number]) Physical Therapy Assessment Impairments Impairments Activity Tolerance,Balance, Functional Activities, Functional Mobility,ROM,Soft Tissue Mobility,Strength,Tone Goals Two Impairment Right hip weakness (4-/5 with flexion, adduction, and ER/IR) Neuropsychology Medical Consultant Goal (LTG) Pt to increase MMT of right hip to at least 4/5 in all tested planes in order to allow pt to lift right foot into vehicle without assistance LTG Duration 03/26/23 One Impairment Pt does not have an appropriate home exercise program Short Term Goal (STG) Pt to be independent and compliant with an appropriate HEP STG Duration Met Progress Towards Goals Progress Towards Goals Progressing Toward Goals Assessment Summary Assessment Pt showing improvement with hip mobility and activity tolerance, able to successfully complete 6MWT today, demonstrating improved hip ROM. Continues to experience increased tone and tenderness through hip and lumbar musculature, negatively affecting her gait. Continue to work toward improving LE strength, gait and balance, muscle tone, and activity tolerance. Physical Therapy Plan Frequency and Duration Frequency of Treatment 2x/Week Plan of Care Start Date 01/24/23 Plan of Care End Date 03/26/23 Therapeutic Interventions Therapeutic Interventions Balance Training,Gait Training ,Home Exercise Program,Joint Mobilizations,Manual Therapy, Patient/Caregiver Education, Self-Care/Home Management,Soft Tissue Mobilization, Therapeutic Activities, Therapeutic Exercises Modalities Cold Pack/Ice Massage,Hot Packs,Ultrasound Next Visit Focus/Plan Next Note Type Treatment Note Next Visit Plan Complete hip assessment, LE strengthening, flexibility
--- NOTE | 2023-01-24 12:03 | PT.OPPOC ---
Physical, Occupational & Speech Therapy At [facility] Current Diagnoses Pain in right hip (01/24/23) Dizziness and giddiness (01/24/23) History of falling (01/24/23) Presence of right artificial hip joint (01/24/23) Visit Care Team Role Provider Type NATANAEL Aj Attending Provider Advanced Credit Risk Review Officer Family Provider Primary Care Provider Referring Provider Specialty: Family Practice Address: [address] [place] [address], [facility] Email: [email or web address] Plan Of Care PT-OP-T Assessment and Plan Start: 11/25/22 11:32 Freq: Status: Active Protocol: Document 01/24/23 11:18 DCW (Rec: 01/24/23 12:03 DCW [id number]) Physical Therapy Assessment Impairments Impairments Activity Tolerance,Balance, Functional Activities, Functional Mobility,ROM,Soft Tissue Mobility,Strength,Tone Goals Two Impairment Right hip weakness (4-/5 with flexion, adduction, and ER/IR) Prison Goal (LTG) Pt to increase MMT of right hip to at least 4/5 in all tested planes in order to allow pt to lift right foot into vehicle without assistance LTG Duration 03/26/23 One Impairment Pt does not have an appropriate home exercise program Short Term Goal (STG) Pt to be independent and compliant with an appropriate HEP STG Duration Met Progress Towards Goals Progress Towards Goals Progressing Toward Goals Assessment Summary Assessment Pt showing improvement with hip mobility and activity tolerance, able to successfully complete 6MWT today, demonstrating improved hip ROM. Continues to experience increased tone and tenderness through hip and lumbar musculature, negatively affecting her gait. Continue to work toward improving LE strength, gait and balance, muscle tone, and activity tolerance. Physical Therapy Plan Frequency and Duration Frequency of Treatment 2x/Week Plan of Care Start Date 01/24/23 Plan of Care End Date 03/26/23 Therapeutic Interventions Therapeutic Interventions Balance Training,Gait Training ,Home Exercise Program,Joint Mobilizations,Manual Therapy, Patient/Caregiver Education, Self-Care/Home Management,Soft Tissue Mobilization, Therapeutic Activities, Therapeutic Exercises Modalities Cold Pack/Ice Massage,Hot Packs,Ultrasound Next Visit Focus/Plan Next Note Type Treatment Note Next Visit Plan Complete hip assessment, LE strengthening, flexibility Plan of Care Dates Plan of Care Start Date 01/24/23 Plan of Care End Date 03/26/23 Electronically Signed by: Sage Vasquez, PT 01/24/23 [id number] If you are in agreement with this Plan of Care, please return a signed and dated copy. I have reviewed this Plan of Care and certify that the skilled therapy services above are required to meet the patient?s needs. Physician Signature Date Printed Name and Credentials Clinical Instructor Signature Printed Name and Credentials
--- NOTE | 2023-01-26 12:00 | PT.OTN ---
Current Diagnoses Pain in right hip (01/26/23) Dizziness and giddiness (01/26/23) History of falling (01/26/23) Presence of right artificial hip joint (01/26/23) Physical Therapy Treatment Note PT-OP-A Visit Information Start: 11/25/22 11:32 Freq: Status: Active Protocol: Document 01/26/23 11:20 DCW (Rec: 01/26/23 12:00 DCW [id number]) Out-Patient Physical Therapy Visit Information Visit Information Visit Type Treatment Note Visit Start Time 11:20 Visit Stop Time 12:00 Total Visit Minutes 40 Visit Number 13 Number of PINKED EDGE SEWING MACHINE OPERATOR Visits 0 Evaluation Information Evaluation Date 11/25/22 PT-OP-B Current Condition Start: 11/25/22 11:32 Freq: Status: Active Protocol: Document 11/25/22 09:45 DCW (Rec: 11/25/22 11:46 DCW [id number]) Current Condition History of Current Condition Onset Date Two months s/p fall Current Complaints Prior dizziness, hip pain, LE weakness History of Current Condition Pt is a 77 year old female presenting two months s/p fall , which resulted in a rib fracture. At the time of her fall, pt was scheduled for a PT evaluation for her R hip pain/weakness, however this got delayed due to the sudden change in medical status following her fall. Pt ready to begin hip PT, however also referred for a vestibular assessment to determine if pt' s fall, which she noted was due to dizziness, was caused by an vestibular dysfunction. Pt does have a history complicated by a history of both pelvic and breast cancer, although currently just in observation phase of treatment , no recent radiation or chemo . Pt notes that after her fall , she stopped taking one of her medications (Letrazole), which had dizziness as a side- effect, and has largely not any any further symptoms. Despite this, she is still interested in a vestibular assessment to ensure no other underlying cause for her dizziness. In addition, pt also referred again for her hip pain. Pt has history of R MARI, hip is still feeling weak and sore, feels it limits her mobility and would like to be able to lift it up into her vehicle without assistance. PT-OP-C Subjective Start: 11/25/22 11:32 Freq: Status: Active Protocol: Document 01/26/23 11:20 DCW (Rec: 01/26/23 12:00 DCW [id number]) OP-PT Subjective Patient Comments Patient Comments After you were done with me, I felt great, I slept well, and yesterday was great. The problem is, I didn't do anything because I felt so good, I wanted it to stay that way. Waking up today, it's a little more sore, but still really good. PT-OP-E Functional Tests Start: 11/25/22 11:32 Freq: Status: Active Protocol: Document 01/24/23 11:18 DCW (Rec: 01/24/23 11:38 DCW [id number]) Functional Tests 6 Minute Walk Test Distance 1047 Device Used none Comments 2.90 ft/sec 30 Second Sit to Stand Test Score x9 repetitions Comments used hands PT-OP-F Manual Assessment Start: 11/25/22 11:32 Freq: Status: Active Protocol: Document 01/24/23 11:18 DCW (Rec: 01/24/23 11:38 DCW [id number]) Manual Assessments Soft Tissue Assessment Soft Tissue Mobility Assessment Anterior hip pain/tightness through hip flexors and quads PT-OP-K Range of Motion Start: 11/25/22 11:32 Freq: Status: Active Protocol: Document 01/24/23 11:18 DCW (Rec: 01/24/23 11:38 DCW [id number]) Hip Goniometric Range of Motion Hip Right Active Testing Position Supine Flexion w/Knee Flexed 121 Straight Leg Raise 102 Abduction 26 Internal Rotation 34 External Rotation 40 Left Active Flexion w/Knee Flexed 123 Straight Leg Raise 94 Abduction 34 External Rotation 41 PT-OP-L Special Tests Start: 11/25/22 11:32 Freq: Status: Active Protocol: Document 11/25/22 09:45 DCW (Rec: 11/25/22 11:46 DCW [id number]) Special Tests Hip Special Tests Straight Leg Raise Test Results Negative Scour Test Test Results Negative MARVIN Test Results Negative Hannah's Test Test Results Positive R Anterior Labral Test Test Results Negative PT-OP-M Strength Start: 11/25/22 11:32 Freq: Status: Active Protocol: Document 11/25/22 09:45 DCW (Rec: 11/25/22 11:46 DCW [id number]) Hip Strength Hip Manual Muscle Testing Right Flexion (L2) 4- Good- Abduction 4 Good Adduction 4- Good- External Rotation 3+ Fair+ Internal Rotation 4- Good- Left Flexion (L2) 4+ Good+ Abduction 4+ Good+ Adduction 4+ Good+ External Rotation 4+ Good+ Internal Rotation 4+ Good+ Knee Strength Knee Manual Muscle Testing Right Flexion (S2) 4+ Good+ Extension (L3) 4+ Good+ Left Flexion (S2) 5 Normal Extension (L3) 5 Normal PT-OP-O Vestibular Start: 11/25/22 11:32 Freq: Status: Active Protocol: Document 11/25/22 09:45 DCW (Rec: 11/25/22 11:46 DCW [id number]) Vestibular Assessment Auditory Tests Gómez Test Within normal limits Rinne Test Negative Air Conduction Results Equal Visual Testing Smooth Pursuits Horizontal WNL Smooth Pursuits Vertical WNL Saccades Horizontal WNL Saccades Vertical WNL Heave Test Negative Thrust Head Negative DVA (Line Degradation) 2 Spontaneous Nystagmus Negative Positional Testing Tapan-Hallpike Negative Left,Negative Right Rolling Test Negative Left,Negative Right PT-OP-Q Treatments Start: 11/25/22 11:32 Freq: Status: Active Protocol: Document 01/26/23 11:20 DCW (Rec: 01/26/23 12:00 DCW [id number]) Cardio Equipment Recumbent Elliptical ([employer]) Duration (Minutes) 6 Resistance 6 Seat Position 9 Gym Equipment Shuttle Recovery Bilateral Squats Resistance 87# (Three new) Shuttle Recovery Platform Stable Reps/Time 2x20 Shuttle Balance Red Details WBOS, Staggered Therapeutic Ball Pelvic tilts Exercise Details Pelvic tilts/circles Ball Size/Color Green - 65 cm Body Position Sitting Manual Therapy Treatment Soft Tissue Mobilization Lumbar Body Location R lumbar paraspinals, piriformis Mobilization Type Sustained Pressure,Trigger Point Release Intensity/Depth Moderate Body Position Sidelying Hip Flexors Body Location R Hip Flexors Mobilization Type Sustained Pressure,Trigger Point Release Intensity/Depth Moderate Body Position Hooklying Manual Traction LE Traction Details Gentle B LE long-axis PT-OP-T Assessment and Plan Start: 11/25/22 11:32 Freq: Status: Active Protocol: Document 01/26/23 11:20 DCW (Rec: 01/26/23 12:00 DCW [id number]) Physical Therapy Assessment Impairments Impairments Activity Tolerance,Balance, Functional Activities, Functional Mobility,ROM,Soft Tissue Mobility,Strength,Tone Goals Two Impairment Right hip weakness (4-/5 with flexion, adduction, and ER/IR) Alf Goal (LTG) Pt to increase MMT of right hip to at least 4/5 in all tested planes in order to allow pt to lift right foot into vehicle without assistance LTG Duration 03/26/23 One Impairment Pt does not have an appropriate home exercise program Short Term Goal (STG) Pt to be independent and compliant with an appropriate HEP STG Duration Met Progress Towards Goals Progress Towards Goals Progressing Toward Goals Assessment Summary Assessment Much better today walking into clinic, pt showing better long-term response to treatment. Continue to work on core strengthening/ stabilization and STM. Physical Therapy Plan Frequency and Duration Frequency of Treatment 2x/Week Plan of Care Start Date 01/24/23 Plan of Care End Date 03/26/23 Therapeutic Interventions Therapeutic Interventions Balance Training,Gait Training ,Home Exercise Program,Joint Mobilizations,Manual Therapy, Patient/Caregiver Education, Self-Care/Home Management,Soft Tissue Mobilization, Therapeutic Activities, Therapeutic Exercises Modalities Cold Pack/Ice Massage,Hot Packs,Ultrasound Next Visit Focus/Plan Next Note Type Treatment Note Next Visit Plan Complete hip assessment, LE strengthening, flexibility
--- NOTE | 2023-01-30 16:47 | PT.OTN ---
Current Diagnoses Pain in right hip (01/30/23) Dizziness and giddiness (01/30/23) History of falling (01/30/23) Presence of right artificial hip joint (01/30/23) Physical Therapy Treatment Note PT-OP-A Visit Information Start: 11/25/22 11:32 Freq: Status: Active Protocol: Document 01/30/23 16:00 DCW (Rec: 01/30/23 16:47 DCW [id number]) Out-Patient Physical Therapy Visit Information Visit Information Visit Type Treatment Note Visit Start Time 16:00 Visit Stop Time 16:45 Total Visit Minutes 45 Visit Number 14 Number of SAP TRAINER Visits 0 Evaluation Information Evaluation Date 11/25/22 PT-OP-B Current Condition Start: 11/25/22 11:32 Freq: Status: Active Protocol: Document 11/25/22 09:45 DCW (Rec: 11/25/22 11:46 DCW [id number]) Current Condition History of Current Condition Onset Date Two months s/p fall Current Complaints Prior dizziness, hip pain, LE weakness History of Current Condition Pt is a 77 year old female presenting two months s/p fall , which resulted in a rib fracture. At the time of her fall, pt was scheduled for a PT evaluation for her R hip pain/weakness, however this got delayed due to the sudden change in medical status following her fall. Pt ready to begin hip PT, however also referred for a vestibular assessment to determine if pt' s fall, which she noted was due to dizziness, was caused by an vestibular dysfunction. Pt does have a history complicated by a history of both pelvic and breast cancer, although currently just in observation phase of treatment , no recent radiation or chemo . Pt notes that after her fall , she stopped taking one of her medications (Letrazole), which had dizziness as a side- effect, and has largely not any any further symptoms. Despite this, she is still interested in a vestibular assessment to ensure no other underlying cause for her dizziness. In addition, pt also referred again for her hip pain. Pt has history of R MARI, hip is still feeling weak and sore, feels it limits her mobility and would like to be able to lift it up into her vehicle without assistance. PT-OP-C Subjective Start: 11/25/22 11:32 Freq: Status: Active Protocol: Document 01/30/23 16:00 DCW (Rec: 01/30/23 16:47 DCW [id number]) OP-PT Subjective Patient Comments Patient Comments This limp just won't go away. It's getting frustrating. PT-OP-E Functional Tests Start: 11/25/22 11:32 Freq: Status: Active Protocol: Document 01/24/23 11:18 DCW (Rec: 01/24/23 11:38 DCW [id number]) Functional Tests 6 Minute Walk Test Distance 1047 Device Used none Comments 2.90 ft/sec 30 Second Sit to Stand Test Score x9 repetitions Comments used hands PT-OP-F Manual Assessment Start: 11/25/22 11:32 Freq: Status: Active Protocol: Document 01/24/23 11:18 DCW (Rec: 01/24/23 11:38 DCW [id number]) Manual Assessments Soft Tissue Assessment Soft Tissue Mobility Assessment Anterior hip pain/tightness through hip flexors and quads PT-OP-K Range of Motion Start: 11/25/22 11:32 Freq: Status: Active Protocol: Document 01/24/23 11:18 DCW (Rec: 01/24/23 11:38 DCW [id number]) Hip Goniometric Range of Motion Hip Right Active Testing Position Supine Flexion w/Knee Flexed 121 Straight Leg Raise 102 Abduction 26 Internal Rotation 34 External Rotation 40 Left Active Flexion w/Knee Flexed 123 Straight Leg Raise 94 Abduction 34 External Rotation 41 PT-OP-L Special Tests Start: 11/25/22 11:32 Freq: Status: Active Protocol: Document 11/25/22 09:45 DCW (Rec: 11/25/22 11:46 DCW [id number]) Special Tests Hip Special Tests Straight Leg Raise Test Results Negative Scour Test Test Results Negative MARVIN Test Results Negative Hannah's Test Test Results Positive R Anterior Labral Test Test Results Negative PT-OP-M Strength Start: 11/25/22 11:32 Freq: Status: Active Protocol: Document 11/25/22 09:45 DCW (Rec: 11/25/22 11:46 DCW [id number]) Hip Strength Hip Manual Muscle Testing Right Flexion (L2) 4- Good- Abduction 4 Good Adduction 4- Good- External Rotation 3+ Fair+ Internal Rotation 4- Good- Left Flexion (L2) 4+ Good+ Abduction 4+ Good+ Adduction 4+ Good+ External Rotation 4+ Good+ Internal Rotation 4+ Good+ Knee Strength Knee Manual Muscle Testing Right Flexion (S2) 4+ Good+ Extension (L3) 4+ Good+ Left Flexion (S2) 5 Normal Extension (L3) 5 Normal PT-OP-O Vestibular Start: 11/25/22 11:32 Freq: Status: Active Protocol: Document 11/25/22 09:45 DCW (Rec: 11/25/22 11:46 DCW [id number]) Vestibular Assessment Auditory Tests Gómez Test Within normal limits Rinne Test Negative Air Conduction Results Equal Visual Testing Smooth Pursuits Horizontal WNL Smooth Pursuits Vertical WNL Saccades Horizontal WNL Saccades Vertical WNL Heave Test Negative Thrust Head Negative DVA (Line Degradation) 2 Spontaneous Nystagmus Negative Positional Testing T[place]-Hallpike Negative Left,Negative Right Rolling Test Negative Left,Negative Right PT-OP-Q Treatments Start: 11/25/22 11:32 Freq: Status: Active Protocol: Document 01/30/23 16:00 DCW (Rec: 01/30/23 16:47 DCW [id number]) Cardio Equipment Recumbent Elliptical ([employer]) Duration (Minutes) 6 Resistance 6 Seat Position 9 Gym Equipment Shuttle Recovery Bilateral Squats Resistance 87# (Three new) Shuttle Recovery Platform Stable Reps/Time 2x20 Shuttle Balance Red Details WBOS, Staggered Therapeutic Ball Pelvic tilts Exercise Details Pelvic tilts/circles Ball Size/Color Green - 65 cm Body Position Sitting Manual Therapy Treatment Soft Tissue Mobilization Lumbar Body Location R lumbar paraspinals, piriformis Mobilization Type Sustained Pressure,Trigger Point Release Intensity/Depth Moderate Body Position Sidelying Hip Flexors Body Location R Hip Flexors Mobilization Type Sustained Pressure,Trigger Point Release Intensity/Depth Moderate Body Position Hooklying PT-OP-T Assessment and Plan Start: 11/25/22 11:32 Freq: Status: Active Protocol: Document 01/30/23 16:00 DCW (Rec: 01/30/23 16:47 DCW [id number]) Physical Therapy Assessment Impairments Impairments Activity Tolerance,Balance, Functional Activities, Functional Mobility,ROM,Soft Tissue Mobility,Strength,Tone Goals Two Impairment Right hip weakness (4-/5 with flexion, adduction, and ER/IR) Job Estimator Goal (LTG) Pt to increase MMT of right hip to at least 4/5 in all tested planes in order to allow pt to lift right foot into vehicle without assistance LTG Duration 03/26/23 One Impairment Pt does not have an appropriate home exercise program Short Term Goal (STG) Pt to be independent and compliant with an appropriate HEP STG Duration Met Assessment Summary Assessment Pt may be starting to plateau, does well following PT for a day or two, but minimal effectiveness much longer than that. May need to address further HEP compliance to ensure pt is doing everything possible outside of PT to help with progress. Physical Therapy Plan Frequency and Duration Frequency of Treatment 2x/Week Plan of Care Start Date 01/24/23 Plan of Care End Date 03/26/23 Therapeutic Interventions Therapeutic Interventions Balance Training,Gait Training ,Home Exercise Program,Joint Mobilizations,Manual Therapy, Patient/Caregiver Education, Self-Care/Home Management,Soft Tissue Mobilization, Therapeutic Activities, Therapeutic Exercises Modalities Cold Pack/Ice Massage,Hot Packs,Ultrasound Next Visit Focus/Plan Next Note Type Treatment Note Next Visit Plan Complete hip assessment, LE strengthening, flexibility
--- NOTE | 2023-02-08 14:30 | PT.OTN ---
Current Diagnoses Pain in right hip (02/08/23) Dizziness and giddiness (02/08/23) History of falling (02/08/23) Presence of right artificial hip joint (02/08/23) Physical Therapy Treatment Note PT-OP-A Visit Information Start: 11/25/22 11:32 Freq: Status: Active Protocol: Document 02/08/23 13:48 DCW (Rec: 02/08/23 14:30 DCW [id number]) Out-Patient Physical Therapy Visit Information Visit Information Visit Type Treatment Note Visit Start Time 13:48 Visit Stop Time 14:30 Total Visit Minutes 42 Visit Number 15 Number of DEHYDRATOR TENDER Visits 0 Evaluation Information Evaluation Date 11/25/22 PT-OP-B Current Condition Start: 11/25/22 11:32 Freq: Status: Active Protocol: Document 11/25/22 09:45 DCW (Rec: 11/25/22 11:46 DCW [id number]) Current Condition History of Current Condition Onset Date Two months s/p fall Current Complaints Prior dizziness, hip pain, LE weakness History of Current Condition Pt is a 77 year old female presenting two months s/p fall , which resulted in a rib fracture. At the time of her fall, pt was scheduled for a PT evaluation for her R hip pain/weakness, however this got delayed due to the sudden change in medical status following her fall. Pt ready to begin hip PT, however also referred for a vestibular assessment to determine if pt' s fall, which she noted was due to dizziness, was caused by an vestibular dysfunction. Pt does have a history complicated by a history of both pelvic and breast cancer, although currently just in observation phase of treatment , no recent radiation or chemo . Pt notes that after her fall , she stopped taking one of her medications (Letrazole), which had dizziness as a side- effect, and has largely not any any further symptoms. Despite this, she is still interested in a vestibular assessment to ensure no other underlying cause for her dizziness. In addition, pt also referred again for her hip pain. Pt has history of R MARI, hip is still feeling weak and sore, feels it limits her mobility and would like to be able to lift it up into her vehicle without assistance. PT-OP-C Subjective Start: 11/25/22 11:32 Freq: Status: Active Protocol: Document 02/08/23 13:48 DCW (Rec: 02/08/23 14:30 DCW [id number]) OP-PT Subjective Patient Comments Patient Comments Pt feeling a little better today. PT-OP-E Functional Tests Start: 11/25/22 11:32 Freq: Status: Active Protocol: Document 01/24/23 11:18 DCW (Rec: 01/24/23 11:38 DCW [id number]) Functional Tests 6 Minute Walk Test Distance 1047 Device Used none Comments 2.90 ft/sec 30 Second Sit to Stand Test Score x9 repetitions Comments used hands PT-OP-F Manual Assessment Start: 11/25/22 11:32 Freq: Status: Active Protocol: Document 01/24/23 11:18 DCW (Rec: 01/24/23 11:38 DCW [id number]) Manual Assessments Soft Tissue Assessment Soft Tissue Mobility Assessment Anterior hip pain/tightness through hip flexors and quads PT-OP-K Range of Motion Start: 11/25/22 11:32 Freq: Status: Active Protocol: Document 01/24/23 11:18 DCW (Rec: 01/24/23 11:38 DCW [id number]) Hip Goniometric Range of Motion Hip Right Active Testing Position Supine Flexion w/Knee Flexed 121 Straight Leg Raise 102 Abduction 26 Internal Rotation 34 External Rotation 40 Left Active Flexion w/Knee Flexed 123 Straight Leg Raise 94 Abduction 34 External Rotation 41 PT-OP-L Special Tests Start: 11/25/22 11:32 Freq: Status: Active Protocol: Document 11/25/22 09:45 DCW (Rec: 11/25/22 11:46 DCW [id number]) Special Tests Hip Special Tests Straight Leg Raise Test Results Negative Scour Test Test Results Negative MARVIN Test Results Negative Hannah's Test Test Results Positive R Anterior Labral Test Test Results Negative PT-OP-M Strength Start: 11/25/22 11:32 Freq: Status: Active Protocol: Document 11/25/22 09:45 DCW (Rec: 11/25/22 11:46 DCW [id number]) Hip Strength Hip Manual Muscle Testing Right Flexion (L2) 4- Good- Abduction 4 Good Adduction 4- Good- External Rotation 3+ Fair+ Internal Rotation 4- Good- Left Flexion (L2) 4+ Good+ Abduction 4+ Good+ Adduction 4+ Good+ External Rotation 4+ Good+ Internal Rotation 4+ Good+ Knee Strength Knee Manual Muscle Testing Right Flexion (S2) 4+ Good+ Extension (L3) 4+ Good+ Left Flexion (S2) 5 Normal Extension (L3) 5 Normal PT-OP-O Vestibular Start: 11/25/22 11:32 Freq: Status: Active Protocol: Document 11/25/22 09:45 DCW (Rec: 11/25/22 11:46 DCW [id number]) Vestibular Assessment Auditory Tests Gómez Test Within normal limits Rinne Test Negative Air Conduction Results Equal Visual Testing Smooth Pursuits Horizontal WNL Smooth Pursuits Vertical WNL Saccades Horizontal WNL Saccades Vertical WNL Heave Test Negative Thrust Head Negative DVA (Line Degradation) 2 Spontaneous Nystagmus Negative Positional Testing Tapan-Hallpike Negative Left,Negative Right Rolling Test Negative Left,Negative Right PT-OP-Q Treatments Start: 11/25/22 11:32 Freq: Status: Active Protocol: Document 02/08/23 13:48 DCW (Rec: 02/08/23 14:30 DCW [id number]) Cardio Equipment Recumbent Elliptical ([employer]) Duration (Minutes) 6 Resistance 6 Seat Position 9 Gym Equipment Shuttle Recovery Bilateral Squats Resistance 87# (Three new) Shuttle Recovery Platform Stable Reps/Time 2x20 Shuttle Balance Red Details WBOS, Staggered Manual Therapy Treatment Soft Tissue Mobilization Lumbar Body Location R lumbar paraspinals, piriformis Mobilization Type Sustained Pressure,Trigger Point Release Intensity/Depth Moderate Body Position Sidelying Hip Flexors Body Location R Hip Flexors Mobilization Type Sustained Pressure,Trigger Point Release Intensity/Depth Moderate Body Position Hooklying PT-OP-T Assessment and Plan Start: 11/25/22 11:32 Freq: Status: Active Protocol: Document 02/08/23 13:48 DCW (Rec: 02/08/23 14:30 DCW [id number]) Physical Therapy Assessment Impairments Impairments Activity Tolerance,Balance, Functional Activities, Functional Mobility,ROM,Soft Tissue Mobility,Strength,Tone Goals Two Impairment Right hip weakness (4-/5 with flexion, adduction, and ER/IR) Ham Clerk Goal (LTG) Pt to increase MMT of right hip to at least 4/5 in all tested planes in order to allow pt to lift right foot into vehicle without assistance LTG Duration 03/26/23 One Impairment Pt does not have an appropriate home exercise program Short Term Goal (STG) Pt to be independent and compliant with an appropriate HEP STG Duration Met Assessment Summary Assessment Pt arrived today with improved gait, significantly less decline in function between last visit and today than usual, even with an extended break due to the holiday. Physical Therapy Plan Frequency and Duration Frequency of Treatment 2x/Week Plan of Care Start Date 01/24/23 Plan of Care End Date 03/26/23 Therapeutic Interventions Therapeutic Interventions Balance Training,Gait Training ,Home Exercise Program,Joint Mobilizations,Manual Therapy, Patient/Caregiver Education, Self-Care/Home Management,Soft Tissue Mobilization, Therapeutic Activities, Therapeutic Exercises Modalities Cold Pack/Ice Massage,Hot Packs,Ultrasound Next Visit Focus/Plan Next Note Type Treatment Note Next Visit Plan Complete hip assessment, LE strengthening, flexibility
--- NOTE | 2023-02-10 12:00 | PT.OTN ---
Current Diagnoses Pain in right hip (02/10/23) Dizziness and giddiness (02/10/23) History of falling (02/10/23) Presence of right artificial hip joint (02/10/23) Physical Therapy Treatment Note PT-OP-A Visit Information Start: 11/25/22 11:32 Freq: Status: Active Protocol: Document 02/10/23 11:15 DCW (Rec: 02/10/23 12:00 DCW [id number]) Out-Patient Physical Therapy Visit Information Visit Information Visit Type Treatment Note Visit Start Time 11:15 Visit Stop Time 12:00 Total Visit Minutes 45 Visit Number 16 Number of MIGRATION AGENT Visits 0 Evaluation Information Evaluation Date 11/25/22 PT-OP-B Current Condition Start: 11/25/22 11:32 Freq: Status: Active Protocol: Document 11/25/22 09:45 DCW (Rec: 11/25/22 11:46 DCW [id number]) Current Condition History of Current Condition Onset Date Two months s/p fall Current Complaints Prior dizziness, hip pain, LE weakness History of Current Condition Pt is a 77 year old female presenting two months s/p fall , which resulted in a rib fracture. At the time of her fall, pt was scheduled for a PT evaluation for her R hip pain/weakness, however this got delayed due to the sudden change in medical status following her fall. Pt ready to begin hip PT, however also referred for a vestibular assessment to determine if pt' s fall, which she noted was due to dizziness, was caused by an vestibular dysfunction. Pt does have a history complicated by a history of both pelvic and breast cancer, although currently just in observation phase of treatment , no recent radiation or chemo . Pt notes that after her fall , she stopped taking one of her medications (Letrazole), which had dizziness as a side- effect, and has largely not any any further symptoms. Despite this, she is still interested in a vestibular assessment to ensure no other underlying cause for her dizziness. In addition, pt also referred again for her hip pain. Pt has history of R MARI, hip is still feeling weak and sore, feels it limits her mobility and would like to be able to lift it up into her vehicle without assistance. PT-OP-C Subjective Start: 11/25/22 11:32 Freq: Status: Active Protocol: Document 02/10/23 11:15 DCW (Rec: 02/10/23 12:00 DCW [id number]) OP-PT Subjective Patient Comments Patient Comments Actually I'm pretty good today. PT-OP-E Functional Tests Start: 11/25/22 11:32 Freq: Status: Active Protocol: Document 01/24/23 11:18 DCW (Rec: 01/24/23 11:38 DCW [id number]) Functional Tests 6 Minute Walk Test Distance 1047 Device Used none Comments 2.90 ft/sec 30 Second Sit to Stand Test Score x9 repetitions Comments used hands PT-OP-F Manual Assessment Start: 11/25/22 11:32 Freq: Status: Active Protocol: Document 01/24/23 11:18 DCW (Rec: 01/24/23 11:38 DCW [id number]) Manual Assessments Soft Tissue Assessment Soft Tissue Mobility Assessment Anterior hip pain/tightness through hip flexors and quads PT-OP-K Range of Motion Start: 11/25/22 11:32 Freq: Status: Active Protocol: Document 01/24/23 11:18 DCW (Rec: 01/24/23 11:38 DCW [id number]) Hip Goniometric Range of Motion Hip Right Active Testing Position Supine Flexion w/Knee Flexed 121 Straight Leg Raise 102 Abduction 26 Internal Rotation 34 External Rotation 40 Left Active Flexion w/Knee Flexed 123 Straight Leg Raise 94 Abduction 34 External Rotation 41 PT-OP-L Special Tests Start: 11/25/22 11:32 Freq: Status: Active Protocol: Document 11/25/22 09:45 DCW (Rec: 11/25/22 11:46 DCW [id number]) Special Tests Hip Special Tests Straight Leg Raise Test Results Negative Scour Test Test Results Negative MARVIN Test Results Negative Hannah's Test Test Results Positive R Anterior Labral Test Test Results Negative PT-OP-M Strength Start: 11/25/22 11:32 Freq: Status: Active Protocol: Document 11/25/22 09:45 DCW (Rec: 11/25/22 11:46 DCW [id number]) Hip Strength Hip Manual Muscle Testing Right Flexion (L2) 4- Good- Abduction 4 Good Adduction 4- Good- External Rotation 3+ Fair+ Internal Rotation 4- Good- Left Flexion (L2) 4+ Good+ Abduction 4+ Good+ Adduction 4+ Good+ External Rotation 4+ Good+ Internal Rotation 4+ Good+ Knee Strength Knee Manual Muscle Testing Right Flexion (S2) 4+ Good+ Extension (L3) 4+ Good+ Left Flexion (S2) 5 Normal Extension (L3) 5 Normal PT-OP-O Vestibular Start: 11/25/22 11:32 Freq: Status: Active Protocol: Document 11/25/22 09:45 DCW (Rec: 11/25/22 11:46 DCW [id number]) Vestibular Assessment Auditory Tests Gómez Test Within normal limits Rinne Test Negative Air Conduction Results Equal Visual Testing Smooth Pursuits Horizontal WNL Smooth Pursuits Vertical WNL Saccades Horizontal WNL Saccades Vertical WNL Heave Test Negative Thrust Head Negative DVA (Line Degradation) 2 Spontaneous Nystagmus Negative Positional Testing Tapan-Hallpike Negative Left,Negative Right Rolling Test Negative Left,Negative Right PT-OP-Q Treatments Start: 11/25/22 11:32 Freq: Status: Active Protocol: Document 02/10/23 11:15 DCW (Rec: 02/10/23 12:00 DCW [id number]) Cardio Equipment Recumbent Elliptical ([employer]) Duration (Minutes) 6 Resistance 6 Seat Position 9 Gym Equipment Shuttle Recovery Bilateral Squats Resistance 87# (Three new) Shuttle Recovery Platform Stable Reps/Time 2x20 Shuttle Balance Red Details WBOS, Staggered Therapeutic Ball Pelvic tilts Exercise Details Pelvic tilts/circles Ball Size/Color Green - 65 cm Body Position Sitting Manual Therapy Treatment Soft Tissue Mobilization Lumbar Body Location R lumbar paraspinals, piriformis Mobilization Type Sustained Pressure,Trigger Point Release Intensity/Depth Moderate Body Position Sidelying Hip Flexors Body Location R Hip Flexors Mobilization Type Sustained Pressure,Trigger Point Release Intensity/Depth Moderate Body Position Hooklying PT-OP-T Assessment and Plan Start: 11/25/22 11:32 Freq: Status: Active Protocol: Document 02/10/23 11:15 DCW (Rec: 02/10/23 12:00 DCW [id number]) Physical Therapy Assessment Impairments Impairments Activity Tolerance,Balance, Functional Activities, Functional Mobility,ROM,Soft Tissue Mobility,Strength,Tone Goals Two Impairment Right hip weakness (4-/5 with flexion, adduction, and ER/IR) Business Project Manager Goal (LTG) Pt to increase MMT of right hip to at least 4/5 in all tested planes in order to allow pt to lift right foot into vehicle without assistance LTG Duration 03/26/23 One Impairment Pt does not have an appropriate home exercise program Short Term Goal (STG) Pt to be independent and compliant with an appropriate HEP STG Duration Met Assessment Summary Assessment Continues to demonstrate overall improvement in both pain levels and functional gait. Good response to treatment today, continue to focus on transitioning to independent HEP, especially with stretching exercises. Physical Therapy Plan Frequency and Duration Frequency of Treatment 2x/Week Plan of Care Start Date 01/24/23 Plan of Care End Date 03/26/23 Therapeutic Interventions Therapeutic Interventions Balance Training,Gait Training ,Home Exercise Program,Joint Mobilizations,Manual Therapy, Patient/Caregiver Education, Self-Care/Home Management,Soft Tissue Mobilization, Therapeutic Activities, Therapeutic Exercises Modalities Cold Pack/Ice Massage,Hot Packs,Ultrasound Next Visit Focus/Plan Next Note Type Treatment Note Next Visit Plan Complete hip assessment, LE strengthening, flexibility
--- NOTE | 2023-02-14 16:45 | PT.OTN ---
Current Diagnoses Pain in right hip (02/14/23) Dizziness and giddiness (02/14/23) History of falling (02/14/23) Presence of right artificial hip joint (02/14/23) Physical Therapy Treatment Note PT-OP-A Visit Information Start: 11/25/22 11:32 Freq: Status: Active Protocol: Document 02/14/23 16:00 DCW (Rec: 02/14/23 16:45 DCW [id number]) Out-Patient Physical Therapy Visit Information Visit Information Visit Type Treatment Note Visit Start Time 16:00 Visit Stop Time 16:45 Total Visit Minutes 45 Visit Number 17 Number of TIME BUYER Visits 0 Evaluation Information Evaluation Date 11/25/22 PT-OP-B Current Condition Start: 11/25/22 11:32 Freq: Status: Active Protocol: Document 11/25/22 09:45 DCW (Rec: 11/25/22 11:46 DCW [id number]) Current Condition History of Current Condition Onset Date Two months s/p fall Current Complaints Prior dizziness, hip pain, LE weakness History of Current Condition Pt is a 77 year old female presenting two months s/p fall , which resulted in a rib fracture. At the time of her fall, pt was scheduled for a PT evaluation for her R hip pain/weakness, however this got delayed due to the sudden change in medical status following her fall. Pt ready to begin hip PT, however also referred for a vestibular assessment to determine if pt' s fall, which she noted was due to dizziness, was caused by an vestibular dysfunction. Pt does have a history complicated by a history of both pelvic and breast cancer, although currently just in observation phase of treatment , no recent radiation or chemo . Pt notes that after her fall , she stopped taking one of her medications (Letrazole), which had dizziness as a side- effect, and has largely not any any further symptoms. Despite this, she is still interested in a vestibular assessment to ensure no other underlying cause for her dizziness. In addition, pt also referred again for her hip pain. Pt has history of R MARI, hip is still feeling weak and sore, feels it limits her mobility and would like to be able to lift it up into her vehicle without assistance. PT-OP-C Subjective Start: 11/25/22 11:32 Freq: Status: Active Protocol: Document 02/14/23 16:00 DCW (Rec: 02/14/23 16:45 DCW [id number]) OP-PT Subjective Patient Comments Patient Comments For about two days after I was here last, I was feeling good, barely limping, if at all, and I was really thinking maybe it was finally gone, but I'm back to sore and limping today. PT-OP-E Functional Tests Start: 11/25/22 11:32 Freq: Status: Active Protocol: Document 01/24/23 11:18 DCW (Rec: 01/24/23 11:38 DCW [id number]) Functional Tests 6 Minute Walk Test Distance 1047 Device Used none Comments 2.90 ft/sec 30 Second Sit to Stand Test Score x9 repetitions Comments used hands PT-OP-F Manual Assessment Start: 11/25/22 11:32 Freq: Status: Active Protocol: Document 01/24/23 11:18 DCW (Rec: 01/24/23 11:38 DCW [id number]) Manual Assessments Soft Tissue Assessment Soft Tissue Mobility Assessment Anterior hip pain/tightness through hip flexors and quads PT-OP-K Range of Motion Start: 11/25/22 11:32 Freq: Status: Active Protocol: Document 01/24/23 11:18 DCW (Rec: 01/24/23 11:38 DCW [id number]) Hip Goniometric Range of Motion Hip Right Active Testing Position Supine Flexion w/Knee Flexed 121 Straight Leg Raise 102 Abduction 26 Internal Rotation 34 External Rotation 40 Left Active Flexion w/Knee Flexed 123 Straight Leg Raise 94 Abduction 34 External Rotation 41 PT-OP-L Special Tests Start: 11/25/22 11:32 Freq: Status: Active Protocol: Document 11/25/22 09:45 DCW (Rec: 11/25/22 11:46 DCW [id number]) Special Tests Hip Special Tests Straight Leg Raise Test Results Negative Scour Test Test Results Negative MARVIN Test Results Negative Hannah's Test Test Results Positive R Anterior Labral Test Test Results Negative PT-OP-M Strength Start: 11/25/22 11:32 Freq: Status: Active Protocol: Document 11/25/22 09:45 DCW (Rec: 11/25/22 11:46 DCW [id number]) Hip Strength Hip Manual Muscle Testing Right Flexion (L2) 4- Good- Abduction 4 Good Adduction 4- Good- External Rotation 3+ Fair+ Internal Rotation 4- Good- Left Flexion (L2) 4+ Good+ Abduction 4+ Good+ Adduction 4+ Good+ External Rotation 4+ Good+ Internal Rotation 4+ Good+ Knee Strength Knee Manual Muscle Testing Right Flexion (S2) 4+ Good+ Extension (L3) 4+ Good+ Left Flexion (S2) 5 Normal Extension (L3) 5 Normal PT-OP-O Vestibular Start: 11/25/22 11:32 Freq: Status: Active Protocol: Document 11/25/22 09:45 DCW (Rec: 11/25/22 11:46 DCW [id number]) Vestibular Assessment Auditory Tests Gómez Test Within normal limits Rinne Test Negative Air Conduction Results Equal Visual Testing Smooth Pursuits Horizontal WNL Smooth Pursuits Vertical WNL Saccades Horizontal WNL Saccades Vertical WNL Heave Test Negative Thrust Head Negative DVA (Line Degradation) 2 Spontaneous Nystagmus Negative Positional Testing Tapan-Hallpike Negative Left,Negative Right Rolling Test Negative Left,Negative Right PT-OP-Q Treatments Start: 11/25/22 11:32 Freq: Status: Active Protocol: Document 02/14/23 16:00 DCW (Rec: 02/14/23 16:45 DCW [id number]) Cardio Equipment Recumbent Elliptical ([employer]) Duration (Minutes) 8 Resistance 6 Seat Position 9 Gym Equipment Shuttle Recovery Bilateral Squats Resistance 87# (Three new) Shuttle Recovery Platform Stable Reps/Time 2x20 Shuttle Balance Red Details WBOS, Staggered Manual Therapy Treatment Soft Tissue Mobilization Lumbar Body Location R lumbar paraspinals, piriformis Mobilization Type Sustained Pressure,Trigger Point Release Intensity/Depth Moderate Body Position Sidelying Hip Flexors Body Location R Hip Flexors Mobilization Type Sustained Pressure,Trigger Point Release Intensity/Depth Moderate Body Position Hooklying PT-OP-T Assessment and Plan Start: 11/25/22 11:32 Freq: Status: Active Protocol: Document 02/14/23 16:00 DCW (Rec: 02/14/23 16:45 DCW [id number]) Physical Therapy Assessment Impairments Impairments Activity Tolerance,Balance, Functional Activities, Functional Mobility,ROM,Soft Tissue Mobility,Strength,Tone Goals Two Impairment Right hip weakness (4-/5 with flexion, adduction, and ER/IR) Mcfp Goal (LTG) Pt to increase MMT of right hip to at least 4/5 in all tested planes in order to allow pt to lift right foot into vehicle without assistance LTG Duration 03/26/23 One Impairment Pt does not have an appropriate home exercise program Short Term Goal (STG) Pt to be independent and compliant with an appropriate HEP STG Duration Met Assessment Summary Assessment Pt ambulating better once again at end of session, discussed importance of continuing to stretch and strengthening at home. Physical Therapy Plan Frequency and Duration Frequency of Treatment 2x/Week Plan of Care Start Date 01/24/23 Plan of Care End Date 03/26/23 Therapeutic Interventions Therapeutic Interventions Balance Training,Gait Training ,Home Exercise Program,Joint Mobilizations,Manual Therapy, Patient/Caregiver Education, Self-Care/Home Management,Soft Tissue Mobilization, Therapeutic Activities, Therapeutic Exercises Modalities Cold Pack/Ice Massage,Hot Packs,Ultrasound Next Visit Focus/Plan Next Note Type Treatment Note Next Visit Plan Complete hip assessment, LE strengthening, flexibility
--- NOTE | 2023-02-16 15:57 | PT.OTN ---
Current Diagnoses Pain in right hip (02/16/23) Dizziness and giddiness (02/16/23) History of falling (02/16/23) Presence of right artificial hip joint (02/16/23) Physical Therapy Treatment Note PT-OP-A Visit Information Start: 11/25/22 11:32 Freq: Status: Active Protocol: Document 02/16/23 15:15 DCW (Rec: 02/16/23 15:56 DCW [id number]) Out-Patient Physical Therapy Visit Information Visit Information Visit Type Treatment Note Visit Start Time 15:15 Visit Stop Time 16:00 Total Visit Minutes 45 Visit Number 18 Number of DEPUTY GENERAL COUNSEL Visits 0 Evaluation Information Evaluation Date 11/25/22 PT-OP-B Current Condition Start: 11/25/22 11:32 Freq: Status: Active Protocol: Document 11/25/22 09:45 DCW (Rec: 11/25/22 11:46 DCW [id number]) Current Condition History of Current Condition Onset Date Two months s/p fall Current Complaints Prior dizziness, hip pain, LE weakness History of Current Condition Pt is a 77 year old female presenting two months s/p fall , which resulted in a rib fracture. At the time of her fall, pt was scheduled for a PT evaluation for her R hip pain/weakness, however this got delayed due to the sudden change in medical status following her fall. Pt ready to begin hip PT, however also referred for a vestibular assessment to determine if pt' s fall, which she noted was due to dizziness, was caused by an vestibular dysfunction. Pt does have a history complicated by a history of both pelvic and breast cancer, although currently just in observation phase of treatment , no recent radiation or chemo . Pt notes that after her fall , she stopped taking one of her medications (Letrazole), which had dizziness as a side- effect, and has largely not any any further symptoms. Despite this, she is still interested in a vestibular assessment to ensure no other underlying cause for her dizziness. In addition, pt also referred again for her hip pain. Pt has history of R MARI, hip is still feeling weak and sore, feels it limits her mobility and would like to be able to lift it up into her vehicle without assistance. PT-OP-C Subjective Start: 11/25/22 11:32 Freq: Status: Active Protocol: Document 02/16/23 15:15 DCW (Rec: 02/16/23 15:56 DCW [id number]) OP-PT Subjective Patient Comments Patient Comments Pt feeling quite stressed after buying a car yesterday. PT-OP-E Functional Tests Start: 11/25/22 11:32 Freq: Status: Active Protocol: Document 01/24/23 11:18 DCW (Rec: 01/24/23 11:38 DCW [id number]) Functional Tests 6 Minute Walk Test Distance 1047 Device Used none Comments 2.90 ft/sec 30 Second Sit to Stand Test Score x9 repetitions Comments used hands PT-OP-F Manual Assessment Start: 11/25/22 11:32 Freq: Status: Active Protocol: Document 01/24/23 11:18 DCW (Rec: 01/24/23 11:38 DCW [id number]) Manual Assessments Soft Tissue Assessment Soft Tissue Mobility Assessment Anterior hip pain/tightness through hip flexors and quads PT-OP-K Range of Motion Start: 11/25/22 11:32 Freq: Status: Active Protocol: Document 01/24/23 11:18 DCW (Rec: 01/24/23 11:38 DCW [id number]) Hip Goniometric Range of Motion Hip Right Active Testing Position Supine Flexion w/Knee Flexed 121 Straight Leg Raise 102 Abduction 26 Internal Rotation 34 External Rotation 40 Left Active Flexion w/Knee Flexed 123 Straight Leg Raise 94 Abduction 34 External Rotation 41 PT-OP-L Special Tests Start: 11/25/22 11:32 Freq: Status: Active Protocol: Document 11/25/22 09:45 DCW (Rec: 11/25/22 11:46 DCW [id number]) Special Tests Hip Special Tests Straight Leg Raise Test Results Negative Scour Test Test Results Negative MARVIN Test Results Negative Hannah's Test Test Results Positive R Anterior Labral Test Test Results Negative PT-OP-M Strength Start: 11/25/22 11:32 Freq: Status: Active Protocol: Document 11/25/22 09:45 DCW (Rec: 11/25/22 11:46 DCW [id number]) Hip Strength Hip Manual Muscle Testing Right Flexion (L2) 4- Good- Abduction 4 Good Adduction 4- Good- External Rotation 3+ Fair+ Internal Rotation 4- Good- Left Flexion (L2) 4+ Good+ Abduction 4+ Good+ Adduction 4+ Good+ External Rotation 4+ Good+ Internal Rotation 4+ Good+ Knee Strength Knee Manual Muscle Testing Right Flexion (S2) 4+ Good+ Extension (L3) 4+ Good+ Left Flexion (S2) 5 Normal Extension (L3) 5 Normal PT-OP-O Vestibular Start: 11/25/22 11:32 Freq: Status: Active Protocol: Document 11/25/22 09:45 DCW (Rec: 11/25/22 11:46 DCW [id number]) Vestibular Assessment Auditory Tests Gómez Test Within normal limits Rinne Test Negative Air Conduction Results Equal Visual Testing Smooth Pursuits Horizontal WNL Smooth Pursuits Vertical WNL Saccades Horizontal WNL Saccades Vertical WNL Heave Test Negative Thrust Head Negative DVA (Line Degradation) 2 Spontaneous Nystagmus Negative Positional Testing Tapan-Hallpike Negative Left,Negative Right Rolling Test Negative Left,Negative Right PT-OP-Q Treatments Start: 11/25/22 11:32 Freq: Status: Active Protocol: Document 02/16/23 15:15 DCW (Rec: 02/16/23 15:56 DCW [id number]) Cardio Equipment Recumbent Elliptical ([employer] Duration (Minutes) 8 Resistance 6 Seat Position 9 Gym Equipment Shuttle Balance Red Details WBOS, Staggered Therapeutic Ball Pelvic tilts Exercise Details Pelvic tilts/circles Ball Size/Color Green - 65 cm Body Position Sitting Manual Therapy Treatment Soft Tissue Mobilization Lumbar Body Location R lumbar paraspinals, piriformis Mobilization Type Sustained Pressure,Trigger Point Release Intensity/Depth Moderate Body Position Sidelying Hip Flexors Body Location R Hip Flexors Mobilization Type Sustained Pressure,Trigger Point Release Intensity/Depth Moderate Body Position Hooklying PT-OP-T Assessment and Plan Start: 11/25/22 11:32 Freq: Status: Active Protocol: Document 02/16/23 15:15 DCW (Rec: 02/16/23 15:56 DCW [id number]) Physical Therapy Assessment Impairments Impairments Activity Tolerance,Balance, Functional Activities, Functional Mobility,ROM,Soft Tissue Mobility,Strength,Tone Goals Two Impairment Right hip weakness (4-/5 with flexion, adduction, and ER/IR) Production Analyst Goal (LTG) Pt to increase MMT of right hip to at least 4/5 in all tested planes in order to allow pt to lift right foot into vehicle without assistance LTG Duration 03/26/23 One Impairment Pt does not have an appropriate home exercise program Short Term Goal (STG) Pt to be independent and compliant with an appropriate HEP STG Duration Met Assessment Summary Assessment Pt doing better at start of session today, recently demonstrating more sustained benefit from each PT session. Physical Therapy Plan Frequency and Duration Frequency of Treatment 2x/Week Plan of Care Start Date 01/24/23 Plan of Care End Date 03/26/23 Therapeutic Interventions Therapeutic Interventions Balance Training,Gait Training ,Home Exercise Program,Joint Mobilizations,Manual Therapy, Patient/Caregiver Education, Self-Care/Home Management,Soft Tissue Mobilization, Therapeutic Activities, Therapeutic Exercises Modalities Cold Pack/Ice Massage,Hot Packs,Ultrasound Next Visit Focus/Plan Next Note Type Treatment Note Next Visit Plan Complete hip assessment, LE strengthening, flexibility
--- NOTE | 2023-02-21 16:01 | PT.OTN ---
Current Diagnoses Pain in right hip (02/21/23) Dizziness and giddiness (02/21/23) History of falling (02/21/23) Presence of right artificial hip joint (02/21/23) Physical Therapy Treatment Note PT-OP-A Visit Information Start: 11/25/22 11:32 Freq: Status: Active Protocol: Document 02/21/23 15:15 DCW (Rec: 02/21/23 16:01 DCW [id number]) Out-Patient Physical Therapy Visit Information Visit Information Visit Type Treatment Note Visit Start Time 15:15 Visit Stop Time 16:00 Total Visit Minutes 45 Visit Number 19 Number of CAR BLOCKER Visits 0 Evaluation Information Evaluation Date 11/25/22 PT-OP-B Current Condition Start: 11/25/22 11:32 Freq: Status: Active Protocol: Document 11/25/22 09:45 DCW (Rec: 11/25/22 11:46 DCW [id number]) Current Condition History of Current Condition Onset Date Two months s/p fall Current Complaints Prior dizziness, hip pain, LE weakness History of Current Condition Pt is a 77 year old female presenting two months s/p fall , which resulted in a rib fracture. At the time of her fall, pt was scheduled for a PT evaluation for her R hip pain/weakness, however this got delayed due to the sudden change in medical status following her fall. Pt ready to begin hip PT, however also referred for a vestibular assessment to determine if pt' s fall, which she noted was due to dizziness, was caused by an vestibular dysfunction. Pt does have a history complicated by a history of both pelvic and breast cancer, although currently just in observation phase of treatment , no recent radiation or chemo . Pt notes that after her fall , she stopped taking one of her medications (Letrazole), which had dizziness as a side- effect, and has largely not any any further symptoms. Despite this, she is still interested in a vestibular assessment to ensure no other underlying cause for her dizziness. In addition, pt also referred again for her hip pain. Pt has history of R MARI, hip is still feeling weak and sore, feels it limits her mobility and would like to be able to lift it up into her vehicle without assistance. PT-OP-C Subjective Start: 11/25/22 11:32 Freq: Status: Active Protocol: Document 02/21/23 15:15 DCW (Rec: 02/21/23 16:01 DCW [id number]) OP-PT Subjective Patient Comments Patient Comments Pt doing fairly well today. PT-OP-E Functional Tests Start: 11/25/22 11:32 Freq: Status: Active Protocol: Document 01/24/23 11:18 DCW (Rec: 01/24/23 11:38 DCW [id number]) Functional Tests 6 Minute Walk Test Distance 1047 Device Used none Comments 2.90 ft/sec 30 Second Sit to Stand Test Score x9 repetitions Comments used hands PT-OP-F Manual Assessment Start: 11/25/22 11:32 Freq: Status: Active Protocol: Document 01/24/23 11:18 DCW (Rec: 01/24/23 11:38 DCW [id number]) Manual Assessments Soft Tissue Assessment Soft Tissue Mobility Assessment Anterior hip pain/tightness through hip flexors and quads PT-OP-K Range of Motion Start: 11/25/22 11:32 Freq: Status: Active Protocol: Document 01/24/23 11:18 DCW (Rec: 01/24/23 11:38 DCW [id number]) Hip Goniometric Range of Motion Hip Right Active Testing Position Supine Flexion w/Knee Flexed 121 Straight Leg Raise 102 Abduction 26 Internal Rotation 34 External Rotation 40 Left Active Flexion w/Knee Flexed 123 Straight Leg Raise 94 Abduction 34 External Rotation 41 PT-OP-L Special Tests Start: 11/25/22 11:32 Freq: Status: Active Protocol: Document 11/25/22 09:45 DCW (Rec: 11/25/22 11:46 DCW [id number]) Special Tests Hip Special Tests Straight Leg Raise Test Results Negative Scour Test Test Results Negative MARVIN Test Results Negative Hannah's Test Test Results Positive R Anterior Labral Test Test Results Negative PT-OP-M Strength Start: 11/25/22 11:32 Freq: Status: Active Protocol: Document 11/25/22 09:45 DCW (Rec: 11/25/22 11:46 DCW [id number]) Hip Strength Hip Manual Muscle Testing Right Flexion (L2) 4- Good- Abduction 4 Good Adduction 4- Good- External Rotation 3+ Fair+ Internal Rotation 4- Good- Left Flexion (L2) 4+ Good+ Abduction 4+ Good+ Adduction 4+ Good+ External Rotation 4+ Good+ Internal Rotation 4+ Good+ Knee Strength Knee Manual Muscle Testing Right Flexion (S2) 4+ Good+ Extension (L3) 4+ Good+ Left Flexion (S2) 5 Normal Extension (L3) 5 Normal PT-OP-O Vestibular Start: 11/25/22 11:32 Freq: Status: Active Protocol: Document 11/25/22 09:45 DCW (Rec: 11/25/22 11:46 DCW [id number]) Vestibular Assessment Auditory Tests Gómez Test Within normal limits Rinne Test Negative Air Conduction Results Equal Visual Testing Smooth Pursuits Horizontal WNL Smooth Pursuits Vertical WNL Saccades Horizontal WNL Saccades Vertical WNL Heave Test Negative Thrust Head Negative DVA (Line Degradation) 2 Spontaneous Nystagmus Negative Positional Testing [place]-Hallpike Negative Left,Negative Right Rolling Test Negative Left,Negative Right PT-OP-Q Treatments Start: 11/25/22 11:32 Freq: Status: Active Protocol: Document 02/21/23 15:15 DCW (Rec: 02/21/23 16:01 DCW [id number]) Cardio Equipment Recumbent Elliptical (Orckestra) Duration (Minutes) 8 Resistance 6 Seat Position 9 Gym Equipment Shuttle Recovery Bilateral Squats Resistance 87# (Three new) Shuttle Recovery Platform Stable Reps/Time 2x20 Shuttle Balance Red Details WBOS (EO/EC), Staggered, Lateral weight shift Manual Therapy Treatment Soft Tissue Mobilization Lumbar Body Location R lumbar paraspinals, piriformis Mobilization Type Sustained Pressure,Trigger Point Release Intensity/Depth Moderate Body Position Sidelying Hip Flexors Body Location R Hip Flexors Mobilization Type Sustained Pressure,Trigger Point Release Intensity/Depth Moderate Body Position Hooklying PT-OP-T Assessment and Plan Start: 11/25/22 11:32 Freq: Status: Active Protocol: Document 02/21/23 15:15 DCW (Rec: 02/21/23 16:01 DCW [id number]) Physical Therapy Assessment Impairments Impairments Activity Tolerance,Balance, Functional Activities, Functional Mobility,ROM,Soft Tissue Mobility,Strength,Tone Goals Two Impairment Right hip weakness (4-/5 with flexion, adduction, and ER/IR) Meteorological Engineer Goal (LTG) Pt to increase MMT of right hip to at least 4/5 in all tested planes in order to allow pt to lift right foot into vehicle without assistance LTG Duration 03/26/23 One Impairment Pt does not have an appropriate home exercise program Short Term Goal (STG) Pt to be independent and compliant with an appropriate HEP STG Duration Met Assessment Summary Assessment Pt felt better with most activities today, did well with Shuttle Balance. May be beneficial to increased leg press resistance. Physical Therapy Plan Frequency and Duration Frequency of Treatment 2x/Week Plan of Care Start Date 01/24/23 Plan of Care End Date 03/26/23 Therapeutic Interventions Therapeutic Interventions Balance Training,Gait Training ,Home Exercise Program,Joint Mobilizations,Manual Therapy, Patient/Caregiver Education, Self-Care/Home Management,Soft Tissue Mobilization, Therapeutic Activities, Therapeutic Exercises Modalities Cold Pack/Ice Massage,Hot Packs,Ultrasound Next Visit Focus/Plan Next Note Type Treatment Note Next Visit Plan Complete hip assessment, LE strengthening, flexibility
--- NOTE | 2023-02-23 16:50 | PT.OTN ---
Current Diagnoses Pain in right hip (02/23/23) Dizziness and giddiness (02/23/23) History of falling (02/23/23) Presence of right artificial hip joint (02/23/23) Physical Therapy Treatment Note PT-OP-A Visit Information Start: 11/25/22 11:32 Freq: Status: Active Protocol: Document 02/23/23 16:08 DCW (Rec: 02/23/23 16:50 DCW [id number]) Out-Patient Physical Therapy Visit Information Visit Information Visit Type Treatment Note Visit Start Time 16:08 Visit Stop Time 16:50 Total Visit Minutes 42 Visit Number 20 Number of ORCHESTRA TEACHER Visits 0 Evaluation Information Evaluation Date 11/25/22 PT-OP-B Current Condition Start: 11/25/22 11:32 Freq: Status: Active Protocol: Document 11/25/22 09:45 DCW (Rec: 11/25/22 11:46 DCW [id number]) Current Condition History of Current Condition Onset Date Two months s/p fall Current Complaints Prior dizziness, hip pain, LE weakness History of Current Condition Pt is a 77 year old female presenting two months s/p fall , which resulted in a rib fracture. At the time of her fall, pt was scheduled for a PT evaluation for her R hip pain/weakness, however this got delayed due to the sudden change in medical status following her fall. Pt ready to begin hip PT, however also referred for a vestibular assessment to determine if pt' s fall, which she noted was due to dizziness, was caused by an vestibular dysfunction. Pt does have a history complicated by a history of both pelvic and breast cancer, although currently just in observation phase of treatment , no recent radiation or chemo . Pt notes that after her fall , she stopped taking one of her medications (Letrazole), which had dizziness as a side- effect, and has largely not any any further symptoms. Despite this, she is still interested in a vestibular assessment to ensure no other underlying cause for her dizziness. In addition, pt also referred again for her hip pain. Pt has history of R MARI, hip is still feeling weak and sore, feels it limits her mobility and would like to be able to lift it up into her vehicle without assistance. PT-OP-C Subjective Start: 11/25/22 11:32 Freq: Status: Active Protocol: Document 02/23/23 16:08 DCW (Rec: 02/23/23 16:50 DCW [id number]) OP-PT Subjective Patient Comments Patient Comments I don't know, it changes so much, I never know what it's going to be like. PT-OP-E Functional Tests Start: 11/25/22 11:32 Freq: Status: Active Protocol: Document 01/24/23 11:18 DCW (Rec: 01/24/23 11:38 DCW [id number]) Functional Tests 6 Minute Walk Test Distance 1047 Device Used none Comments 2.90 ft/sec 30 Second Sit to Stand Test Score x9 repetitions Comments used hands PT-OP-F Manual Assessment Start: 11/25/22 11:32 Freq: Status: Active Protocol: Document 01/24/23 11:18 DCW (Rec: 01/24/23 11:38 DCW [id number]) Manual Assessments Soft Tissue Assessment Soft Tissue Mobility Assessment Anterior hip pain/tightness through hip flexors and quads PT-OP-K Range of Motion Start: 11/25/22 11:32 Freq: Status: Active Protocol: Document 01/24/23 11:18 DCW (Rec: 01/24/23 11:38 DCW [id number]) Hip Goniometric Range of Motion Hip Right Active Testing Position Supine Flexion w/Knee Flexed 121 Straight Leg Raise 102 Abduction 26 Internal Rotation 34 External Rotation 40 Left Active Flexion w/Knee Flexed 123 Straight Leg Raise 94 Abduction 34 External Rotation 41 PT-OP-L Special Tests Start: 11/25/22 11:32 Freq: Status: Active Protocol: Document 11/25/22 09:45 DCW (Rec: 11/25/22 11:46 DCW [id number]) Special Tests Hip Special Tests Straight Leg Raise Test Results Negative Scour Test Test Results Negative MARVIN Test Results Negative Hannah's Test Test Results Positive R Anterior Labral Test Test Results Negative PT-OP-M Strength Start: 11/25/22 11:32 Freq: Status: Active Protocol: Document 11/25/22 09:45 DCW (Rec: 11/25/22 11:46 DCW [id number]) Hip Strength Hip Manual Muscle Testing Right Flexion (L2) 4- Good- Abduction 4 Good Adduction 4- Good- External Rotation 3+ Fair+ Internal Rotation 4- Good- Left Flexion (L2) 4+ Good+ Abduction 4+ Good+ Adduction 4+ Good+ External Rotation 4+ Good+ Internal Rotation 4+ Good+ Knee Strength Knee Manual Muscle Testing Right Flexion (S2) 4+ Good+ Extension (L3) 4+ Good+ Left Flexion (S2) 5 Normal Extension (L3) 5 Normal PT-OP-O Vestibular Start: 11/25/22 11:32 Freq: Status: Active Protocol: Document 11/25/22 09:45 DCW (Rec: 11/25/22 11:46 DCW [id number]) Vestibular Assessment Auditory Tests Gómez Test Within normal limits Rinne Test Negative Air Conduction Results Equal Visual Testing Smooth Pursuits Horizontal WNL Smooth Pursuits Vertical WNL Saccades Horizontal WNL Saccades Vertical WNL Heave Test Negative Thrust Head Negative DVA (Line Degradation) 2 Spontaneous Nystagmus Negative Positional Testing [place]-Hallpike Negative Left,Negative Right Rolling Test Negative Left,Negative Right PT-OP-Q Treatments Start: 11/25/22 11:32 Freq: Status: Active Protocol: Document 02/23/23 16:08 DCW (Rec: 02/23/23 16:50 DCW [id number]) Cardio Equipment Recumbent Elliptical (Parkzzz) Duration (Minutes) 6 Resistance 6 Seat Position 9 Gym Equipment Shuttle Recovery Bilateral Squats Resistance 87# (Three new) Shuttle Recovery Platform Stable Reps/Time 2x20 Shuttle Balance Red Details WBOS (EO/EC), Staggered Therapeutic Ball Pelvic tilts Exercise Details Pelvic tilts/circles Ball Size/Color Green - 65 cm Body Position Sitting Manual Therapy Treatment Soft Tissue Mobilization Lumbar Body Location R lumbar paraspinals, piriformis Mobilization Type Sustained Pressure,Trigger Point Release Intensity/Depth Moderate Body Position Sidelying Hip Flexors Body Location R Hip Flexors Mobilization Type Sustained Pressure,Trigger Point Release Intensity/Depth Moderate Body Position Hooklying PT-OP-T Assessment and Plan Start: 11/25/22 11:32 Freq: Status: Active Protocol: Document 02/23/23 16:08 DCW (Rec: 02/23/23 16:50 DCW [id number]) Physical Therapy Assessment Impairments Impairments Activity Tolerance,Balance, Functional Activities, Functional Mobility,ROM,Soft Tissue Mobility,Strength,Tone Goals Two Impairment Right hip weakness (4-/5 with flexion, adduction, and ER/IR) Senior Care Goal (LTG) Pt to increase MMT of right hip to at least 4/5 in all tested planes in order to allow pt to lift right foot into vehicle without assistance LTG Duration 03/26/23 One Impairment Pt does not have an appropriate home exercise program Short Term Goal (STG) Pt to be independent and compliant with an appropriate HEP STG Duration Met Assessment Summary Assessment Pt continues to improve with activity tolerance and gait, but still has lingering difficulty with limping. Physical Therapy Plan Frequency and Duration Frequency of Treatment 2x/Week Plan of Care Start Date 01/24/23 Plan of Care End Date 03/26/23 Therapeutic Interventions Therapeutic Interventions Balance Training,Gait Training ,Home Exercise Program,Joint Mobilizations,Manual Therapy, Patient/Caregiver Education, Self-Care/Home Management,Soft Tissue Mobilization, Therapeutic Activities, Therapeutic Exercises Modalities Cold Pack/Ice Massage,Hot Packs,Ultrasound Next Visit Focus/Plan Next Note Type Treatment Note Next Visit Plan Complete hip assessment, LE strengthening, flexibility
--- NOTE | 2023-02-28 12:01 | PT.OTN ---
Current Diagnoses Pain in right hip (02/28/23) Dizziness and giddiness (02/28/23) History of falling (02/28/23) Presence of right artificial hip joint (02/28/23) Physical Therapy Treatment Note PT-OP-A Visit Information Start: 11/25/22 11:32 Freq: Status: Active Protocol: Document 02/28/23 11:15 DCW (Rec: 02/28/23 12:01 DCW [id number]) Out-Patient Physical Therapy Visit Information Visit Information Visit Type Treatment Note Visit Start Time 11:15 Visit Stop Time 12:00 Total Visit Minutes 45 Visit Number 21 Number of LAUNDRY SORTER Visits 0 Evaluation Information Evaluation Date 11/25/22 PT-OP-B Current Condition Start: 11/25/22 11:32 Freq: Status: Active Protocol: Document 11/25/22 09:45 DCW (Rec: 11/25/22 11:46 DCW [id number]) Current Condition History of Current Condition Onset Date Two months s/p fall Current Complaints Prior dizziness, hip pain, LE weakness History of Current Condition Pt is a 77 year old female presenting two months s/p fall , which resulted in a rib fracture. At the time of her fall, pt was scheduled for a PT evaluation for her R hip pain/weakness, however this got delayed due to the sudden change in medical status following her fall. Pt ready to begin hip PT, however also referred for a vestibular assessment to determine if pt' s fall, which she noted was due to dizziness, was caused by an vestibular dysfunction. Pt does have a history complicated by a history of both pelvic and breast cancer, although currently just in observation phase of treatment , no recent radiation or chemo . Pt notes that after her fall , she stopped taking one of her medications (Letrazole), which had dizziness as a side- effect, and has largely not any any further symptoms. Despite this, she is still interested in a vestibular assessment to ensure no other underlying cause for her dizziness. In addition, pt also referred again for her hip pain. Pt has history of R MARI, hip is still feeling weak and sore, feels it limits her mobility and would like to be able to lift it up into her vehicle without assistance. PT-OP-C Subjective Start: 11/25/22 11:32 Freq: Status: Active Protocol: Document 02/28/23 11:15 DCW (Rec: 02/28/23 12:01 DCW [id number]) OP-PT Subjective Patient Comments Patient Comments I'm not sure, I don't feel that great today. PT-OP-E Functional Tests Start: 11/25/22 11:32 Freq: Status: Active Protocol: Document 01/24/23 11:18 DCW (Rec: 01/24/23 11:38 DCW [id number]) Functional Tests 6 Minute Walk Test Distance 1047 Device Used none Comments 2.90 ft/sec 30 Second Sit to Stand Test Score x9 repetitions Comments used hands PT-OP-F Manual Assessment Start: 11/25/22 11:32 Freq: Status: Active Protocol: Document 01/24/23 11:18 DCW (Rec: 01/24/23 11:38 DCW [id number]) Manual Assessments Soft Tissue Assessment Soft Tissue Mobility Assessment Anterior hip pain/tightness through hip flexors and quads PT-OP-K Range of Motion Start: 11/25/22 11:32 Freq: Status: Active Protocol: Document 01/24/23 11:18 DCW (Rec: 01/24/23 11:38 DCW [id number]) Hip Goniometric Range of Motion Hip Right Active Testing Position Supine Flexion w/Knee Flexed 121 Straight Leg Raise 102 Abduction 26 Internal Rotation 34 External Rotation 40 Left Active Flexion w/Knee Flexed 123 Straight Leg Raise 94 Abduction 34 External Rotation 41 PT-OP-L Special Tests Start: 11/25/22 11:32 Freq: Status: Active Protocol: Document 11/25/22 09:45 DCW (Rec: 11/25/22 11:46 DCW [id number]) Special Tests Hip Special Tests Straight Leg Raise Test Results Negative Scour Test Test Results Negative MARVIN Test Results Negative Hannah's Test Test Results Positive R Anterior Labral Test Test Results Negative PT-OP-M Strength Start: 11/25/22 11:32 Freq: Status: Active Protocol: Document 11/25/22 09:45 DCW (Rec: 11/25/22 11:46 DCW [id number]) Hip Strength Hip Manual Muscle Testing Right Flexion (L2) 4- Good- Abduction 4 Good Adduction 4- Good- External Rotation 3+ Fair+ Internal Rotation 4- Good- Left Flexion (L2) 4+ Good+ Abduction 4+ Good+ Adduction 4+ Good+ External Rotation 4+ Good+ Internal Rotation 4+ Good+ Knee Strength Knee Manual Muscle Testing Right Flexion (S2) 4+ Good+ Extension (L3) 4+ Good+ Left Flexion (S2) 5 Normal Extension (L3) 5 Normal PT-OP-O Vestibular Start: 11/25/22 11:32 Freq: Status: Active Protocol: Document 11/25/22 09:45 DCW (Rec: 11/25/22 11:46 DCW [id number]) Vestibular Assessment Auditory Tests Gómez Test Within normal limits Rinne Test Negative Air Conduction Results Equal Visual Testing Smooth Pursuits Horizontal WNL Smooth Pursuits Vertical WNL Saccades Horizontal WNL Saccades Vertical WNL Heave Test Negative Thrust Head Negative DVA (Line Degradation) 2 Spontaneous Nystagmus Negative Positional Testing [place]-Hallpike Negative Left,Negative Right Rolling Test Negative Left,Negative Right PT-OP-Q Treatments Start: 11/25/22 11:32 Freq: Status: Active Protocol: Document 02/28/23 11:15 DCW (Rec: 02/28/23 12:01 DCW [id number]) Cardio Equipment Recumbent Elliptical (ClickHome) Duration (Minutes) 8 Resistance 6 Seat Position 9 Gym Equipment Shuttle Recovery Bilateral Squats Resistance 87# (Three new) Shuttle Recovery Platform Stable Reps/Time 2x20 Shuttle Balance Red Details WBOS (EO/EC), Staggered Therapeutic Exercises Standing Exercises Hip Hiking Standing Exercise Name HIp Hiking Side bilateral Equipment Used 6 step Manual Therapy Treatment Soft Tissue Mobilization Lumbar Body Location R lumbar paraspinals, piriformis Mobilization Type Sustained Pressure,Trigger Point Release Intensity/Depth Moderate Body Position Sidelying Hip Flexors Body Location R Hip Flexors Mobilization Type Sustained Pressure,Trigger Point Release Intensity/Depth Moderate Body Position Hooklying Manual Traction LE Traction Details Gentle B LE long-axis PT-OP-T Assessment and Plan Start: 11/25/22 11:32 Freq: Status: Active Protocol: Document 02/28/23 11:15 DCW (Rec: 02/28/23 12:01 DCW [id number]) Physical Therapy Assessment Impairments Impairments Activity Tolerance,Balance, Functional Activities, Functional Mobility,ROM,Soft Tissue Mobility,Strength,Tone Goals Two Impairment Right hip weakness (4-/5 with flexion, adduction, and ER/IR) Longterm Goal (LTG) Pt to increase MMT of right hip to at least 4/5 in all tested planes in order to allow pt to lift right foot into vehicle without assistance LTG Duration 03/26/23 One Impairment Pt does not have an appropriate home exercise program Short Term Goal (STG) Pt to be independent and compliant with an appropriate HEP STG Duration Met Assessment Summary Assessment Pt experiencing increased soreness following attempts at hip hiking, but improved after LE traction and STM. Continues to struggle overall with right thigh pain. May be beneficial to get further lumbar imaging. Physical Therapy Plan Frequency and Duration Frequency of Treatment 2x/Week Plan of Care Start Date 01/24/23 Plan of Care End Date 03/26/23 Therapeutic Interventions Therapeutic Interventions Balance Training,Gait Training ,Home Exercise Program,Joint Mobilizations,Manual Therapy, Patient/Caregiver Education, Self-Care/Home Management,Soft Tissue Mobilization, Therapeutic Activities, Therapeutic Exercises Modalities Cold Pack/Ice Massage,Hot Packs,Ultrasound Next Visit Focus/Plan Next Note Type Treatment Note Next Visit Plan Complete hip assessment, LE strengthening, flexibility
--- NOTE | 2023-03-02 12:41 | PT.OTN ---
Current Diagnoses Pain in right hip (03/02/23) Dizziness and giddiness (03/02/23) History of falling (03/02/23) Presence of right artificial hip joint (03/02/23) Physical Therapy Treatment Note PT-OP-A Visit Information Start: 11/25/22 11:32 Freq: Status: Active Protocol: Document 03/02/23 12:00 DCW (Rec: 03/02/23 12:41 DCW [id number]) Out-Patient Physical Therapy Visit Information Visit Information Visit Type Treatment Note Visit Start Time 12:00 Visit Stop Time 12:45 Total Visit Minutes 45 Visit Number 22 Number of NEON PUMPER Visits 0 Evaluation Information Evaluation Date 11/25/22 PT-OP-B Current Condition Start: 11/25/22 11:32 Freq: Status: Active Protocol: Document 11/25/22 09:45 DCW (Rec: 11/25/22 11:46 DCW [id number]) Current Condition History of Current Condition Onset Date Two months s/p fall Current Complaints Prior dizziness, hip pain, LE weakness History of Current Condition Pt is a 77 year old female presenting two months s/p fall , which resulted in a rib fracture. At the time of her fall, pt was scheduled for a PT evaluation for her R hip pain/weakness, however this got delayed due to the sudden change in medical status following her fall. Pt ready to begin hip PT, however also referred for a vestibular assessment to determine if pt' s fall, which she noted was due to dizziness, was caused by an vestibular dysfunction. Pt does have a history complicated by a history of both pelvic and breast cancer, although currently just in observation phase of treatment , no recent radiation or chemo . Pt notes that after her fall , she stopped taking one of her medications (Letrazole), which had dizziness as a side- effect, and has largely not any any further symptoms. Despite this, she is still interested in a vestibular assessment to ensure no other underlying cause for her dizziness. In addition, pt also referred again for her hip pain. Pt has history of R MARI, hip is still feeling weak and sore, feels it limits her mobility and would like to be able to lift it up into her vehicle without assistance. PT-OP-C Subjective Start: 11/25/22 11:32 Freq: Status: Active Protocol: Document 03/02/23 12:00 DCW (Rec: 03/02/23 12:41 DCW [id number]) OP-PT Subjective Patient Comments Patient Comments I'm still just not where I want to be. PT-OP-E Functional Tests Start: 11/25/22 11:32 Freq: Status: Active Protocol: Document 01/24/23 11:18 DCW (Rec: 01/24/23 11:38 DCW [id number]) Functional Tests 6 Minute Walk Test Distance 1047 Device Used none Comments 2.90 ft/sec 30 Second Sit to Stand Test Score x9 repetitions Comments used hands PT-OP-F Manual Assessment Start: 11/25/22 11:32 Freq: Status: Active Protocol: Document 01/24/23 11:18 DCW (Rec: 01/24/23 11:38 DCW [id number]) Manual Assessments Soft Tissue Assessment Soft Tissue Mobility Assessment Anterior hip pain/tightness through hip flexors and quads PT-OP-K Range of Motion Start: 11/25/22 11:32 Freq: Status: Active Protocol: Document 01/24/23 11:18 DCW (Rec: 01/24/23 11:38 DCW [id number]) Hip Goniometric Range of Motion Hip Right Active Testing Position Supine Flexion w/Knee Flexed 121 Straight Leg Raise 102 Abduction 26 Internal Rotation 34 External Rotation 40 Left Active Flexion w/Knee Flexed 123 Straight Leg Raise 94 Abduction 34 External Rotation 41 PT-OP-L Special Tests Start: 11/25/22 11:32 Freq: Status: Active Protocol: Document 11/25/22 09:45 DCW (Rec: 11/25/22 11:46 DCW [id number]) Special Tests Hip Special Tests Straight Leg Raise Test Results Negative Scour Test Test Results Negative MARVIN Test Results Negative Hannah's Test Test Results Positive R Anterior Labral Test Test Results Negative PT-OP-M Strength Start: 11/25/22 11:32 Freq: Status: Active Protocol: Document 11/25/22 09:45 DCW (Rec: 11/25/22 11:46 DCW [id number]) Hip Strength Hip Manual Muscle Testing Right Flexion (L2) 4- Good- Abduction 4 Good Adduction 4- Good- External Rotation 3+ Fair+ Internal Rotation 4- Good- Left Flexion (L2) 4+ Good+ Abduction 4+ Good+ Adduction 4+ Good+ External Rotation 4+ Good+ Internal Rotation 4+ Good+ Knee Strength Knee Manual Muscle Testing Right Flexion (S2) 4+ Good+ Extension (L3) 4+ Good+ Left Flexion (S2) 5 Normal Extension (L3) 5 Normal PT-OP-O Vestibular Start: 11/25/22 11:32 Freq: Status: Active Protocol: Document 11/25/22 09:45 DCW (Rec: 11/25/22 11:46 DCW [id number]) Vestibular Assessment Auditory Tests Gómez Test Within normal limits Rinne Test Negative Air Conduction Results Equal Visual Testing Smooth Pursuits Horizontal WNL Smooth Pursuits Vertical WNL Saccades Horizontal WNL Saccades Vertical WNL Heave Test Negative Thrust Head Negative DVA (Line Degradation) 2 Spontaneous Nystagmus Negative Positional Testing [place]-Hallpike Negative Left,Negative Right Rolling Test Negative Left,Negative Right PT-OP-Q Treatments Start: 11/25/22 11:32 Freq: Status: Active Protocol: Document 03/02/23 12:00 DCW (Rec: 03/02/23 12:41 DCW [id number]) Cardio Equipment Recumbent Elliptical ([employer]) Duration (Minutes) 8 Resistance 6 Seat Position 9 Gym Equipment Shuttle Balance Red Details WBOS (EO/EC), Staggered, Lateral Therapeutic Ball Pelvic tilts Exercise Details Pelvic tilts/circles Ball Size/Color Green - 65 cm Body Position Sitting Therapeutic Exercises Supine Exercises SLR Supine Exercise Name SLR /c ER Side right Manual Therapy Treatment Soft Tissue Mobilization Lumbar Body Location R lumbar paraspinals, piriformis Mobilization Type Sustained Pressure,Trigger Point Release Intensity/Depth Moderate Body Position Sidelying Hip Flexors Body Location R Hip Flexors Mobilization Type Sustained Pressure,Trigger Point Release Intensity/Depth Moderate Body Position Hooklying Manual Traction LE Traction Details Gentle B LE long-axis PT-OP-T Assessment and Plan Start: 11/25/22 11:32 Freq: Status: Active Protocol: Document 03/02/23 12:00 DCW (Rec: 03/02/23 12:41 DCW [id number]) Physical Therapy Assessment Impairments Impairments Activity Tolerance,Balance, Functional Activities, Functional Mobility,ROM,Soft Tissue Mobility,Strength,Tone Goals Two Impairment Right hip weakness (4-/5 with flexion, adduction, and ER/IR) Mcc Goal (LTG) Pt to increase MMT of right hip to at least 4/5 in all tested planes in order to allow pt to lift right foot into vehicle without assistance LTG Duration 03/26/23 One Impairment Pt does not have an appropriate home exercise program Short Term Goal (STG) Pt to be independent and compliant with an appropriate HEP STG Duration Met Assessment Summary Assessment Pt showing improvements in some ways, able to get her right leg up into her car without assistance, but still just experiencing lingering back, hip, and leg pain. Recommend return to PCP to discuss further advanced imaging. Physical Therapy Plan Frequency and Duration Frequency of Treatment 2x/Week Plan of Care Start Date 01/24/23 Plan of Care End Date 03/26/23 Therapeutic Interventions Therapeutic Interventions Balance Training,Gait Training ,Home Exercise Program,Joint Mobilizations,Manual Therapy, Patient/Caregiver Education, Self-Care/Home Management,Soft Tissue Mobilization, Therapeutic Activities, Therapeutic Exercises Modalities Cold Pack/Ice Massage,Hot Packs,Ultrasound Next Visit Focus/Plan Next Note Type Treatment Note Next Visit Plan Complete hip assessment, LE strengthening, flexibility
--- NOTE | 2023-03-07 12:43 | PT.OTN ---
Current Diagnoses Pain in right hip (03/07/23) Dizziness and giddiness (03/07/23) History of falling (03/07/23) Presence of right artificial hip joint (03/07/23) Physical Therapy Treatment Note PT-OP-A Visit Information Start: 11/25/22 11:32 Freq: Status: Active Protocol: Document 03/07/23 12:00 DCW (Rec: 03/07/23 12:43 DCW [id number]) Out-Patient Physical Therapy Visit Information Visit Information Visit Type Treatment Note Visit Start Time 12:00 Visit Stop Time 12:45 Total Visit Minutes 45 Visit Number 23 Number of USER SUPPORT SPECIALIST Visits 0 Evaluation Information Evaluation Date 11/25/22 PT-OP-B Current Condition Start: 11/25/22 11:32 Freq: Status: Active Protocol: Document 11/25/22 09:45 DCW (Rec: 11/25/22 11:46 DCW [id number]) Current Condition History of Current Condition Onset Date Two months s/p fall Current Complaints Prior dizziness, hip pain, LE weakness History of Current Condition Pt is a 77 year old female presenting two months s/p fall , which resulted in a rib fracture. At the time of her fall, pt was scheduled for a PT evaluation for her R hip pain/weakness, however this got delayed due to the sudden change in medical status following her fall. Pt ready to begin hip PT, however also referred for a vestibular assessment to determine if pt' s fall, which she noted was due to dizziness, was caused by an vestibular dysfunction. Pt does have a history complicated by a history of both pelvic and breast cancer, although currently just in observation phase of treatment , no recent radiation or chemo . Pt notes that after her fall , she stopped taking one of her medications (Letrazole), which had dizziness as a side- effect, and has largely not any any further symptoms. Despite this, she is still interested in a vestibular assessment to ensure no other underlying cause for her dizziness. In addition, pt also referred again for her hip pain. Pt has history of R MARI, hip is still feeling weak and sore, feels it limits her mobility and would like to be able to lift it up into her vehicle without assistance. PT-OP-C Subjective Start: 11/25/22 11:32 Freq: Status: Active Protocol: Document 03/07/23 12:00 DCW (Rec: 03/07/23 12:43 DCW [id number]) OP-PT Subjective Patient Comments Patient Comments I don't know what you did last time, but I have been doing so much better with everything. PT-OP-E Functional Tests Start: 11/25/22 11:32 Freq: Status: Active Protocol: Document 01/24/23 11:18 DCW (Rec: 01/24/23 11:38 DCW [id number]) Functional Tests 6 Minute Walk Test Distance 1047 Device Used none Comments 2.90 ft/sec 30 Second Sit to Stand Test Score x9 repetitions Comments used hands PT-OP-F Manual Assessment Start: 11/25/22 11:32 Freq: Status: Active Protocol: Document 01/24/23 11:18 DCW (Rec: 01/24/23 11:38 DCW [id number]) Manual Assessments Soft Tissue Assessment Soft Tissue Mobility Assessment Anterior hip pain/tightness through hip flexors and quads PT-OP-K Range of Motion Start: 11/25/22 11:32 Freq: Status: Active Protocol: Document 01/24/23 11:18 DCW (Rec: 01/24/23 11:38 DCW [id number]) Hip Goniometric Range of Motion Hip Right Active Testing Position Supine Flexion w/Knee Flexed 121 Straight Leg Raise 102 Abduction 26 Internal Rotation 34 External Rotation 40 Left Active Flexion w/Knee Flexed 123 Straight Leg Raise 94 Abduction 34 External Rotation 41 PT-OP-L Special Tests Start: 11/25/22 11:32 Freq: Status: Active Protocol: Document 11/25/22 09:45 DCW (Rec: 11/25/22 11:46 DCW [id number]) Special Tests Hip Special Tests Straight Leg Raise Test Results Negative Scour Test Test Results Negative MARVIN Test Results Negative Hannah's Test Test Results Positive R Anterior Labral Test Test Results Negative PT-OP-M Strength Start: 11/25/22 11:32 Freq: Status: Active Protocol: Document 11/25/22 09:45 DCW (Rec: 11/25/22 11:46 DCW [id number]) Hip Strength Hip Manual Muscle Testing Right Flexion (L2) 4- Good- Abduction 4 Good Adduction 4- Good- External Rotation 3+ Fair+ Internal Rotation 4- Good- Left Flexion (L2) 4+ Good+ Abduction 4+ Good+ Adduction 4+ Good+ External Rotation 4+ Good+ Internal Rotation 4+ Good+ Knee Strength Knee Manual Muscle Testing Right Flexion (S2) 4+ Good+ Extension (L3) 4+ Good+ Left Flexion (S2) 5 Normal Extension (L3) 5 Normal PT-OP-O Vestibular Start: 11/25/22 11:32 Freq: Status: Active Protocol: Document 11/25/22 09:45 DCW (Rec: 11/25/22 11:46 DCW [id number]) Vestibular Assessment Auditory Tests Gómez Test Within normal limits Rinne Test Negative Air Conduction Results Equal Visual Testing Smooth Pursuits Horizontal WNL Smooth Pursuits Vertical WNL Saccades Horizontal WNL Saccades Vertical WNL Heave Test Negative Thrust Head Negative DVA (Line Degradation) 2 Spontaneous Nystagmus Negative Positional Testing [place]-Hallpike Negative Left,Negative Right Rolling Test Negative Left,Negative Right PT-OP-Q Treatments Start: 11/25/22 11:32 Freq: Status: Active Protocol: Document 03/07/23 12:00 DCW (Rec: 03/07/23 12:43 DCW [id number]) Cardio Equipment Recumbent Elliptical ([employer]) Duration (Minutes) 8 Resistance 6 Seat Position 9 Gym Equipment Shuttle Recovery Bilateral Squats Resistance 87# (Three new) Shuttle Recovery Platform Stable Reps/Time 2x20 Shuttle Balance Red Details WBOS (EO/EC), Staggered, Lateral Therapeutic Ball Pelvic tilts Exercise Details Pelvic tilts/circles Ball Size/Color Green - 65 cm Body Position Sitting Therapeutic Exercises Supine Exercises SLR Supine Exercise Name SLR /c ER Side right Manual Therapy Treatment Soft Tissue Mobilization Lumbar Body Location R lumbar paraspinals, piriformis Mobilization Type Sustained Pressure,Trigger Point Release Intensity/Depth Moderate Body Position Sidelying Hip Flexors Body Location R Hip Flexors Mobilization Type Sustained Pressure,Trigger Point Release Intensity/Depth Moderate Body Position Hooklying Manual Traction LE Traction Details Gentle B LE long-axis PT-OP-T Assessment and Plan Start: 11/25/22 11:32 Freq: Status: Active Protocol: Document 03/07/23 12:00 DCW (Rec: 03/07/23 12:43 DCW [id number]) Physical Therapy Assessment Impairments Impairments Activity Tolerance,Balance, Functional Activities, Functional Mobility,ROM,Soft Tissue Mobility,Strength,Tone Goals Two Impairment Right hip weakness (4-/5 with flexion, adduction, and ER/IR) Nursing Home Goal (LTG) Pt to increase MMT of right hip to at least 4/5 in all tested planes in order to allow pt to lift right foot into vehicle without assistance LTG Duration 03/26/23 One Impairment Pt does not have an appropriate home exercise program Short Term Goal (STG) Pt to be independent and compliant with an appropriate HEP STG Duration Met Assessment Summary Assessment Making great progress recently , significant improvement in quality of ambulation. Has been doing well with HEP compliance. Physical Therapy Plan Frequency and Duration Frequency of Treatment 2x/Week Plan of Care Start Date 01/24/23 Plan of Care End Date 03/26/23 Therapeutic Interventions Therapeutic Interventions Balance Training,Gait Training ,Home Exercise Program,Joint Mobilizations,Manual Therapy, Patient/Caregiver Education, Self-Care/Home Management,Soft Tissue Mobilization, Therapeutic Activities, Therapeutic Exercises Modalities Cold Pack/Ice Massage,Hot Packs,Ultrasound Next Visit Focus/Plan Next Note Type Treatment Note Next Visit Plan Complete hip assessment, LE strengthening, flexibility
--- NOTE | 2023-03-09 12:45 | PT.OTN ---
Current Diagnoses Pain in right hip (03/09/23) Dizziness and giddiness (03/09/23) History of falling (03/09/23) Presence of right artificial hip joint (03/09/23) Physical Therapy Treatment Note PT-OP-A Visit Information Start: 11/25/22 11:32 Freq: Status: Active Protocol: Document 03/09/23 12:00 DCW (Rec: 03/09/23 12:45 DCW [id number]) Out-Patient Physical Therapy Visit Information Visit Information Visit Type Treatment Note Visit Start Time 12:00 Visit Stop Time 12:45 Total Visit Minutes 45 Visit Number 24 Number of WAREHOUSER Visits 0 Evaluation Information Evaluation Date 11/25/22 PT-OP-B Current Condition Start: 11/25/22 11:32 Freq: Status: Active Protocol: Document 11/25/22 09:45 DCW (Rec: 11/25/22 11:46 DCW [id number]) Current Condition History of Current Condition Onset Date Two months s/p fall Current Complaints Prior dizziness, hip pain, LE weakness History of Current Condition Pt is a 77 year old female presenting two months s/p fall , which resulted in a rib fracture. At the time of her fall, pt was scheduled for a PT evaluation for her R hip pain/weakness, however this got delayed due to the sudden change in medical status following her fall. Pt ready to begin hip PT, however also referred for a vestibular assessment to determine if pt' s fall, which she noted was due to dizziness, was caused by an vestibular dysfunction. Pt does have a history complicated by a history of both pelvic and breast cancer, although currently just in observation phase of treatment , no recent radiation or chemo . Pt notes that after her fall , she stopped taking one of her medications (Letrazole), which had dizziness as a side- effect, and has largely not any any further symptoms. Despite this, she is still interested in a vestibular assessment to ensure no other underlying cause for her dizziness. In addition, pt also referred again for her hip pain. Pt has history of R MARI, hip is still feeling weak and sore, feels it limits her mobility and would like to be able to lift it up into her vehicle without assistance. PT-OP-C Subjective Start: 11/25/22 11:32 Freq: Status: Active Protocol: Document 03/09/23 12:00 DCW (Rec: 03/09/23 12:45 DCW [id number]) OP-PT Subjective Patient Comments Patient Comments I seem to be walking better and better. PT-OP-E Functional Tests Start: 11/25/22 11:32 Freq: Status: Active Protocol: Document 01/24/23 11:18 DCW (Rec: 01/24/23 11:38 DCW [id number]) Functional Tests 6 Minute Walk Test Distance 1047 Device Used none Comments 2.90 ft/sec 30 Second Sit to Stand Test Score x9 repetitions Comments used hands PT-OP-F Manual Assessment Start: 11/25/22 11:32 Freq: Status: Active Protocol: Document 01/24/23 11:18 DCW (Rec: 01/24/23 11:38 DCW [id number]) Manual Assessments Soft Tissue Assessment Soft Tissue Mobility Assessment Anterior hip pain/tightness through hip flexors and quads PT-OP-K Range of Motion Start: 11/25/22 11:32 Freq: Status: Active Protocol: Document 01/24/23 11:18 DCW (Rec: 01/24/23 11:38 DCW [id number]) Hip Goniometric Range of Motion Hip Right Active Testing Position Supine Flexion w/Knee Flexed 121 Straight Leg Raise 102 Abduction 26 Internal Rotation 34 External Rotation 40 Left Active Flexion w/Knee Flexed 123 Straight Leg Raise 94 Abduction 34 External Rotation 41 PT-OP-L Special Tests Start: 11/25/22 11:32 Freq: Status: Active Protocol: Document 11/25/22 09:45 DCW (Rec: 11/25/22 11:46 DCW [id number]) Special Tests Hip Special Tests Straight Leg Raise Test Results Negative Scour Test Test Results Negative MARVIN Test Results Negative Hannah's Test Test Results Positive R Anterior Labral Test Test Results Negative PT-OP-M Strength Start: 11/25/22 11:32 Freq: Status: Active Protocol: Document 11/25/22 09:45 DCW (Rec: 11/25/22 11:46 DCW [id number]) Hip Strength Hip Manual Muscle Testing Right Flexion (L2) 4- Good- Abduction 4 Good Adduction 4- Good- External Rotation 3+ Fair+ Internal Rotation 4- Good- Left Flexion (L2) 4+ Good+ Abduction 4+ Good+ Adduction 4+ Good+ External Rotation 4+ Good+ Internal Rotation 4+ Good+ Knee Strength Knee Manual Muscle Testing Right Flexion (S2) 4+ Good+ Extension (L3) 4+ Good+ Left Flexion (S2) 5 Normal Extension (L3) 5 Normal PT-OP-O Vestibular Start: 11/25/22 11:32 Freq: Status: Active Protocol: Document 11/25/22 09:45 DCW (Rec: 11/25/22 11:46 DCW [id number]) Vestibular Assessment Auditory Tests Gómez Test Within normal limits Rinne Test Negative Air Conduction Results Equal Visual Testing Smooth Pursuits Horizontal WNL Smooth Pursuits Vertical WNL Saccades Horizontal WNL Saccades Vertical WNL Heave Test Negative Thrust Head Negative DVA (Line Degradation) 2 Spontaneous Nystagmus Negative Positional Testing [place]-Hallpike Negative Left,Negative Right Rolling Test Negative Left,Negative Right PT-OP-Q Treatments Start: 11/25/22 11:32 Freq: Status: Active Protocol: Document 03/09/23 12:00 DCW (Rec: 03/09/23 12:45 DCW [id number]) Cardio Equipment Recumbent Elliptical ([employer]) Duration (Minutes) 8 Resistance 6 Seat Position 11 Gym Equipment Shuttle Recovery Bilateral Squats Resistance 87# (Three new) Shuttle Recovery Platform Stable Reps/Time 2x20 Shuttle Balance Red Details WBOS (EO/EC), Staggered, Lateral Manual Therapy Treatment Soft Tissue Mobilization Lumbar Body Location R lumbar paraspinals, piriformis Mobilization Type Sustained Pressure,Trigger Point Release Intensity/Depth Moderate Body Position Sidelying Hip Flexors Body Location R Hip Flexors Mobilization Type Sustained Pressure,Trigger Point Release Intensity/Depth Moderate Body Position Hooklying PT-OP-T Assessment and Plan Start: 11/25/22 11:32 Freq: Status: Active Protocol: Document 03/09/23 12:00 DCW (Rec: 03/09/23 12:45 DCW [id number]) Physical Therapy Assessment Impairments Impairments Activity Tolerance,Balance, Functional Activities, Functional Mobility,ROM,Soft Tissue Mobility,Strength,Tone Goals Two Impairment Right hip weakness (4-/5 with flexion, adduction, and ER/IR) Concierge Manager Goal (LTG) Pt to increase MMT of right hip to at least 4/5 in all tested planes in order to allow pt to lift right foot into vehicle without assistance LTG Duration 03/26/23 One Impairment Pt does not have an appropriate home exercise program Short Term Goal (STG) Pt to be independent and compliant with an appropriate HEP STG Duration Met Assessment Summary Assessment Continues to demonstrate improvement with pain control and ambulation with decreased antalgic gait. Physical Therapy Plan Frequency and Duration Frequency of Treatment 2x/Week Plan of Care Start Date 01/24/23 Plan of Care End Date 03/26/23 Therapeutic Interventions Therapeutic Interventions Balance Training,Gait Training ,Home Exercise Program,Joint Mobilizations,Manual Therapy, Patient/Caregiver Education, Self-Care/Home Management,Soft Tissue Mobilization, Therapeutic Activities, Therapeutic Exercises Modalities Cold Pack/Ice Massage,Hot Packs,Ultrasound Next Visit Focus/Plan Next Note Type Treatment Note Next Visit Plan Complete hip assessment, LE strengthening, flexibility
--- NOTE | 2023-03-16 12:46 | PT.OTN ---
Current Diagnoses Pain in right hip (03/16/23) Dizziness and giddiness (03/16/23) History of falling (03/16/23) Presence of right artificial hip joint (03/16/23) Physical Therapy Treatment Note PT-OP-A Visit Information Start: 11/25/22 11:32 Freq: Status: Active Protocol: Document 03/16/23 12:04 DCW (Rec: 03/16/23 12:46 DCW [id number]) Out-Patient Physical Therapy Visit Information Visit Information Visit Type Treatment Note Visit Start Time 12:04 Visit Stop Time 12:45 Total Visit Minutes 45 Visit Number 25 Number of ROLL TENDER Visits 0 Evaluation Information Evaluation Date 11/25/22 PT-OP-B Current Condition Start: 11/25/22 11:32 Freq: Status: Active Protocol: Document 11/25/22 09:45 DCW (Rec: 11/25/22 11:46 DCW [id number]) Current Condition History of Current Condition Onset Date Two months s/p fall Current Complaints Prior dizziness, hip pain, LE weakness History of Current Condition Pt is a 77 year old female presenting two months s/p fall , which resulted in a rib fracture. At the time of her fall, pt was scheduled for a PT evaluation for her R hip pain/weakness, however this got delayed due to the sudden change in medical status following her fall. Pt ready to begin hip PT, however also referred for a vestibular assessment to determine if pt' s fall, which she noted was due to dizziness, was caused by an vestibular dysfunction. Pt does have a history complicated by a history of both pelvic and breast cancer, although currently just in observation phase of treatment , no recent radiation or chemo . Pt notes that after her fall , she stopped taking one of her medications (Letrazole), which had dizziness as a side- effect, and has largely not any any further symptoms. Despite this, she is still interested in a vestibular assessment to ensure no other underlying cause for her dizziness. In addition, pt also referred again for her hip pain. Pt has history of R MARI, hip is still feeling weak and sore, feels it limits her mobility and would like to be able to lift it up into her vehicle without assistance. PT-OP-C Subjective Start: 11/25/22 11:32 Freq: Status: Active Protocol: Document 03/16/23 12:04 DCW (Rec: 03/16/23 12:46 DCW [id number]) OP-PT Subjective Patient Comments Patient Comments Pt notes she has been limping more since last session. PT-OP-E Functional Tests Start: 11/25/22 11:32 Freq: Status: Active Protocol: Document 01/24/23 11:18 DCW (Rec: 01/24/23 11:38 DCW [id number]) Functional Tests 6 Minute Walk Test Distance 1047 Device Used none Comments 2.90 ft/sec 30 Second Sit to Stand Test Score x9 repetitions Comments used hands PT-OP-F Manual Assessment Start: 11/25/22 11:32 Freq: Status: Active Protocol: Document 01/24/23 11:18 DCW (Rec: 01/24/23 11:38 DCW [id number]) Manual Assessments Soft Tissue Assessment Soft Tissue Mobility Assessment Anterior hip pain/tightness through hip flexors and quads PT-OP-K Range of Motion Start: 11/25/22 11:32 Freq: Status: Active Protocol: Document 01/24/23 11:18 DCW (Rec: 01/24/23 11:38 DCW [id number]) Hip Goniometric Range of Motion Hip Right Active Testing Position Supine Flexion w/Knee Flexed 121 Straight Leg Raise 102 Abduction 26 Internal Rotation 34 External Rotation 40 Left Active Flexion w/Knee Flexed 123 Straight Leg Raise 94 Abduction 34 External Rotation 41 PT-OP-L Special Tests Start: 11/25/22 11:32 Freq: Status: Active Protocol: Document 11/25/22 09:45 DCW (Rec: 11/25/22 11:46 DCW [id number]) Special Tests Hip Special Tests Straight Leg Raise Test Results Negative Scour Test Test Results Negative MARVIN Test Results Negative Hannah's Test Test Results Positive R Anterior Labral Test Test Results Negative PT-OP-M Strength Start: 11/25/22 11:32 Freq: Status: Active Protocol: Document 11/25/22 09:45 DCW (Rec: 11/25/22 11:46 DCW [id number]) Hip Strength Hip Manual Muscle Testing Right Flexion (L2) 4- Good- Abduction 4 Good Adduction 4- Good- External Rotation 3+ Fair+ Internal Rotation 4- Good- Left Flexion (L2) 4+ Good+ Abduction 4+ Good+ Adduction 4+ Good+ External Rotation 4+ Good+ Internal Rotation 4+ Good+ Knee Strength Knee Manual Muscle Testing Right Flexion (S2) 4+ Good+ Extension (L3) 4+ Good+ Left Flexion (S2) 5 Normal Extension (L3) 5 Normal PT-OP-O Vestibular Start: 11/25/22 11:32 Freq: Status: Active Protocol: Document 11/25/22 09:45 DCW (Rec: 11/25/22 11:46 DCW [id number]) Vestibular Assessment Auditory Tests Gómez Test Within normal limits Rinne Test Negative Air Conduction Results Equal Visual Testing Smooth Pursuits Horizontal WNL Smooth Pursuits Vertical WNL Saccades Horizontal WNL Saccades Vertical WNL Heave Test Negative Thrust Head Negative DVA (Line Degradation) 2 Spontaneous Nystagmus Negative Positional Testing [place]-Hallpike Negative Left,Negative Right Rolling Test Negative Left,Negative Right PT-OP-Q Treatments Start: 11/25/22 11:32 Freq: Status: Active Protocol: Document 03/16/23 12:04 DCW (Rec: 03/16/23 12:46 DCW [id number]) Gym Equipment Shuttle Recovery Bilateral Squats Resistance 87# (Three new) Shuttle Recovery Platform Stable Reps/Time 2x20 Shuttle Balance Red Details WBOS (EO/EC), Staggered, Lateral Therapeutic Exercises Supine Exercises Hamstring Stretch Supine Exercise Name HS stretch Side right Piriformis Supine Exercise Name Piriformis stretch - Figure-4 Side right Hip Flexor Stretch Supine Exercise Name Leg off table Side right Manual Therapy Treatment Soft Tissue Mobilization Lumbar Body Location R lumbar paraspinals, piriformis Mobilization Type Sustained Pressure,Trigger Point Release Intensity/Depth Moderate Body Position Sidelying Manual Traction LE Traction Details Gentle B LE long-axis PT-OP-T Assessment and Plan Start: 11/25/22 11:32 Freq: Status: Active Protocol: Document 03/16/23 12:04 DCW (Rec: 03/16/23 12:46 DCW [id number]) Physical Therapy Assessment Impairments Impairments Activity Tolerance,Balance, Functional Activities, Functional Mobility,ROM,Soft Tissue Mobility,Strength,Tone Goals Two Impairment Right hip weakness (4-/5 with flexion, adduction, and ER/IR) Retirement Goal (LTG) Pt to increase MMT of right hip to at least 4/5 in all tested planes in order to allow pt to lift right foot into vehicle without assistance LTG Duration 03/26/23 One Impairment Pt does not have an appropriate home exercise program Short Term Goal (STG) Pt to be independent and compliant with an appropriate HEP STG Duration Met Assessment Summary Assessment Pt feeling much better by end of session today, significant improvement in gait, good response to STM and stretching today. Physical Therapy Plan Frequency and Duration Frequency of Treatment 2x/Week Plan of Care Start Date 01/24/23 Plan of Care End Date 03/26/23 Therapeutic Interventions Therapeutic Interventions Balance Training,Gait Training ,Home Exercise Program,Joint Mobilizations,Manual Therapy, Patient/Caregiver Education, Self-Care/Home Management,Soft Tissue Mobilization, Therapeutic Activities, Therapeutic Exercises Modalities Cold Pack/Ice Massage,Hot Packs,Ultrasound Next Visit Focus/Plan Next Note Type Treatment Note Next Visit Plan Complete hip assessment, LE strengthening, flexibility
--- NOTE | 2023-03-23 12:46 | PT.OTN ---
Current Diagnoses Pain in right hip (04/13/23) Dizziness and giddiness (04/13/23) History of falling (04/13/23) Presence of right artificial hip joint (04/13/23) Physical Therapy Treatment Note PT-OP-A Visit Information Start: 11/25/22 11:32 Freq: Status: Active Protocol: Document 03/23/23 12:00 DCW (Rec: 03/23/23 12:46 DCW [id number]) Out-Patient Physical Therapy Visit Information Visit Information Visit Type Treatment Note Visit Start Time 12:00 Visit Stop Time 12:45 Total Visit Minutes 45 Visit Number 26 Number of WOUND/OSTOMY NURSE Visits 0 Evaluation Information Evaluation Date 11/25/22 PT-OP-B Current Condition Start: 11/25/22 11:32 Freq: Status: Active Protocol: Document 11/25/22 09:45 DCW (Rec: 11/25/22 11:46 DCW [id number]) Current Condition History of Current Condition Onset Date Two months s/p fall Current Complaints Prior dizziness, hip pain, LE weakness History of Current Condition Pt is a 77 year old female presenting two months s/p fall , which resulted in a rib fracture. At the time of her fall, pt was scheduled for a PT evaluation for her R hip pain/weakness, however this got delayed due to the sudden change in medical status following her fall. Pt ready to begin hip PT, however also referred for a vestibular assessment to determine if pt' s fall, which she noted was due to dizziness, was caused by an vestibular dysfunction. Pt does have a history complicated by a history of both pelvic and breast cancer, although currently just in observation phase of treatment , no recent radiation or chemo . Pt notes that after her fall , she stopped taking one of her medications (Letrazole), which had dizziness as a side- effect, and has largely not any any further symptoms. Despite this, she is still interested in a vestibular assessment to ensure no other underlying cause for her dizziness. In addition, pt also referred again for her hip pain. Pt has history of R MARI, hip is still feeling weak and sore, feels it limits her mobility and would like to be able to lift it up into her vehicle without assistance. PT-OP-C Subjective Start: 11/25/22 11:32 Freq: Status: Active Protocol: Document 03/23/23 12:00 DCW (Rec: 03/23/23 12:46 DCW [id number]) OP-PT Subjective Patient Comments Patient Comments Continues to experience pain through hip flexors since PT visit PT-OP-E Functional Tests Start: 11/25/22 11:32 Freq: Status: Active Protocol: Document 01/24/23 11:18 DCW (Rec: 01/24/23 11:38 DCW [id number]) Functional Tests 6 Minute Walk Test Distance 1047 Device Used none Comments 2.90 ft/sec 30 Second Sit to Stand Test Score x9 repetitions Comments used hands PT-OP-F Manual Assessment Start: 11/25/22 11:32 Freq: Status: Active Protocol: Document 01/24/23 11:18 DCW (Rec: 01/24/23 11:38 DCW [id number]) Manual Assessments Soft Tissue Assessment Soft Tissue Mobility Assessment Anterior hip pain/tightness through hip flexors and quads PT-OP-K Range of Motion Start: 11/25/22 11:32 Freq: Status: Active Protocol: Document 01/24/23 11:18 DCW (Rec: 01/24/23 11:38 DCW [id number]) Hip Goniometric Range of Motion Hip Right Active Testing Position Supine Flexion w/Knee Flexed 121 Straight Leg Raise 102 Abduction 26 Internal Rotation 34 External Rotation 40 Left Active Flexion w/Knee Flexed 123 Straight Leg Raise 94 Abduction 34 External Rotation 41 PT-OP-L Special Tests Start: 11/25/22 11:32 Freq: Status: Active Protocol: Document 11/25/22 09:45 DCW (Rec: 11/25/22 11:46 DCW [id number]) Special Tests Hip Special Tests Straight Leg Raise Test Results Negative Scour Test Test Results Negative MARVIN Test Results Negative Hannah's Test Test Results Positive R Anterior Labral Test Test Results Negative PT-OP-M Strength Start: 11/25/22 11:32 Freq: Status: Active Protocol: Document 11/25/22 09:45 DCW (Rec: 11/25/22 11:46 DCW [id number]) Hip Strength Hip Manual Muscle Testing Right Flexion (L2) 4- Good- Abduction 4 Good Adduction 4- Good- External Rotation 3+ Fair+ Internal Rotation 4- Good- Left Flexion (L2) 4+ Good+ Abduction 4+ Good+ Adduction 4+ Good+ External Rotation 4+ Good+ Internal Rotation 4+ Good+ Knee Strength Knee Manual Muscle Testing Right Flexion (S2) 4+ Good+ Extension (L3) 4+ Good+ Left Flexion (S2) 5 Normal Extension (L3) 5 Normal PT-OP-O Vestibular Start: 11/25/22 11:32 Freq: Status: Active Protocol: Document 11/25/22 09:45 DCW (Rec: 11/25/22 11:46 DCW [id number]) Vestibular Assessment Auditory Tests Gómez Test Within normal limits Rinne Test Negative Air Conduction Results Equal Visual Testing Smooth Pursuits Horizontal WNL Smooth Pursuits Vertical WNL Saccades Horizontal WNL Saccades Vertical WNL Heave Test Negative Thrust Head Negative DVA (Line Degradation) 2 Spontaneous Nystagmus Negative Positional Testing [place]-Hallpike Negative Left,Negative Right Rolling Test Negative Left,Negative Right PT-OP-Q Treatments Start: 11/25/22 11:32 Freq: Status: Active Protocol: Document 03/23/23 12:00 DCW (Rec: 03/23/23 12:46 DCW [id number]) Cardio Equipment Recumbent Elliptical ([employer]) Duration (Minutes) 8 Resistance 6 Seat Position 11 Therapeutic Exercises Supine Exercises SLR Supine Exercise Name SLR /c ER Side bilateral Manual Therapy Treatment Soft Tissue Mobilization Lumbar Body Location R lumbar paraspinals, piriformis Mobilization Type Sustained Pressure,Trigger Point Release Intensity/Depth Moderate Body Position Sidelying PT-OP-T Assessment and Plan Start: 11/25/22 11:32 Freq: Status: Active Protocol: Document 03/23/23 12:00 DCW (Rec: 03/23/23 12:46 DCW [id number]) Physical Therapy Assessment Impairments Impairments Activity Tolerance,Balance, Functional Activities, Functional Mobility,ROM,Soft Tissue Mobility,Strength,Tone Goals Two Impairment Right hip weakness (4-/5 with flexion, adduction, and ER/IR) Longterm Goal (LTG) Pt to increase MMT of right hip to at least 4/5 in all tested planes in order to allow pt to lift right foot into vehicle without assistance LTG Duration 03/26/23 One Impairment Pt does not have an appropriate home exercise program Short Term Goal (STG) Pt to be independent and compliant with an appropriate HEP STG Duration Met Assessment Summary Assessment Discussed potential next step for pt is likely further lumbar imaging, pt notes she would like to try PT for another few weeks before committing to next step. Will work on continuing to decrease tone in low back/hip, improve gait, and control pain. Physical Therapy Plan Frequency and Duration Frequency of Treatment 2x/Week Plan of Care Start Date 01/24/23 Plan of Care End Date 03/26/23 Therapeutic Interventions Therapeutic Interventions Balance Training,Gait Training ,Home Exercise Program,Joint Mobilizations,Manual Therapy, Patient/Caregiver Education, Self-Care/Home Management,Soft Tissue Mobilization, Therapeutic Activities, Therapeutic Exercises Modalities Cold Pack/Ice Massage,Hot Packs,Ultrasound Next Visit Focus/Plan Next Note Type Progress Note Next Visit Plan Complete hip assessment, LE strengthening, flexibility
--- NOTE | 2023-04-13 15:29 | PT.OTN ---
Current Diagnoses Pain in right hip (04/13/23) Dizziness and giddiness (04/13/23) History of falling (04/13/23) Presence of right artificial hip joint (04/13/23) Physical Therapy Treatment Note PT-OP-A Visit Information Start: 11/25/22 11:32 Freq: Status: Active Protocol: Document 04/13/23 14:30 DCW (Rec: 04/13/23 15:29 DCW [id number]) Out-Patient Physical Therapy Visit Information Visit Information Visit Type Progress Note Visit Start Time 14:30 Visit Stop Time 15:15 Visit Number 27 Number of FILLING MIXER Visits 0 Evaluation Information Evaluation Date 11/25/22 PT-OP-B Current Condition Start: 11/25/22 11:32 Freq: Status: Active Protocol: Document 11/25/22 09:45 DCW (Rec: 11/25/22 11:46 DCW [id number]) Current Condition History of Current Condition Onset Date Two months s/p fall Current Complaints Prior dizziness, hip pain, LE weakness History of Current Condition Pt is a 77 year old female presenting two months s/p fall , which resulted in a rib fracture. At the time of her fall, pt was scheduled for a PT evaluation for her R hip pain/weakness, however this got delayed due to the sudden change in medical status following her fall. Pt ready to begin hip PT, however also referred for a vestibular assessment to determine if pt' s fall, which she noted was due to dizziness, was caused by an vestibular dysfunction. Pt does have a history complicated by a history of both pelvic and breast cancer, although currently just in observation phase of treatment , no recent radiation or chemo . Pt notes that after her fall , she stopped taking one of her medications (Letrazole), which had dizziness as a side- effect, and has largely not any any further symptoms. Despite this, she is still interested in a vestibular assessment to ensure no other underlying cause for her dizziness. In addition, pt also referred again for her hip pain. Pt has history of R MARI, hip is still feeling weak and sore, feels it limits her mobility and would like to be able to lift it up into her vehicle without assistance. PT-OP-C Subjective Start: 11/25/22 11:32 Freq: Status: Active Protocol: Document 04/13/23 14:30 DCW (Rec: 04/13/23 15:29 DCW [id number]) OP-PT Subjective Patient Comments Patient Comments Pt has been walking better the past few days, although admits that for a few days before that, she was struggling more. PT-OP-E Functional Tests Start: 11/25/22 11:32 Freq: Status: Active Protocol: Document 04/13/23 14:30 DCW (Rec: 04/13/23 15:18 DCW [id number]) Functional Tests 6 Minute Walk Test Distance 1230 Device Used none Comments 3.42 ft/sec 30 Second Sit to Stand Test Score x11 repetitions Comments used hands PT-OP-F Manual Assessment Start: 11/25/22 11:32 Freq: Status: Active Protocol: Document 04/13/23 14:30 DCW (Rec: 04/13/23 15:18 DCW [id number]) Manual Assessments Soft Tissue Assessment Soft Tissue Mobility Assessment Anterior hip pain/tightness through hip flexors and quads, lumbar paraspinals PT-OP-K Range of Motion Start: 11/25/22 11:32 Freq: Status: Active Protocol: Document 04/13/23 14:30 DCW (Rec: 04/13/23 15:18 DCW [id number]) Hip Goniometric Range of Motion Hip Right Active Testing Position Supine Flexion w/Knee Flexed 120 Straight Leg Raise 103 Abduction 25 Internal Rotation 35 External Rotation 40 Left Active Flexion w/Knee Flexed 123 Straight Leg Raise 94 Abduction 34 Internal Rotation 35 External Rotation 40 PT-OP-L Special Tests Start: 11/25/22 11:32 Freq: Status: Active Protocol: Document 11/25/22 09:45 DCW (Rec: 11/25/22 11:46 DCW [id number]) Special Tests Hip Special Tests Straight Leg Raise Test Results Negative Scour Test Test Results Negative MARVIN Test Results Negative Hannah's Test Test Results Positive R Anterior Labral Test Test Results Negative PT-OP-M Strength Start: 11/25/22 11:32 Freq: Status: Active Protocol: Document 11/25/22 09:45 DCW (Rec: 11/25/22 11:46 DCW [id number]) Hip Strength Hip Manual Muscle Testing Right Flexion (L2) 4- Good- Abduction 4 Good Adduction 4- Good- External Rotation 3+ Fair+ Internal Rotation 4- Good- Left Flexion (L2) 4+ Good+ Abduction 4+ Good+ Adduction 4+ Good+ External Rotation 4+ Good+ Internal Rotation 4+ Good+ Knee Strength Knee Manual Muscle Testing Right Flexion (S2) 4+ Good+ Extension (L3) 4+ Good+ Left Flexion (S2) 5 Normal Extension (L3) 5 Normal PT-OP-O Vestibular Start: 11/25/22 11:32 Freq: Status: Active Protocol: Document 11/25/22 09:45 DCW (Rec: 11/25/22 11:46 DCW [id number]) Vestibular Assessment Auditory Tests Gómez Test Within normal limits Rinne Test Negative Air Conduction Results Equal Visual Testing Smooth Pursuits Horizontal WNL Smooth Pursuits Vertical WNL Saccades Horizontal WNL Saccades Vertical WNL Heave Test Negative Thrust Head Negative DVA (Line Degradation) 2 Spontaneous Nystagmus Negative Positional Testing [place]-Hallpike Negative Left,Negative Right Rolling Test Negative Left,Negative Right PT-OP-Q Treatments Start: 11/25/22 11:32 Freq: Status: Active Protocol: Document 04/13/23 14:30 DCW (Rec: 04/13/23 15:29 DCW [id number]) Manual Therapy Treatment Soft Tissue Mobilization Lumbar Body Location R lumbar paraspinals, piriformis Mobilization Type Sustained Pressure,Trigger Point Release Intensity/Depth Moderate Body Position Sidelying PT-OP-T Assessment and Plan Start: 11/25/22 11:32 Freq: Status: Active Protocol: Document 04/13/23 14:30 DCW (Rec: 04/13/23 15:29 DCW [id number]) Physical Therapy Assessment Impairments Impairments Activity Tolerance,Balance, Functional Activities, Functional Mobility,ROM,Soft Tissue Mobility,Strength,Tone Goals Two Impairment Right hip weakness (4-/5 with flexion, adduction, and ER/IR) Senior Living Goal (LTG) Pt to increase MMT of right hip to at least 4/5 in all tested planes in order to allow pt to lift right foot into vehicle without assistance LTG Duration 05/11/23 One Impairment Pt does not have an appropriate home exercise program Short Term Goal (STG) Pt to be independent and compliant with an appropriate HEP STG Duration Met Assessment Summary Assessment Continues to appear to be symptomatic largely secondary to lumbar degenerative changes , questionable improvements so far with skilled therapeutic intervention. Does appear to respond well to STM and lumbar mobs. Discussed plan to return to ortho for follow-up with ortho to discuss next step for lumbar spine. Decrease frequency Physical Therapy Plan Frequency and Duration Frequency of Treatment 1x/Week Plan of Care Start Date 04/13/23 Plan of Care End Date 05/11/23 Therapeutic Interventions Therapeutic Interventions Balance Training,Gait Training ,Home Exercise Program,Joint Mobilizations,Manual Therapy, Patient/Caregiver Education, Self-Care/Home Management,Soft Tissue Mobilization, Therapeutic Activities, Therapeutic Exercises Modalities Cold Pack/Ice Massage,Hot Packs,Ultrasound Next Visit Focus/Plan Next Note Type Treatment Note Next Visit Plan Complete hip assessment, LE strengthening, flexibility
--- NOTE | 2023-04-13 15:29 | PT.OPPOC ---
Physical, Occupational & Speech Therapy At [facility] Current Diagnoses Pain in right hip (04/13/23) Dizziness and giddiness (04/13/23) History of falling (04/13/23) Presence of right artificial hip joint (04/13/23) Visit Care Team Role Provider Type NATANAEL Aj Attending Provider Advanced Screw Machine Set Up Operator Tool Family Provider Primary Care Provider Referring Provider Specialty: Family Practice Address: [address] [place] [address], [facility] Email: [email or web address] Plan Of Care PT-OP-T Assessment and Plan Start: 11/25/22 11:32 Freq: Status: Active Protocol: Document 04/13/23 14:30 DCW (Rec: 04/13/23 15:29 DCW [id number]) Physical Therapy Assessment Impairments Impairments Activity Tolerance,Balance, Functional Activities, Functional Mobility,ROM,Soft Tissue Mobility,Strength,Tone Goals Two Impairment Right hip weakness (4-/5 with flexion, adduction, and ER/IR) Fpc Goal (LTG) Pt to increase MMT of right hip to at least 4/5 in all tested planes in order to allow pt to lift right foot into vehicle without assistance LTG Duration 05/11/23 One Impairment Pt does not have an appropriate home exercise program Short Term Goal (STG) Pt to be independent and compliant with an appropriate HEP STG Duration Met Assessment Summary Assessment Continues to appear to be symptomatic largely secondary to lumbar degenerative changes , questionable improvements so far with skilled therapeutic intervention. Does appear to respond well to STM and lumbar mobs. Discussed plan to return to ortho for follow-up with ortho to discuss next step for lumbar spine. Decrease frequency Physical Therapy Plan Frequency and Duration Frequency of Treatment 1x/Week Plan of Care Start Date 04/13/23 Plan of Care End Date 05/11/23 Therapeutic Interventions Therapeutic Interventions Balance Training,Gait Training ,Home Exercise Program,Joint Mobilizations,Manual Therapy, Patient/Caregiver Education, Self-Care/Home Management,Soft Tissue Mobilization, Therapeutic Activities, Therapeutic Exercises Modalities Cold Pack/Ice Massage,Hot Packs,Ultrasound Next Visit Focus/Plan Next Note Type Treatment Note Next Visit Plan Complete hip assessment, LE strengthening, flexibility Plan of Care Dates Plan of Care Start Date 04/13/23 Plan of Care End Date 05/11/23 Electronically Signed by: Sage Vasquez, PT 04/13/23 1269 If you are in agreement with this Plan of Care, please return a signed and dated copy. I have reviewed this Plan of Care and certify that the skilled therapy services above are required to meet the patient?s needs. Physician Signature Date Printed Name and Credentials Clinical Instructor Signature Printed Name and Credentials
--- NOTE | 2023-04-20 14:31 | PT.OTN ---
Current Diagnoses Pain in right hip (04/20/23) Dizziness and giddiness (04/20/23) History of falling (04/20/23) Presence of right artificial hip joint (04/20/23) Physical Therapy Treatment Note PT-OP-A Visit Information Start: 11/25/22 11:32 Freq: Status: Active Protocol: Document 04/20/23 13:45 DCW (Rec: 04/20/23 14:30 DCW [id number]) Out-Patient Physical Therapy Visit Information Visit Information Visit Type Treatment Note Visit Start Time 13:45 Visit Stop Time 14:30 Visit Number 28 Number of FINANCIAL CONTROLLER Visits 0 Evaluation Information Evaluation Date 11/25/22 PT-OP-B Current Condition Start: 11/25/22 11:32 Freq: Status: Active Protocol: Document 11/25/22 09:45 DCW (Rec: 11/25/22 11:46 DCW [id number]) Current Condition History of Current Condition Onset Date Two months s/p fall Current Complaints Prior dizziness, hip pain, LE weakness History of Current Condition Pt is a 77 year old female presenting two months s/p fall , which resulted in a rib fracture. At the time of her fall, pt was scheduled for a PT evaluation for her R hip pain/weakness, however this got delayed due to the sudden change in medical status following her fall. Pt ready to begin hip PT, however also referred for a vestibular assessment to determine if pt' s fall, which she noted was due to dizziness, was caused by an vestibular dysfunction. Pt does have a history complicated by a history of both pelvic and breast cancer, although currently just in observation phase of treatment , no recent radiation or chemo . Pt notes that after her fall , she stopped taking one of her medications (Letrazole), which had dizziness as a side- effect, and has largely not any any further symptoms. Despite this, she is still interested in a vestibular assessment to ensure no other underlying cause for her dizziness. In addition, pt also referred again for her hip pain. Pt has history of R MARI, hip is still feeling weak and sore, feels it limits her mobility and would like to be able to lift it up into her vehicle without assistance. PT-OP-C Subjective Start: 11/25/22 11:32 Freq: Status: Active Protocol: Document 04/20/23 13:45 DCW (Rec: 04/20/23 14:30 DCW [id number]) OP-PT Subjective Patient Comments Patient Comments I was walking really well for a few days after last time, it made me pretty hopeful, but now it's pretty much back to usual. PT-OP-E Functional Tests Start: 11/25/22 11:32 Freq: Status: Active Protocol: Document 04/13/23 14:30 DCW (Rec: 04/13/23 15:18 DCW [id number]) Functional Tests 6 Minute Walk Test Distance 1230 Device Used none Comments 3.42 ft/sec 30 Second Sit to Stand Test Score x11 repetitions Comments used hands PT-OP-F Manual Assessment Start: 11/25/22 11:32 Freq: Status: Active Protocol: Document 04/13/23 14:30 DCW (Rec: 04/13/23 15:18 DCW [id number]) Manual Assessments Soft Tissue Assessment Soft Tissue Mobility Assessment Anterior hip pain/tightness through hip flexors and quads, lumbar paraspinals PT-OP-K Range of Motion Start: 11/25/22 11:32 Freq: Status: Active Protocol: Document 04/13/23 14:30 DCW (Rec: 04/13/23 15:18 DCW [id number]) Hip Goniometric Range of Motion Hip Right Active Testing Position Supine Flexion w/Knee Flexed 120 Straight Leg Raise 103 Abduction 25 Internal Rotation 35 External Rotation 40 Left Active Flexion w/Knee Flexed 123 Straight Leg Raise 94 Abduction 34 Internal Rotation 35 External Rotation 40 PT-OP-L Special Tests Start: 11/25/22 11:32 Freq: Status: Active Protocol: Document 11/25/22 09:45 DCW (Rec: 11/25/22 11:46 DCW [id number]) Special Tests Hip Special Tests Straight Leg Raise Test Results Negative Scour Test Test Results Negative MARVIN Test Results Negative Hannah's Test Test Results Positive R Anterior Labral Test Test Results Negative PT-OP-M Strength Start: 11/25/22 11:32 Freq: Status: Active Protocol: Document 11/25/22 09:45 DCW (Rec: 11/25/22 11:46 DCW [id number]) Hip Strength Hip Manual Muscle Testing Right Flexion (L2) 4- Good- Abduction 4 Good Adduction 4- Good- External Rotation 3+ Fair+ Internal Rotation 4- Good- Left Flexion (L2) 4+ Good+ Abduction 4+ Good+ Adduction 4+ Good+ External Rotation 4+ Good+ Internal Rotation 4+ Good+ Knee Strength Knee Manual Muscle Testing Right Flexion (S2) 4+ Good+ Extension (L3) 4+ Good+ Left Flexion (S2) 5 Normal Extension (L3) 5 Normal PT-OP-O Vestibular Start: 11/25/22 11:32 Freq: Status: Active Protocol: Document 11/25/22 09:45 DCW (Rec: 11/25/22 11:46 DCW [id number]) Vestibular Assessment Auditory Tests Gómez Test Within normal limits Rinne Test Negative Air Conduction Results Equal Visual Testing Smooth Pursuits Horizontal WNL Smooth Pursuits Vertical WNL Saccades Horizontal WNL Saccades Vertical WNL Heave Test Negative Thrust Head Negative DVA (Line Degradation) 2 Spontaneous Nystagmus Negative Positional Testing [place]-Hallpike Negative Left,Negative Right Rolling Test Negative Left,Negative Right PT-OP-Q Treatments Start: 11/25/22 11:32 Freq: Status: Active Protocol: Document 04/20/23 13:45 DCW (Rec: 04/20/23 14:30 DCW [id number]) Cardio Equipment Recumbent Elliptical (Lucky Oyster) Duration (Minutes) 8 Resistance 6 Seat Position 11 Gym Equipment Therapeutic Ball LTR Exercise Details LTR Ball Size/Color Red - 55 cm Body Position Supine Manual Therapy Treatment Soft Tissue Mobilization Lumbar Body Location R lumbar paraspinals, piriformis Mobilization Type Sustained Pressure,Trigger Point Release Intensity/Depth Moderate Body Position Sidelying PT-OP-T Assessment and Plan Start: 11/25/22 11:32 Freq: Status: Active Protocol: Document 04/20/23 13:45 DCW (Rec: 04/20/23 14:30 DCW [id number]) Physical Therapy Assessment Impairments Impairments Activity Tolerance,Balance, Functional Activities, Functional Mobility,ROM,Soft Tissue Mobility,Strength,Tone Goals Two Impairment Right hip weakness (4-/5 with flexion, adduction, and ER/IR) Bindery Assistant Goal (LTG) Pt to increase MMT of right hip to at least 4/5 in all tested planes in order to allow pt to lift right foot into vehicle without assistance LTG Duration 05/11/23 One Impairment Pt does not have an appropriate home exercise program Short Term Goal (STG) Pt to be independent and compliant with an appropriate HEP STG Duration Met Assessment Summary Assessment Pt having some improvement following STM, has difficulty maintaining gains at home. Discussed importance of HEP, reviewed hip hiking, open books, and LTR Physical Therapy Plan Frequency and Duration Frequency of Treatment 1x/Week Plan of Care Start Date 04/13/23 Plan of Care End Date 05/11/23 Therapeutic Interventions Therapeutic Interventions Balance Training,Gait Training ,Home Exercise Program,Joint Mobilizations,Manual Therapy, Patient/Caregiver Education, Self-Care/Home Management,Soft Tissue Mobilization, Therapeutic Activities, Therapeutic Exercises Modalities Cold Pack/Ice Massage,Hot Packs,Ultrasound Next Visit Focus/Plan Next Note Type Treatment Note Next Visit Plan Complete hip assessment, LE strengthening, flexibility
--- NOTE | 2023-04-27 14:29 | PT.OTN ---
Current Diagnoses Pain in right hip (04/27/23) Dizziness and giddiness (04/27/23) History of falling (04/27/23) Presence of right artificial hip joint (04/27/23) Physical Therapy Treatment Note PT-OP-A Visit Information Start: 11/25/22 11:32 Freq: Status: Active Protocol: Document 04/27/23 13:45 DCW (Rec: 04/27/23 14:29 DCW [id number]) Out-Patient Physical Therapy Visit Information Visit Information Visit Type Discharge Summary Visit Start Time 13:45 Visit Stop Time 14:30 Visit Number 29 Number of PRODUCTION CREW SUPERVISOR Visits 0 Evaluation Information Evaluation Date 11/25/22 PT-OP-B Current Condition Start: 11/25/22 11:32 Freq: Status: Active Protocol: Document 11/25/22 09:45 DCW (Rec: 11/25/22 11:46 DCW [id number]) Current Condition History of Current Condition Onset Date Two months s/p fall Current Complaints Prior dizziness, hip pain, LE weakness History of Current Condition Pt is a 77 year old female presenting two months s/p fall , which resulted in a rib fracture. At the time of her fall, pt was scheduled for a PT evaluation for her R hip pain/weakness, however this got delayed due to the sudden change in medical status following her fall. Pt ready to begin hip PT, however also referred for a vestibular assessment to determine if pt' s fall, which she noted was due to dizziness, was caused by an vestibular dysfunction. Pt does have a history complicated by a history of both pelvic and breast cancer, although currently just in observation phase of treatment , no recent radiation or chemo . Pt notes that after her fall , she stopped taking one of her medications (Letrazole), which had dizziness as a side- effect, and has largely not any any further symptoms. Despite this, she is still interested in a vestibular assessment to ensure no other underlying cause for her dizziness. In addition, pt also referred again for her hip pain. Pt has history of R MARI, hip is still feeling weak and sore, feels it limits her mobility and would like to be able to lift it up into her vehicle without assistance. PT-OP-C Subjective Start: 11/25/22 11:32 Freq: Status: Active Protocol: Document 04/27/23 13:45 DCW (Rec: 04/27/23 14:29 DCW [id number]) OP-PT Subjective Patient Comments Patient Comments It was great after last time, it lasted a few days, then got a little worse. It is better today. PT-OP-E Functional Tests Start: 11/25/22 11:32 Freq: Status: Active Protocol: Document 04/13/23 14:30 DCW (Rec: 04/13/23 15:18 DCW [id number]) Functional Tests 6 Minute Walk Test Distance 1230 Device Used none Comments 3.42 ft/sec 30 Second Sit to Stand Test Score x11 repetitions Comments used hands PT-OP-F Manual Assessment Start: 11/25/22 11:32 Freq: Status: Active Protocol: Document 04/13/23 14:30 DCW (Rec: 04/13/23 15:18 DCW [id number]) Manual Assessments Soft Tissue Assessment Soft Tissue Mobility Assessment Anterior hip pain/tightness through hip flexors and quads, lumbar paraspinals PT-OP-K Range of Motion Start: 11/25/22 11:32 Freq: Status: Active Protocol: Document 04/13/23 14:30 DCW (Rec: 04/13/23 15:18 DCW [id number]) Hip Goniometric Range of Motion Hip Right Active Testing Position Supine Flexion w/Knee Flexed 120 Straight Leg Raise 103 Abduction 25 Internal Rotation 35 External Rotation 40 Left Active Flexion w/Knee Flexed 123 Straight Leg Raise 94 Abduction 34 Internal Rotation 35 External Rotation 40 PT-OP-L Special Tests Start: 11/25/22 11:32 Freq: Status: Active Protocol: Document 11/25/22 09:45 DCW (Rec: 11/25/22 11:46 DCW [id number]) Special Tests Hip Special Tests Straight Leg Raise Test Results Negative Scour Test Test Results Negative MARVIN Test Results Negative Hannah's Test Test Results Positive R Anterior Labral Test Test Results Negative PT-OP-M Strength Start: 11/25/22 11:32 Freq: Status: Active Protocol: Document 11/25/22 09:45 DCW (Rec: 11/25/22 11:46 DCW [id number]) Hip Strength Hip Manual Muscle Testing Right Flexion (L2) 4- Good- Abduction 4 Good Adduction 4- Good- External Rotation 3+ Fair+ Internal Rotation 4- Good- Left Flexion (L2) 4+ Good+ Abduction 4+ Good+ Adduction 4+ Good+ External Rotation 4+ Good+ Internal Rotation 4+ Good+ Knee Strength Knee Manual Muscle Testing Right Flexion (S2) 4+ Good+ Extension (L3) 4+ Good+ Left Flexion (S2) 5 Normal Extension (L3) 5 Normal PT-OP-O Vestibular Start: 11/25/22 11:32 Freq: Status: Active Protocol: Document 11/25/22 09:45 DCW (Rec: 11/25/22 11:46 DCW [id number]) Vestibular Assessment Auditory Tests Gómez Test Within normal limits Rinne Test Negative Air Conduction Results Equal Visual Testing Smooth Pursuits Horizontal WNL Smooth Pursuits Vertical WNL Saccades Horizontal WNL Saccades Vertical WNL Heave Test Negative Thrust Head Negative DVA (Line Degradation) 2 Spontaneous Nystagmus Negative Positional Testing [place]-Hallpike Negative Left,Negative Right Rolling Test Negative Left,Negative Right PT-OP-Q Treatments Start: 11/25/22 11:32 Freq: Status: Active Protocol: Document 04/27/23 13:45 DCW (Rec: 04/27/23 14:29 DCW [id number]) Cardio Equipment Recumbent Elliptical (Crystalsol) Duration (Minutes) 6 Resistance 6 Seat Position 11 Therapeutic Exercises Sitting Exercises Trunk flexion Sitting Exercise Name Fwd trunk flexion, lumbar stretch Manual Therapy Treatment Soft Tissue Mobilization Lumbar Body Location R lumbar paraspinals, piriformis Mobilization Type Sustained Pressure,Trigger Point Release Intensity/Depth Moderate Body Position Sidelying PT-OP-T Assessment and Plan Start: 11/25/22 11:32 Freq: Status: Active Protocol: Document 04/27/23 13:45 DCW (Rec: 04/27/23 14:29 DCW [id number]) Physical Therapy Assessment Impairments Impairments Activity Tolerance,Balance, Functional Activities, Functional Mobility,ROM,Soft Tissue Mobility,Strength,Tone Goals Two Impairment Right hip weakness (4-/5 with flexion, adduction, and ER/IR) Slubber Hand Goal (LTG) Pt to increase MMT of right hip to at least 4/5 in all tested planes in order to allow pt to lift right foot into vehicle without assistance LTG Duration 05/11/23 One Impairment Pt does not have an appropriate home exercise program Short Term Goal (STG) Pt to be independent and compliant with an appropriate HEP STG Duration Met Assessment Summary Assessment Pt typically experiencing short-term benefit from PT, however is largely still experiencing a return to baseline pain/discomfort after a few days. Minimal change with recent PT. Does appear to be largely coming from low back, did not seem to benefit much at all when focus was more on her hip mobility/ flexibility. At this time, will likely benefit more from return to PCP for discussion of next step. Discharge from skilled therapy. Physical Therapy Plan Frequency and Duration Frequency of Treatment 1x/Week Plan of Care Start Date 04/13/23 Plan of Care End Date 05/11/23 Therapeutic Interventions Therapeutic Interventions Balance Training,Gait Training ,Home Exercise Program,Joint Mobilizations,Manual Therapy, Patient/Caregiver Education, Self-Care/Home Management,Soft Tissue Mobilization, Therapeutic Activities, Therapeutic Exercises Modalities Cold Pack/Ice Massage,Hot Packs,Ultrasound Discharge Physical Therapy Discharge Reasons Plateau in Progress Next Visit Focus/Plan Next Note Type Discharge Summary
== END 2023-05-03 09:41 | disposition home or self-care (01) ==
LOC: PHYS 13:45
PROVIDERS: Absent Provider Nurse Practitioner; Family Provider Nurse Practitioner; PCP Nurse Practitioner; Referring Provider Nurse Practitioner; Visit Provider Nurse Practitioner
DX: R42 Dizziness and giddiness (principal); M25.551 Pain in right hip; Z96.641 Presence of right artificial hip joint; Z91.81 History of falling
CPT/HCPCS: 97110; 97112; 97140; 97161; 97530

== ENCOUNTER → 2023-07-11 11:54 | Outpatient (CLI) | payer MEDICARE, SELFPAY ==
[2022-10-19 09:25] VITALS: BMI 26.0
--- NOTE | 2023-07-11 11:56 | DI.MRI.S_ITS ---
PROCEDURE: MR LUMBAR SPINE WO CON INDICATIONS: SPINAL STENOSIS TECHNIQUE: Noncontrast sagittal T1 spin echo and T2 fast echo, sagittal STIR, and T2 fast spin echo through the lumbar spine. In cases with scoliosis, additional coronal T2 fast spin echo may be performed. COMPARISON: None. FINDINGS: Image quality: Excellent. Alignment and Curvature: There is normal bony alignment. Bone Marrow: Marrow is of normal overall signal. No acute vertebral body compression fractures. Spinal Cord: Conus medullaris terminates at the L1 level. Visualized cord demonstrates normal signal and size. Paraspinous Soft Tissues: No paravertebral masses. T12-L1: Minimal disc bulge. No central canal or neural foraminal stenosis. L1-L2: Disc desiccation and minimal disc bulge. No central canal or neural foraminal stenosis. L2-L3: Disc desiccation and minimal disc bulge. Facet arthropathy. No central canal or neural foraminal stenosis. L3-L4: Disc desiccation and mild disc bulge. Facet arthropathy and thickening of ligamentum flavum. Mild central canal stenosis. No neural foraminal stenosis. L4-L5: Disc desiccation and height loss. Mild disc bulge. Facet arthropathy and thickening of ligamentum flavum. Epidural lipomatosis. Mild central canal stenosis. No neural foraminal stenosis. L5-S1: Disc desiccation and minimal disc bulge. Facet arthropathy and thickening of ligamentum flavum. No central canal stenosis. No neural foraminal stenosis. IMPRESSION: 1. Mild multilevel degenerative changes of the lumbar spine. 2. There is mild central canal stenosis at L3-L4 and L4-5. 3. No significant neural foraminal stenosis. Dictated by: Ramin Guillen M.D. on 07/11/2023 at 13:38 Approved by: Ramin Guillen M.D. on 07/11/2023 at 13:42
== END ==
PROVIDERS: Family Provider Nurse Practitioner; PCP Nurse Practitioner; Referring Provider Physical Medicine & Rehabilitation Pain Medicine; Visit Provider Physical Medicine & Rehabilitation Pain Medicine
DX: M48.062 Spinal stenosis, lumbar region with neurogenic claudication (principal); M47.816 Spondylosis without myelopathy or radiculopathy, lumbar region; M47.817 Spondylosis without myelopathy or radiculopathy, lumbosacral region
CPT/HCPCS: 72148

== ENCOUNTER 2023-12-06 13:45 | Outpatient (RCR) | payer MEDICARE, SELFPAY ==
[2022-10-19 09:25] VITALS: BMI 26.0
--- NOTE | 2023-09-07 12:00 | PT.OPPOC ---
Physical, Occupational & Speech Therapy At [facility] Current Diagnoses Stiffness of other specified joint, not elsewhere classified (09/07/23) Spinal stenosis, lumbar region with neurogenic claudication (09/07/23) Sacrococcygeal disorders, not elsewhere classified (09/07/23) Visit Care Team Role Provider Type NATANAEL Aj Family Provider Advanced Streetcar Starter Primary Care Provider Specialty: Family Practice Address: [address] [place] [address], [id number] Email: [email or web address] Alexis MD Attending Provider Physician Referring Provider Specialty: Orthopedics Orthopedic Surgery Physical Medicine and Re[facility] Address: [address] [place] [address], [id number] Email: [email or web address] Plan Of Care PT-OP-T Assessment and Plan Start: 09/07/23 15:57 Freq: Status: Active Protocol: Document 09/07/23 12:00 DCW (Rec: 09/08/23 08:52 DCW [id number]) Physical Therapy Assessment Rehab Potential Rehabilitation Potential Fair Evaluation Complexity Number of Personal Factors/Comorbidities 3 or More Number of Body Systems Impaired 4 or More Clinical Presentation at Evaluation Evolving Impairments Impairments Activity Tolerance,Functional Activities,Functional Mobility ,Gait,ROM,Soft Tissue Mobility ,Strength Goals Three Impairment Right hip and core weakness Automatic Nailing Machine Feeder Goal (LTG) Pt to exhibit increased core strength to at least 4/5 in order to improve abdominal bracing during her ADLs to decrease burden on low back LTG Duration 11/07/23 Two Impairment Pt reports sleep disturbances secondary to pain Automatic Nailing Machine Feeder Goal (LTG) Pt to report no sleep disturbances due to low back or right hip pain over a seven day period. LTG Duration 11/07/23 One Impairment Pt does not have an appropriate home exercise program Short Term Goal (STG) Pt to be independent and compliant with an appropriate HEP STG Duration 10/07/23 Assessment Summary Assessment Pt presents with signs and symptoms consistent with referring diagnosis of lumbar stenosis. Pt does demonstrate core and right hip weakness, as well as limitations to lumbar ROM. Pt should benefit from skilled therapy focusing on core and leg strengthening, mobility of lumbar spine, STM and joint mobilizations, and increased activity tolerance Physical Therapy Plan Frequency and Duration Frequency of Treatment 2x/Week Plan of Care Start Date 09/07/23 Plan of Care End Date 11/07/23 Therapeutic Interventions Therapeutic Interventions Home Exercise Program,Joint Mobilizations,Manual Therapy, Neuromuscular Re-education, Patient/Caregiver Education, Self-Care/Home Management,Soft Tissue Mobilization, Therapeutic Activities, Therapeutic Exercises Modalities Cold Pack/Ice Massage,Hot Packs Next Visit Focus/Plan Next Note Type Treatment Note Next Visit Plan Core strengthening, lumbar mobility Plan of Care Dates Plan of Care Start Date 09/07/23 Plan of Care End Date 11/07/23 Electronically Signed by: Sage Vasquez, PT 09/08/23 0853 If you are in agreement with this Plan of Care, please return a signed and dated copy. I have reviewed this Plan of Care and certify that the skilled therapy services above are required to meet the patient?s needs. Physician Signature Date Printed Name and Credentials Clinical Instructor Signature Printed Name and Credentials
--- NOTE | 2023-09-07 12:45 | PT.OIE ---
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 Breast cancer Elevated blood pressure reading without diagnosis of hypertension Hepatitis B Hyperlipidemia Hypertension Left shoulder pain Osteoarthritis Osteopenia Osteoporosis Ovarian cancer Ovarian cyst Pre-operative clearance Seasonal allergic rhinitis Seasonal allergies Shortness of breath Tinnitus UTI (urinary tract infection) Well adult exam Past Surgical History (Last Updated 03/15/23 @ 16:40 by NATANAEL Aj) History of cataract surgery History of laparotomy Hx of appendectomy S/P laparoscopy with lysis of adhesions Status post chemotherapy Status post right hip replacement Visit Care Team Role Provider Type NATANAEL Aj Family Provider [employer] Primary Care Provider Specialty: Family Practice Address: [address] [place] [address], [facility] Email: [email or web address] Riley Alexis MD Attending Provider Physician Referring Provider Specialty: Orthopedics Orthopedic Surgery Physical Medicine and Rehab Address: [address] [place] [address], [id number] Email: Physical Therapy Initial Evaluation PT-OP-A Visit Information Start: 09/07/23 15:57 Freq: Status: Active Protocol: Document 09/07/23 12:00 DCW (Rec: 09/07/23 16:00 DCW [id number]) Out-Patient Physical Therapy Visit Information Visit Information Visit Type Initial Evaluation Visit Start Time 12:00 Visit Stop Time 12:40 Visit Number 1 Evaluation Information Evaluation Date 09/07/23 PT-OP-B Current Condition Start: 09/07/23 15:57 Freq: Status: Active Protocol: Document 09/07/23 12:00 DCW (Rec: 09/07/23 17:50 DCW [id number]) Current Condition History of Current Condition Onset Date Multi-year history Current Complaints Low back and right hip pain, gait difficulties History of Current Condition Pt is a 78 year old female well-known to this clinic presenting with a long- standing history of low back and right hip pain. Pt was seen last year for this same hip pain. At the time, therapist and patient felt she had largely plateaued, and her hip pain was likely strongly associated with back problems. Since her most recent PT discharge, she has been seen by Dr Alexis, received MRI, was found to have lumbar stenosis, and received an injection. Pt notes that her back was better for ~4 weeks following her injection, but has largely returned to pre- injection levels. Pt reports other than PT, her next options are a guided injection or surgery, so she would like to attempt PT again. Reports she has been noticing a decreased tolerance to gait, especially evident after sitting for an extended period , like during a car ride. Pain has been occasionally limiting sleep, and pt must take frequent rest breaks ( every 15 minutes) when up moving around performing house work. Prior Treatments and Tests Lumbar MRI: IMPRESSION: 1. Mild multilevel degenerative changes of the lumbar spine. 2 . There is mild central canal stenosis at L3-L4 and L4-L5. 3 . No significant neural foraminal stenosis. per Raimn Guillen M.D. on 07/11/2023 Treatment Goals Patient/Caregiver Goals Avoid surgery PT-OP-C Subjective Start: 09/07/23 15:57 Freq: Status: Active Protocol: Document 09/07/23 12:00 DCW (Rec: 09/07/23 17:50 DCW [id number]) OP-PT Subjective Patient Comments Patient Comments Heat does seem to help some, at least it helps me sleep a little better. Patient Questionnaires Oswestry Low Back Index Oswestry Score 17/50 = 34% PT-OP-F Manual Assessment Start: 09/07/23 15:57 Freq: Status: Active Protocol: Document 09/07/23 12:00 DCW (Rec: 09/07/23 17:50 DCW [id number]) Manual Assessments Soft Tissue Assessment Soft Tissue Mobility Assessment Moderate tone of lumbar paraspinals, R>L. Moderate tone with tenderness to palpation 2/4: Pain with wincing R hip flexors, R ITB, R Glute med PT-OP-K Range of Motion Start: 09/07/23 15:57 Freq: Status: Active Protocol: Document 09/07/23 12:00 DCW (Rec: 09/08/23 08:39 DCW [id number]) Lumbar Spine Range of Motion Lumbar Spine Active Degrees Testing Position Standing Flexion 65 Extension 10 ROM Limitations Bony Restriction,Pain PT-OP-L Special Tests Start: 09/07/23 15:57 Freq: Status: Active Protocol: Document 09/07/23 12:00 DCW (Rec: 09/08/23 08:39 HIW [id number]) Special Tests Lumbar Spine Special Tests Straight Leg Raise Test Results Positive R for anterior hip pain Slump Test Results Negative Compression Test Results Negative A-P Shearing Test Results Negative PT-OP-M Strength Start: 09/07/23 15:57 Freq: Status: Active Protocol: Document 09/07/23 12:00 DCW (Rec: 09/08/23 08:39 [facility] [id number]) Trunk Strength Trunk Manual Muscle Testing Core Stabilization Pt struggles with abdominal bracing, requires verbal and tactile cuing to contract TrA: MMT 3/5 Hip Strength Hip Manual Muscle Testing Right Flexion (L2) 3+ Fair+ Abduction 3+ Fair+ Adduction 4 Good External Rotation 3 Fair Internal Rotation 3- Fair- Comments Inability to push against resistance largely appears to be more of a response to pain than a true muscle weakness. Left Flexion (L2) 4 Good Abduction 4 Good Adduction 4 Good External Rotation 4- Good- Internal Rotation 4- Good- Knee Strength Knee Manual Muscle Testing Right Flexion (S2) 4 Good Extension (L3) 3+ Fair+ Left Flexion (S2) 4 Good Extension (L3) 4 Good PT-OP-Q Treatments Start: 09/07/23 15:57 Freq: Status: Active Protocol: Document 09/07/23 12:00 DCW (Rec: 09/07/23 16:00 HIW [id number]) Therapeutic Exercises Supine Exercises Bridging Supine Exercise Name Bridging Comments HEP LTR Supine Exercise Name LTR Comments HEP PPT Supine Exercise Name PPT /c TrA contraction Comments HEP Other Exercises Sit to Stand Other Exercise Name StS Comments HEP PT-OP-T Assessment and Plan Start: 09/07/23 15:57 Freq: Status: Active Protocol: Document 09/07/23 12:00 DCW (Rec: 09/08/23 08:52 [facility] [id number]) Physical Therapy Assessment Rehab Potential Rehabilitation Potential Fair Evaluation Complexity Number of Personal Factors/Comorbidities 3 or More Number of Body Systems Impaired 4 or More Clinical Presentation at Evaluation Evolving Impairments Impairments Activity Tolerance,Functional Activities,Functional Mobility ,Gait,ROM,Soft Tissue Mobility ,Strength Goals Three Impairment Right hip and core weakness Shelter Goal (LTG) Pt to exhibit increased core strength to at least 4/5 in order to improve abdominal bracing during her ADLs to decrease burden on low back LTG Duration 11/07/23 Two Impairment Pt reports sleep disturbances secondary to pain Shelter Goal (LTG) Pt to report no sleep disturbances due to low back or right hip pain over a seven day period. LTG Duration 11/07/23 One Impairment Pt does not have an appropriate home exercise program Short Term Goal (STG) Pt to be independent and compliant with an appropriate HEP STG Duration 10/07/23 Assessment Summary Assessment Pt presents with signs and symptoms consistent with referring diagnosis of lumbar stenosis. Pt does demonstrate core and right hip weakness, as well as limitations to lumbar ROM. Pt should benefit from skilled therapy focusing on core and leg strengthening, mobility of lumbar spine, STM and joint mobilizations, and increased activity tolerance Physical Therapy Plan Frequency and Duration Frequency of Treatment 2x/Week Plan of Care Start Date 09/07/23 Plan of Care End Date 11/07/23 Therapeutic Interventions Therapeutic Interventions Home Exercise Program,Joint Mobilizations,Manual Therapy, Neuromuscular Re-education, Patient/Caregiver Education, Self-Care/Home Management,Soft Tissue Mobilization, Therapeutic Activities, Therapeutic Exercises Modalities Cold Pack/Ice Massage,Hot Packs Next Visit Focus/Plan Next Note Type Treatment Note Next Visit Plan Core strengthening, lumbar mobility
--- NOTE | 2023-09-12 12:06 | PT.OTN ---
Current Diagnoses Stiffness of other specified joint, not elsewhere classified (09/12/23) Spinal stenosis, lumbar region with neurogenic claudication (09/12/23) Sacrococcygeal disorders, not elsewhere classified (09/12/23) Physical Therapy Treatment Note PT-OP-A Visit Information Start: 09/07/23 15:57 Freq: Status: Active Protocol: Document 09/12/23 11:15 DCW (Rec: 09/12/23 12:05 DCW [id number]) Out-Patient Physical Therapy Visit Information Visit Information Visit Type Treatment Note Visit Start Time 11:15 Visit Stop Time 12:00 Visit Number 2 Number of MANAGER SECURITY AND SAFETY Visits 0 Evaluation Information Evaluation Date 09/07/23 PT-OP-B Current Condition Start: 09/07/23 15:57 Freq: Status: Active Protocol: Document 09/07/23 12:00 DCW (Rec: 09/07/23 17:50 DCW [id number]) Current Condition History of Current Condition Onset Date Multi-year history Current Complaints Low back and right hip pain, gait difficulties History of Current Condition Pt is a 78 year old female well-known to this clinic presenting with a long- standing history of low back and right hip pain. Pt was seen last year for this same hip pain. At the time, therapist and patient felt she had largely plateaued, and her hip pain was likely strongly associated with back problems. Since her most recent PT discharge, she has been seen by Dr Alexis, received MRI, was found to have lumbar stenosis, and received an injection. Pt notes that her back was better for ~4 weeks following her injection, but has largely returned to pre- injection levels. Pt reports other than PT, her next options are a guided injection or surgery, so she would like to attempt PT again. Reports she has been noticing a decreased tolerance to gait, especially evident after sitting for an extended period , like during a car ride. Pain has been occasionally limiting sleep, and pt must take frequent rest breaks ( every 15 minutes) when up moving around performing house work. Prior Treatments and Tests Lumbar MRI: IMPRESSION: 1. Mild multilevel degenerative changes of the lumbar spine. 2 . There is mild central canal stenosis at L3-L4 and L4-L5. 3 . No significant neural foraminal stenosis. per Ramin Guillen M.D. on 07/11/2023 Treatment Goals Patient/Caregiver Goals Avoid surgery PT-OP-C Subjective Start: 09/07/23 15:57 Freq: Status: Active Protocol: Document 09/12/23 11:15 DCW (Rec: 09/12/23 12:05 DCW [id number]) OP-PT Subjective Patient Comments Patient Comments It's a real up and down deal. PT-OP-F Manual Assessment Start: 09/07/23 15:57 Freq: Status: Active Protocol: Document 09/07/23 12:00 DCW (Rec: 09/07/23 17:50 DCW [id number]) Manual Assessments Soft Tissue Assessment Soft Tissue Mobility Assessment Moderate tone of lumbar paraspinals, R>L. Moderate tone with tenderness to palpation 2/4: Pain with wincing R hip flexors, R ITB, R Glute med PT-OP-K Range of Motion Start: 09/07/23 15:57 Freq: Status: Active Protocol: Document 09/07/23 12:00 DCW (Rec: 09/08/23 08:39 DCW [id number]) Lumbar Spine Range of Motion Lumbar Spine Active Degrees Testing Position Standing Flexion 65 Extension 10 ROM Limitations Bony Restriction,Pain PT-OP-L Special Tests Start: 09/07/23 15:57 Freq: Status: Active Protocol: Document 09/07/23 12:00 DCW (Rec: 09/08/23 08:39 DCW [id number]) Special Tests Lumbar Spine Special Tests Straight Leg Raise Test Results Positive R for anterior hip pain Slump Test Results Negative Compression Test Results Negative A-P Shearing Test Results Negative PT-OP-M Strength Start: 09/07/23 15:57 Freq: Status: Active Protocol: Document 09/07/23 12:00 DCW (Rec: 09/08/23 08:39 DCW [id number]) Trunk Strength Trunk Manual Muscle Testing Core Stabilization Pt struggles with abdominal bracing, requires verbal and tactile cuing to contract TrA: MMT 3/5 Hip Strength Hip Manual Muscle Testing Right Flexion (L2) 3+ Fair+ Abduction 3+ Fair+ Adduction 4 Good External Rotation 3 Fair Internal Rotation 3- Fair- Comments Inability to push against resistance largely appears to be more of a response to pain than a true muscle weakness. Left Flexion (L2) 4 Good Abduction 4 Good Adduction 4 Good External Rotation 4- Good- Internal Rotation 4- Good- Knee Strength Knee Manual Muscle Testing Right Flexion (S2) 4 Good Extension (L3) 3+ Fair+ Left Flexion (S2) 4 Good Extension (L3) 4 Good PT-OP-Q Treatments Start: 09/07/23 15:57 Freq: Status: Active Protocol: Document 09/12/23 11:15 DCW (Rec: 09/12/23 12:05 DCW [id number]) Gym Equipment Therapeutic Ball Trunk Rotation Exercise Details Resisted Trunk Rotation Ball Size/Color Green - 65 cm Lv 3 T-band Body Position Sitting Pelvic tilts Exercise Details Pelvic tilts/circles Ball Size/Color Green - 65 cm Body Position Sitting Therapeutic Exercises Supine Exercises Air Bike Supine Exercise Name PPT /c Air Bicycle SLR Supine Exercise Name PPT /c SLR PPT Supine Exercise Name PPT /c TrA contraction Reps/Minutes 5 hold x10 Comments HEP Standing Exercises Pallof Press Standing Exercise Name Pallof Press Side bilateral Resistance Double Green Manual Therapy Treatment Soft Tissue Mobilization Lumbar Body Location Lumbar paraspinals, Piriformis PT-OP-T Assessment and Plan Start: 09/07/23 15:57 Freq: Status: Active Protocol: Document 09/12/23 11:15 DCW (Rec: 09/12/23 12:05 DCW [id number]) Physical Therapy Assessment Impairments Impairments Activity Tolerance,Functional Activities,Functional Mobility ,Gait,ROM,Soft Tissue Mobility ,Strength Goals Three Impairment Right hip and core weakness Director Power Goal (LTG) Pt to exhibit increased core strength to at least 4/5 in order to improve abdominal bracing during her ADLs to decrease burden on low back LTG Duration 11/07/23 Two Impairment Pt reports sleep disturbances secondary to pain Director Power Goal (LTG) Pt to report no sleep disturbances due to low back or right hip pain over a seven day period. LTG Duration 11/07/23 One Impairment Pt does not have an appropriate home exercise program Short Term Goal (STG) Pt to be independent and compliant with an appropriate HEP STG Duration 10/07/23 Assessment Summary Assessment Pt feeling more comfortable with HEP, good response to new activities. Pt continues to experience increased pain in right low back and lateral hip . Physical Therapy Plan Frequency and Duration Frequency of Treatment 2x/Week Plan of Care Start Date 09/07/23 Plan of Care End Date 11/07/23 Therapeutic Interventions Therapeutic Interventions Home Exercise Program,Joint Mobilizations,Manual Therapy, Neuromuscular Re-education, Patient/Caregiver Education, Self-Care/Home Management,Soft Tissue Mobilization, Therapeutic Activities, Therapeutic Exercises Modalities Cold Pack/Ice Massage,Hot Packs Next Visit Focus/Plan Next Note Type Treatment Note Next Visit Plan Core strengthening, lumbar mobility
--- NOTE | 2023-09-18 12:44 | PT.OTN ---
Current Diagnoses Stiffness of other specified joint, not elsewhere classified (09/18/23) Spinal stenosis, lumbar region with neurogenic claudication (09/18/23) Sacrococcygeal disorders, not elsewhere classified (09/18/23) Physical Therapy Treatment Note PT-OP-A Visit Information Start: 09/07/23 15:57 Freq: Status: Active Protocol: Document 09/18/23 12:00 DCW (Rec: 09/18/23 12:44 DCW [id number]) Out-Patient Physical Therapy Visit Information Visit Information Visit Type Treatment Note Visit Start Time 12:00 Visit Stop Time 12:45 Visit Number 3 Number of PRODUCT MANAGEMENT INTERN Visits 0 Evaluation Information Evaluation Date 09/07/23 PT-OP-B Current Condition Start: 09/07/23 15:57 Freq: Status: Active Protocol: Document 09/07/23 12:00 DCW (Rec: 09/07/23 17:50 DCW [id number]) Current Condition History of Current Condition Onset Date Multi-year history Current Complaints Low back and right hip pain, gait difficulties History of Current Condition Pt is a 78 year old female well-known to this clinic presenting with a long- standing history of low back and right hip pain. Pt was seen last year for this same hip pain. At the time, therapist and patient felt she had largely plateaued, and her hip pain was likely strongly associated with back problems. Since her most recent PT discharge, she has been seen by Dr Alexis, received MRI, was found to have lumbar stenosis, and received an injection. Pt notes that her back was better for ~4 weeks following her injection, but has largely returned to pre- injection levels. Pt reports other than PT, her next options are a guided injection or surgery, so she would like to attempt PT again. Reports she has been noticing a decreased tolerance to gait, especially evident after sitting for an extended period , like during a car ride. Pain has been occasionally limiting sleep, and pt must take frequent rest breaks ( every 15 minutes) when up moving around performing house work. Prior Treatments and Tests Lumbar MRI: IMPRESSION: 1. Mild multilevel degenerative changes of the lumbar spine. 2 . There is mild central canal stenosis at L3-L4 and L4-L5. 3 . No significant neural foraminal stenosis. per Ramin Guillen M.D. on 07/11/2023 Treatment Goals Patient/Caregiver Goals Avoid surgery PT-OP-C Subjective Start: 09/07/23 15:57 Freq: Status: Active Protocol: Document 09/18/23 12:00 DCW (Rec: 09/18/23 12:44 DCW [id number]) OP-PT Subjective Patient Comments Patient Comments Right after I'm in here, I'm good for about 24 hours, then the limp and aches and pains start up again. PT-OP-F Manual Assessment Start: 09/07/23 15:57 Freq: Status: Active Protocol: Document 09/07/23 12:00 DCW (Rec: 09/07/23 17:50 DCW [id number]) Manual Assessments Soft Tissue Assessment Soft Tissue Mobility Assessment Moderate tone of lumbar paraspinals, R>L. Moderate tone with tenderness to palpation 2/4: Pain with wincing R hip flexors, R ITB, R Glute med PT-OP-K Range of Motion Start: 09/07/23 15:57 Freq: Status: Active Protocol: Document 09/07/23 12:00 DCW (Rec: 09/08/23 08:39 DCW [id number]) Lumbar Spine Range of Motion Lumbar Spine Active Degrees Testing Position Standing Flexion 65 Extension 10 ROM Limitations Bony Restriction,Pain PT-OP-L Special Tests Start: 09/07/23 15:57 Freq: Status: Active Protocol: Document 09/07/23 12:00 DCW (Rec: 09/08/23 08:39 DCW [id number]) Special Tests Lumbar Spine Special Tests Straight Leg Raise Test Results Positive R for anterior hip pain Slump Test Results Negative Compression Test Results Negative A-P Shearing Test Results Negative PT-OP-M Strength Start: 09/07/23 15:57 Freq: Status: Active Protocol: Document 09/07/23 12:00 DCW (Rec: 09/08/23 08:39 DCW [id number]) Trunk Strength Trunk Manual Muscle Testing Core Stabilization Pt struggles with abdominal bracing, requires verbal and tactile cuing to contract TrA: MMT 3/5 Hip Strength Hip Manual Muscle Testing Right Flexion (L2) 3+ Fair+ Abduction 3+ Fair+ Adduction 4 Good External Rotation 3 Fair Internal Rotation 3- Fair- Comments Inability to push against resistance largely appears to be more of a response to pain than a true muscle weakness. Left Flexion (L2) 4 Good Abduction 4 Good Adduction 4 Good External Rotation 4- Good- Internal Rotation 4- Good- Knee Strength Knee Manual Muscle Testing Right Flexion (S2) 4 Good Extension (L3) 3+ Fair+ Left Flexion (S2) 4 Good Extension (L3) 4 Good PT-OP-Q Treatments Start: 09/07/23 15:57 Freq: Status: Active Protocol: Document 09/18/23 12:00 DCW (Rec: 09/18/23 12:44 DC [id number]) Gym Equipment Therapeutic Ball Trunk Rotation Exercise Details Resisted Trunk Rotation Ball Size/Color Green - 65 cm Lv 3 T-band Body Position Sitting Pelvic tilts Exercise Details Pelvic tilts/circles Ball Size/Color Green - 65 cm Body Position Sitting Therapeutic Exercises Supine Exercises Air Bike Supine Exercise Name PPT /c Air Bicycle SLR Supine Exercise Name PPT /c SLR PPT Supine Exercise Name PPT /c TrA contraction Reps/Minutes 5 hold x10 Comments HEP Standing Exercises Pallof Press Standing Exercise Name Pallof Press Side bilateral Resistance Double Green Other Exercises Wall push-ups Other Exercise Name Wall push-ups Comments Core engagement Manual Therapy Treatment Soft Tissue Mobilization Lumbar Body Location Lumbar paraspinals, Piriformis Body Position Sidelying PT-OP-T Assessment and Plan Start: 09/07/23 15:57 Freq: Status: Active Protocol: Document 09/18/23 12:00 DCW (Rec: 09/18/23 12:44 DC [id number]) Physical Therapy Assessment Impairments Impairments Activity Tolerance,Functional Activities,Functional Mobility ,Gait,ROM,Soft Tissue Mobility ,Strength Goals Three Impairment Right hip and core weakness Crushing Foreman Goal (LTG) Pt to exhibit increased core strength to at least 4/5 in order to improve abdominal bracing during her ADLs to decrease burden on low back LTG Duration 11/07/23 Two Impairment Pt reports sleep disturbances secondary to pain Crushing Foreman Goal (LTG) Pt to report no sleep disturbances due to low back or right hip pain over a seven day period. LTG Duration 11/07/23 One Impairment Pt does not have an appropriate home exercise program Short Term Goal (STG) Pt to be independent and compliant with an appropriate HEP STG Duration 10/07/23 Assessment Summary Assessment Good response to treatment today, review of ongoing HEP, pt demonstrates well, continue to focus on core strengthening, lumbar mobility , and STM. Physical Therapy Plan Frequency and Duration Frequency of Treatment 2x/Week Plan of Care Start Date 09/07/23 Plan of Care End Date 11/07/23 Therapeutic Interventions Therapeutic Interventions Home Exercise Program,Joint Mobilizations,Manual Therapy, Neuromuscular Re-education, Patient/Caregiver Education, Self-Care/Home Management,Soft Tissue Mobilization, Therapeutic Activities, Therapeutic Exercises Modalities Cold Pack/Ice Massage,Hot Packs Next Visit Focus/Plan Next Note Type Treatment Note Next Visit Plan Core strengthening, lumbar mobility
--- NOTE | 2023-09-19 14:31 | PT.OTN ---
Current Diagnoses Stiffness of other specified joint, not elsewhere classified (09/19/23) Spinal stenosis, lumbar region with neurogenic claudication (09/19/23) Sacrococcygeal disorders, not elsewhere classified (09/19/23) Physical Therapy Treatment Note PT-OP-A Visit Information Start: 09/07/23 15:57 Freq: Status: Active Protocol: Document 09/19/23 13:45 DCW (Rec: 09/19/23 14:31 DCW [id number]) Out-Patient Physical Therapy Visit Information Visit Information Visit Type Treatment Note Visit Start Time 13:45 Visit Stop Time 14:30 Visit Number 4 Number of CLAY BURNER Visits 0 Evaluation Information Evaluation Date 09/07/23 PT-OP-B Current Condition Start: 09/07/23 15:57 Freq: Status: Active Protocol: Document 09/07/23 12:00 DCW (Rec: 09/07/23 17:50 DCW [id number]) Current Condition History of Current Condition Onset Date Multi-year history Current Complaints Low back and right hip pain, gait difficulties History of Current Condition Pt is a 78 year old female well-known to this clinic presenting with a long- standing history of low back and right hip pain. Pt was seen last year for this same hip pain. At the time, therapist and patient felt she had largely plateaued, and her hip pain was likely strongly associated with back problems. Since her most recent PT discharge, she has been seen by Dr Alexis, received MRI, was found to have lumbar stenosis, and received an injection. Pt notes that her back was better for ~4 weeks following her injection, but has largely returned to pre- injection levels. Pt reports other than PT, her next options are a guided injection or surgery, so she would like to attempt PT again. Reports she has been noticing a decreased tolerance to gait, especially evident after sitting for an extended period , like during a car ride. Pain has been occasionally limiting sleep, and pt must take frequent rest breaks ( every 15 minutes) when up moving around performing house work. Prior Treatments and Tests Lumbar MRI: IMPRESSION: 1. Mild multilevel degenerative changes of the lumbar spine. 2 . There is mild central canal stenosis at L3-L4 and L4-L5. 3 . No significant neural foraminal stenosis. per Ramin Guillen M.D. on 07/11/2023 Treatment Goals Patient/Caregiver Goals Avoid surgery PT-OP-C Subjective Start: 09/07/23 15:57 Freq: Status: Active Protocol: Document 09/19/23 13:45 DCW (Rec: 09/19/23 14:31 DCW [id number]) OP-PT Subjective Patient Comments Patient Comments Pt feeling pretty good since she was only seen yesterday, has not worsened since her last visit. PT-OP-F Manual Assessment Start: 09/07/23 15:57 Freq: Status: Active Protocol: Document 09/07/23 12:00 DCW (Rec: 09/07/23 17:50 DCW [id number]) Manual Assessments Soft Tissue Assessment Soft Tissue Mobility Assessment Moderate tone of lumbar paraspinals, R>L. Moderate tone with tenderness to palpation 2/4: Pain with wincing R hip flexors, R ITB, R Glute med PT-OP-K Range of Motion Start: 09/07/23 15:57 Freq: Status: Active Protocol: Document 09/07/23 12:00 DCW (Rec: 09/08/23 08:39 DCW [id number]) Lumbar Spine Range of Motion Lumbar Spine Active Degrees Testing Position Standing Flexion 65 Extension 10 ROM Limitations Bony Restriction,Pain PT-OP-L Special Tests Start: 09/07/23 15:57 Freq: Status: Active Protocol: Document 09/07/23 12:00 DCW (Rec: 09/08/23 08:39 DCW [id number]) Special Tests Lumbar Spine Special Tests Straight Leg Raise Test Results Positive R for anterior hip pain Slump Test Results Negative Compression Test Results Negative A-P Shearing Test Results Negative PT-OP-M Strength Start: 09/07/23 15:57 Freq: Status: Active Protocol: Document 09/07/23 12:00 DCW (Rec: 09/08/23 08:39 DCW [id number]) Trunk Strength Trunk Manual Muscle Testing Core Stabilization Pt struggles with abdominal bracing, requires verbal and tactile cuing to contract TrA: MMT 3/5 Hip Strength Hip Manual Muscle Testing Right Flexion (L2) 3+ Fair+ Abduction 3+ Fair+ Adduction 4 Good External Rotation 3 Fair Internal Rotation 3- Fair- Comments Inability to push against resistance largely appears to be more of a response to pain than a true muscle weakness. Left Flexion (L2) 4 Good Abduction 4 Good Adduction 4 Good External Rotation 4- Good- Internal Rotation 4- Good- Knee Strength Knee Manual Muscle Testing Right Flexion (S2) 4 Good Extension (L3) 3+ Fair+ Left Flexion (S2) 4 Good Extension (L3) 4 Good PT-OP-Q Treatments Start: 09/07/23 15:57 Freq: Status: Active Protocol: Document 09/19/23 13:45 DCW (Rec: 09/19/23 14:31 DCW [id number]) Cardio Equipment Recumbent Bicycle Duration (Minutes) 4 Resistance 4 Seat Position 7 Gym Equipment Shuttle Recovery Unilateral Squats Details Core contraction Resistance 37# (One new) Reps/Time x15 each Bilateral Squats Details Core contraction Resistance 87# (Three new) Shuttle Recovery Platform Stable Reps/Time x20 Therapeutic Exercises Sidelying Exercises Triple Threat Sidelying Exercise Name Clamshell, Reverse Clamshell, Hip Abduction Standing Exercises Pallof Press Standing Exercise Name Pallof Press Side bilateral Resistance Double Green Other Exercises Side-stepping Other Exercise Name Side-stepping holding T-band Side bilateral Resistance Double green Reps/Minutes x8 Manual Therapy Treatment Soft Tissue Mobilization Lumbar Body Location Lumbar paraspinals, Piriformis Body Position Sidelying PT-OP-T Assessment and Plan Start: 09/07/23 15:57 Freq: Status: Active Protocol: Document 09/19/23 13:45 DCW (Rec: 09/19/23 14:31 DCW [id number]) Physical Therapy Assessment Impairments Impairments Activity Tolerance,Functional Activities,Functional Mobility ,Gait,ROM,Soft Tissue Mobility ,Strength Goals Three Impairment Right hip and core weakness Manager Bar Goal (LTG) Pt to exhibit increased core strength to at least 4/5 in order to improve abdominal bracing during her ADLs to decrease burden on low back LTG Duration 11/07/23 Two Impairment Pt reports sleep disturbances secondary to pain Alf Goal (LTG) Pt to report no sleep disturbances due to low back or right hip pain over a seven day period. LTG Duration 11/07/23 One Impairment Pt does not have an appropriate home exercise program Short Term Goal (STG) Pt to be independent and compliant with an appropriate HEP STG Duration 10/07/23 Assessment Summary Assessment Continues to respond well, Noticeably less tone during STM today, although likely still positive effects from appointment yesterday. Physical Therapy Plan Frequency and Duration Frequency of Treatment 2x/Week Plan of Care Start Date 09/07/23 Plan of Care End Date 11/07/23 Therapeutic Interventions Therapeutic Interventions Home Exercise Program,Joint Mobilizations,Manual Therapy, Neuromuscular Re-education, Patient/Caregiver Education, Self-Care/Home Management,Soft Tissue Mobilization, Therapeutic Activities, Therapeutic Exercises Modalities Cold Pack/Ice Massage,Hot Packs Next Visit Focus/Plan Next Note Type Treatment Note Next Visit Plan Core strengthening, lumbar mobility
--- NOTE | 2023-09-29 12:00 | PT.OTN ---
Current Diagnoses Stiffness of other specified joint, not elsewhere classified (09/29/23) Spinal stenosis, lumbar region with neurogenic claudication (09/29/23) Sacrococcygeal disorders, not elsewhere classified (09/29/23) Physical Therapy Treatment Note PT-OP-A Visit Information Start: 09/07/23 15:57 Freq: Status: Active Protocol: Document 09/29/23 11:15 DCW (Rec: 09/29/23 12:00 DCW [id number]) Out-Patient Physical Therapy Visit Information Visit Information Visit Type Treatment Note Visit Start Time 11:15 Visit Stop Time 12:00 Visit Number 5 Number of DUMPMAN Visits 0 Evaluation Information Evaluation Date 09/07/23 PT-OP-B Current Condition Start: 09/07/23 15:57 Freq: Status: Active Protocol: Document 09/07/23 12:00 DCW (Rec: 09/07/23 17:50 DCW [id number]) Current Condition History of Current Condition Onset Date Multi-year history Current Complaints Low back and right hip pain, gait difficulties History of Current Condition Pt is a 78 year old female well-known to this clinic presenting with a long- standing history of low back and right hip pain. Pt was seen last year for this same hip pain. At the time, therapist and patient felt she had largely plateaued, and her hip pain was likely strongly associated with back problems. Since her most recent PT discharge, she has been seen by Dr Alexis, received MRI, was found to have lumbar stenosis, and received an injection. Pt notes that her back was better for ~4 weeks following her injection, but has largely returned to pre- injection levels. Pt reports other than PT, her next options are a guided injection or surgery, so she would like to attempt PT again. Reports she has been noticing a decreased tolerance to gait, especially evident after sitting for an extended period , like during a car ride. Pain has been occasionally limiting sleep, and pt must take frequent rest breaks ( every 15 minutes) when up moving around performing house work. Prior Treatments and Tests Lumbar MRI: IMPRESSION: 1. Mild multilevel degenerative changes of the lumbar spine. 2 . There is mild central canal stenosis at L3-L4 and L4-L5. 3 . No significant neural foraminal stenosis. per Ramin Guillen M.D. on 07/11/2023 Treatment Goals Patient/Caregiver Goals Avoid surgery PT-OP-C Subjective Start: 09/07/23 15:57 Freq: Status: Active Protocol: Document 09/29/23 11:15 DCW (Rec: 09/29/23 12:00 DCW [id number]) OP-PT Subjective Patient Comments Patient Comments I've been doing my exercises, and my back actually has been feeling better, although my leg has been flare-up more. PT-OP-F Manual Assessment Start: 09/07/23 15:57 Freq: Status: Active Protocol: Document 09/07/23 12:00 DCW (Rec: 09/07/23 17:50 DCW [id number]) Manual Assessments Soft Tissue Assessment Soft Tissue Mobility Assessment Moderate tone of lumbar paraspinals, R>L. Moderate tone with tenderness to palpation 2/4: Pain with wincing R hip flexors, R ITB, R Glute med PT-OP-K Range of Motion Start: 09/07/23 15:57 Freq: Status: Active Protocol: Document 09/07/23 12:00 DCW (Rec: 09/08/23 08:39 DCW [id number]) Lumbar Spine Range of Motion Lumbar Spine Active Degrees Testing Position Standing Flexion 65 Extension 10 ROM Limitations Bony Restriction,Pain PT-OP-L Special Tests Start: 09/07/23 15:57 Freq: Status: Active Protocol: Document 09/07/23 12:00 DCW (Rec: 09/08/23 08:39 DCW [id number]) Special Tests Lumbar Spine Special Tests Straight Leg Raise Test Results Positive R for anterior hip pain Slump Test Results Negative Compression Test Results Negative A-P Shearing Test Results Negative PT-OP-M Strength Start: 09/07/23 15:57 Freq: Status: Active Protocol: Document 09/07/23 12:00 DCW (Rec: 09/08/23 08:39 DCW [id number]) Trunk Strength Trunk Manual Muscle Testing Core Stabilization Pt struggles with abdominal bracing, requires verbal and tactile cuing to contract TrA: MMT 3/5 Hip Strength Hip Manual Muscle Testing Right Flexion (L2) 3+ Fair+ Abduction 3+ Fair+ Adduction 4 Good External Rotation 3 Fair Internal Rotation 3- Fair- Comments Inability to push against resistance largely appears to be more of a response to pain than a true muscle weakness. Left Flexion (L2) 4 Good Abduction 4 Good Adduction 4 Good External Rotation 4- Good- Internal Rotation 4- Good- Knee Strength Knee Manual Muscle Testing Right Flexion (S2) 4 Good Extension (L3) 3+ Fair+ Left Flexion (S2) 4 Good Extension (L3) 4 Good PT-OP-Q Treatments Start: 09/07/23 15:57 Freq: Status: Active Protocol: Document 09/29/23 11:15 DCW (Rec: 09/29/23 12:00 DCW [id number]) Cardio Equipment Recumbent Elliptical (Biodex) Duration (Minutes) 7 Resistance 6 Seat Position 11 Gym Equipment Shuttle Recovery Unilateral Squats Details Core contraction Resistance 37# (One new) Reps/Time x15 each Bilateral Squats Details Core contraction Resistance 87# (Three new) Shuttle Recovery Platform Stable Reps/Time x20 Therapeutic Ball Trunk Rotation Exercise Details Resisted Trunk Rotation Ball Size/Color Green - 65 cm Lv 3 T-band Body Position Sitting Therapeutic Exercises Sidelying Exercises Triple Threat Sidelying Exercise Name Clamshell, Reverse Clamshell, Hip Abduction PT-OP-T Assessment and Plan Start: 09/07/23 15:57 Freq: Status: Active Protocol: Document 09/29/23 11:15 DCW (Rec: 09/29/23 12:00 DCW [id number]) Physical Therapy Assessment Impairments Impairments Activity Tolerance,Functional Activities,Functional Mobility ,Gait,ROM,Soft Tissue Mobility ,Strength Goals Three Impairment Right hip and core weakness Flatwork Presser Goal (LTG) Pt to exhibit increased core strength to at least 4/5 in order to improve abdominal bracing during her ADLs to decrease burden on low back LTG Duration 11/07/23 Two Impairment Pt reports sleep disturbances secondary to pain Flatwork Presser Goal (LTG) Pt to report no sleep disturbances due to low back or right hip pain over a seven day period. LTG Duration 11/07/23 One Impairment Pt does not have an appropriate home exercise program Short Term Goal (STG) Pt to be independent and compliant with an appropriate HEP STG Duration 10/07/23 Assessment Summary Assessment Pt still exhibits increased tone along right paraspinals, glute mede, and hip flexors, but does appear to be better controlled tone overall. Physical Therapy Plan Frequency and Duration Frequency of Treatment 2x/Week Plan of Care Start Date 09/07/23 Plan of Care End Date 11/07/23 Therapeutic Interventions Therapeutic Interventions Home Exercise Program,Joint Mobilizations,Manual Therapy, Neuromuscular Re-education, Patient/Caregiver Education, Self-Care/Home Management,Soft Tissue Mobilization, Therapeutic Activities, Therapeutic Exercises Modalities Cold Pack/Ice Massage,Hot Packs Next Visit Focus/Plan Next Note Type Treatment Note Next Visit Plan Core strengthening, lumbar mobility
--- NOTE | 2023-10-03 16:48 | PT.OTN ---
Current Diagnoses Stiffness of other specified joint, not elsewhere classified (10/03/23) Spinal stenosis, lumbar region with neurogenic claudication (10/03/23) Sacrococcygeal disorders, not elsewhere classified (10/03/23) Physical Therapy Treatment Note PT-OP-A Visit Information Start: 09/07/23 15:57 Freq: Status: Active Protocol: Document 10/03/23 16:02 DCW (Rec: 10/03/23 16:48 DCW [id number]) Out-Patient Physical Therapy Visit Information Visit Information Visit Type Treatment Note Visit Start Time 16:02 Visit Stop Time 16:45 Visit Number 6 Number of AUDIENCE COORDINATOR Visits 0 Evaluation Information Evaluation Date 09/07/23 PT-OP-B Current Condition Start: 09/07/23 15:57 Freq: Status: Active Protocol: Document 09/07/23 12:00 DCW (Rec: 09/07/23 17:50 DCW [id number]) Current Condition History of Current Condition Onset Date Multi-year history Current Complaints Low back and right hip pain, gait difficulties History of Current Condition Pt is a 78 year old female well-known to this clinic presenting with a long- standing history of low back and right hip pain. Pt was seen last year for this same hip pain. At the time, therapist and patient felt she had largely plateaued, and her hip pain was likely strongly associated with back problems. Since her most recent PT discharge, she has been seen by Dr Alexis, received MRI, was found to have lumbar stenosis, and received an injection. Pt notes that her back was better for ~4 weeks following her injection, but has largely returned to pre- injection levels. Pt reports other than PT, her next options are a guided injection or surgery, so she would like to attempt PT again. Reports she has been noticing a decreased tolerance to gait, especially evident after sitting for an extended period , like during a car ride. Pain has been occasionally limiting sleep, and pt must take frequent rest breaks ( every 15 minutes) when up moving around performing house work. Prior Treatments and Tests Lumbar MRI: IMPRESSION: 1. Mild multilevel degenerative changes of the lumbar spine. 2 . There is mild central canal stenosis at L3-L4 and L4-L5. 3 . No significant neural foraminal stenosis. per Ramin Guillen M.D. on 07/11/2023 Treatment Goals Patient/Caregiver Goals Avoid surgery PT-OP-C Subjective Start: 09/07/23 15:57 Freq: Status: Active Protocol: Document 10/03/23 16:02 DCW (Rec: 10/03/23 16:48 DCW [id number]) OP-PT Subjective Patient Comments Patient Comments My attitude is better than it 's beenin six months. PT-OP-F Manual Assessment Start: 09/07/23 15:57 Freq: Status: Active Protocol: Document 09/07/23 12:00 DCW (Rec: 09/07/23 17:50 DCW [id number]) Manual Assessments Soft Tissue Assessment Soft Tissue Mobility Assessment Moderate tone of lumbar paraspinals, R>L. Moderate tone with tenderness to palpation 2/4: Pain with wincing R hip flexors, R ITB, R Glute med PT-OP-K Range of Motion Start: 09/07/23 15:57 Freq: Status: Active Protocol: Document 09/07/23 12:00 DCW (Rec: 09/08/23 08:39 DCW [id number]) Lumbar Spine Range of Motion Lumbar Spine Active Degrees Testing Position Standing Flexion 65 Extension 10 ROM Limitations Bony Restriction,Pain PT-OP-L Special Tests Start: 09/07/23 15:57 Freq: Status: Active Protocol: Document 09/07/23 12:00 DCW (Rec: 09/08/23 08:39 DCW [id number]) Special Tests Lumbar Spine Special Tests Straight Leg Raise Test Results Positive R for anterior hip pain Slump Test Results Negative Compression Test Results Negative A-P Shearing Test Results Negative PT-OP-M Strength Start: 09/07/23 15:57 Freq: Status: Active Protocol: Document 09/07/23 12:00 DCW (Rec: 09/08/23 08:39 DCW [id number]) Trunk Strength Trunk Manual Muscle Testing Core Stabilization Pt struggles with abdominal bracing, requires verbal and tactile cuing to contract TrA: MMT 3/5 Hip Strength Hip Manual Muscle Testing Right Flexion (L2) 3+ Fair+ Abduction 3+ Fair+ Adduction 4 Good External Rotation 3 Fair Internal Rotation 3- Fair- Comments Inability to push against resistance largely appears to be more of a response to pain than a true muscle weakness. Left Flexion (L2) 4 Good Abduction 4 Good Adduction 4 Good External Rotation 4- Good- Internal Rotation 4- Good- Knee Strength Knee Manual Muscle Testing Right Flexion (S2) 4 Good Extension (L3) 3+ Fair+ Left Flexion (S2) 4 Good Extension (L3) 4 Good PT-OP-Q Treatments Start: 09/07/23 15:57 Freq: Status: Active Protocol: Document 10/03/23 16:02 DCW (Rec: 10/03/23 16:48 DCW [id number]) Cardio Equipment Recumbent Elliptical (Biodex) Duration (Minutes) 7 Resistance 6 Seat Position 11 Gym Equipment Shuttle Recovery Unilateral Squats Details Core contraction Resistance 37# (One new) Reps/Time x20 each Bilateral Squats Details Core contraction Resistance 87# (Three new) Shuttle Recovery Platform Stable Reps/Time x20 Therapeutic Exercises Standing Exercises Pallof Press Standing Exercise Name Pallof Press Side bilateral Resistance Double Green Other Exercises Side-stepping Other Exercise Name Side-stepping holding T-band Side bilateral Resistance Double green Reps/Minutes x8 Manual Therapy Treatment Soft Tissue Mobilization Lumbar Body Location Lumbar paraspinals, Piriformis Body Position Sidelying PT-OP-T Assessment and Plan Start: 09/07/23 15:57 Freq: Status: Active Protocol: Document 10/03/23 16:02 DCW (Rec: 10/03/23 16:48 DCW [id number]) Physical Therapy Assessment Impairments Impairments Activity Tolerance,Functional Activities,Functional Mobility ,Gait,ROM,Soft Tissue Mobility ,Strength Goals Three Impairment Right hip and core weakness Usp Goal (LTG) Pt to exhibit increased core strength to at least 4/5 in order to improve abdominal bracing during her ADLs to decrease burden on low back LTG Duration 11/07/23 Two Impairment Pt reports sleep disturbances secondary to pain Usp Goal (LTG) Pt to report no sleep disturbances due to low back or right hip pain over a seven day period. LTG Duration 11/07/23 One Impairment Pt does not have an appropriate home exercise program Short Term Goal (STG) Pt to be independent and compliant with an appropriate HEP STG Duration 10/07/23 Assessment Summary Assessment Good functional mobility today , pt having an easier time getting on/off equipment, still requires verbal cues for core contraction. Physical Therapy Plan Frequency and Duration Frequency of Treatment 2x/Week Plan of Care Start Date 09/07/23 Plan of Care End Date 11/07/23 Therapeutic Interventions Therapeutic Interventions Home Exercise Program,Joint Mobilizations,Manual Therapy, Neuromuscular Re-education, Patient/Caregiver Education, Self-Care/Home Management,Soft Tissue Mobilization, Therapeutic Activities, Therapeutic Exercises Modalities Cold Pack/Ice Massage,Hot Packs Next Visit Focus/Plan Next Note Type Treatment Note Next Visit Plan Core strengthening, lumbar mobility
--- NOTE | 2023-10-11 16:48 | PT.OTN ---
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 Pt was seen last year for this same hip pain. At the time, therapist and patient felt she had largely plateaued, and her hip pain was likely strongly associated with back problems. Since her most recent PT discharge, she has been seen by Dr Alexis, received MRI, was found to have lumbar stenosis, and received an injection. Pt notes that her back was better for ~4 weeks following her injection, but has largely returned to pre- injection levels. Pt reports other than PT, her next options are a guided injection or surgery, so she would like to attempt PT again. Reports she has been noticing a decreased tolerance to gait, especially evident after sitting for an extended period , like during a car ride. Pain has been occasionally limiting sleep, and pt must take frequent rest breaks ( every 15 minutes) when up moving around performing house work. Prior Treatments and Tests Lumbar MRI: IMPRESSION: 1. Mild multilevel degenerative changes of the lumbar spine. 2 . There is mild central canal stenosis at L3-L4 and L4-L5. 3 . No significant neural foraminal stenosis. per Ramin Guillen M.D. on 07/11/2023 Treatment Goals Patient/Caregiver Goals Avoid surgery PT-OP-C Subjective Start: 09/07/23 15:57 Freq: Status: Active Protocol: Document 10/11/23 16:00 DCW (Rec: 10/11/23 16:48 DCW [id number]) OP-PT Subjective Patient Comments Patient Comments It's interesting. My back today feels great, and I spent the last three days out in my yard pulling weeds. PT-OP-F Manual Assessment Start: 09/07/23 15:57 Freq: Status: Active Protocol: Document 09/07/23 12:00 DCW (Rec: 09/07/23 17:50 DCW [id number]) Manual Assessments Soft Tissue Assessment Soft Tissue Mobility Assessment Moderate tone of lumbar paraspinals, R>L. Moderate tone with tenderness to palpation 2/4: Pain with wincing R hip flexors, R ITB, R Glute med PT-OP-K Range of Motion Start: 09/07/23 15:57 Freq: Status: Active Protocol: Document 09/07/23 12:00 DCW (Rec: 09/08/23 08:39 DCW [id number]) Lumbar Spine Range of Motion Lumbar Spine Active Degrees Testing Position Standing Flexion 65 Extension 10 ROM Limitations Bony Restriction,Pain PT-OP-L Special Tests Start: 09/07/23 15:57 Freq: Status: Active Protocol: Document 09/07/23 12:00 DCW (Rec: 09/08/23 08:39 DCW [id number]) Special Tests Lumbar Spine Special Tests Straight Leg Raise Test Results Positive R for anterior hip pain Slump Test Results Negative Compression Test Results Negative A-P Shearing Test Results Negative PT-OP-M Strength Start: 09/07/23 15:57 Freq: Status: Active Protocol: Document 09/07/23 12:00 DCW (Rec: 09/08/23 08:39 DCW [id number]) Trunk Strength Trunk Manual Muscle Testing Core Stabilization Pt struggles with abdominal bracing, requires verbal and tactile cuing to contract TrA: MMT 3/5 Hip Strength Hip Manual Muscle Testing Right Flexion (L2) 3+ Fair+ Abduction 3+ Fair+ Adduction 4 Good External Rotation 3 Fair Internal Rotation 3- Fair- Comments Inability to push against resistance largely appears to be more of a response to pain than a true muscle weakness. Left Flexion (L2) 4 Good Abduction 4 Good Adduction 4 Good External Rotation 4- Good- Internal Rotation 4- Good- Knee Strength Knee Manual Muscle Testing Right Flexion (S2) 4 Good Extension (L3) 3+ Fair+ Left Flexion (S2) 4 Good Extension (L3) 4 Good PT-OP-Q Treatments Start: 09/07/23 15:57 Freq: Status: Active Protocol: Document 10/11/23 16:00 DCW (Rec: 10/11/23 16:48 DCW [id number]) Cardio Equipment Recumbent Stepper (Sci-Fit) Duration (Minutes) 6 Resistance 3 Seat Position 10 Gym Equipment Shuttle Recovery Unilateral Squats Details Core contraction Resistance 50# (Two new) Reps/Time x20 each Bilateral Squats Details Core contraction Resistance 87# (Three new) Shuttle Recovery Platform Stable Reps/Time x20 Therapeutic Ball Trunk Rotation Exercise Details Resisted Trunk Rotation Ball Size/Color Green - 65 cm Lv 3 T-band Body Position Sitting Manual Therapy Treatment Consent Patient gave verbal consent for manual Yes treatment Soft Tissue Mobilization Lumbar Body Location Lumbar paraspinals, Piriformis Body Position Sidelying PT-OP-T Assessment and Plan Start: 09/07/23 15:57 Freq: Status: Active Protocol: Document 10/11/23 16:00 DCW (Rec: 10/11/23 16:48 DCW [id number]) Physical Therapy Assessment Impairments Impairments Activity Tolerance,Functional Activities,Functional Mobility ,Gait,ROM,Soft Tissue Mobility ,Strength Goals Three Impairment Right hip and core weakness Alf Goal (LTG) Pt to exhibit increased core strength to at least 4/5 in order to improve abdominal bracing during her ADLs to decrease burden on low back LTG Duration 11/07/23 Two Impairment Pt reports sleep disturbances secondary to pain Alf Goal (LTG) Pt to report no sleep disturbances due to low back or right hip pain over a seven day period. LTG Duration 11/07/23 One Impairment Pt does not have an appropriate home exercise program Short Term Goal (STG) Pt to be independent and compliant with an appropriate HEP STG Duration 10/07/23 Assessment Summary Assessment Pt showing some improvement with pain levels and overall tone, continues to experience increased tone in right lumbar paraspinals and QL, which creates antalgic gait pattern and hip pain. Physical Therapy Plan Frequency and Duration Frequency of Treatment 2x/Week Plan of Care Start Date 09/07/23 Plan of Care End Date 11/07/23 Therapeutic Interventions Therapeutic Interventions Home Exercise Program,Joint Mobilizations,Manual Therapy, Neuromuscular Re-education, Patient/Caregiver Education, Self-Care/Home Management,Soft Tissue Mobilization, Therapeutic Activities, Therapeutic Exercises Modalities Cold Pack/Ice Massage,Hot Packs Next Visit Focus/Plan Next Note Type Treatment Note Next Visit Plan Core strengthening, lumbar mobility
--- NOTE | 2023-10-17 16:01 | PT.OTN ---
Current Diagnoses Stiffness of other specified joint, not elsewhere classified (10/17/23) Spinal stenosis, lumbar region with neurogenic claudication (10/17/23) Sacrococcygeal disorders, not elsewhere classified (10/17/23) Physical Therapy Treatment Note PT-OP-A Visit Information Start: 09/07/23 15:57 Freq: Status: Active Protocol: Document 10/17/23 15:15 DCW (Rec: 10/17/23 16:01 DCW [id number]) Out-Patient Physical Therapy Visit Information Visit Information Visit Type Treatment Note Visit Start Time 15:15 Visit Stop Time 16:00 Visit Number 8 Number of GOSPEL SINGER Visits 0 Evaluation Information Evaluation Date 09/07/23 PT-OP-B Current Condition Start: 09/07/23 15:57 Freq: Status: Active Protocol: Document 09/07/23 12:00 DCW (Rec: 09/07/23 17:50 DCW [id number]) Current Condition History of Current Condition Onset Date Multi-year history Current Complaints Low back and right hip pain, gait difficulties History of Current Condition Pt is a 78 year old female well-known to this clinic presenting with a long- standing history of low back and right hip pain. Pt was seen last year for this same hip pain. At the time, therapist and patient felt she had largely plateaued, and her hip pain was likely strongly associated with back problems. Since her most recent PT discharge, she has been seen by Dr Alexis, received MRI, was found to have lumbar stenosis, and received an injection. Pt notes that her back was better for ~4 weeks following her injection, but has largely returned to pre- injection levels. Pt reports other than PT, her next options are a guided injection or surgery, so she would like to attempt PT again. Reports she has been noticing a decreased tolerance to gait, especially evident after sitting for an extended period , like during a car ride. Pain has been occasionally limiting sleep, and pt must take frequent rest breaks ( every 15 minutes) when up moving around performing house work. Prior Treatments and Tests Lumbar MRI: IMPRESSION: 1. Mild multilevel degenerative changes of the lumbar spine. 2 . There is mild central canal stenosis at L3-L4 and L4-L5. 3 . No significant neural foraminal stenosis. per Ramin Guillen M.D. on 07/11/2023 Treatment Goals Patient/Caregiver Goals Avoid surgery PT-OP-C Subjective Start: 09/07/23 15:57 Freq: Status: Active Protocol: Document 10/17/23 15:15 DCW (Rec: 10/17/23 16:01 DCW [id number]) OP-PT Subjective Patient Comments Patient Comments Pt notes her right lateral upper leg is more tender today . PT-OP-F Manual Assessment Start: 09/07/23 15:57 Freq: Status: Active Protocol: Document 09/07/23 12:00 DCW (Rec: 09/07/23 17:50 DCW [id number]) Manual Assessments Soft Tissue Assessment Soft Tissue Mobility Assessment Moderate tone of lumbar paraspinals, R>L. Moderate tone with tenderness to palpation 2/4: Pain with wincing R hip flexors, R ITB, R Glute med PT-OP-K Range of Motion Start: 09/07/23 15:57 Freq: Status: Active Protocol: Document 09/07/23 12:00 DCW (Rec: 09/08/23 08:39 DCW [id number]) Lumbar Spine Range of Motion Lumbar Spine Active Degrees Testing Position Standing Flexion 65 Extension 10 ROM Limitations Bony Restriction,Pain PT-OP-L Special Tests Start: 09/07/23 15:57 Freq: Status: Active Protocol: Document 09/07/23 12:00 DCW (Rec: 09/08/23 08:39 DCW [id number]) Special Tests Lumbar Spine Special Tests Straight Leg Raise Test Results Positive R for anterior hip pain Slump Test Results Negative Compression Test Results Negative A-P Shearing Test Results Negative PT-OP-M Strength Start: 09/07/23 15:57 Freq: Status: Active Protocol: Document 09/07/23 12:00 DCW (Rec: 09/08/23 08:39 DCW [id number]) Trunk Strength Trunk Manual Muscle Testing Core Stabilization Pt struggles with abdominal bracing, requires verbal and tactile cuing to contract TrA: MMT 3/5 Hip Strength Hip Manual Muscle Testing Right Flexion (L2) 3+ Fair+ Abduction 3+ Fair+ Adduction 4 Good External Rotation 3 Fair Internal Rotation 3- Fair- Comments Inability to push against resistance largely appears to be more of a response to pain than a true muscle weakness. Left Flexion (L2) 4 Good Abduction 4 Good Adduction 4 Good External Rotation 4- Good- Internal Rotation 4- Good- Knee Strength Knee Manual Muscle Testing Right Flexion (S2) 4 Good Extension (L3) 3+ Fair+ Left Flexion (S2) 4 Good Extension (L3) 4 Good PT-OP-Q Treatments Start: 09/07/23 15:57 Freq: Status: Active Protocol: Document 10/17/23 15:15 DCW (Rec: 10/17/23 16:01 DCW [id number]) Cardio Equipment Recumbent Elliptical (Biodex) Duration (Minutes) 6 Resistance 6 Seat Position 11 Gym Equipment Shuttle Recovery Unilateral Squats Details Core contraction Resistance 37# R 50# L Reps/Time x20 each Bilateral Squats Details Core contraction Resistance 87# Shuttle Recovery Platform Stable Reps/Time x20 Manual Therapy Treatment Consent Patient gave verbal consent for manual Yes treatment Soft Tissue Mobilization Lumbar Body Location Lumbar paraspinals, Piriformis Body Position Sidelying PT-OP-T Assessment and Plan Start: 09/07/23 15:57 Freq: Status: Active Protocol: Document 10/17/23 15:15 DCW (Rec: 10/17/23 16:01 DCW [id number]) Physical Therapy Assessment Impairments Impairments Activity Tolerance,Functional Activities,Functional Mobility ,Gait,ROM,Soft Tissue Mobility ,Strength Goals Three Impairment Right hip and core weakness Half-Way Goal (LTG) Pt to exhibit increased core strength to at least 4/5 in order to improve abdominal bracing during her ADLs to decrease burden on low back LTG Duration 11/07/23 Two Impairment Pt reports sleep disturbances secondary to pain Half-Way Goal (LTG) Pt to report no sleep disturbances due to low back or right hip pain over a seven day period. LTG Duration 11/07/23 One Impairment Pt does not have an appropriate home exercise program Short Term Goal (STG) Pt to be independent and compliant with an appropriate HEP STG Duration 10/07/23 Assessment Summary Assessment Slight increase in antalgic gait today, but pt reports she feels like she is doing better overall. Discussed rolling pin to help tone in ITB. Physical Therapy Plan Frequency and Duration Frequency of Treatment 2x/Week Plan of Care Start Date 09/07/23 Plan of Care End Date 11/07/23 Therapeutic Interventions Therapeutic Interventions Home Exercise Program,Joint Mobilizations,Manual Therapy, Neuromuscular Re-education, Patient/Caregiver Education, Self-Care/Home Management,Soft Tissue Mobilization, Therapeutic Activities, Therapeutic Exercises Modalities Cold Pack/Ice Massage,Hot Packs Next Visit Focus/Plan Next Note Type Treatment Note Next Visit Plan Core strengthening, lumbar mobility
--- NOTE | 2023-10-20 10:28 | PT.OTN ---
Current Diagnoses Stiffness of other specified joint, not elsewhere classified (10/20/23) Spinal stenosis, lumbar region with neurogenic claudication (10/20/23) Sacrococcygeal disorders, not elsewhere classified (10/20/23) Physical Therapy Treatment Note PT-OP-A Visit Information Start: 09/07/23 15:57 Freq: Status: Active Protocol: Document 10/20/23 09:45 DCW (Rec: 10/20/23 10:28 DCW [id number]) Out-Patient Physical Therapy Visit Information Visit Information Visit Type Treatment Note Visit Start Time 09:45 Visit Stop Time 10:30 Visit Number 9 Number of EXERCISE SCIENTIST Visits 0 Evaluation Information Evaluation Date 09/07/23 PT-OP-B Current Condition Start: 09/07/23 15:57 Freq: Status: Active Protocol: Document 09/07/23 12:00 DCW (Rec: 09/07/23 17:50 DCW [id number]) Current Condition History of Current Condition Onset Date Multi-year history Current Complaints Low back and right hip pain, gait difficulties History of Current Condition Pt is a 78 year old female well-known to this clinic presenting with a long- standing history of low back and right hip pain. Pt was seen last year for this same hip pain. At the time, therapist and patient felt she had largely plateaued, and her hip pain was likely strongly associated with back problems. Since her most recent PT discharge, she has been seen by Dr Alexis, received MRI, was found to have lumbar stenosis, and received an injection. Pt notes that her back was better for ~4 weeks following her injection, but has largely returned to pre- injection levels. Pt reports other than PT, her next options are a guided injection or surgery, so she would like to attempt PT again. Reports she has been noticing a decreased tolerance to gait, especially evident after sitting for an extended period , like during a car ride. Pain has been occasionally limiting sleep, and pt must take frequent rest breaks ( every 15 minutes) when up moving around performing house work. Prior Treatments and Tests Lumbar MRI: IMPRESSION: 1. Mild multilevel degenerative changes of the lumbar spine. 2 . There is mild central canal stenosis at L3-L4 and L4-L5. 3 . No significant neural foraminal stenosis. per Ramin Guillen M.D. on 07/11/2023 Treatment Goals Patient/Caregiver Goals Avoid surgery PT-OP-C Subjective Start: 09/07/23 15:57 Freq: Status: Active Protocol: Document 10/20/23 09:45 DCW (Rec: 10/20/23 10:28 DCW [id number]) OP-PT Subjective Patient Comments Patient Comments Pt noting some anterior hip/ groin pain today, but her back is feeling pretty good. PT-OP-F Manual Assessment Start: 09/07/23 15:57 Freq: Status: Active Protocol: Document 09/07/23 12:00 DCW (Rec: 09/07/23 17:50 DCW [id number]) Manual Assessments Soft Tissue Assessment Soft Tissue Mobility Assessment Moderate tone of lumbar paraspinals, R>L. Moderate tone with tenderness to palpation 2/4: Pain with wincing R hip flexors, R ITB, R Glute med PT-OP-K Range of Motion Start: 09/07/23 15:57 Freq: Status: Active Protocol: Document 09/07/23 12:00 DCW (Rec: 09/08/23 08:39 DCW [id number]) Lumbar Spine Range of Motion Lumbar Spine Active Degrees Testing Position Standing Flexion 65 Extension 10 ROM Limitations Bony Restriction,Pain PT-OP-L Special Tests Start: 09/07/23 15:57 Freq: Status: Active Protocol: Document 09/07/23 12:00 DCW (Rec: 09/08/23 08:39 DCW [id number]) Special Tests Lumbar Spine Special Tests Straight Leg Raise Test Results Positive R for anterior hip pain Slump Test Results Negative Compression Test Results Negative A-P Shearing Test Results Negative PT-OP-M Strength Start: 09/07/23 15:57 Freq: Status: Active Protocol: Document 09/07/23 12:00 DCW (Rec: 09/08/23 08:39 DCW [id number]) Trunk Strength Trunk Manual Muscle Testing Core Stabilization Pt struggles with abdominal bracing, requires verbal and tactile cuing to contract TrA: MMT 3/5 Hip Strength Hip Manual Muscle Testing Right Flexion (L2) 3+ Fair+ Abduction 3+ Fair+ Adduction 4 Good External Rotation 3 Fair Internal Rotation 3- Fair- Comments Inability to push against resistance largely appears to be more of a response to pain than a true muscle weakness. Left Flexion (L2) 4 Good Abduction 4 Good Adduction 4 Good External Rotation 4- Good- Internal Rotation 4- Good- Knee Strength Knee Manual Muscle Testing Right Flexion (S2) 4 Good Extension (L3) 3+ Fair+ Left Flexion (S2) 4 Good Extension (L3) 4 Good PT-OP-Q Treatments Start: 09/07/23 15:57 Freq: Status: Active Protocol: Document 10/20/23 09:45 DCW (Rec: 10/20/23 10:28 DCW [id number]) Cardio Equipment Recumbent Elliptical (Biodex) Duration (Minutes) 6 Resistance 6 Seat Position 11 Gym Equipment Shuttle Recovery Unilateral Squats Details Core contraction Resistance 37# R 50# L Reps/Time x20 each Bilateral Squats Details Core contraction Resistance 87# Shuttle Recovery Platform Stable Reps/Time x20 Therapeutic Exercises Other Exercises Fire Hydrant Other Exercise Name Fire Hydrant Side bilateral Comments Quadruped BOSU Lunge Other Exercise Name BOSU Lunge Side bilateral Manual Therapy Treatment Consent Patient gave verbal consent for manual Yes treatment Soft Tissue Mobilization Lumbar Body Location Lumbar paraspinals, Piriformis Body Position Sidelying PT-OP-T Assessment and Plan Start: 09/07/23 15:57 Freq: Status: Active Protocol: Document 10/20/23 09:45 DCW (Rec: 10/20/23 10:28 DCW [id number]) Physical Therapy Assessment Impairments Impairments Activity Tolerance,Functional Activities,Functional Mobility ,Gait,ROM,Soft Tissue Mobility ,Strength Goals Three Impairment Right hip and core weakness Business Unit Controller Goal (LTG) Pt to exhibit increased core strength to at least 4/5 in order to improve abdominal bracing during her ADLs to decrease burden on low back LTG Duration 11/07/23 Two Impairment Pt reports sleep disturbances secondary to pain Business Unit Controller Goal (LTG) Pt to report no sleep disturbances due to low back or right hip pain over a seven day period. LTG Duration 11/07/23 One Impairment Pt does not have an appropriate home exercise program Short Term Goal (STG) Pt to be independent and compliant with an appropriate HEP STG Duration 10/07/23 Assessment Summary Assessment Pt improving with functional mobility, decreased overall tone. Pt exhibits good tolerance to HEP. Continue to focus on improving gait and core strength, and decreasing lumbar tone. Physical Therapy Plan Frequency and Duration Frequency of Treatment 2x/Week Plan of Care Start Date 09/07/23 Plan of Care End Date 11/07/23 Therapeutic Interventions Therapeutic Interventions Home Exercise Program,Joint Mobilizations,Manual Therapy, Neuromuscular Re-education, Patient/Caregiver Education, Self-Care/Home Management,Soft Tissue Mobilization, Therapeutic Activities, Therapeutic Exercises Modalities Cold Pack/Ice Massage,Hot Packs Next Visit Focus/Plan Next Note Type Treatment Note Next Visit Plan Core strengthening, lumbar mobility
--- NOTE | 2023-10-24 12:40 | PT.OTN ---
Current Diagnoses Stiffness of other specified joint, not elsewhere classified (10/24/23) Spinal stenosis, lumbar region with neurogenic claudication (10/24/23) Sacrococcygeal disorders, not elsewhere classified (10/24/23) Physical Therapy Treatment Note PT-OP-A Visit Information Start: 09/07/23 15:57 Freq: Status: Active Protocol: Document 10/24/23 12:00 DCW (Rec: 10/24/23 12:40 DCW [id number]) Out-Patient Physical Therapy Visit Information Visit Information Visit Type Progress Note Visit Start Time 12:00 Visit Stop Time 12:45 Visit Number 10 Number of STOCK RAISER Visits 0 Evaluation Information Evaluation Date 09/07/23 PT-OP-B Current Condition Start: 09/07/23 15:57 Freq: Status: Active Protocol: Document 09/07/23 12:00 DCW (Rec: 09/07/23 17:50 DCW [id number]) Current Condition History of Current Condition Onset Date Multi-year history Current Complaints Low back and right hip pain, gait difficulties History of Current Condition Pt is a 78 year old female well-known to this clinic presenting with a long- standing history of low back and right hip pain. Pt was seen last year for this same hip pain. At the time, therapist and patient felt she had largely plateaued, and her hip pain was likely strongly associated with back problems. Since her most recent PT discharge, she has been seen by Dr Alexis, received MRI, was found to have lumbar stenosis, and received an injection. Pt notes that her back was better for ~4 weeks following her injection, but has largely returned to pre- injection levels. Pt reports other than PT, her next options are a guided injection or surgery, so she would like to attempt PT again. Reports she has been noticing a decreased tolerance to gait, especially evident after sitting for an extended period , like during a car ride. Pain has been occasionally limiting sleep, and pt must take frequent rest breaks ( every 15 minutes) when up moving around performing house work. Prior Treatments and Tests Lumbar MRI: IMPRESSION: 1. Mild multilevel degenerative changes of the lumbar spine. 2 . There is mild central canal stenosis at L3-L4 and L4-L5. 3 . No significant neural foraminal stenosis. per Ramin Guillen M.D. on 07/11/2023 Treatment Goals Patient/Caregiver Goals Avoid surgery PT-OP-C Subjective Start: 09/07/23 15:57 Freq: Status: Active Protocol: Document 10/24/23 12:00 DCW (Rec: 10/24/23 12:40 DCW [id number]) OP-PT Subjective Patient Comments Patient Comments I took two tylenol before I came here, and I'm walking better. PT-OP-F Manual Assessment Start: 09/07/23 15:57 Freq: Status: Active Protocol: Document 09/07/23 12:00 DCW (Rec: 09/07/23 17:50 DCW [id number]) Manual Assessments Soft Tissue Assessment Soft Tissue Mobility Assessment Moderate tone of lumbar paraspinals, R>L. Moderate tone with tenderness to palpation 2/4: Pain with wincing R hip flexors, R ITB, R Glute med PT-OP-K Range of Motion Start: 09/07/23 15:57 Freq: Status: Active Protocol: Document 09/07/23 12:00 DCW (Rec: 09/08/23 08:39 DCW [id number]) Lumbar Spine Range of Motion Lumbar Spine Active Degrees Testing Position Standing Flexion 65 Extension 10 ROM Limitations Bony Restriction,Pain PT-OP-L Special Tests Start: 09/07/23 15:57 Freq: Status: Active Protocol: Document 09/07/23 12:00 DCW (Rec: 09/08/23 08:39 DCW [id number]) Special Tests Lumbar Spine Special Tests Straight Leg Raise Test Results Positive R for anterior hip pain Slump Test Results Negative Compression Test Results Negative A-P Shearing Test Results Negative PT-OP-M Strength Start: 09/07/23 15:57 Freq: Status: Active Protocol: Document 09/07/23 12:00 DCW (Rec: 09/08/23 08:39 DCW [id number]) Trunk Strength Trunk Manual Muscle Testing Core Stabilization Pt struggles with abdominal bracing, requires verbal and tactile cuing to contract TrA: MMT 3/5 Hip Strength Hip Manual Muscle Testing Right Flexion (L2) 3+ Fair+ Abduction 3+ Fair+ Adduction 4 Good External Rotation 3 Fair Internal Rotation 3- Fair- Comments Inability to push against resistance largely appears to be more of a response to pain than a true muscle weakness. Left Flexion (L2) 4 Good Abduction 4 Good Adduction 4 Good External Rotation 4- Good- Internal Rotation 4- Good- Knee Strength Knee Manual Muscle Testing Right Flexion (S2) 4 Good Extension (L3) 3+ Fair+ Left Flexion (S2) 4 Good Extension (L3) 4 Good PT-OP-Q Treatments Start: 09/07/23 15:57 Freq: Status: Active Protocol: Document 10/24/23 12:00 DCW (Rec: 10/24/23 12:40 DCW [id number]) Cardio Equipment Recumbent Elliptical (Biodex) Duration (Minutes) 6 Resistance 6 Seat Position 11 Gym Equipment Shuttle Recovery Unilateral Squats Details Core contraction Resistance 37# R 50# L Reps/Time x20 each Bilateral Squats Details Core contraction Resistance 87# Shuttle Recovery Platform Stable Reps/Time x20 Therapeutic Exercises Standing Exercises Hip ER/IR Standing Exercise Name Hip ER/IR in half-kneel on stool Resistance Lv 2 T-band Other Exercises BOSU Lunge Other Exercise Name BOSU Lunge Side bilateral Manual Therapy Treatment Consent Patient gave verbal consent for manual Yes treatment Soft Tissue Mobilization Lumbar Body Location Lumbar paraspinals, Piriformis Body Position Sidelying PT-OP-T Assessment and Plan Start: 09/07/23 15:57 Freq: Status: Active Protocol: Document 10/24/23 12:00 DCW (Rec: 10/24/23 12:40 DCW [id number]) Physical Therapy Assessment Impairments Impairments Activity Tolerance,Functional Activities,Functional Mobility ,Gait,ROM,Soft Tissue Mobility ,Strength Goals Three Impairment Right hip and core weakness [employer] Manager Goal (LTG) Pt to exhibit increased core strength to at least 4/5 in order to improve abdominal bracing during her ADLs to decrease burden on low back LTG Duration 11/07/23 Two Impairment Pt reports sleep disturbances secondary to pain [employer] Manager Goal (LTG) Pt to report no sleep disturbances due to low back or right hip pain over a seven day period. LTG Duration 11/07/23 One Impairment Pt does not have an appropriate home exercise program Short Term Goal (STG) Pt to be independent and compliant with an appropriate HEP STG Duration Met Assessment Summary Assessment Pt doing well with HEP compliance, showing some improvement with mobility and tone management, continues to experience antalgia with gait. Physical Therapy Plan Frequency and Duration Frequency of Treatment 2x/Week Plan of Care Start Date 09/07/23 Plan of Care End Date 11/07/23 Therapeutic Interventions Therapeutic Interventions Home Exercise Program,Joint Mobilizations,Manual Therapy, Neuromuscular Re-education, Patient/Caregiver Education, Self-Care/Home Management,Soft Tissue Mobilization, Therapeutic Activities, Therapeutic Exercises Modalities Cold Pack/Ice Massage,Hot Packs Next Visit Focus/Plan Next Note Type Treatment Note Next Visit Plan Core strengthening, lumbar mobility
--- NOTE | 2023-10-26 12:43 | PT.OTN ---
Current Diagnoses Stiffness of other specified joint, not elsewhere classified (10/26/23) Spinal stenosis, lumbar region with neurogenic claudication (10/26/23) Sacrococcygeal disorders, not elsewhere classified (10/26/23) Physical Therapy Treatment Note PT-OP-A Visit Information Start: 09/07/23 15:57 Freq: Status: Active Protocol: Document 10/26/23 12:00 DCW (Rec: 10/26/23 12:43 DCW [id number]) Out-Patient Physical Therapy Visit Information Visit Information Visit Type Treatment Note Visit Start Time 12:00 Visit Stop Time 12:45 Visit Number 11 Number of CONTINUOUS IMPROVEMENT BLACK BELT Visits 0 Evaluation Information Evaluation Date 09/07/23 PT-OP-B Current Condition Start: 09/07/23 15:57 Freq: Status: Active Protocol: Document 09/07/23 12:00 DCW (Rec: 09/07/23 17:50 DCW [id number]) Current Condition History of Current Condition Onset Date Multi-year history Current Complaints Low back and right hip pain, gait difficulties History of Current Condition Pt is a 78 year old female well-known to this clinic presenting with a long- standing history of low back and right hip pain. Pt was seen last year for this same hip pain. At the time, therapist and patient felt she had largely plateaued, and her hip pain was likely strongly associated with back problems. Since her most recent PT discharge, she has been seen by Dr Alexis, received MRI, was found to have lumbar stenosis, and received an injection. Pt notes that her back was better for ~4 weeks following her injection, but has largely returned to pre- injection levels. Pt reports other than PT, her next options are a guided injection or surgery, so she would like to attempt PT again. Reports she has been noticing a decreased tolerance to gait, especially evident after sitting for an extended period , like during a car ride. Pain has been occasionally limiting sleep, and pt must take frequent rest breaks ( every 15 minutes) when up moving around performing house work. Prior Treatments and Tests Lumbar MRI: IMPRESSION: 1. Mild multilevel degenerative changes of the lumbar spine. 2 . There is mild central canal stenosis at L3-L4 and L4-L5. 3 . No significant neural foraminal stenosis. per Ramin Guillen M.D. on 07/11/2023 Treatment Goals Patient/Caregiver Goals Avoid surgery PT-OP-C Subjective Start: 09/07/23 15:57 Freq: Status: Active Protocol: Document 10/26/23 12:00 DCW (Rec: 10/26/23 12:43 DCW [id number]) OP-PT Subjective Patient Comments Patient Comments Pt experiencing serious pain in posterior hip starting a few hours after her last visit , next day was a bit better, but her back was more flared- up. PT-OP-F Manual Assessment Start: 09/07/23 15:57 Freq: Status: Active Protocol: Document 09/07/23 12:00 DCW (Rec: 09/07/23 17:50 DCW [id number]) Manual Assessments Soft Tissue Assessment Soft Tissue Mobility Assessment Moderate tone of lumbar paraspinals, R>L. Moderate tone with tenderness to palpation 2/4: Pain with wincing R hip flexors, R ITB, R Glute med PT-OP-K Range of Motion Start: 09/07/23 15:57 Freq: Status: Active Protocol: Document 09/07/23 12:00 DCW (Rec: 09/08/23 08:39 DCW [id number]) Lumbar Spine Range of Motion Lumbar Spine Active Degrees Testing Position Standing Flexion 65 Extension 10 ROM Limitations Bony Restriction,Pain PT-OP-L Special Tests Start: 09/07/23 15:57 Freq: Status: Active Protocol: Document 09/07/23 12:00 DCW (Rec: 09/08/23 08:39 DCW [id number]) Special Tests Lumbar Spine Special Tests Straight Leg Raise Test Results Positive R for anterior hip pain Slump Test Results Negative Compression Test Results Negative A-P Shearing Test Results Negative PT-OP-M Strength Start: 09/07/23 15:57 Freq: Status: Active Protocol: Document 09/07/23 12:00 DCW (Rec: 09/08/23 08:39 DCW [id number]) Trunk Strength Trunk Manual Muscle Testing Core Stabilization Pt struggles with abdominal bracing, requires verbal and tactile cuing to contract TrA: MMT 3/5 Hip Strength Hip Manual Muscle Testing Right Flexion (L2) 3+ Fair+ Abduction 3+ Fair+ Adduction 4 Good External Rotation 3 Fair Internal Rotation 3- Fair- Comments Inability to push against resistance largely appears to be more of a response to pain than a true muscle weakness. Left Flexion (L2) 4 Good Abduction 4 Good Adduction 4 Good External Rotation 4- Good- Internal Rotation 4- Good- Knee Strength Knee Manual Muscle Testing Right Flexion (S2) 4 Good Extension (L3) 3+ Fair+ Left Flexion (S2) 4 Good Extension (L3) 4 Good PT-OP-Q Treatments Start: 09/07/23 15:57 Freq: Status: Active Protocol: Document 10/26/23 12:00 DCW (Rec: 10/26/23 12:43 DCW [id number]) Cardio Equipment Recumbent Elliptical (Biodex) Duration (Minutes) 6 Resistance 6 Seat Position 11 Gym Equipment Shuttle Recovery Unilateral Squats Details Core contraction Resistance 37# R 50# L Reps/Time x20 each Bilateral Squats Details Core contraction Resistance 87# Shuttle Recovery Platform Stable Reps/Time x20 Therapeutic Exercises Standing Exercises Hip ER/IR Standing Exercise Name Hip ER/IR in half-kneel on stool Resistance Lv 2 T-band Other Exercises BOSU Lunge Other Exercise Name BOSU Lunge Side bilateral Manual Therapy Treatment Consent Patient gave verbal consent for manual Yes treatment Soft Tissue Mobilization Lumbar Body Location Lumbar paraspinals, Piriformis Body Position Sidelying PT-OP-T Assessment and Plan Start: 09/07/23 15:57 Freq: Status: Active Protocol: Document 10/26/23 12:00 DCW (Rec: 10/26/23 12:43 DCW [id number]) Physical Therapy Assessment Impairments Impairments Activity Tolerance,Functional Activities,Functional Mobility ,Gait,ROM,Soft Tissue Mobility ,Strength Goals Three Impairment Right hip and core weakness Detention Goal (LTG) Pt to exhibit increased core strength to at least 4/5 in order to improve abdominal bracing during her ADLs to decrease burden on low back LTG Duration 11/07/23 Two Impairment Pt reports sleep disturbances secondary to pain Detention Goal (LTG) Pt to report no sleep disturbances due to low back or right hip pain over a seven day period. LTG Duration 11/07/23 One Impairment Pt does not have an appropriate home exercise program Short Term Goal (STG) Pt to be independent and compliant with an appropriate HEP STG Duration Met Assessment Summary Assessment Pt showing limited improvement overall, took it easier today due to flare-up following last visit. Focus on STM, trigger point release, and other myofacial treatments. Physical Therapy Plan Frequency and Duration Frequency of Treatment 2x/Week Plan of Care Start Date 09/07/23 Plan of Care End Date 11/07/23 Therapeutic Interventions Therapeutic Interventions Home Exercise Program,Joint Mobilizations,Manual Therapy, Neuromuscular Re-education, Patient/Caregiver Education, Self-Care/Home Management,Soft Tissue Mobilization, Therapeutic Activities, Therapeutic Exercises Modalities Cold Pack/Ice Massage,Hot Packs Next Visit Focus/Plan Next Note Type Treatment Note Next Visit Plan Core strengthening, lumbar mobility
--- NOTE | 2023-11-01 12:43 | PT.OTN ---
Current Diagnoses Stiffness of other specified joint, not elsewhere classified (11/01/23) Spinal stenosis, lumbar region with neurogenic claudication (11/01/23) Sacrococcygeal disorders, not elsewhere classified (11/01/23) Physical Therapy Treatment Note PT-OP-A Visit Information Start: 09/07/23 15:57 Freq: Status: Active Protocol: Document 11/01/23 12:00 DCW (Rec: 11/01/23 12:43 DCW [id number]) Out-Patient Physical Therapy Visit Information Visit Information Visit Type Treatment Note Visit Start Time 12:00 Visit Stop Time 12:45 Visit Number 12 Number of HEAD BATCHER Visits 0 Evaluation Information Evaluation Date 09/07/23 PT-OP-B Current Condition Start: 09/07/23 15:57 Freq: Status: Active Protocol: Document 09/07/23 12:00 DCW (Rec: 09/07/23 17:50 DCW [id number]) Current Condition History of Current Condition Onset Date Multi-year history Current Complaints Low back and right hip pain, gait difficulties History of Current Condition Pt is a 78 year old female well-known to this clinic presenting with a long- standing history of low back and right hip pain. Pt was seen last year for this same hip pain. At the time, therapist and patient felt she had largely plateaued, and her hip pain was likely strongly associated with back problems. Since her most recent PT discharge, she has been seen by Dr Alexis, received MRI, was found to have lumbar stenosis, and received an injection. Pt notes that her back was better for ~4 weeks following her injection, but has largely returned to pre- injection levels. Pt reports other than PT, her next options are a guided injection or surgery, so she would like to attempt PT again. Reports she has been noticing a decreased tolerance to gait, especially evident after sitting for an extended period , like during a car ride. Pain has been occasionally limiting sleep, and pt must take frequent rest breaks ( every 15 minutes) when up moving around performing house work. Prior Treatments and Tests Lumbar MRI: IMPRESSION: 1. Mild multilevel degenerative changes of the lumbar spine. 2 . There is mild central canal stenosis at L3-L4 and L4-L5. 3 . No significant neural foraminal stenosis. per Ramin Guillen M.D. on 07/11/2023 Treatment Goals Patient/Caregiver Goals Avoid surgery PT-OP-C Subjective Start: 09/07/23 15:57 Freq: Status: Active Protocol: Document 11/01/23 12:00 DCW (Rec: 11/01/23 12:43 DCW [id number]) OP-PT Subjective Patient Comments Patient Comments Pt reports she was feeling better following last visit, but then sat for too long doing a beading project, and was having a big increase in pain. PT-OP-F Manual Assessment Start: 09/07/23 15:57 Freq: Status: Active Protocol: Document 09/07/23 12:00 DCW (Rec: 09/07/23 17:50 DCW [id number]) Manual Assessments Soft Tissue Assessment Soft Tissue Mobility Assessment Moderate tone of lumbar paraspinals, R>L. Moderate tone with tenderness to palpation 2/4: Pain with wincing R hip flexors, R ITB, R Glute med PT-OP-K Range of Motion Start: 09/07/23 15:57 Freq: Status: Active Protocol: Document 09/07/23 12:00 DCW (Rec: 09/08/23 08:39 DCW [id number]) Lumbar Spine Range of Motion Lumbar Spine Active Degrees Testing Position Standing Flexion 65 Extension 10 ROM Limitations Bony Restriction,Pain PT-OP-L Special Tests Start: 09/07/23 15:57 Freq: Status: Active Protocol: Document 09/07/23 12:00 DCW (Rec: 09/08/23 08:39 DCW [id number]) Special Tests Lumbar Spine Special Tests Straight Leg Raise Test Results Positive R for anterior hip pain Slump Test Results Negative Compression Test Results Negative A-P Shearing Test Results Negative PT-OP-M Strength Start: 09/07/23 15:57 Freq: Status: Active Protocol: Document 09/07/23 12:00 DCW (Rec: 09/08/23 08:39 DCW [id number]) Trunk Strength Trunk Manual Muscle Testing Core Stabilization Pt struggles with abdominal bracing, requires verbal and tactile cuing to contract TrA: MMT 3/5 Hip Strength Hip Manual Muscle Testing Right Flexion (L2) 3+ Fair+ Abduction 3+ Fair+ Adduction 4 Good External Rotation 3 Fair Internal Rotation 3- Fair- Comments Inability to push against resistance largely appears to be more of a response to pain than a true muscle weakness. Left Flexion (L2) 4 Good Abduction 4 Good Adduction 4 Good External Rotation 4- Good- Internal Rotation 4- Good- Knee Strength Knee Manual Muscle Testing Right Flexion (S2) 4 Good Extension (L3) 3+ Fair+ Left Flexion (S2) 4 Good Extension (L3) 4 Good PT-OP-Q Treatments Start: 09/07/23 15:57 Freq: Status: Active Protocol: Document 11/01/23 12:00 DCW (Rec: 11/01/23 12:43 DCW [id number]) Cardio Equipment Recumbent Elliptical (Biodex) Duration (Minutes) 6 Resistance 6 Seat Position 11 Gym Equipment Shuttle Recovery Unilateral Squats Details Core contraction Resistance 50# Reps/Time x20 L, 2x10 R Bilateral Squats Details Core contraction Resistance 87# Shuttle Recovery Platform Stable Reps/Time x20 Manual Therapy Treatment Consent Patient gave verbal consent for manual Yes treatment Soft Tissue Mobilization Lumbar Body Location Lumbar paraspinals, Piriformis Body Position Sidelying PT-OP-T Assessment and Plan Start: 09/07/23 15:57 Freq: Status: Active Protocol: Document 11/01/23 12:00 DCW (Rec: 11/01/23 12:43 DCW [id number]) Physical Therapy Assessment Impairments Impairments Activity Tolerance,Functional Activities,Functional Mobility ,Gait,ROM,Soft Tissue Mobility ,Strength Goals Three Impairment Right hip and core weakness [employer] Teacher Goal (LTG) Pt to exhibit increased core strength to at least 4/5 in order to improve abdominal bracing during her ADLs to decrease burden on low back LTG Duration 11/07/23 Two Impairment Pt reports sleep disturbances secondary to pain [employer] Teacher Goal (LTG) Pt to report no sleep disturbances due to low back or right hip pain over a seven day period. LTG Duration 11/07/23 One Impairment Pt does not have an appropriate home exercise program Short Term Goal (STG) Pt to be independent and compliant with an appropriate HEP STG Duration Met Assessment Summary Assessment New POC next visit. STM appears to be helping overall, less tone in right lumbar. Good response to treatment today. Physical Therapy Plan Frequency and Duration Frequency of Treatment 2x/Week Plan of Care Start Date 09/07/23 Plan of Care End Date 11/07/23 Therapeutic Interventions Therapeutic Interventions Home Exercise Program,Joint Mobilizations,Manual Therapy, Neuromuscular Re-education, Patient/Caregiver Education, Self-Care/Home Management,Soft Tissue Mobilization, Therapeutic Activities, Therapeutic Exercises Modalities Cold Pack/Ice Massage,Hot Packs Next Visit Focus/Plan Next Note Type Progress Note Next Visit Plan Core strengthening, lumbar mobility
--- NOTE | 2023-11-03 12:41 | PT.OTN ---
Current Diagnoses Stiffness of other specified joint, not elsewhere classified (11/03/23) Spinal stenosis, lumbar region with neurogenic claudication (11/03/23) Sacrococcygeal disorders, not elsewhere classified (11/03/23) Physical Therapy Treatment Note PT-OP-A Visit Information Start: 09/07/23 15:57 Freq: Status: Active Protocol: Document 11/03/23 12:00 DCW (Rec: 11/03/23 12:38 DCW [id number]) Out-Patient Physical Therapy Visit Information Visit Information Visit Type Treatment Note Visit Start Time 12:00 Visit Stop Time 12:45 Visit Number 13 Number of TRUCK ASSEMBLER Visits 0 Evaluation Information Evaluation Date 09/07/23 PT-OP-B Current Condition Start: 09/07/23 15:57 Freq: Status: Active Protocol: Document 09/07/23 12:00 DCW (Rec: 09/07/23 17:50 DCW [id number]) Current Condition History of Current Condition Onset Date Multi-year history Current Complaints Low back and right hip pain, gait difficulties History of Current Condition Pt is a 78 year old female well-known to this clinic presenting with a long- standing history of low back and right hip pain. Pt was seen last year for this same hip pain. At the time, therapist and patient felt she had largely plateaued, and her hip pain was likely strongly associated with back problems. Since her most recent PT discharge, she has been seen by Dr Alexis, received MRI, was found to have lumbar stenosis, and received an injection. Pt notes that her back was better for ~4 weeks following her injection, but has largely returned to pre- injection levels. Pt reports other than PT, her next options are a guided injection or surgery, so she would like to attempt PT again. Reports she has been noticing a decreased tolerance to gait, especially evident after sitting for an extended period , like during a car ride. Pain has been occasionally limiting sleep, and pt must take frequent rest breaks ( every 15 minutes) when up moving around performing house work. Prior Treatments and Tests Lumbar MRI: IMPRESSION: 1. Mild multilevel degenerative changes of the lumbar spine. 2 . There is mild central canal stenosis at L3-L4 and L4-L5. 3 . No significant neural foraminal stenosis. per Ramin Guillen M.D. on 07/11/2023 Treatment Goals Patient/Caregiver Goals Avoid surgery PT-OP-C Subjective Start: 09/07/23 15:57 Freq: Status: Active Protocol: Document 11/03/23 12:00 DCW (Rec: 11/03/23 12:38 DCW [id number]) OP-PT Subjective Patient Comments Patient Comments Feeling better than the time before, or the time before the time before. PT-OP-F Manual Assessment Start: 09/07/23 15:57 Freq: Status: Active Protocol: Document 11/03/23 12:00 DCW (Rec: 11/03/23 12:40 DCW [id number]) Manual Assessments Soft Tissue Assessment Soft Tissue Mobility Assessment Moderate tone of lumbar paraspinals, R>L. Moderate tone with tenderness to palpation 2/4: Pain with wincing R hip flexors, R ITB, R Glute med PT-OP-K Range of Motion Start: 09/07/23 15:57 Freq: Status: Active Protocol: Document 11/03/23 12:00 DCW (Rec: 11/03/23 12:40 DCW [id number]) Lumbar Spine Range of Motion Lumbar Spine Active Degrees Testing Position Standing Flexion 80 Extension 20 ROM Limitations Bony Restriction,Pain PT-OP-L Special Tests Start: 09/07/23 15:57 Freq: Status: Active Protocol: Document 11/03/23 12:00 DCW (Rec: 11/03/23 12:40 DCW [id number]) Special Tests Lumbar Spine Special Tests Straight Leg Raise Test Results Negative PT-OP-M Strength Start: 09/07/23 15:57 Freq: Status: Active Protocol: Document 11/03/23 12:00 DCW (Rec: 11/03/23 12:40 DCW [id number]) Trunk Strength Trunk Manual Muscle Testing Core Stabilization Pt struggles with abdominal bracing, requires verbal and tactile cuing to contract TrA: MMT 3+/5 Hip Strength Hip Manual Muscle Testing Right Flexion (L2) 3+ Fair+ Abduction 4 Good Adduction 4 Good External Rotation 3 Fair Internal Rotation 3- Fair- Comments Inability to push against resistance largely appears to be more of a response to pain than a true muscle weakness. Left Flexion (L2) 4 Good Abduction 4 Good Adduction 4 Good External Rotation 4 Good Internal Rotation 4+ Good+ Knee Strength Knee Manual Muscle Testing Right Flexion (S2) 4 Good Extension (L3) 4 Good Left Flexion (S2) 4 Good Extension (L3) 4 Good PT-OP-Q Treatments Start: 09/07/23 15:57 Freq: Status: Active Protocol: Document 11/03/23 12:00 DCW (Rec: 11/03/23 12:38 DCW [id number]) Cardio Equipment Recumbent Elliptical (Biodex) Duration (Minutes) 7 Resistance 6 Seat Position 11 Gym Equipment Therapeutic Ball Pelvic tilts Exercise Details Pelvic tilts/circles Ball Size/Color Green - 65 cm Body Position Sitting PT-OP-T Assessment and Plan Start: 09/07/23 15:57 Freq: Status: Active Protocol: Document 11/03/23 12:00 DCW (Rec: 11/03/23 12:38 DCW [id number]) Physical Therapy Assessment Impairments Impairments Activity Tolerance,Functional Activities,Functional Mobility ,Gait,ROM,Soft Tissue Mobility ,Strength Goals Three Impairment Right hip and core weakness Intermediate Goal (LTG) Pt to exhibit increased core strength to at least 4/5 in order to improve abdominal bracing during her ADLs to decrease burden on low back LTG Duration 01/03/24 Two Impairment Pt reports sleep disturbances secondary to pain Intermediate Goal (LTG) Pt to report no sleep disturbances due to low back or right hip pain over a seven day period. LTG Duration 01/03/24 - improving One Impairment Pt does not have an appropriate home exercise program Short Term Goal (STG) Pt to be independent and compliant with an appropriate HEP STG Duration Met Assessment Summary Assessment Pt showing some improvements, although largely still experiencing increased tone and tenderness throughout right lumbar and right hip, which impacts ability to perform daily tasks. Continue to focus on strengthening and tone management/trigger point release Physical Therapy Plan Frequency and Duration Frequency of Treatment 2x/Week Plan of Care Start Date 11/03/23 Plan of Care End Date 01/03/24 Therapeutic Interventions Therapeutic Interventions Home Exercise Program,Joint Mobilizations,Manual Therapy, Neuromuscular Re-education, Patient/Caregiver Education, Self-Care/Home Management,Soft Tissue Mobilization, Therapeutic Activities, Therapeutic Exercises Modalities Cold Pack/Ice Massage,Hot Packs Next Visit Focus/Plan Next Note Type Progress Note Next Visit Plan Core strengthening, lumbar mobility
--- NOTE | 2023-11-03 12:41 | PT.OPPOC ---
Physical, Occupational & Speech Therapy At [facility] Current Diagnoses Stiffness of other specified joint, not elsewhere classified (11/03/23) Spinal stenosis, lumbar region with neurogenic claudication (11/03/23) Sacrococcygeal disorders, not elsewhere classified (11/03/23) Visit Care Team Role Provider Type NATANAEL Aj Family Provider Advanced Air Surveillance Operator Primary Care Provider Specialty: Family Practice Address: [address] [place] [address], [id number] Email: [email or web address] Riley Alexis MD Attending Provider Physician Referring Provider Specialty: Orthopedics Orthopedic Surgery Physical [facility] Address: [address] [place] [address], [id number] Email: [email or web address] Plan Of Care PT-OP-B Current Condition Start: 09/07/23 15:57 Freq: Status: Active Protocol: Document 09/07/23 12:00 DCW (Rec: 09/07/23 17:50 DCW [id number]) Current Condition History of Current Condition Onset Date Multi-year history Current Complaints Low back and right hip pain, gait difficulties History of Current Condition Pt is a 78 year old female well-known to this clinic presenting with a long- standing history of low back and right hip pain. Pt was seen last year for this same hip pain. At the time, therapist and patient felt she had largely plateaued, and her hip pain was likely strongly associated with back problems. Since her most recent PT discharge, she has been seen by Dr Alexis, received MRI, was found to have lumbar stenosis, and received an injection. Pt notes that her back was better for ~4 weeks following her injection, but has largely returned to pre- injection levels. Pt reports other than PT, her next options are a guided injection or surgery, so she would like to attempt PT again. Reports she has been noticing a decreased tolerance to gait, especially evident after sitting for an extended period , like during a car ride. Pain has been occasionally limiting sleep, and pt must take frequent rest breaks ( every 15 minutes) when up moving around performing house work. Prior Treatments and Tests Lumbar MRI: IMPRESSION: 1. Mild multilevel degenerative changes of the lumbar spine. 2 . There is mild central canal stenosis at L3-L4 and L4-L5. 3 . No significant neural foraminal stenosis. per Ramin Guillen M.D. on 07/11/2023 Treatment Goals Patient/Caregiver Goals Avoid surgery PT-OP-T Assessment and Plan Start: 09/07/23 15:57 Freq: Status: Active Protocol: Document 11/03/23 12:00 DCW (Rec: 11/03/23 12:38 DCW [id number]) Physical Therapy Assessment Impairments Impairments Activity Tolerance,Functional Activities,Functional Mobility ,Gait,ROM,Soft Tissue Mobility ,Strength Goals Three Impairment Right hip and core weakness Mold Car Pusher Goal (LTG) Pt to exhibit increased core strength to at least 4/5 in order to improve abdominal bracing during her ADLs to decrease burden on low back LTG Duration 01/03/24 Two Impairment Pt reports sleep disturbances secondary to pain Mold Car Pusher Goal (LTG) Pt to report no sleep disturbances due to low back or right hip pain over a seven day period. LTG Duration 01/03/24 - improving One Impairment Pt does not have an appropriate home exercise program Short Term Goal (STG) Pt to be independent and compliant with an appropriate HEP STG Duration Met Assessment Summary Assessment Pt showing some improvements, although largely still experiencing increased tone and tenderness throughout right lumbar and right hip, which impacts ability to perform daily tasks. Continue to focus on strengthening and tone management/trigger point release Physical Therapy Plan Frequency and Duration Frequency of Treatment 2x/Week Plan of Care Start Date 11/03/23 Plan of Care End Date 01/03/24 Therapeutic Interventions Therapeutic Interventions Home Exercise Program,Joint Mobilizations,Manual Therapy, Neuromuscular Re-education, Patient/Caregiver Education, Self-Care/Home Management,Soft Tissue Mobilization, Therapeutic Activities, Therapeutic Exercises Modalities Cold Pack/Ice Massage,Hot Packs Next Visit Focus/Plan Next Note Type Progress Note Next Visit Plan Core strengthening, lumbar mobility Plan of Care Dates Plan of Care Start Date 11/03/23 Plan of Care End Date 01/03/24 Electronically Signed by: Sage Vasquez, PT 11/03/23 2358 If you are in agreement with this Plan of Care, please return a signed and dated copy. I have reviewed this Plan of Care and certify that the skilled therapy services above are required to meet the patient?s needs. Physician Signature Date Printed Name and Credentials Clinical Instructor Signature Printed Name and Credentials
--- NOTE | 2023-11-08 11:17 | PT.OTN ---
Current Diagnoses Stiffness of other specified joint, not elsewhere classified (11/08/23) Spinal stenosis, lumbar region with neurogenic claudication (11/08/23) Sacrococcygeal disorders, not elsewhere classified (11/08/23) Physical Therapy Treatment Note PT-OP-A Visit Information Start: 09/07/23 15:57 Freq: Status: Active Protocol: Document 11/08/23 10:28 MB (Rec: 11/08/23 11:17 MB [id number]) Out-Patient Physical Therapy Visit Information Visit Information Visit Type Treatment Note Visit Start Time 10:28 Visit Stop Time 11:08 Visit Number 14 Number of PROMOTIONAL ADVERTISING ASSISTANT Visits 0 Evaluation Information Evaluation Date 09/07/23 PT-OP-B Current Condition Start: 09/07/23 15:57 Freq: Status: Active Protocol: Document 09/07/23 12:00 DCW (Rec: 09/07/23 17:50 DCW [id number]) Current Condition History of Current Condition Onset Date Multi-year history Current Complaints Low back and right hip pain, gait difficulties History of Current Condition Pt is a 78 year old female well-known to this clinic presenting with a long- standing history of low back and right hip pain. Pt was seen last year for this same hip pain. At the time, therapist and patient felt she had largely plateaued, and her hip pain was likely strongly associated with back problems. Since her most recent PT discharge, she has been seen by Dr Alexis, received MRI, was found to have lumbar stenosis, and received an injection. Pt notes that her back was better for ~4 weeks following her injection, but has largely returned to pre- injection levels. Pt reports other than PT, her next options are a guided injection or surgery, so she would like to attempt PT again. Reports she has been noticing a decreased tolerance to gait, especially evident after sitting for an extended period , like during a car ride. Pain has been occasionally limiting sleep, and pt must take frequent rest breaks ( every 15 minutes) when up moving around performing house work. Prior Treatments and Tests Lumbar MRI: IMPRESSION: 1. Mild multilevel degenerative changes of the lumbar spine. 2 . There is mild central canal stenosis at L3-L4 and L4-L5. 3 . No significant neural foraminal stenosis. per Ramin Guillen M.D. on 07/11/2023 Treatment Goals Patient/Caregiver Goals Avoid surgery PT-OP-C Subjective Start: 09/07/23 15:57 Freq: Status: Active Protocol: Document 11/08/23 10:28 MB (Rec: 11/08/23 11:17 MB [id number]) OP-PT Subjective Patient Comments Patient Comments Pt reports that twice, she went to stand up and she had bad anterior hip pain and posterior hip/LBP. PT-OP-F Manual Assessment Start: 09/07/23 15:57 Freq: Status: Active Protocol: Document 11/03/23 12:00 DCW (Rec: 11/03/23 12:40 DCW [id number]) Manual Assessments Soft Tissue Assessment Soft Tissue Mobility Assessment Moderate tone of lumbar paraspinals, R>L. Moderate tone with tenderness to palpation 2/4: Pain with wincing R hip flexors, R ITB, R Glute med PT-OP-K Range of Motion Start: 09/07/23 15:57 Freq: Status: Active Protocol: Document 11/03/23 12:00 DCW (Rec: 11/03/23 12:40 DCW [id number]) Lumbar Spine Range of Motion Lumbar Spine Active Degrees Testing Position Standing Flexion 80 Extension 20 ROM Limitations Bony Restriction,Pain PT-OP-L Special Tests Start: 09/07/23 15:57 Freq: Status: Active Protocol: Document 11/03/23 12:00 DCW (Rec: 11/03/23 12:40 DCW [id number]) Special Tests Lumbar Spine Special Tests Straight Leg Raise Test Results Negative PT-OP-M Strength Start: 09/07/23 15:57 Freq: Status: Active Protocol: Document 11/03/23 12:00 DCW (Rec: 11/03/23 12:40 DCW [id number]) Trunk Strength Trunk Manual Muscle Testing Core Stabilization Pt struggles with abdominal bracing, requires verbal and tactile cuing to contract TrA: MMT 3+/5 Hip Strength Hip Manual Muscle Testing Right Flexion (L2) 3+ Fair+ Abduction 4 Good Adduction 4 Good External Rotation 3 Fair Internal Rotation 3- Fair- Comments Inability to push against resistance largely appears to be more of a response to pain than a true muscle weakness. Left Flexion (L2) 4 Good Abduction 4 Good Adduction 4 Good External Rotation 4 Good Internal Rotation 4+ Good+ Knee Strength Knee Manual Muscle Testing Right Flexion (S2) 4 Good Extension (L3) 4 Good Left Flexion (S2) 4 Good Extension (L3) 4 Good PT-OP-Q Treatments Start: 09/07/23 15:57 Freq: Status: Active Protocol: Document 11/08/23 10:28 MB (Rec: 11/08/23 11:17 MB [id number]) Manual Therapy Treatment Consent Patient gave verbal consent for manual Yes treatment Other Other Manual Treatments Pt sidelying with head and legs supported. STM and TrP treatment right iliopsoas, QL, glute min and STM right hip rotators and vastus lateralis. In supine, palpation to right pubic symphysis and adductors reproduce pain and adductors are very tight Self-Care/Home Management Treatment Education Other Education Ed pt on benefits of pillow support between legs at night time, benefits of sitting on therapy ball and changing positions, discussions on anatomy and history and symptomology. PT-OP-T Assessment and Plan Start: 09/07/23 15:57 Freq: Status: Active Protocol: Document 11/08/23 10:28 MB (Rec: 11/08/23 11:17 MB [id number]) Physical Therapy Assessment Impairments Impairments Activity Tolerance,Functional Activities,Functional Mobility ,Gait,ROM,Soft Tissue Mobility ,Strength Goals Three Impairment Right hip and core weakness Senior Living Goal (LTG) Pt to exhibit increased core strength to at least 4/5 in order to improve abdominal bracing during her ADLs to decrease burden on low back LTG Duration 01/03/24 Two Impairment Pt reports sleep disturbances secondary to pain Professor Of Religion Goal (LTG) Pt to report no sleep disturbances due to low back or right hip pain over a seven day period. LTG Duration 01/03/24 - improving One Impairment Pt does not have an appropriate home exercise program Short Term Goal (STG) Pt to be independent and compliant with an appropriate HEP STG Duration Met Assessment Summary Assessment Pt enters with antalgic gait, favoring her right hip and leg and they appear stiff at hip flexion and SI areas, wide BECKY and increased Tredelenburg gait. Left iiac crest is higher than right in standing before treatment. Increased tension right hip flexor and QL. Pt reports multiple abdominal and pelvic floor surgeries d/t ovarian CA including chemo, history of right MARI. X-ray right hip last year looked good. She had short in groin last year. Today, pt's symptoms do seem to be greatest at right groin area and PT favors right hip impingement type presentation and adductor tightness. Physical Therapy Plan Frequency and Duration Frequency of Treatment 2x/Week Plan of Care Start Date 11/03/23 Plan of Care End Date 01/03/24 Therapeutic Interventions Therapeutic Interventions Home Exercise Program,Joint Mobilizations,Manual Therapy, Neuromuscular Re-education, Patient/Caregiver Education, Self-Care/Home Management,Soft Tissue Mobilization, Therapeutic Activities, Therapeutic Exercises Modalities Cold Pack/Ice Massage,Hot Packs Other Referrals/Consults Referrals/Consults Recommended Consider pelvic floor care specialist assessment Next Visit Focus/Plan Next Note Type Progress Note Next Visit Plan Core strengthening, lumbar mobility
--- NOTE | 2023-11-08 11:23 | PT.OTN ---
Current Diagnoses Stiffness of other specified joint, not elsewhere classified (11/08/23) Spinal stenosis, lumbar region with neurogenic claudication (11/08/23) Sacrococcygeal disorders, not elsewhere classified (11/08/23) Physical Therapy Treatment Note PT-OP-A Visit Information Start: 09/07/23 15:57 Freq: Status: Active Protocol: Document 11/08/23 10:28 MB (Rec: 11/08/23 11:17 MB [id number]) Out-Patient Physical Therapy Visit Information Visit Information Visit Type Treatment Note Visit Start Time 10:28 Visit Stop Time 11:08 Visit Number 14 Number of YOUTH PASTOR Visits 0 Evaluation Information Evaluation Date 09/07/23 PT-OP-B Current Condition Start: 09/07/23 15:57 Freq: Status: Active Protocol: Document 09/07/23 12:00 DCW (Rec: 09/07/23 17:50 DCW [id number]) Current Condition History of Current Condition Onset Date Multi-year history Current Complaints Low back and right hip pain, gait difficulties History of Current Condition Pt is a 78 year old female well-known to this clinic presenting with a long- standing history of low back and right hip pain. Pt was seen last year for this same hip pain. At the time, therapist and patient felt she had largely plateaued, and her hip pain was likely strongly associated with back problems. Since her most recent PT discharge, she has been seen by Dr Alexis, received MRI, was found to have lumbar stenosis, and received an injection. Pt notes that her back was better for ~4 weeks following her injection, but has largely returned to pre- injection levels. Pt reports other than PT, her next options are a guided injection or surgery, so she would like to attempt PT again. Reports she has been noticing a decreased tolerance to gait, especially evident after sitting for an extended period , like during a car ride. Pain has been occasionally limiting sleep, and pt must take frequent rest breaks ( every 15 minutes) when up moving around performing house work. Prior Treatments and Tests Lumbar MRI: IMPRESSION: 1. Mild multilevel degenerative changes of the lumbar spine. 2 . There is mild central canal stenosis at L3-L4 and L4-L5. 3 . No significant neural foraminal stenosis. per Ramin Guillen M.D. on 07/11/2023 Treatment Goals Patient/Caregiver Goals Avoid surgery PT-OP-C Subjective Start: 09/07/23 15:57 Freq: Status: Active Protocol: Document 11/08/23 10:28 MB (Rec: 11/08/23 11:17 MB [id number]) OP-PT Subjective Patient Comments Patient Comments Pt reports that twice, she went to stand up and she had bad anterior hip pain and posterior hip/LBP. PT-OP-F Manual Assessment Start: 09/07/23 15:57 Freq: Status: Active Protocol: Document 11/03/23 12:00 DCW (Rec: 11/03/23 12:40 DCW [id number]) Manual Assessments Soft Tissue Assessment Soft Tissue Mobility Assessment Moderate tone of lumbar paraspinals, R>L. Moderate tone with tenderness to palpation 2/4: Pain with wincing R hip flexors, R ITB, R Glute med PT-OP-K Range of Motion Start: 09/07/23 15:57 Freq: Status: Active Protocol: Document 11/03/23 12:00 DCW (Rec: 11/03/23 12:40 DCW [id number]) Lumbar Spine Range of Motion Lumbar Spine Active Degrees Testing Position Standing Flexion 80 Extension 20 ROM Limitations Bony Restriction,Pain PT-OP-L Special Tests Start: 09/07/23 15:57 Freq: Status: Active Protocol: Document 11/03/23 12:00 DCW (Rec: 11/03/23 12:40 DCW [id number]) Special Tests Lumbar Spine Special Tests Straight Leg Raise Test Results Negative PT-OP-M Strength Start: 09/07/23 15:57 Freq: Status: Active Protocol: Document 11/03/23 12:00 DCW (Rec: 11/03/23 12:40 DCW [id number]) Trunk Strength Trunk Manual Muscle Testing Core Stabilization Pt struggles with abdominal bracing, requires verbal and tactile cuing to contract TrA: MMT 3+/5 Hip Strength Hip Manual Muscle Testing Right Flexion (L2) 3+ Fair+ Abduction 4 Good Adduction 4 Good External Rotation 3 Fair Internal Rotation 3- Fair- Comments Inability to push against resistance largely appears to be more of a response to pain than a true muscle weakness. Left Flexion (L2) 4 Good Abduction 4 Good Adduction 4 Good External Rotation 4 Good Internal Rotation 4+ Good+ Knee Strength Knee Manual Muscle Testing Right Flexion (S2) 4 Good Extension (L3) 4 Good Left Flexion (S2) 4 Good Extension (L3) 4 Good PT-OP-Q Treatments Start: 09/07/23 15:57 Freq: Status: Active Protocol: Document 11/08/23 10:28 MB (Rec: 11/08/23 11:17 MB [id number]) Manual Therapy Treatment Consent Patient gave verbal consent for manual Yes treatment Other Other Manual Treatments Pt sidelying with head and legs supported. STM and TrP treatment right iliopsoas, QL, glute min and STM right hip rotators and vastus lateralis. In supine, palpation to right pubic symphysis and adductors reproduce pain and adductors are very tight Self-Care/Home Management Treatment Education Other Education Ed pt on benefits of pillow support between legs at night time, benefits of sitting on therapy ball and changing positions, discussions on anatomy and history and symptomology. Ed pt in benefits of using cane or walking stick in left hand on days when right hip pain is worse. PT-OP-T Assessment and Plan Start: 09/07/23 15:57 Freq: Status: Active Protocol: Document 11/08/23 10:28 MB (Rec: 11/08/23 11:17 [id number]) Physical Therapy Assessment Impairments Impairments Activity Tolerance,Functional Activities,Functional Mobility ,Gait,ROM,Soft Tissue Mobility ,Strength Goals Three Impairment Right hip and core weakness Energy Efficiency Specialist Goal (LTG) Pt to exhibit increased core strength to at least 4/5 in order to improve abdominal bracing during her ADLs to decrease burden on low back LTG Duration 01/03/24 Two Impairment Pt reports sleep disturbances secondary to pain Fpc Goal (LTG) Pt to report no sleep disturbances due to low back or right hip pain over a seven day period. LTG Duration 01/03/24 - improving One Impairment Pt does not have an appropriate home exercise program Short Term Goal (STG) Pt to be independent and compliant with an appropriate HEP STG Duration Met Assessment Summary Assessment Pt enters with antalgic gait, favoring her right hip and leg and they appear stiff at hip flexion and SI areas, wide BECKY and increased Tredelenburg gait. Left iiac crest is higher than right in standing before treatment. Increased tension right hip flexor and QL. Pt reports multiple abdominal and pelvic floor surgeries d/t ovarian CA including chemo, history of right MARI. X-ray right hip last year looked good. She had short in groin last year. Today, pt's symptoms do seem to be greatest at right groin area and PT favors right hip impingement type presentation and adductor tightness. Physical Therapy Plan Frequency and Duration Frequency of Treatment 2x/Week Plan of Care Start Date 11/03/23 Plan of Care End Date 01/03/24 Therapeutic Interventions Therapeutic Interventions Home Exercise Program,Joint Mobilizations,Manual Therapy, Neuromuscular Re-education, Patient/Caregiver Education, Self-Care/Home Management,Soft Tissue Mobilization, Therapeutic Activities, Therapeutic Exercises Modalities Cold Pack/Ice Massage,Hot Packs Other Referrals/Consults Referrals/Consults Recommended Consider pelvic floors buffer assessment Next Visit Focus/Plan Next Note Type Progress Note Next Visit Plan Core strengthening, lumbar mobility
--- NOTE | 2023-11-15 11:48 | PT.OTN ---
Current Diagnoses Stiffness of other specified joint, not elsewhere classified (11/15/23) Spinal stenosis, lumbar region with neurogenic claudication (11/15/23) Sacrococcygeal disorders, not elsewhere classified (11/15/23) Physical Therapy Treatment Note PT-OP-A Visit Information Start: 09/07/23 15:57 Freq: Status: Active Protocol: Document 11/15/23 09:02 MB (Rec: 11/15/23 09:50 MB [id number]) Out-Patient Physical Therapy Visit Information Visit Information Visit Type Treatment Note Visit Start Time 09:02 Visit Stop Time 09:42 Visit Number 15 Number of HEAVY EQUIPMENT SERVICE MANAGER Visits 0 Evaluation Information Evaluation Date 09/07/23 PT-OP-B Current Condition Start: 09/07/23 15:57 Freq: Status: Active Protocol: Document 09/07/23 12:00 DCW (Rec: 09/07/23 17:50 DCW [id number]) Current Condition History of Current Condition Onset Date Multi-year history Current Complaints Low back and right hip pain, gait difficulties History of Current Condition Pt is a 78 year old female well-known to this clinic presenting with a long- standing history of low back and right hip pain. Pt was seen last year for this same hip pain. At the time, therapist and patient felt she had largely plateaued, and her hip pain was likely strongly associated with back problems. Since her most recent PT discharge, she has been seen by Dr Alexis, received MRI, was found to have lumbar stenosis, and received an injection. Pt notes that her back was better for ~4 weeks following her injection, but has largely returned to pre- injection levels. Pt reports other than PT, her next options are a guided injection or surgery, so she would like to attempt PT again. Reports she has been noticing a decreased tolerance to gait, especially evident after sitting for an extended period , like during a car ride. Pain has been occasionally limiting sleep, and pt must take frequent rest breaks ( every 15 minutes) when up moving around performing house work. Prior Treatments and Tests Lumbar MRI: IMPRESSION: 1. Mild multilevel degenerative changes of the lumbar spine. 2 . There is mild central canal stenosis at L3-L4 and L4-L5. 3 . No significant neural foraminal stenosis. per Ramin Guillen M.D. on 07/11/2023 Treatment Goals Patient/Caregiver Goals Avoid surgery PT-OP-C Subjective Start: 09/07/23 15:57 Freq: Status: Active Protocol: Document 11/15/23 09:02 MB (Rec: 11/15/23 09:50 MB [id number]) OP-PT Subjective Patient Comments Patient Comments Pt states that after last PT treatment, she felt a little better and then pain moved to lateral right thigh and then to groin and LB. Pt is using a treadmill and recumbent stationary bike. PT-OP-F Manual Assessment Start: 09/07/23 15:57 Freq: Status: Active Protocol: Document 11/03/23 12:00 DCW (Rec: 11/03/23 12:40 DCW [id number]) Manual Assessments Soft Tissue Assessment Soft Tissue Mobility Assessment Moderate tone of lumbar paraspinals, R>L. Moderate tone with tenderness to palpation 2/4: Pain with wincing R hip flexors, R ITB, R Glute med PT-OP-K Range of Motion Start: 09/07/23 15:57 Freq: Status: Active Protocol: Document 11/03/23 12:00 DCW (Rec: 11/03/23 12:40 DCW [id number]) Lumbar Spine Range of Motion Lumbar Spine Active Degrees Testing Position Standing Flexion 80 Extension 20 ROM Limitations Bony Restriction,Pain PT-OP-L Special Tests Start: 09/07/23 15:57 Freq: Status: Active Protocol: Document 11/03/23 12:00 DCW (Rec: 11/03/23 12:40 DCW [id number]) Special Tests Lumbar Spine Special Tests Straight Leg Raise Test Results Negative PT-OP-M Strength Start: 09/07/23 15:57 Freq: Status: Active Protocol: Document 11/03/23 12:00 DCW (Rec: 11/03/23 12:40 DCW [id number]) Trunk Strength Trunk Manual Muscle Testing Core Stabilization Pt struggles with abdominal bracing, requires verbal and tactile cuing to contract TrA: MMT 3+/5 Hip Strength Hip Manual Muscle Testing Right Flexion (L2) 3+ Fair+ Abduction 4 Good Adduction 4 Good External Rotation 3 Fair Internal Rotation 3- Fair- Comments Inability to push against resistance largely appears to be more of a response to pain than a true muscle weakness. Left Flexion (L2) 4 Good Abduction 4 Good Adduction 4 Good External Rotation 4 Good Internal Rotation 4+ Good+ Knee Strength Knee Manual Muscle Testing Right Flexion (S2) 4 Good Extension (L3) 4 Good Left Flexion (S2) 4 Good Extension (L3) 4 Good PT-OP-Q Treatments Start: 09/07/23 15:57 Freq: Status: Active Protocol: Document 11/15/23 09:02 MB (Rec: 11/15/23 09:50 MB [id number]) Therapeutic Exercises Supine Exercises Pelvic realignment exercises Side bilateral Equipment Used Blue ball Reps/Minutes 5 rep, 3 sec hold all exercises Comments Feet together ball squeeze iso , knee opp ankle iso, thigh press down iso Manual Therapy Treatment Consent Patient gave verbal consent for manual Yes treatment Other Other Manual Treatments Pt supine with head and legs supported and very gentle soft tissue palpation and mobilizations anterior right thigh, adductors, quads and vastus lateralis today. This area of anterior right hip and thigh feel firmer and more pronounced compared to left leg. Self-Care/Home Management Treatment Education Other Education Ongoing education about findings including PT feeling that pt has multi-factorial components to pain: old abdominal and pelvic floor surgeries and weakness, mild lumbar changes per MRI and possible hip issues and need to rule out any hardware issues including pt's body no longer responding well to hardware components, don't want to miss infection, impingement type presentation especially given no pain after anterior hip injection in past and follow-up with oncology. Ed in benefits of pool therapy, stopping treadmill and recumbent biking for one week to see how she feels and starting gentle pelvic realignment exercises. Activities Self-Care/Home Management Activities See above PT-OP-T Assessment and Plan Start: 09/07/23 15:57 Freq: Status: Active Protocol: Document 11/15/23 09:02 MB (Rec: 11/15/23 09:50 MB [id number]) Physical Therapy Assessment Impairments Impairments Activity Tolerance,Functional Activities,Functional Mobility ,Gait,ROM,Soft Tissue Mobility ,Strength Goals Three Impairment Right hip and core weakness Detention Goal (LTG) Pt to exhibit increased core strength to at least 4/5 in order to improve abdominal bracing during her ADLs to decrease burden on low back LTG Duration 01/03/24 Two Impairment Pt reports sleep disturbances secondary to pain Mixer Tender Goal (LTG) Pt to report no sleep disturbances due to low back or right hip pain over a seven day period. LTG Duration 01/03/24 - improving One Impairment Pt does not have an appropriate home exercise program Short Term Goal (STG) Pt to be independent and compliant with an appropriate HEP STG Duration Met Assessment Summary Assessment R SI joint is stiff with testing today. PT feels that pt has multi-factorial issues and she walks like she has a hip issue with Tredelenburg gait, antalgic pattern, short steps and wide BECKY. The anterior right hip muscles and adductors are tight. PT does not know what anatomy of labrum is like after a total hip replacement and that is a question for the surgeon. She states that hip injection relieved pain for two weeks in the past. She may likely have lumbar and pelvic floor/ abdominal components to symptoms today. Trying something different today: pelvic realignment exercises and no treadmill or recumbent bike for a week. PT recommends aquatic PT to allow her exercises for flexibility and low impact. PT recommends follow-up with hip orthopedic surgeon and pt will get MRI report of right hip that was done at [facility] to the PT. Don 't want to miss an infection or body rejection or other hardware issues of the total hip component. Pt consistently points to right groin and also sometimes to right SI area. Pain does go down thigh. Pt states her oncologist wants to review the MRI as well. Pt does report an overpressure injury when a previous PT pushed on her right hip in Santhosh position and she had immediate pain. Pt to follow-up with oncologist as well. Con't plan and note if she feels better with stopping bike and treadmill and with alignment exercises. Con't to monitor and pt's presentation is complicated. Physical Therapy Plan Frequency and Duration Frequency of Treatment 2x/Week Plan of Care Start Date 11/03/23 Plan of Care End Date 01/03/24 Therapeutic Interventions Therapeutic Interventions Home Exercise Program,Joint Mobilizations,Manual Therapy, Neuromuscular Re-education, Patient/Caregiver Education, Self-Care/Home Management,Soft Tissue Mobilization, Therapeutic Activities, Therapeutic Exercises Modalities Cold Pack/Ice Massage,Hot Packs Other Referrals/Consults Referrals/Consults Recommended Consider pelvic spring floor service worker assessment, consider pool therapy with HEAVY EQUIPMENT SERVICE MANAGER at [facility] Next Visit Focus/Plan Next Note Type Treatment Note Next Visit Plan Con't per POC, review pelvic realignment exercises, core strengthening, lumbar mobility , manual work
--- NOTE | 2023-11-28 09:45 | PT.OTN ---
Current Diagnoses Stiffness of other specified joint, not elsewhere classified (11/28/23) Spinal stenosis, lumbar region with neurogenic claudication (11/28/23) Sacrococcygeal disorders, not elsewhere classified (11/28/23) Physical Therapy Treatment Note PT-OP-A Visit Information Start: 09/07/23 15:57 Freq: Status: Active Protocol: Document 11/28/23 09:02 MB (Rec: 11/28/23 09:44 MB [id number]) Out-Patient Physical Therapy Visit Information Visit Information Visit Type Treatment Note Visit Note Progress note next treatment Visit Start Time 09:02 Visit Stop Time 09:42 Visit Number 16 Number of UNIFORMS SALES REPRESENTATIVE Visits 0 Evaluation Information Evaluation Date 09/07/23 PT-OP-B Current Condition Start: 09/07/23 15:57 Freq: Status: Active Protocol: Document 09/07/23 12:00 DCW (Rec: 09/07/23 17:50 DCW [id number]) Current Condition History of Current Condition Onset Date Multi-year history Current Complaints Low back and right hip pain, gait difficulties History of Current Condition Pt is a 78 year old female well-known to this clinic presenting with a long- standing history of low back and right hip pain. Pt was seen last year for this same hip pain. At the time, therapist and patient felt she had largely plateaued, and her hip pain was likely strongly associated with back problems. Since her most recent PT discharge, she has been seen by Dr Alexis, received MRI, was found to have lumbar stenosis, and received an injection. Pt notes that her back was better for ~4 weeks following her injection, but has largely returned to pre- injection levels. Pt reports other than PT, her next options are a guided injection or surgery, so she would like to attempt PT again. Reports she has been noticing a decreased tolerance to gait, especially evident after sitting for an extended period , like during a car ride. Pain has been occasionally limiting sleep, and pt must take frequent rest breaks ( every 15 minutes) when up moving around performing house work. Prior Treatments and Tests Lumbar MRI: IMPRESSION: 1. Mild multilevel degenerative changes of the lumbar spine. 2 . There is mild central canal stenosis at L3-L4 and L4-L5. 3 . No significant neural foraminal stenosis. per Ramin Guillen M.D. on 07/11/2023 Treatment Goals Patient/Caregiver Goals Avoid surgery PT-OP-C Subjective Start: 09/07/23 15:57 Freq: Status: Active Protocol: Document 11/28/23 09:02 MB (Rec: 11/28/23 09:44 MB [id number]) OP-PT Subjective Patient Comments Patient Comments Pt states that her oncologist said she would have to talk with her PCP about hip MRI and Dr. Alexis said everything is coming from her back. Pt states that stopping the eliptical and recumbent bike didn't change her pain. Pain now has moved to anterior thigh and ongoin right SI area . The pain moves around daily. PT-OP-F Manual Assessment Start: 09/07/23 15:57 Freq: Status: Active Protocol: Document 11/03/23 12:00 DCW (Rec: 11/03/23 12:40 DCW [id number]) Manual Assessments Soft Tissue Assessment Soft Tissue Mobility Assessment Moderate tone of lumbar paraspinals, R>L. Moderate tone with tenderness to palpation 2/4: Pain with wincing R hip flexors, R ITB, R Glute med PT-OP-K Range of Motion Start: 09/07/23 15:57 Freq: Status: Active Protocol: Document 11/03/23 12:00 DCW (Rec: 11/03/23 12:40 DCW [id number]) Lumbar Spine Range of Motion Lumbar Spine Active Degrees Testing Position Standing Flexion 80 Extension 20 ROM Limitations Bony Restriction,Pain PT-OP-L Special Tests Start: 09/07/23 15:57 Freq: Status: Active Protocol: Document 11/03/23 12:00 DCW (Rec: 11/03/23 12:40 DCW [id number]) Special Tests Lumbar Spine Special Tests Straight Leg Raise Test Results Negative PT-OP-M Strength Start: 09/07/23 15:57 Freq: Status: Active Protocol: Document 11/03/23 12:00 DCW (Rec: 11/03/23 12:40 DCW [id number]) Trunk Strength Trunk Manual Muscle Testing Core Stabilization Pt struggles with abdominal bracing, requires verbal and tactile cuing to contract TrA: MMT 3+/5 Hip Strength Hip Manual Muscle Testing Right Flexion (L2) 3+ Fair+ Abduction 4 Good Adduction 4 Good External Rotation 3 Fair Internal Rotation 3- Fair- Comments Inability to push against resistance largely appears to be more of a response to pain than a true muscle weakness. Left Flexion (L2) 4 Good Abduction 4 Good Adduction 4 Good External Rotation 4 Good Internal Rotation 4+ Good+ Knee Strength Knee Manual Muscle Testing Right Flexion (S2) 4 Good Extension (L3) 4 Good Left Flexion (S2) 4 Good Extension (L3) 4 Good PT-OP-Q Treatments Start: 09/07/23 15:57 Freq: Status: Active Protocol: Document 11/28/23 09:02 MB (Rec: 11/28/23 09:44 MB [id number]) Therapeutic Exercises Supine Exercises Santhosh stretch Side bilateral Comments Opposite knee to chest and stay at side of bed Pelvic realignment exercises Side bilateral Equipment Used Blue ball Reps/Minutes 5 rep, 3 sec hold all exercises Comments Feet together ball squeeze iso , knee opp ankle iso, thigh press down iso Manual Therapy Treatment Consent Patient gave verbal consent for manual Yes treatment Other Other Manual Treatments Pt supine and STM right hip flexor, TrP treatment right vastus lateralis and rectus Self-Care/Home Management Treatment Education Other Education Ongoing discussion about findings and plan forward, recs. Pt to see Dr. Savage in January and she will consider pool therapy in the future PT-OP-T Assessment and Plan Start: 09/07/23 15:57 Freq: Status: Active Protocol: Document 11/28/23 09:02 MB (Rec: 11/28/23 09:44 MB [id number]) Physical Therapy Assessment Goals Three Impairment Right hip and core weakness Business Process Expert Goal (LTG) Pt to exhibit increased core strength to at least 4/5 in order to improve abdominal bracing during her ADLs to decrease burden on low back LTG Duration 01/03/24 Two Impairment Pt reports sleep disturbances secondary to pain Business Process Expert Goal (LTG) Pt to report no sleep disturbances due to low back or right hip pain over a seven day period. LTG Duration 01/03/24 - improving One Impairment Pt does not have an appropriate home exercise program Short Term Goal (STG) Pt to be independent and compliant with an appropriate HEP STG Duration Met Assessment Summary Assessment Pt to follow-up with primary PT for progress note next treatment. Pt was no examined but oncologist did not feel there is a concern from her point of view regarding pt's pain and Dr. Alexis feels like the issue is from her spine, though he didn't examine pt either in most recent discussion. Pt is not progressing much over PT course for spine care. This PT con't to feel that her gait pattern warrants looking into her MARI hardware acceptance/ hip etc. She has trendelenburg gait and more pain with WB in the morning. 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 Her presentation is complicated. Next plan could be trying pool therapy with UNIFORMS SALES REPRESENTATIVE in pool and possible pelvic floor PT. Pt is going to see new PCP, Dr. Savage, in January and this PT will send this note to her to review in hopes to coordinate care for pt. PT would love to have Dr. Savage watch pt walk and to help figure out one thing to change that could improve pt's pain. Physical Therapy Plan Frequency and Duration Frequency of Treatment 2x/Week Plan of Care Start Date 11/03/23 Plan of Care End Date 01/03/24 Therapeutic Interventions Therapeutic Interventions Home Exercise Program,Joint Mobilizations,Manual Therapy, Neuromuscular Re-education, Patient/Caregiver Education, Self-Care/Home Management,Soft Tissue Mobilization, Therapeutic Activities, Therapeutic Exercises Modalities Cold Pack/Ice Massage,Hot Packs Other Referrals/Consults Referrals/Consults Recommended Consider pelvic sales floor team leader assessment, consider pool therapy with UNIFORMS SALES REPRESENTATIVE at [facility] Next Visit Focus/Plan Next Note Type Progress Note Next Visit Plan Con't per POC, core strengthening, lumbar mobility , manual work
--- NOTE | 2023-12-04 12:02 | PT.OTN ---
Current Diagnoses Stiffness of other specified joint, not elsewhere classified (12/04/23) Spinal stenosis, lumbar region with neurogenic claudication (12/04/23) Sacrococcygeal disorders, not elsewhere classified (12/04/23) Physical Therapy Treatment Note PT-OP-A Visit Information Start: 09/07/23 15:57 Freq: Status: Active Protocol: Document 12/04/23 11:15 DCW (Rec: 12/04/23 12:01 DCW [id number]) Out-Patient Physical Therapy Visit Information Visit Information Visit Type Progress Note Visit Start Time 11:15 Visit Stop Time 12:00 Visit Number 17 Number of TRAVEL SALES CONSULTANT Visits 0 Evaluation Information Evaluation Date 09/07/23 PT-OP-B Current Condition Start: 09/07/23 15:57 Freq: Status: Active Protocol: Document 09/07/23 12:00 DCW (Rec: 09/07/23 17:50 DCW [id number]) Current Condition History of Current Condition Onset Date Multi-year history Current Complaints Low back and right hip pain, gait difficulties History of Current Condition Pt is a 78 year old female well-known to this clinic presenting with a long- standing history of low back and right hip pain. Pt was seen last year for this same hip pain. At the time, therapist and patient felt she had largely plateaued, and her hip pain was likely strongly associated with back problems. Since her most recent PT discharge, she has been seen by Dr Alexis, received MRI, was found to have lumbar stenosis, and received an injection. Pt notes that her back was better for ~4 weeks following her injection, but has largely returned to pre- injection levels. Pt reports other than PT, her next options are a guided injection or surgery, so she would like to attempt PT again. Reports she has been noticing a decreased tolerance to gait, especially evident after sitting for an extended period , like during a car ride. Pain has been occasionally limiting sleep, and pt must take frequent rest breaks ( every 15 minutes) when up moving around performing house work. Prior Treatments and Tests Lumbar MRI: IMPRESSION: 1. Mild multilevel degenerative changes of the lumbar spine. 2 . There is mild central canal stenosis at L3-L4 and L4-L5. 3 . No significant neural foraminal stenosis. per Ramin Guillen M.D. on 07/11/2023 Treatment Goals Patient/Caregiver Goals Avoid surgery PT-OP-C Subjective Start: 09/07/23 15:57 Freq: Status: Active Protocol: Document 12/04/23 11:15 DCW (Rec: 12/04/23 12:01 DCW [id number]) OP-PT Subjective Patient Comments Patient Comments Pt worried about lack of progress, is interested with trying either aquatic PT or pelvic floor PT to determine if they are effective to help limit ongoing pain. Pt will discuss with her PCP or ortho physicians to see if she can get a referral. PT-OP-F Manual Assessment Start: 09/07/23 15:57 Freq: Status: Active Protocol: Document 11/03/23 12:00 DCW (Rec: 11/03/23 12:40 DCW [id number]) Manual Assessments Soft Tissue Assessment Soft Tissue Mobility Assessment Moderate tone of lumbar paraspinals, R>L. Moderate tone with tenderness to palpation 2/4: Pain with wincing R hip flexors, R ITB, R Glute med PT-OP-K Range of Motion Start: 09/07/23 15:57 Freq: Status: Active Protocol: Document 11/03/23 12:00 DCW (Rec: 11/03/23 12:40 DCW [id number]) Lumbar Spine Range of Motion Lumbar Spine Active Degrees Testing Position Standing Flexion 80 Extension 20 ROM Limitations Bony Restriction,Pain PT-OP-L Special Tests Start: 09/07/23 15:57 Freq: Status: Active Protocol: Document 11/03/23 12:00 DCW (Rec: 11/03/23 12:40 DCW [id number]) Special Tests Lumbar Spine Special Tests Straight Leg Raise Test Results Negative PT-OP-M Strength Start: 09/07/23 15:57 Freq: Status: Active Protocol: Document 11/03/23 12:00 DCW (Rec: 11/03/23 12:40 DCW [id number]) Trunk Strength Trunk Manual Muscle Testing Core Stabilization Pt struggles with abdominal bracing, requires verbal and tactile cuing to contract TrA: MMT 3+/5 Hip Strength Hip Manual Muscle Testing Right Flexion (L2) 3+ Fair+ Abduction 4 Good Adduction 4 Good External Rotation 3 Fair Internal Rotation 3- Fair- Comments Inability to push against resistance largely appears to be more of a response to pain than a true muscle weakness. Left Flexion (L2) 4 Good Abduction 4 Good Adduction 4 Good External Rotation 4 Good Internal Rotation 4+ Good+ Knee Strength Knee Manual Muscle Testing Right Flexion (S2) 4 Good Extension (L3) 4 Good Left Flexion (S2) 4 Good Extension (L3) 4 Good PT-OP-Q Treatments Start: 09/07/23 15:57 Freq: Status: Active Protocol: Document 12/04/23 11:15 DCW (Rec: 12/04/23 12:01 DCW [id number]) Manual Therapy Treatment Consent Patient gave verbal consent for manual Yes treatment Soft Tissue Mobilization Lumbar Body Location Lumbar paraspinals, Piriformis Body Position Sidelying Self-Care/Home Management Treatment Education Other Education Continue to discuss pt options going forward, pt unable to see new PCP until January, so unable to request referral before then. Discussed possibility to contacting ortho office that performed her MARI. PT-OP-T Assessment and Plan Start: 09/07/23 15:57 Freq: Status: Active Protocol: Document 12/04/23 11:15 DCW (Rec: 12/04/23 12:01 DCW [id number]) Physical Therapy Assessment Impairments Impairments Activity Tolerance,Functional Activities,Functional Mobility ,Gait,ROM,Soft Tissue Mobility ,Strength Goals Three Impairment Right hip and core weakness Cadastral Surveyor Goal (LTG) Pt to exhibit increased core strength to at least 4/5 in order to improve abdominal bracing during her ADLs to decrease burden on low back LTG Duration 01/03/24 Two Impairment Pt reports sleep disturbances secondary to pain Cadastral Surveyor Goal (LTG) Pt to report no sleep disturbances due to low back or right hip pain over a seven day period. LTG Duration 01/03/24 - improving One Impairment Pt does not have an appropriate home exercise program Short Term Goal (STG) Pt to be independent and compliant with an appropriate HEP STG Duration Met Assessment Summary Assessment Minimal progression so far with skilled therapeutic intervention, will focus as possible on continuing to decrease tone and improve functional mobility, but recommend following up with PCP to discuss potential of referral for pelvic floor or aquatic therapy. Physical Therapy Plan Frequency and Duration Frequency of Treatment 2x/Week Plan of Care Start Date 11/03/23 Plan of Care End Date 01/03/24 Therapeutic Interventions Therapeutic Interventions Home Exercise Program,Joint Mobilizations,Manual Therapy, Neuromuscular Re-education, Patient/Caregiver Education, Self-Care/Home Management,Soft Tissue Mobilization, Therapeutic Activities, Therapeutic Exercises Modalities Cold Pack/Ice Massage,Hot Packs Other Referrals/Consults Referrals/Consults Recommended Consider pelvic coremaker floor assessment, consider pool therapy with TRAVEL SALES CONSULTANT at [facility] Next Visit Focus/Plan Next Note Type Treatment Note Next Visit Plan Con't per POC, core strengthening, lumbar mobility , manual work
--- NOTE | 2023-12-06 14:29 | PT.OTN ---
Current Diagnoses Stiffness of other specified joint, not elsewhere classified (12/06/23) Spinal stenosis, lumbar region with neurogenic claudication (12/06/23) Sacrococcygeal disorders, not elsewhere classified (12/06/23) Physical Therapy Treatment Note PT-OP-A Visit Information Start: 09/07/23 15:57 Freq: Status: Active Protocol: Document 12/06/23 13:47 MB (Rec: 12/06/23 14:29 MB [id number]) Out-Patient Physical Therapy Visit Information Visit Information Visit Type Treatment Note Visit Start Time 13:47 Visit Stop Time 14:30 Visit Number 18 Number of HOE RUNNER Visits 0 Evaluation Information Evaluation Date 09/07/23 PT-OP-B Current Condition Start: 09/07/23 15:57 Freq: Status: Active Protocol: Document 09/07/23 12:00 DCW (Rec: 09/07/23 17:50 DCW [id number]) Current Condition History of Current Condition Onset Date Multi-year history Current Complaints Low back and right hip pain, gait difficulties History of Current Condition Pt is a 78 year old female well-known to this clinic presenting with a long- standing history of low back and right hip pain. Pt was seen last year for this same hip pain. At the time, therapist and patient felt she had largely plateaued, and her hip pain was likely strongly associated with back problems. Since her most recent PT discharge, she has been seen by Dr Alexis, received MRI, was found to have lumbar stenosis, and received an injection. Pt notes that her back was better for ~4 weeks following her injection, but has largely returned to pre- injection levels. Pt reports other than PT, her next options are a guided injection or surgery, so she would like to attempt PT again. Reports she has been noticing a decreased tolerance to gait, especially evident after sitting for an extended period , like during a car ride. Pain has been occasionally limiting sleep, and pt must take frequent rest breaks ( every 15 minutes) when up moving around performing house work. Prior Treatments and Tests Lumbar MRI: IMPRESSION: 1. Mild multilevel degenerative changes of the lumbar spine. 2 . There is mild central canal stenosis at L3-L4 and L4-L5. 3 . No significant neural foraminal stenosis. per Ramin Guillen M.D. on 07/11/2023 Treatment Goals Patient/Caregiver Goals Avoid surgery PT-OP-C Subjective Start: 09/07/23 15:57 Freq: Status: Active Protocol: Document 12/06/23 13:47 MB (Rec: 12/06/23 14:29 MB [id number]) OP-PT Subjective Patient Comments Patient Comments Pt states that she is not getting a lot better. TrP work has been helpful. She inquires about pelvic floor rehab. She is awaiting to see Dr. Savage in January and will ask about pelvic floor rehab. PT-OP-F Manual Assessment Start: 09/07/23 15:57 Freq: Status: Active Protocol: Document 11/03/23 12:00 DCW (Rec: 11/03/23 12:40 DCW [id number]) Manual Assessments Soft Tissue Assessment Soft Tissue Mobility Assessment Moderate tone of lumbar paraspinals, R>L. Moderate tone with tenderness to palpation 2/4: Pain with wincing R hip flexors, R ITB, R Glute med PT-OP-K Range of Motion Start: 09/07/23 15:57 Freq: Status: Active Protocol: Document 11/03/23 12:00 DCW (Rec: 11/03/23 12:40 DCW [id number]) Lumbar Spine Range of Motion Lumbar Spine Active Degrees Testing Position Standing Flexion 80 Extension 20 ROM Limitations Bony Restriction,Pain PT-OP-L Special Tests Start: 09/07/23 15:57 Freq: Status: Active Protocol: Document 11/03/23 12:00 DCW (Rec: 11/03/23 12:40 DCW [id number]) Special Tests Lumbar Spine Special Tests Straight Leg Raise Test Results Negative PT-OP-M Strength Start: 09/07/23 15:57 Freq: Status: Active Protocol: Document 11/03/23 12:00 DCW (Rec: 11/03/23 12:40 DCW [id number]) Trunk Strength Trunk Manual Muscle Testing Core Stabilization Pt struggles with abdominal bracing, requires verbal and tactile cuing to contract TrA: MMT 3+/5 Hip Strength Hip Manual Muscle Testing Right Flexion (L2) 3+ Fair+ Abduction 4 Good Adduction 4 Good External Rotation 3 Fair Internal Rotation 3- Fair- Comments Inability to push against resistance largely appears to be more of a response to pain than a true muscle weakness. Left Flexion (L2) 4 Good Abduction 4 Good Adduction 4 Good External Rotation 4 Good Internal Rotation 4+ Good+ Knee Strength Knee Manual Muscle Testing Right Flexion (S2) 4 Good Extension (L3) 4 Good Left Flexion (S2) 4 Good Extension (L3) 4 Good PT-OP-Q Treatments Start: 09/07/23 15:57 Freq: Status: Active Protocol: Document 12/06/23 13:47 MB (Rec: 12/06/23 14:29 MB [id number]) Manual Therapy Treatment Consent Patient gave verbal consent for manual Yes treatment Other Other Manual Treatments STM and positional release many muscle groups with work on right vastus lateralis, right rectus, TFL and hip flexor and TrP right hip flexor and TFL Self-Care/Home Management Treatment Education Other Education Ongoing discussion about where to go from here and see assessment for details. PT-OP-T Assessment and Plan Start: 09/07/23 15:57 Freq: Status: Active Protocol: Document 12/06/23 13:47 MB (Rec: 12/06/23 14:29 MB [id number]) Physical Therapy Assessment Goals Three Impairment Right hip and core weakness Client Services Associate Goal (LTG) Pt to exhibit increased core strength to at least 4/5 in order to improve abdominal bracing during her ADLs to decrease burden on low back LTG Duration 01/03/24 Two Impairment Pt reports sleep disturbances secondary to pain Client Services Associate Goal (LTG) Pt to report no sleep disturbances due to low back or right hip pain over a seven day period. LTG Duration 01/03/24 - improving One Impairment Pt does not have an appropriate home exercise program Short Term Goal (STG) Pt to be independent and compliant with an appropriate HEP STG Duration Met Assessment Summary Assessment Pt has plateaued this OPPT course. She responded well to TrP treatments recently but no real overall improvement in gait or pain. Recommend aquatic PT at outside facility as this is not offered at and then recommend pelvic floor PT at and openings are not available until March 2024 at this time. Referred pt to PCP to ask for these referrals. This PT con't to feel something is amiss with pt's right hip d/t Tredelenburg gait and pain. 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 Will d/c PT. Physical Therapy Plan Other Referrals/Consults Referrals/Consults Recommended Consider pelvic flooring salesperson assessment, consider pool therapy with HOE RUNNER at [facility]
== END 2023-12-14 14:52 | disposition home or self-care (01) ==
LOC: PHYS 13:45
PROVIDERS: Family Provider Nurse Practitioner; PCP Nurse Practitioner; Referring Provider Physical Medicine & Rehabilitation Pain Medicine; Visit Provider Physical Medicine & Rehabilitation Pain Medicine
DX: M48.062 Spinal stenosis, lumbar region with neurogenic claudication (principal); M53.3 Sacrococcygeal disorders, not elsewhere classified; M25.69 Stiffness of other specified joint, not elsewhere classified
CPT/HCPCS: 97110; 97140; 97162; 97535

== ENCOUNTER → 2024-04-02 09:05 | Outpatient (CLI) | payer MEDICARE, SELFPAY ==
[2022-10-19 09:25] VITALS: BMI 26.0
[2024-04-02 09:36] LABS: Add Manual Diff / Slide Review NO; Basophils Absolute Auto 0 /uL (0-100); Basophils Percent Auto 0.6 % (0-2); Eosinophils Absolute Auto 100 /uL (0-450); Eosinophils Percent Auto 2.1 % (2-4); Hematocrit 41.2 % (36-46); Hemoglobin 14.1 g/dL (12.0-16.0); Lymphocytes Absolute Auto 3300 /uL (1100-4500); Lymphocytes Percent Auto 51.5 % (25-40); Mean Corpuscular HGB Conc 34.2 % (30-36); Mean Corpuscular Hemoglobin 30.8 PG (26-34); Monocytes Absolute Auto 500 /uL (0-900); Monocytes Percent Auto 8.3 % (3-14); Neutrophils Absolute Auto 2400 /uL (1500-7000); Neutrophils Percent Auto 37.5 % (50-75); Platelet Count 243 X10^3/uL (150-400); Red Blood Cell Count 4.57 X10^6/uL (4.0-5.2); Red Cell Distribution Width 13.5 % (11.6-14.8); White Blood Cell Count 6.4 X10^3/uL (4.5-11.0)
[2024-04-02 10:18] LABS: Alanine Aminotransferase 26 IU/L (<35); Albumin 4.5 g/dL (3.5-5.0); Albumin Globulin Ratio 1.7 (1.0-2.8); Alkaline Phosphatase 118 U/L (38-126); Aspartate Aminotransferase 35 IU/L (14-36); BUN Creatinine Ratio 19.2 (6-22); Bilirubin Total 0.6 mg/dL (0.2-1.3); Blood Urea Nitrogen 15 mg/dL (7-17); Calcium 9.6 mg/dL (8.4-10.2); Carbon Dioxide 28 mmol/L (22-32); Chloride 108 mmol/L (98-107); Cholesterol 151 mg/dL (140-199); Estimated Glomerular Filt Rate > 60 mL/min (>60); Globulin 2.7 g/dL (1.7-4.1); Glucose 105 mg/dL (80-110); HDL Cholesterol 75 mg/dL (40-60); HEMOLYSIS < 15 (0-50); LDL Cholesterol Calculated 48 mg/dL (<100); Potassium 4.2 mmol/L (3.4-5.1); Sodium 140 mmol/L (137-145); Total Protein 7.2 g/dL (6.3-8.2); Triglycerides 142 mg/dL (35-150)
[2024-04-02 10:59] LABS: Cancer Antigen 125 < 5.5 U/mL (0-35)
[2024-04-03 03:35] LABS: CRP, High Sensitivity 0.48 mg/L (0.00-3.00)
== END ==
PROVIDERS: PCP Family Medicine; Referring Provider Family Medicine; Visit Provider Family Medicine
DX: E78.5 Hyperlipidemia, unspecified (principal); C56.9 Malignant neoplasm of unspecified ovary; C50.919 Malignant neoplasm of unspecified site of unspecified female breast; I10 Essential (primary) hypertension
CPT/HCPCS: 36415; 80053; 80061; 85025; 86140; 86304

== ENCOUNTER → 2025-01-07 12:12 | Outpatient (CLI) | payer MEDICARE, SELFPAY ==
[2022-10-19 09:25] VITALS: BMI 26.0
[2025-01-07 12:46] LABS: Add Manual Diff / Slide Review NO; Hematocrit 41.2 % (36-46); Hemoglobin 13.9 g/dL (12.0-16.0); Lymphocytes Absolute Auto 2600 /uL (1100-4500); Mean Corpuscular HGB Conc 33.8 % (30-36); Mean Corpuscular Hemoglobin 30.2 PG (26-34); Mean Corpuscular Volume 89.3 fL (80-100); Platelet Count 248 X10^3/uL (150-400)
[2025-01-07 13:13] LABS: Alanine Aminotransferase 29 IU/L (<35); Albumin 4.7 g/dL (3.5-5.0); Albumin Globulin Ratio 1.6 (1.0-2.8); Alkaline Phosphatase 111 U/L (38-126); Blood Urea Nitrogen 10 mg/dL (7-17); Calcium 9.7 mg/dL (8.4-10.2); Carbon Dioxide 23 mmol/L (22-32); Chloride 104 mmol/L (98-107); Estimated Glomerular Filt Rate > 60 mL/min (>60); Globulin 2.9 g/dL (1.7-4.1); Glucose 101 mg/dL (70-99); HEMOLYSIS < 15 (0-50); Iron 133 ug/dL (37-170); Potassium 4.5 mmol/L (3.4-5.1); Sodium 138 mmol/L (137-145); Total Protein 7.6 g/dL (6.3-8.2)
[2025-01-07 13:23] LABS: Percent Iron Saturation 47 % (15-50); Total Iron Binding Capacity 283 ug/dL (265-497); Transferrin 263 mg/dL (206-381)
[2025-01-07 13:48] LABS: Ferritin 57 ng/mL (11-264)
== END ==
PROVIDERS: PCP Student in an Organized Health Care Education/Training Program; Referring Provider Student in an Organized Health Care Education/Training Program; Visit Provider Student in an Organized Health Care Education/Training Program
DX: R59.9 Enlarged lymph nodes, unspecified (principal)
CPT/HCPCS: 36415; 80053; 82728; 83540; 83550; 85025; 85651

== ENCOUNTER → 2025-01-13 11:53 | Outpatient (CLI) | payer MEDICARE, SELFPAY ==
[2022-10-19 09:25] VITALS: BMI 26.0
--- NOTE | 2025-01-13 11:54 | DI.US.S_ITS ---
PROCEDURE: US SOFT TISSUE HEAD AND NECK INDICATIONS: Swollen lymph node of neck/ left side TECHNIQUE: Real-time scanning was performed of the neck region of interest, with image documentation. COMPARISON: None. FINDINGS: Sonographic images the left supraclavicular region demonstrate no mass, fluid collection or architectural distortion. IMPRESSION: Unremarkable exam. Dictated by: Geneva Willson M.D. on 01/13/2025 at 16:01 Approved by: Geneva Willson M.D. on 01/13/2025 at 16:01
== END ==
PROVIDERS: PCP Student in an Organized Health Care Education/Training Program; Referring Provider Student in an Organized Health Care Education/Training Program; Visit Provider Student in an Organized Health Care Education/Training Program
DX: R59.1 Generalized enlarged lymph nodes (principal)
CPT/HCPCS: 76536